=== PATIENT | female | born 1960 | race Caucasian/White ===

== ENCOUNTER 2023-12-22 00:46 | Observation (INO) ==
[2023-12-22 01:07] VITALS: RESP 16; TEMP 99
[2023-12-22 02:30] LABS: Basophils # (auto) 0.04 K/uL (0.00-0.20); Basophils % (auto) 0.5 %; Eosinophils # (auto) 0.23 K/uL (0.00-0.50); Eosinophils % (auto) 2.8 %; Hematocrit (blood only) 37.5 % (37.0-47.0); Immature Granulocytes # (auto) 0.03 K/uL (0.01-0.20); Immature Granulocytes % (auto) 0.4 %; Lymphocytes # (auto) 1.85 K/uL (1.20-3.40); Lymphocytes % (auto) 22.2 %; Mean Corpuscular Hemoglobin 32.4 pg (25.0-34.0); Mean Corpuscular Hgb Conc 34.7 g/dL (32.0-36.0); Mean Corpuscular Volume 93.5 fL (80.0-100.0); Mean Platelet Volume 10.3 fL (9.4-12.4); Monocytes # (auto) 0.92 K/uL (0.11-0.59); Neutrophils # (auto) 5.26 K/uL (1.40-6.50); Neutrophils % (auto) 63.1 %; Platelet Count 239 K/uL (130-400); RDW Coefficient of Variation 18.5 % (11.5-14.5); RDW Standard Deviation 61.4 fL (36.4-46.3); Red Blood Count 4.01 M/uL (4.20-5.40); White Blood Count 8.33 K/ul (4.8-10.8)
[2023-12-22 02:38] LABS: Alanine Aminotransferase 18 U/L (7-52); Albumin Globulin Ratio 1.3 (0.9-2); Albumin Level 3.8 gm/dl (3.4-5.0); Alkaline Phosphatase 71 U/L (34-104); Anion Gap 8 (3-11); BUN Creatinine Ratio 20.5 (10-20); Bilirubin,Total 0.5 mg/dl (0.2-1.0); Blood Urea Nitrogen 18 mg/dl (6-23); Calcium 8.6 mg/dl (8.6-10.3); Carbon Dioxide 25 mmol/L (21-32); Chloride 104 mmol/L (98-107); Creatinine Clr Calc Pharmacy 87.4 ml/min; Est GFR (African American) 81.6 ml/min; Est GFR (Non-African American) 70.4 ml/min; Glucose 120 mg/dl (70-99(Fasting)); Sodium 137 mmol/L (136-145); Thyroid Stimulating Hormone 5.892 uIu/ml (0.300-4.500); Total Protein 6.8 gm/dl (6.0-8.3)
--- NOTE | 2023-12-22 02:39 | Emergency Department Note ---
Impression & Plan TIA (transient ischemic attack) admit to the [facility] ED Provider Note NAME: TYRONE VANEGAS AGE: 63 SEX: Female INFORMANT: Patient ED PROVIDER(S): Aurora Barraza DO CHIEF COMPLAINT: weakness PLAN: Disposition: admit to the [facility] MEDICAL DECISION MAKING: this is a 63-year-old female patient with a history of metastatic breast cancer presents to the emergency department after having an episode of lower extremity weakness and slurred speech. the patient had waxing and waning symptoms during transport by EMS. Patient has a history of metastatic brain cancer with possible mets to the brain. CT scan of the brain here tonight was negative. I did review a previous MRI of the brain from September 2023 in the [facility] system. Laboratory studies revealed no leukocytosis or anemia. Glucose was 120. Analysis was unremarkable. TSH was elevated but free T4 was normal. Neuro exam here in the emergency department was unremarkable. Patient's symptoms Seem consistent with a TIA. I discussed case with the [facility] Hospitalist and they will evaluate for further inpatient care. Care/management discussed with: The patient and her Triage Nursing notes: reviewed and agree with them. Vital Signs: reviewed and remarkable for hypertension Additional History obtained from: patient's is at the bedside Chronic Medical/Social Conditions affecting care: Metastatic breast cancer Prior/ Outside/ External records reviewed: multiple records from [facility] including MRI of the brain and PET scan from September 2023 Differential Diagnosis: intracranial hemorrhage, CVA, metastatic disease to the brain, seizure Diagnostics, independently interpreted by me: ECG: normal sinus rhythm at a rate of 92 with a poor baseline. There is no ST segment elevation or signs of ischemia. Cardiac Monitoring: Normal sinus rhythm at a rate of 87 Imaging studies: CT scan of the brain: As per stat rad chest x-ray: No acute pulmonary pathology as per my independent interpretation. The patient has significant hardware through the cervical spine. HPI: 63 year old Female arrives for evaluation of lower extremity weakness. Patient got up to go to the bathroom overnight and had extreme weakness in her legs. She came back to the bed as her tried to help her sit on the edge of the bed, she slid to the floor. He called for EMS. Patient was noted to have slurred speech and was leaning off to 1 side. It seems that her right lower extremity was numb and tingling and she felt as if her tongue was thick. PAST MEDICAL HISTORY: See Below, PAST SURGICAL HISTORY: See Below, SOCIAL HISTORY: See Below, HOME MEDICATIONS: See list ALLERGIES: sulfa VITALS: See Below PHYSICAL EXAMINATION: HEENT: Head - normocephalic and atraumatic. Pupils are equal, round, and reactive to light. Extraocular eye muscles are intact and sclera are anicteric. Nose - moist nasal mucosa without discharge. Mouth - moist buccal mucosa. Oropharynx is nonerythematous and there is no tonsillar exudate or edema noted. Neck: Supple; no JVD, nuchal rigidity, cervical lymphadenopathy, or auscultated bruits. Heart: Regular rate and rhythm. There is a normal S1 and S2 with no murmurs, clicks, or gallops appreciated. Lungs: Clear to auscultation bilaterally with no wheezes, rales, or rhonchi. Abdomen: Soft, completely nontender, nondistended, with good bowel sounds. There are no palpable pulsatile masses or hepatosplenomegaly. There is no guarding, rigidity, or rebound noted. Extremities: No evidence of cyanosis, clubbing, or edema. There are easily palpable peripheral pulses. Neuro:The patient is awake and alert, oriented to day, time, and place. Muscle strength is 5/5 in all 4 extremities. 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 There are no cerebellar signs. Emergency department course: The patient was evaluated in room B-6. A complete history and physical was performed. A twelve-lead EKG was obtained as described above. Normal was placed for continuous cardiac monitoring. The patient was in a normal sinus rhythm at a rate of 87. Laboratory studies were drawn as above. The patient went for CT scan of the brain. Urine specimen was obtained. I reviewed the results of the laboratory studies and CT scan with the patient and her . I discussed the case with the [facility] Hospitalist and they will evaluate for further inpatient care. Past Med/Surg History Problem List (Updated 12/22/23 @ 06:41 by Aurora Barraza DO) TIA (transient ischemic attack) (Acute) Brain metastasis (Chronic) Breast cancer metastasized to multiple sites (Chronic 08/16/21) Environmental and seasonal allergies GERD (gastroesophageal reflux disease) Raynauds syndrome (Chronic) Asthma (Chronic) 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 breast in female, estrogen receptor positive (Chronic) Medical History (Updated 12/22/23 @ 06:41 by Aurora Barraza DO) Port-A-Cath in place (09/03/21) Breast cancer Diagnosed 02/26/18, Invasive Carcinoma lumpectomy, radiations, Anastrozole therapy Benign neoplasm of colon 2011 Surgical History (Updated 09/10/21 @ 08:21 by Leonor Akhtar RN) History of back surgery (08/20/21) Endoscopic Transforaminal, Transpedicular Partial Posterior Corpectomy of T3 + Open T2-T4 Laminectomies + Partial Resection of Metastatic Tumor +Transection of T3 Nerve Root + Percutaneous Pedicular Screw Instrumentation of T1, T2, T4, T5 Right and T2, T4, T5 Left + Bilateral Posterior Juan Placement Dr. Lorenzo Gallardo at [facility] History of ethmoidectomy 07/31/08 - Partial with repair of nasal septum History of sinus surgery 07/31/08, 12/15/11 - Maxillary Sinus Endoscopy with Tissue Removal History of lumpectomy of right breast 04/11/18 - and sentinal lymph node biopsy History of dental surgery 1991, 1992 - Jaw/Palate for bite History of pelvic surgery 1987 - Cryocautery of Cervix History of colonoscopy 2011, 2016 Family History (Updated 05/30/18 @ 09:22 by Mónica Melendez RN) Mother , Passed age 83 of parkinson's disease complications No problems noted. Father , Passed age 40 of [place] No problems noted. Unknown Breast cancer, Onset Age: 65 Alive and well - mastectomy Unknown , Passed age 62 of Pancreatic [place] Pancreatic cancer, Onset Age: 63 Brother No problems noted. Brother No problems noted. Sister No problems noted. Sister No problems noted. Social History Smoking Status: Never smoker Hx Alcohol Use: No Hx Substance Use: No Preferred Language: Argentine Communication Ability: Effective Visual Impairment: Limited Hearing Ability: Normal Pump Room Operator Required: No Beliefs That Will Affect Care: None marital status: Current Living Situation: Spouse current occupational status: employed current occupation: [employer] Other Information That Helps Us Care for You: No Feels Safe at Home: Yes Safety Concerns: Feels Safe At This Time caffeine: Yes (Occasionally ) during the past year weight has: increased > 10 lbs Assistive Devices: Glasses Allergies Allergies Allergy/AdvReac Type Severity Reaction Status Date / Time Sulfa (Sulfonamide Allergy Mild Rash Verified 12/22/23 04:27 Antibiotics) Home Meds Home Medications Medication Instructions Recorded Confirmed albuterol sulfate 90 mcg/actuation 2 puffs inhalation Q6H PRN 05/30/18 12/22/23 aerosol inhaler (Proventil HFA) Shortness Of Breath Or Wheezing azelastine 137 mcg (0.1 %) nasal 2 sprays intranasal BID 05/30/18 12/22/23 spray meclizine 12.5 mg tablet 12.5 mg PO TID PRN car sickness 05/30/18 12/22/23 montelukast 10 mg tablet 10 mg PO DAILY 05/30/18 12/22/23 (Singulair) multivitamin 1 tab PO DAILY 05/30/18 12/22/23 vitamin B complex (B Complex 1 1 tab PO DAILY 05/30/18 12/22/23 tablet) famotidine 20 mg tablet 20 mg PO BID 02/12/19 12/22/23 levocetirizine 5 mg tablet (Xyzal) 5 mg PO DAILY 02/18/20 12/22/23 aspirin 81 mg tablet,delayed 81 mg PO DAILY 02/22/22 12/22/23 release Calcium + D 3 cap PO DAILY 04/27/22 12/22/23 acetaminophen 500 mg tablet 500 mg PO Q6H PRN Pain, Mild 04/27/22 12/22/23 (Tylenol Extra Strength) esomeprazole magnesium 20 mg 20 mg PO DAILY 04/27/22 12/22/23 capsule,delayed release fluticasone propionate 50 2 spray intranasal DAILY 04/27/22 12/22/23 mcg/actuation nasal spray,suspension ondansetron HCl 8 mg tablet 8 mg PO Q8H PRN Nausea 04/27/22 12/22/23 prochlorperazine maleate 10 mg 10 mg PO Q6H PRN Nausea 04/27/22 12/22/23 tablet (Compazine) sodium chloride 0.65 % nasal spray 1 spray intranasal .Q2-4H PRN dry 04/27/22 12/22/23 aerosol (Saline Mist) nasal passages/congestion vitamin E 200 unit capsule 100 unit PO DAILY 04/27/22 12/22/23 denosumab 120 mg/1.7 mL (70 mg/mL) 120 mg subcut .q 6 weeks 09/06/22 12/22/23 subcutaneous solution (Xgeva) capecitabine 500 mg tablet (Xeloda) 1,300 mg PO .As directed 03/15/23 12/22/23 potassium chloride 20 mEq 20 meq PO DAILY 03/15/23 12/22/23 tablet,extended release diphenoxylate-atropine 2.5 1 tab PO Q6H PRN Diarrhea 09/13/23 12/22/23 mg-0.025 mg tablet (Lomotil) loperamide 2 mg capsule (Imodium 2 mg PO Q6H PRN Diarrhea 09/13/23 12/22/23 A-D) tucatinib 150 mg tablet 250 mg PO Q12H 09/13/23 12/22/23 clobetasol 0.05 % topical cream 0.05 g topical BID 12/22/23 12/22/23 fluticasone furoate 200 200 mcg inhalation DAILY 12/22/23 12/22/23 mcg/actuation blister powder for inhalation (Arnuity Ellipta) Results & Data (ED) Vital Signs Vital Signs - 24 hr 12/22/23 00:33 12/22/23 00:33 12/22/23 00:54 Temperature 37.2 C Temperature Source Oral Pulse Rate 90 92 H Pulse Rate [Apical] Pulse Rhythm [Apical] Pulse Strength [Apical] Respiratory Rate 16 Respiratory Effort / Characteristics Non-Labored Non-Labored Respiratory Depth Normal Normal Blood Pressure 137/87 Blood Pressure [Right Arm] Blood Pressure Mean 103 Blood Pressure Mean [Right Arm] Pulse Oximetry 95 Oxygen Delivery Method Room Air Sepsis Recent Fever Within 48 Hours No Sepsis New/Unexplained Change in Mental Status No Sepsis Action Taken by Nursing No Action Required 12/22/23 01:46 12/22/23 02:33 12/22/23 05:23 Temperature Temperature Source Pulse Rate 88 Pulse Rate [Apical] 85 Pulse Rhythm [Apical] Regular Pulse Strength [Apical] Normal Respiratory Rate 16 Respiratory Effort / Characteristics Non-Labored Spontaneous Respiratory Depth Normal Blood Pressure Blood Pressure [Right Arm] 160/88 H Blood Pressure Mean Blood Pressure Mean [Right Arm] 112 Pulse Oximetry 98 Oxygen Delivery Method Room Air Room Air Sepsis Recent Fever Within 48 Hours Sepsis New/Unexplained Change in Mental Status Sepsis Action Taken by Nursing 12/22/23 06:47 Temperature Temperature Source Pulse Rate Pulse Rate [Apical] 87 Pulse Rhythm [Apical] Regular Pulse Strength [Apical] Respiratory Rate 16 Respiratory Effort / Characteristics Non-Labored Respiratory Depth Normal Blood Pressure Blood Pressure [Right Arm] 119/82 Blood Pressure Mean Blood Pressure Mean [Right Arm] 94 Pulse Oximetry 99 Oxygen Delivery Method Room Air Sepsis Recent Fever Within 48 Hours Sepsis New/Unexplained Change in Mental Status Sepsis Action Taken by Nursing Laboratory Data 12/22/23 00:59 12/22/23 02:46 Lab Results 12/22/23 12/22/23 12/22/23 Range/Units 00:59 02:46 03:02 WBC 8.33 (4.8-10.8) K/ul RBC 4.01 L (4.20-5.40) M/uL Hgb 13.0 (12.0-16.0) g/dl Hct 37.5 (37.0-47.0) % MCV 93.5 (80.0-100.0) fL MCH 32.4 (25.0-34.0) pg MCHC 34.7 (32.0-36.0) g/dL RDW Std Deviation 61.4 H (36.4-46.3) fL RDW Coeff of Bruce 18.5 H (11.5-14.5) % Plt Count 239 (130-400) K/uL MPV 10.3 (9.4-12.4) fL Immature Gran % (Auto) 0.4 % Neut % (Auto) 63.1 % Lymph % (Auto) 22.2 % [place] % (Auto) 11.0 % Eos % (Auto) 2.8 % Baso % (Auto) 0.5 % Neut # (Auto) 5.26 (1.40-6.50) K/uL Lymph # (Auto) 1.85 (1.20-3.40) K/uL [place] # (Auto) 0.92 H (0.11-0.59) K/uL Eos # (Auto) 0.23 (0.00-0.50) K/uL Baso # (Auto) 0.04 (0.00-0.20) K/uL Immature Gran # (Auto) 0.03 (0.01-0.20) K/uL Sodium 137 (136-145) mmol/L Potassium TNP 3.8 Chloride 104 (98-107) mmol/L Carbon Dioxide 25 (21-32) mmol/L Anion Gap 8 (3-11) BUN 18 (6-23) mg/dl Creatinine 0.88 (0.6-1.2) mg/dl Est Cr Clr Drug Dosing 87.4 ml/min Est GFR ( Amer) 81.6 ml/min Est GFR (Non-Af Amer) 70.4 ml/min BUN/Creatinine Ratio 20.5 H (10-20) Glucose 120 H (70-99(Fasting)) mg/dl Calcium 8.6 (8.6-10.3) mg/dl Magnesium 1.9 (1.7-2.4) mg/dl Total Bilirubin 0.5 (0.2-1.0) mg/dl AST TNP 18 ALT 18 (7-52) U/L Alkaline Phosphatase 71 (34-104) U/L Total Protein 6.8 (6.0-8.3) gm/dl Albumin 3.8 (3.4-5.0) gm/dl Globulin 3.0 (2.5-4.0) gm/dl Albumin/Globulin Ratio 1.3 (0.9-2) TSH 5.892 H (0.300-4.500) uIu/ml Free T4 1.03 (0.61-1.60) ng/dl Urine Color Yellow Urine Appearance Clear (Clear) Urine pH 6.0 (4.5-7.5) Ur Specific [place] 1.008 (1.000-1.030) Urine Protein Negative (Negative) Urine Glucose (UA) Negative (Negative) Urine Ketones Negative (Negative) Urine Blood Negative (Negative) Urine Nitrite Negative (Negative) Urine Bilirubin Negative (Negative) Urine Urobilinogen Negative (Negative) Ur Leukocyte Esterase 1+ H (Negative) Urine WBC (Auto) 0-5 (0-5) /hpf Urine RBC (Auto) 0-2 (0-2) /hpf U Hyaline Cast (Auto) 0-2 (0-2) /lpf U Epithel Cells (Auto) 0-2 (0-2) /hpf Urine Bacteria (Auto) None Seen (None Seen) Administered Medications Potassium Chloride/Sodium Chloride (Normal Saline W/20 Meq Kcl) 20 meq in 1,000 mls @ 50 mls/hr IV .Q20H STA; Protocol Stop: 12/23/23 00:26 Last Admin: 12/22/23 05:43 Dose: 50 mls/hr Documented By: [facility] Discontinued Medications Gadobutrol (Gadobutrol 65ml Vial) 10.5 ml IV ONCE ONE Stop: 12/22/23 07:36 Last Admin: 12/22/23 07:35 Dose: 10.5 ml Documented By: [facility] Imaging Data Radiologist's Impression: Head CT 12/22/23 01:46 Exam(s): CT HEAD Without Contrast EXAM: CT Head Without Intravenous Contrast CLINICAL HISTORY: Reason for exam: altered ms; h/o breast ca. TECHNIQUE: Axial computed tomography images of the head/brain without intravenous contrast. CTDI is 36.55 mGy and DLP is 547.75 mGy-cm. Automated exposure control was utilized for the study. A dose lowering technique was utilized adhering to the principles of ALARA. COMPARISON: No relevant prior studies available. FINDINGS: Brain: Age-related cerebral volume loss. Periventricular and subcortical white matter hypoattenuation, consistent with chronic microangiopathy. Encephalomalacia in the RIGHT frontal lobe, consistent with old infarct. No acute intracranial hemorrhage. No midline shift or mass effect. Ventricles: Unremarkable. No ventriculomegaly. Bones/joints: Unremarkable. No acute fracture. Soft tissues: Unremarkable. Sinuses: Unremarkable as visualized. No acute sinusitis. Mastoid air cells: Unremarkable as visualized. No mastoid effusion. IMPRESSION: No acute intracranial hemorrhage. No midline shift or mass effect. Encephalomalacia in the RIGHT frontal lobe, consistent with old infarct. Electronically signed by: Alexandru Samayoa MD 12/22/23 03:20 AM Discharge Plan Visit Data Chief Complaint: Fall Stated Complaint: Weakness, Fall ED Provider: Aurora Barraza Discharge Problem: TIA (transient ischemic attack) Forms Stand Alone Forms: [facility] [place] Prescriptions Prescriptions: No Action levocetirizine [Xyzal] 5 mg tablet 5 mg PO DAILY fluticasone propionate 50 mcg/actuation spray,suspension 2 spray intranasal DAILY Rx Instructions: administer into each nostril esomeprazole magnesium 20 mg capsule,delayed release(DR/EC) 20 mg PO DAILY Rx Instructions: 30 minutes before supper ondansetron HCl 8 mg tablet 8 mg PO Q8H PRN (Reason: Nausea) prochlorperazine maleate [Compazine] 10 mg tablet 10 mg PO Q6H PRN (Reason: Nausea) azelastine 137 mcg (0.1 %) aerosol,spray 2 sprays INTNAS BID albuterol sulfate [Proventil HFA] 90 mcg/actuation HFA aerosol inhaler 2 puffs INH Q6H PRN (Reason: Shortness Of Breath Or Wheezing) meclizine 12.5 mg tablet 12.5 mg PO TID PRN (Reason: car sickness) montelukast [Singulair] 10 mg tablet 10 mg PO DAILY vitamin B complex [B Complex 1] tablet 1 tab PO DAILY multivitamin tablet 1 tab PO DAILY famotidine 20 mg tablet 20 mg PO BID Saline Mist 0.65 % aerosol,spray 1 spray INTNAS .Q2-4H PRN (Reason: dry nasal passages/congestion) vitamin E 200 unit capsule 100 unit PO DAILY Calcium + D 3 cap PO DAILY acetaminophen [Tylenol Extra Strength] 500 mg tablet 500 mg PO Q6H PRN (Reason: Pain, Mild) aspirin 81 mg tablet,delayed release (DR/EC) 81 mg PO DAILY Xgeva 120 mg/1.7 mL (70 mg/mL) solution 120 mg subcut .q 6 weeks capecitabine [Xeloda] 500 mg tablet 1,300 mg PO .As directed Rx Instructions: Take 4 tablets by mouth in the morning and 4 tablets before bedtime. FOr 7 days followed by a 7 day rest period. Take within 30 minutes of a meal. DO not crush or cut tucatinib 150 mg tablet 250 mg PO Q12H potassium chloride 20 mEq tablet extended release 20 meq PO DAILY loperamide [Imodium A-D] 2 mg capsule 2 mg PO Q6H PRN (Reason: Diarrhea) diphenoxylate-atropine [Lomotil] 2.5-0.025 mg tablet 1 tab PO Q6H PRN (Reason: Diarrhea) clobetasol 0.05 % cream 0.05 g TOPICAL BID Arnuity Ellipta 200 mcg/actuation blister with device 200 mcg INHALATION DAILY Referrals Referrals: Aleksandr Parker MD [Primary Care Provider] -
--- NOTE | 2023-12-22 03:21 | CT Scan Report ---
Exam(s): CT HEAD Without Contrast EXAM: CT Head Without Intravenous Contrast CLINICAL HISTORY: Reason for exam: altered ms; h/o breast ca. TECHNIQUE: Axial computed tomography images of the head/brain without intravenous contrast. CTDI is 36.55 mGy and DLP is 547.75 mGy-cm. Automated exposure control was utilized for the study. A dose lowering technique was utilized adhering to the principles of ALARA. COMPARISON: No relevant prior studies available. FINDINGS: Brain: Age-related cerebral volume loss. Periventricular and subcortical white matter hypoattenuation, consistent with chronic microangiopathy. Encephalomalacia in the RIGHT frontal lobe, consistent with old infarct. No acute intracranial hemorrhage. No midline shift or mass effect. Ventricles: Unremarkable. No ventriculomegaly. Bones/joints: Unremarkable. No acute fracture. Soft tissues: Unremarkable. Sinuses: Unremarkable as visualized. No acute sinusitis. Mastoid air cells: Unremarkable as visualized. No mastoid effusion. IMPRESSION: No acute intracranial hemorrhage. No midline shift or mass effect. Encephalomalacia in the RIGHT frontal lobe, consistent with old infarct. Electronically signed by: Alexandru Samayoa MD 12/22/23 03:20 AM
[2023-12-22 03:49] LABS: Appearance Urine Clear (Clear); Bacteria Urine Automated None Seen (None Seen); Bilirubin Urine Negative (Negative); Blood Urine Negative (Negative); Cast Urine Automated 0-2 /lpf (0-2); Color Urine Yellow; Epithelial Cell Urine Auto 0-2 /hpf (0-2); Glucose Urine UA Negative (Negative); Ketones Urine Negative (Negative); Leukocyte Esterase Urine 1+ (Negative); Nitrite Urine Negative (Negative); Protein Urine Negative (Negative); RBC Urine Automated 0-2 /hpf (0-2); Specific Gravity Urine 1.008 (1.000-1.030); Urobilinogen Urine Negative (Negative); WBC Urine Automated 0-5 /hpf (0-5)
[2023-12-22 04:09] LABS: T4 Free Thyroxine 1.03 ng/dl (0.61-1.60)
[2023-12-22 04:12] LABS: Potassium 3.8 mmol/L (3.5-5.1)
--- NOTE | 2023-12-22 04:31 | History & Physical Report ---
Date of Service December 22, 2023 Assessment & Plan (1) TIA (transient ischemic attack): Plan: Old CVA on last brain imaging as per patient account on aspirin prophylaxis ? Possible aspirin failure Rule out progression of brain mets, hx breast cancer status post surgery/radiation ongoing chemotherapy, Situational hypertension bronchial asthma, patient without pulmonary complaints. Hyperglycemia rule out DM OBS Medical telemetry Neurochecks Permissive hypertension for now until new stroke ruled out MRI/MRA brain Further management pending MRI results Check hemoglobin A1c DVT prophylaxis. SCDs Re: History of brain mets Full code Patient requesting updates providers. Mr. Juan R Walters, contact #[phone]. Text document was generated using [employer] voice recognition software. It may contain grammatical or spelling errors. Kindly contact undersigned for clarification of any documentation item in question. History of Present Illness Chief Complaint: Transient right-sided weakness Primary Care Provider: Aleksandr Parker MD History obtained from patient, family, and records. Medical history significant for old stroke on past brain imaging as per patient, right breast cancer status post surgery/radiation with known brain/liver/bone mets ongoing chemotherapy, bronchial asthma, GERD. Earlier this morning, patient had difficulty getting out of bed that she had to be helped by her . Bilateral leg weakness more on the right. Possible RUE weakness. Usual neuropathy symptoms from chemotherapy medications. Speech somewhat slurred, tongue felt thick as per patient. Denies headache, chest pain, SOB, back pain. Compliant with home aspirin for old stroke on past brain imaging as per patient. Symptoms lasted about 15 minutes. Patient brought to ER by EMS. Patient currently comfortable and back to baseline. Highest SBP of 160s noted at the ER. 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 Allergies Allergy/AdvReac Type Severity Reaction Status Date / Time Sulfa (Sulfonamide Allergy Mild Rash Verified 12/22/23 04:27 Antibiotics) Home Medications Medication Instructions Recorded Confirmed Type albuterol sulfate 90 mcg/actuation 2 puffs inhalation Q6H PRN 05/30/18 12/22/23 History aerosol inhaler (Proventil HFA) Shortness Of Breath Or Wheezing azelastine 137 mcg (0.1 %) nasal 2 sprays intranasal BID 05/30/18 12/22/23 History spray meclizine 12.5 mg tablet 12.5 mg PO TID PRN car sickness 05/30/18 12/22/23 History montelukast 10 mg tablet 10 mg PO DAILY 05/30/18 12/22/23 History (Singulair) multivitamin 1 tab PO DAILY 05/30/18 12/22/23 History vitamin B complex (B Complex 1 1 tab PO DAILY 05/30/18 12/22/23 History tablet) famotidine 20 mg tablet 20 mg PO BID 02/12/19 12/22/23 History levocetirizine 5 mg tablet (Xyzal) 5 mg PO DAILY 02/18/20 12/22/23 History aspirin 81 mg tablet,delayed 81 mg PO DAILY 02/22/22 12/22/23 History release Calcium + D 3 cap PO DAILY 04/27/22 12/22/23 History acetaminophen 500 mg tablet 500 mg PO Q6H PRN Pain, Mild 04/27/22 12/22/23 History (Tylenol Extra Strength) esomeprazole magnesium 20 mg 20 mg PO DAILY 04/27/22 12/22/23 History capsule,delayed release fluticasone propionate 50 2 spray intranasal DAILY 04/27/22 12/22/23 History mcg/actuation nasal spray,suspension ondansetron HCl 8 mg tablet 8 mg PO Q8H PRN Nausea 04/27/22 12/22/23 History prochlorperazine maleate 10 mg 10 mg PO Q6H PRN Nausea 04/27/22 12/22/23 History tablet (Compazine) sodium chloride 0.65 % nasal spray 1 spray intranasal .Q2-4H PRN dry 04/27/22 12/22/23 History aerosol (Saline Mist) nasal passages/congestion vitamin E 200 unit capsule 100 unit PO DAILY 04/27/22 12/22/23 History denosumab 120 mg/1.7 mL (70 mg/mL) 120 mg subcut .q 6 weeks 09/06/22 12/22/23 History subcutaneous solution (Xgeva) capecitabine 500 mg tablet (Xeloda) 1,300 mg PO .As directed 03/15/23 12/22/23 History potassium chloride 20 mEq 20 meq PO DAILY 03/15/23 12/22/23 History tablet,extended release diphenoxylate-atropine 2.5 1 tab PO Q6H PRN Diarrhea 09/13/23 12/22/23 History mg-0.025 mg tablet (Lomotil) loperamide 2 mg capsule (Imodium 2 mg PO Q6H PRN Diarrhea 09/13/23 12/22/23 History A-D) tucatinib 150 mg tablet 250 mg PO Q12H 09/13/23 12/22/23 History clobetasol 0.05 % topical cream 0.05 g topical BID 12/22/23 12/22/23 History fluticasone furoate 200 200 mcg inhalation DAILY 12/22/23 12/22/23 History mcg/actuation blister powder for inhalation (Arnuity Ellipta) Past Med/Surg History Problem List (Updated 12/22/23 @ 06:41 by Aurora Barraza DO) TIA (transient ischemic attack) (Acute) Brain metastasis (Chronic) Breast cancer metastasized to multiple sites (Chronic 08/16/21) Environmental and seasonal allergies GERD (gastroesophageal reflux disease) Raynauds syndrome (Chronic) Asthma (Chronic) 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 breast in female, estrogen receptor positive (Chronic) Medical History (Updated 12/22/23 @ 06:41 by Aurora Barraza DO) Port-A-Cath in place (09/03/21) Breast cancer Diagnosed 02/26/18, Invasive Carcinoma lumpectomy, radiations, Anastrozole therapy Benign neoplasm of colon 2011 Surgical History (Updated 09/10/21 @ 08:21 by Leonor Akhtar RN) History of back surgery (08/20/21) Endoscopic Transforaminal, Transpedicular Partial Posterior Corpectomy of T3 + Open T2-T4 Laminectomies + Partial Resection of Metastatic Tumor +Transection of T3 Nerve Root + Percutaneous Pedicular Screw Instrumentation of T1, T2, T4, T5 Right and T2, T4, T5 Left + Bilateral Posterior Juan Placement Dr. Lorenzo Gallardo at [facility] History of ethmoidectomy 07/31/08 - Partial with repair of nasal septum History of sinus surgery 07/31/08, 12/15/11 - Maxillary Sinus Endoscopy with Tissue Removal History of lumpectomy of right breast 04/11/18 - and sentinal lymph node biopsy History of dental surgery 1991, 1992 - Jaw/Palate for bite History of pelvic surgery 1987 - Cryocautery of Cervix History of colonoscopy 2016 Family History (Updated 05/30/18 @ 09:22 by Mónica Melendez RN) Mother , Passed age 83 of parkinson's disease complications No problems noted. Father , Passed age 40 of [place] No problems noted. Unknown Breast cancer, Onset Age: 65 Alive and well - mastectomy Unknown , Passed age 62 of Pancreatic [place] Pancreatic cancer, Onset Age: 62 Brother No problems noted. Brother No problems noted. Sister No problems noted. Sister No problems noted. 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 Other Information That Helps Us Care for You: No Feels Safe at Home: Yes Safety Concerns: Feels Safe At This Time caffeine: Yes (Occasionally ) during the past year weight has: increased > 10 lbs Assistive Devices: Glasses Review of Systems Review of Systems: As per HPI, all other systems reviewed and negative Physical Exam Physical Exam: GENERAL: Comfortable, pleasant, obese, no respiratory distress SKIN: Normal color, warm HEENT: Alopecia, bespectacled, Mallard palpebral conjunctivae, no ptosis, dry buccal mucosa NECK : Supple, no tenderness CHEST : CTA, no tenderness HEART : RRR, no obvious murmurs ABDOMEN: Some distention, nontender EXTREMITIES : Bilateral hand erythema (from chemotherapy as per patient), minimal LE swelling, no LE tenderness, no other conspicuous deformities noted NEUROLOGIC : Coherent, no facial asymmetry, no other gross focality Results & Data Results & Data Vital Signs (Past 12 Hours) Vital Signs Temp Pulse Pulse Resp BP BP Pulse Ox 12/22/23 02:33 85 16 160/88 H 98 12/22/23 01:46 12/22/23 00:54 92 H 12/22/23 00:33 37.2 C 90 16 137/87 95 O2 Del Method 12/22/23 02:33 Room Air 12/22/23 01:46 Room Air 12/22/23 00:54 12/22/23 00:33 Room Air Laboratory Results Laboratory Results WBC 8.33 K/ul (4.8-10.8) 12/22/23 00:59 RBC 4.01 M/uL (4.20-5.40) L 12/22/23 00:59 Hgb 13.0 g/dl (12.0-16.0) 12/22/23 00:59 Hct 37.5 % (37.0-47.0) 12/22/23 00:59 MCV 93.5 fL (80.0-100.0) 12/22/23 00:59 MCH 32.4 pg (25.0-34.0) 12/22/23 00:59 MCHC 34.7 g/dL (32.0-36.0) 12/22/23 00:59 RDW Std Deviation 61.4 fL (36.4-46.3) H 12/22/23 00:59 RDW Coeff of Bruce 18.5 % (11.5-14.5) H 12/22/23 00:59 Plt Count 239 K/uL (130-400) 12/22/23 00:59 MPV 10.3 fL (9.4-12.4) 12/22/23 00:59 Immature Gran % (Auto) 0.4 % 12/22/23 00:59 Neut % (Auto) 63.1 % 12/22/23 00:59 Lymph % (Auto) 22.2 % 12/22/23 00:59 [place] % (Auto) 11.0 % 12/22/23 00:59 Eos % (Auto) 2.8 % 12/22/23 00:59 Baso % (Auto) 0.5 % 12/22/23 00:59 Neut # (Auto) 5.26 K/uL (1.40-6.50) 12/22/23 00:59 Lymph # (Auto) 1.85 K/uL (1.20-3.40) 12/22/23 00:59 [place] # (Auto) 0.92 K/uL (0.11-0.59) H 12/22/23 00:59 Eos # (Auto) 0.23 K/uL (0.00-0.50) 12/22/23 00:59 Baso # (Auto) 0.04 K/uL (0.00-0.20) 12/22/23 00:59 Immature Gran # (Auto) 0.03 K/uL (0.01-0.20) 12/22/23 00:59 Sodium 137 mmol/L (136-145) 12/22/23 00:59 Potassium 3.8 mmol/L (3.5-5.1) 12/22/23 02:46 Chloride 104 mmol/L (98-107) 12/22/23 00:59 Carbon Dioxide 25 mmol/L (21-32) 12/22/23 00:59 Anion Gap 8 (3-11) 12/22/23 00:59 BUN 18 mg/dl (6-23) 12/22/23 00:59 Creatinine 0.88 mg/dl (0.6-1.2) 12/22/23 00:59 Est Cr Clr Drug Dosing 87.4 ml/min 12/22/23 00:59 Est GFR ( Amer) 81.6 ml/min 12/22/23 00:59 Est GFR (Non-Af Amer) 70.4 ml/min 12/22/23 00:59 BUN/Creatinine Ratio 20.5 (10-20) H 12/22/23 00:59 Glucose 120 mg/dl (70-99(Fasting)) H 12/22/23 00:59 Calcium 8.6 mg/dl (8.6-10.3) 12/22/23 00:59 Total Bilirubin 0.5 mg/dl (0.2-1.0) 12/22/23 00:59 AST 18 U/L (13-39) 12/22/23 02:46 ALT 18 U/L (7-52) 12/22/23 00:59 Alkaline Phosphatase 71 U/L (34-104) 12/22/23 00:59 Total Protein 6.8 gm/dl (6.0-8.3) 12/22/23 00:59 Albumin 3.8 gm/dl (3.4-5.0) 12/22/23 00:59 Globulin 3.0 gm/dl (2.5-4.0) 12/22/23 00:59 Albumin/Globulin Ratio 1.3 (0.9-2) 12/22/23 00:59 TSH 5.892 uIu/ml (0.300-4.500) H 12/22/23 00:59 Free T4 1.03 ng/dl (0.61-1.60) 12/22/23 00:59 Urine Color Yellow 12/22/23 03:02 Urine Appearance Clear (Clear) 12/22/23 03:02 Urine pH 6.0 (4.5-7.5) 12/22/23 03:02 Ur Specific [place] 1.008 (1.000-1.030) 12/22/23 03:02 Urine Protein Negative (Negative) 12/22/23 03:02 Urine Glucose (UA) Negative (Negative) 12/22/23 03:02 Urine Ketones Negative (Negative) 12/22/23 03:02 Urine Blood Negative (Negative) 12/22/23 03:02 Urine Nitrite Negative (Negative) 12/22/23 03:02 Urine Bilirubin Negative (Negative) 12/22/23 03:02 Urine Urobilinogen Negative (Negative) 12/22/23 03:02 Ur Leukocyte Esterase 1+ (Negative) H 12/22/23 03:02 Urine WBC (Auto) 0-5 /hpf (0-5) 12/22/23 03:02 Urine RBC (Auto) 0-2 /hpf (0-2) 12/22/23 03:02 U Hyaline Cast (Auto) 0-2 /lpf (0-2) 12/22/23 03:02 U Epithel Cells (Auto) 0-2 /hpf (0-2) 12/22/23 03:02 Urine Bacteria (Auto) None Seen (None Seen) 12/22/23 03:[address] 12/22/23 01:46 Exam(s): CT HEAD Without Contrast EXAM: CT Head Without Intravenous Contrast CLINICAL HISTORY: Reason for exam: altered ms; h/o breast ca. TECHNIQUE: Axial computed tomography images of the head/brain without intravenous contrast. CTDI is 36.55 mGy and DLP is 547.75 mGy-cm. Automated exposure control was utilized for the study. A dose lowering technique was utilized adhering to the principles of ALARA. COMPARISON: No relevant prior studies available. FINDINGS: Brain: Age-related cerebral volume loss. Periventricular and subcortical white matter hypoattenuation, consistent with chronic microangiopathy. Encephalomalacia in the RIGHT frontal lobe, consistent with old infarct. No acute intracranial hemorrhage. No midline shift or mass effect. Ventricles: Unremarkable. No ventriculomegaly. Bones/joints: Unremarkable. No acute fracture. Soft tissues: Unremarkable. Sinuses: Unremarkable as visualized. No acute sinusitis. Mastoid air cells: Unremarkable as visualized. No mastoid effusion. IMPRESSION: No acute intracranial hemorrhage. No midline shift or mass effect. Encephalomalacia in the RIGHT frontal lobe, consistent with old infarct. Electronically signed by: Alexandru Samayoa MD 12/22/23 03:20 AM Diagnostic Findings EKG as per my interpretation : Rate 90, NSR, normal axis, no ischemia, multiple artifacts
[2023-12-22 05:01] LABS: Magnesium 1.9 mg/dl (1.7-2.4)
--- OUTSIDE RECORDS SUMMARY | 2023-12-22 05:16 | External Medical Summary | Summary of Care ---
Author Name Unknown Organization [facility] Address [address] [place] [address] Phone [phone] Care Team Providers Care Diesel Roller Operator Name Role Phone Aleksandr Parker MD Primary Care Provider [phone] Reason for Visit * Reason Comments Outpatient Testing Encounter Details Date Type Department Care Team (Late st Contact Info) Description 12/12/2023 1:10 PM EDT Laboratory Laboratory Scenery [facility] [address] [place] [phone] [place], Lab Scenery [address] [place] [address] 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 breast in female, estrogen receptor positive (HCC); Cancer, metastatic to bone (HCC) Allergies Active Allergy Reactions Criticality Noted Date Comments Sulfa Antibiotics 05/14/1999 rash documented as of this encounter (statuses as of 12/12/2023) Medications Medication Sig Dispensed Refills Start Date End Date Status MULTIVITAMIN TABS OR one daily 0 0 09/11/2003 Active NASAL SALINE 0.65 % NA SOLNIndications:Aller gic rhinitis,Postnasal drip,Chronic sinusitis FLUSH each nostril morning and night and every 2-4 hrs as needed for nasal dryness or congestion 1 0 04/15/2009 Active Multiple Vitamins-Minerals (OCUVITE) Tablet Take 1 Tablet by mouth in the morning. 11/06/2014 Active B Complex Vitamins (VITAMIN B COMPLEX) Tablet Take 1 Tablet by mouth in the morning. 11/06/2014 Active vitamin e 100 UNIT Capsule Take 1 Capsule by mouth in the morning. 11/06/2014 Active albuterol (PROVENTIL HFA) 108 (90 BASE) MCG/ACT inhaler Inhale 2 Puffs by mouth every 6 hours as needed for Cough, Shortness of Breath or Wheezing. 3 Inhaler 5 04/13/2017 Active famotidine (PEPCID) 20 MG Tablet Take 1 Tablet by mouth in the morning and 1 Tablet before bedtime. Active Calcium Carbonate-Vitamin D 500-5 MG-MCG Oral Tablet Take 3 Tablets by mouth in the morning. Active Levocetirizine Dihydrochloride 5 MG Oral Tablet Take 1 Tablet by mouth every evening. 06/07/2019 Active Flonase Sensimist 27.5 MCG/SPRAY Nasal Suspension (Fluticasone Furoate) Administer 2 Sprays into nostril daily. 10 g 12 06/05/2020 Active Esomeprazole Magnesium 20 MG Oral Capsule Delayed Release (NexIUM) Take by mouth 1 Capsule in the morning. 08/04/2021 Active Acetaminophen 500 MG Oral Tablet Take 1 Tablet by mouth every 6 hours as needed. Active Aspirin 81 MG Oral Tablet Delayed Release Take 1 Tablet by mouth in the morning. Active Ferrous Sulfate 325 (65 Fe) MG Oral Tablet Take 1 Tablet by mouth daily with breakfast. Active Xgeva 120 MG/1.7ML Subcutaneous Solution (Denosumab) Inject 120 mg under the skin every 6 weeks. Unsure of dosage Active Prochlorperazine Maleate 10 MG Oral Tablet (Compazine)Indication s: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 breast in female, estrogen receptor positive (HCC),Cancer, metastatic to bone (HCC) Take 1 Tablet by mouth every 6 hours as needed for Nausea. 30 Tablet 3 12/21/2022 Active Montelukast Sodium 10 MG Oral Tablet (Singulair)Indication s:Allergic rhinitis Take 1 Tablet by mouth daily. 90 Tablet 3 03/14/2023 Active Asmanex (60 Metered Doses) 220 MCG/ACT Inhalation Aerosol Powder Breath Activated (Mometasone Furoate) Inhale 1 Puff by mouth in the morning and 1 Puff before bedtime. 3 Each 3 05/03/2023 Active Ondansetron HCl 8 MG Oral TabletIndications:Can cer, metastatic to bone (HCC) Take 1 Tablet by mouth every 8 hours as needed for Nausea. 30 Tablet 5 06/12/2023 Active Capecitabine 500 MG Oral Tablet (Xeloda)Indications:M alignant neoplasm of breast metastatic to brain, right (HCC),Primary malignant neoplasm of breast with metastasis (HCC) Take 4 Tablets by mouth in the morning and 4 Tablets before bedtime. For 7 days followed by 7-day rest period. Take within 30 minutes of meal. Do not crush or cut.. 112 Tablet 5 08/29/2023 Active Additional Information Patient not taking.Reported on 10/06/2023 Ipratropium [place] 0.03 % Nasal Solution (Atrovent) Administer 2 Sprays into each nostril 2 times a day as needed for Rhinitis. 90 mL 3 09/05/2023 Active Tukysa 150 MG Oral Tablet (Tucatinib)Indication s:Primary malignant neoplasm of breast with metastasis (HCC) Take 150 mg by mouth in the morning and 150 mg before bedtime. Along with two 50mg tabs (total dose 250mg). 60 Tablet 09/11/2023 Active Tukysa 50 MG Oral Tablet (Tucatinib)Indication s:Primary malignant neoplasm of breast with metastasis (HCC) Take 100 mg by mouth in the morning and 100 mg before bedtime. Along with 150mg tab (total dose 250mg). 120 Tablet 09/11/2023 Active Clobetasol Propionate 0.05 % External Cream (Temovate) Apply topically to affected area 2 times a day. Apply to feet 30 g 2 09/19/2023 Active Diphenoxylate-Atropin e 2.5-0.025 MG Oral Tablet (Lomotil)Indications: 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 breast in female, estrogen receptor positive (HCC) Take 1 Tablet by mouth 4 times a day as needed for Diarrhea. 30 Tablet 09/29/2023 Active Udderly Smooth Extra Care 20 External CreamIndications:Erendira gnant neoplasm of upper-outer quadrant of right breast in female, estrogen receptor positive (HCC),Cancer, metastatic to bone (HCC) Apply topically to affected area 2 times a day. Apply topically to hands and feet twice daily. 228 g 2 10/23/2023 Active Potassium Chloride ER 10 MEQ Oral Tablet Extended ReleaseIndications:Ma lignant neoplasm of upper-outer quadrant of right breast in female, estrogen receptor positive (HCC),Hypokalemia TAKE 2 TABLETS IN THE MORNING 180 Tablet 3 10/24/2023 Active Fluticasone Furoate 200 MCG/ACT Inhalation Aerosol Powder Breath Activated (ARNUITY ellipta) Inhale 1 Puff by mouth in the morning. 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 2 Encounter for antineoplastic chemotherapy 2021 Nonallergic rhinitis 01/18/2021 Iron deficiency anemia 05/25/2018 Malignant neoplasm of upper- outer quadrant of right breast in female, estrogen receptor positive 05/25/2018 Cancer Staging:Clinical: Unsigned Pathologic stage from 05/25/2018:Stage IA(pT1a, pN0, cM0, G2, ER: Positive, IL: Negative, HER2: Positive) - Signed by Ruddy Robbins MD on 05/25/2018 LPRD (laryngopharyngeal reflux disease) 11/28/19 18 Positional sleep apnea 06/30/2016 Chronic sinusitis 04/29/2015 Vasovagal syncope 02/09/2015 Asthma, mild persistent 04/15/2009 Raynaud's syndrome 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 Pathologic fracture of thoracic vertebrae documented as of this encounter (statuses as of 12/12/2023) Resolved Problems Problem Noted Date Diagnosed Date Resolved Date Primary snoring 06/30/2016 07/15/2018 Mixed rhinitis 04/29/2015 01/18/2021 Subconjunctival hematoma 04/29/2015 Other allergic rhinitis 03/02/201510/31 OVERWEIGHT, BMI= 29.99 03/23/11 03/23/2011 07/15/2018 CHRONIC SINUSITIS NOS 03/23/20112014 Chronic otitis externa 06/13/200804/29 Dyspnea and respiratory abnormality 06/04/2008 04/29/2015 Overview: ICD-10 update of inactive term CHR MAXILLARY SINUSITIS,LEFT 06/04/2008 04/29/2015 ACUTE SINUSITIS NOS 04/12/2005 06/19/19 09 Overview: Resolved per Benign Acute Dxs Protocol #3 ACUTE URI NOS 04/12/2005 06/19/2008 Overview: Resolved per Benign Acute Dxs Protocol #3 DYSFUNCT EUSTACHIAN TUBE 04/12/2005 Family history of other card iovascular diseases 06/14/2002 04/29/2015 Overview: ICD-10 update of inactive term Dyspnea and respiratory abnormality 02/13/2002 04/15/2009 Overview: ICD-10 update of inactive term ACUTE SINUSITIS NOS 04/04/2000 09/11/19 04 Unspecified viral infection, in conditions classified elsewhere and of unspecified site 04/04/2000 09/11/2003 ALLERGIC RHINITIS NOS 04/04/20002014 Dyspnea and respiratory abnormality 04/04/2000 09/11/2003 Overview: ICD-10 update of inactive term documented as of this encounter (statuses as of 12/12/2023) Immunizations Name Administration Dates Next Due COVID-19 mRNA, LNP-s, No Pre serve, 2-Dose Series (A Fourth Act) 02/03/2021,07/08/2020,06/10/2020 COVID-19, MRNA-LNP, 23-24, P F, 30 MCG/0.3 mL, 12 YRS AND ABOVE, IM (PFIZER-Comirnaty) 02/07/2023 Pneumococcal Polysaccharide PPV23 (Pneumovax) 07/13/2018 Seasonal Influenza, PF, 6 M & above, IM , (FluLaval or Fluzone) 02/20/2023,02/23/2022,01/18/2021,02/19,02/14/2017 Seasonal Influenza, Split, I IV3, With Preserve, Inj 02/14/2019,02/02/2018,02/16/2016,03/04,02/13/2014,01/30/2013,02/16/2012 ,02/11/2010,03/20/2009,03/02/2008 TDAP, Age 7 and older, IM (Adacel) 04/07/2009 Zoster Vaccine Recombinant (Shingrix) 08/04/2020 ,02/03/2020 documented as of this encounter Social History Tobacco Use Types Packs/Day Years Used Date Smoking Tobacco: Never Smokeless Tobacco: Never Comments:no passive smoke ex posures Alcohol Use Standard Drinks/Week Comments Yes 0 (1 standard drink = 0.6 oz pur e alcohol) occasion glass wine PHQ-2 Answer Date Recorded PHQ-2 Score -1 01/19/2020 Utilities Answer Date Recorded Do you have trouble paying y our heating, water, or electric bill? (Adult - for ages 18 years and over) Not on file 10/17/2023 Is your family able to pay t he heat, water, or electric bill? (Household - for ages 0-17 years) Not on file 10/17/2023 Does your family have access to good internet? (Household - for ages 0-17 years) Not on file 10/17/2023 Social Connections Answer Date Recorded How often do you feel lonely or isolated from those around you? (Adult - for ages 18 years and over) Not on file 10/17/2023 Sex and Gender Information Value Date Recorded Sex Assigned at Female 10/13/2022 1:36 PM EDT Gender Identity Female 10/13/2022 1:35 PM EDT Sexual Orientation Straight 10/13/2022 1: 35 PM EDT Job Start Date Occupation Industry Not on file Not on file Not on file documented as of this encounter Functional Status Functional Status Response Date of Assess ment Are you deaf or do you have serious difficulty h earing? No 08/20/2021 Are you blind or do you have serious difficulty seeing, even when wearing glasses? No 08/20/2021 Do you have serious difficul ty walking or climbing stairs? (5 years old or older) No 03/27/2022 Do you have difficulty dress ing or bathing? (5 years old or older) No 08/20/2021 Cognitive Status Response Date of Assessm ent Because of a physical, menta l, or emotional condition, do you have serious difficulty concentrating, remembering, or making decisions? (5 years old or older) No 08/20/2021 documented as of this encounter Plan of Treatment Upcoming Encounters Date Type Department Care Team (Late st Contact Info) Description 12/12/2023 1:45 PM EDT Office Visit Hematology/Oncology [facility] [address] [facility] [place] [phone] Ruddy Robbins MD [address] [facility] [place] [address] 12/12/2023 2:15 PM EDT Hem/Onc Treatment Hematology[facility], [place] [facility] [phone] Arianna, Chair 8 Hem On[address] [place] [address] Arrived 01/02/2024 9:30 AM EDT Pharmacy Pharmacy Hematology Oncology [facility] [address] [place] [address] [facility] Hem/Onc [address] [place] [address] 01/25/2024 9:00 AM EDT Imaging Radiology [address] [facility] [place] [address] 03/20/2024 1:45 PM EST Office Visit Neurosurgery, [place] [address] [place] [facility] [place] [address] Lorenzo Gallardo MD [address] [place] [facility] [place] [address] 03/21/2024 1:40 PM EST Office Visit Otolaryngology [facility] [address] [facility] [place] [address] Amisha Joseph PA-C [address] [facility] [place] [address] 10/07/2024 1:30 PM EDT Office Visit Allergy/Immunology [facility] [address] [facility] [place] [address] Alexandru Mcelroy MD [address] [facility] [place] [address] Pending Results Name Type Priority Associated Diagnoses Date /Time COMPREHENSIVE METABOLIC PANEL Lab STAT 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 breast in female, estrogen receptor positive (HCC) 12/12/2023 12:57 PM EDT PHOSPHORUS Lab STAT Cancer, metastatic to bone (HCC) 12/12/2023 12:57 PM EDT Scheduled Procedures Name Priority Associated Diagnoses Date/Ti me COLONOSCOPY FLEXIBLE PROXIMAL DIAGNOSTIC Recall History of colon polyps Health Maintenance Due Date Last Done Comments HIV Screening 1976 Hepatitis C Screening 1979 HPV/Co-Test 1991 Cologuard 2006 Fecal Occult Blood Test 2006 06/22/2000 Sigmoidoscopy 2006 DTaP,Tdap,and Td Vaccines (2 - Td or Tdap) 04/07/2019 04/07/2009, 11/30/2001, 03/01/1992 Pneumococcal Vaccine: Pediatrics (0 to 5 Years) and At-Risk Patients (6 to 64 Years) (2 of 2 - PCV) 07/14/2019 07/13/2018 Depression Screening 07/09/2020 07/10/2019 Cervical Cancer Screening 07/13/2021 Pap Smear 07/13/2021 07/13/2018, 06/29, 11/06/2014, Additional history exists Colonoscopy 04/03/2022 04/03/2017, 07/2016, 03/09/2012, Additional history exists Colorectal Cancer Screening 04/03/2022 Influenza Vaccine (FLU shot) (#1) 2023 02/20/2023, 02/23/2022, 01/18/2021, Additional history exists Mammogram 03/06/2024 03/06/2023, 07/2021, 03/04/2021, Additional history exists Lipid Panel 12/04/2025 12/04/2020, 06/2018, 11/20/2014, Additional history exists Diabetes Screening 11/20/2026 11/21/2023, 0 10/31/2023, 10/10/2023, Additional history exists Hepatitis B Vaccine Completed 04/22/2002, 11/16/2001, 10/13/2001 RETIRED - COLONOSCOPY-EVERY 5 YRS AGES 18-100 Discontinued 04/03/2017, 04/03/2017, 03/09/2012, Additional history exists Zoster Vaccines Completed 08/04/2020, 02/03/2020 COVID-19 Vaccine Completed 11/30/2023, 01/2023, 02/03/2021, Additional history exists HPV (Gardasil) Vaccine Aged Out No lo nger eligible based on patient's age to complete this topic MENINGOCOCCAL (MENACTRA/MENVEO) Aged Out No longer eligible based on patient's age to complete this topic documented as of this encounter Medical Devices Implanted Type Area Strain Technician Device Identifier Shelf Expiration Date Model / Serial / Lot Cement Hv-R C01a - [id number] Implanted:Qty: 1 on 08/20/2021 by Lorenzo Gallardo MD at OR [facility] N/A: Spine Thoracic [employer] : NEURO CARE 04/30/2024 C01A / / [id number] Port Implant W/8f Poly Cath - [id number] Implanted:Qty: 1 on 09/03/2021 by Blayne Villegas MD at OR [facility] Left: Chest CR BARD : PERIPHERAL VASCULAR [id number] 07/29/2022 [id number] / / [id number] 5.0x40 Trammell Screw Implanted:Qty: 3 on 03/25/2022 by Lorenzo Gallardo MD at OR [facility] DELMAR : SPINE [id number] / / 5.0x45 Trammell Screw Implanted:Qty: 4 on 03/25/2022 by Lorenzo Gallardo MD at OR [facility] DELMAR : SPINE [id number] / / Spineology E Mesh Implanted:Qty: 1 on 03/25/2022 by Lorenzo Gallardo MD at OR [facility] [employer] 06/29/2024 [id number] / / [id number] Vitoss Bimodal Foam Pack 10cc - [id number] Implanted:Qty: 1 on 03/25/2022 by Lorenzo Gallardo MD at OR [facility] [place]MAR : SPINE [id number] 08/27/20231909 / / [id number] Vitoss Bimodal Foam Pack 10cc - [id number] Implanted:Qty: 1 on 03/25/2022 by Lorenzo Gallardo MD at OR [facility] [place] : SPINE [id number] 08/27/20231909 / / [id number] Vitoss Bimodal Foam Pack 10cc - [id number] Implanted:Qty: 1 on 03/25/2022 by Lorenzo Gallardo MD at OR [facility] [place] : SPINE [id number] 08/27/20231909 / / [id number] Vitoss Bimodal Foam Pack 10cc - [id number] Implanted:Qty: 1 on 03/25/2022 by Lorenzo Gallardo MD at OR [facility] [place] : SPINE [id number] 08/27/20231909 / / [id number] Connector Crosslink 43 To 54 - [id number] Implanted:Qty: 1 on 03/25/2022 by Lorenzo Gallardo MD at OR [facility] [place] : SPINE [id number] / / Tube Preflld Allogrft Diverted - [id number] Implanted:Qty: 1 on 03/25/2022 by Lorenzo Gallardo MD at OR [facility] [employer] 11/19/2023 [id number] / / Tube Preflld Allogrft Diverted - [id number] Implanted:Qty: 1 on 03/25/2022 by Lorenzo Gallardo MD at OR [facility] [employer] 11/18/2024 [id number] / / Tube Preflld Allogrft Diverted - [id number] Implanted:Qty: 1 on 03/25/2022 by Lorenzo Gallardo MD at OR [facility] [employer] 11/18/2024 [id number] / / Vitoss Bimodal Foam Pack 10cc - [id number] Implanted:Qty: 1 on 03/25/2022 by Lorenzo Gallardo MD at OR [facility] [place]MAR : SPINE [id number] 08/27/2023 210- 0 / / [id number] Tube Preflld Allogrft Diverted - [id number] Implanted:Qty: 4 on 03/25/2022 by Lorenzo Gallardo MD at OR [facility] [employer] 11/19/2023 [id number] / / Screw Set [id number] - [id number] Implanted:Qty: 6 on 03/25/2022 by Lorenzo Gallardo MD at OR [facility] DELMAR : SPINE [id number] / / 3.5x14 Screw Implanted:Qty: 6 on 03/25/2022 by Lorenzo Gallardo MD at OR [facility] [place] : SPINE [id number] / / [id number] Transition Juan Implanted:Qty: 2 on 03/25/2022 by Lorenzo Gallardo MD at OR [facility] [place]MAR : SPINE [id number] / / Screw Ludmila Stella 3 Ti Set - [id number] Implanted:Qty: 11 on 03/25/2022 by Lorenzo Gallardo MD at OR [facility] [place] : SPINE [id number] / / 5.0x30 Trammlel Screw Implanted:Qty: 2 on 03/25/2022 by Lorenzo Gallardo MD at OR [facility] [place] : SPINE [id number] / / 5.0x35 Trammell Screw Implanted:Qty: 2 on 03/25/2022 by Lorenzo Gallardo MD at OR [facility] [place] : SPINE [id number] / / Tube Ventilation Briggs [id number] - [id number] - [id number] Implanted:Qty: 1 on 03/02/2023 by Cem Ly DO at OR [facility] Right: Ear [employer] 12/21/2031 [id number] / [id number] / [id number] documented as of this encounter Procedures Procedure Name Priority Date/Time Associated Diagnosis Comments DIFFERENTIAL, AUTOMATED STAT 12/12/2023 12:57 PM EDT 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 breast in female, estrogen receptor positive (HCC) CBC STAT 12/12/2023 12:57 PM EDT 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 breast in female, estrogen receptor positive (HCC) CBC STAT 12/12/2023 12:57 PM EDT 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 breast in female, estrogen receptor positive (HCC) documented in this encounter Results * (ABNORMAL) DIFFERENTIAL, AUTOMATED (12/12/2023 12:57 PM EDT) WBC 9.40 4.00 - 10.80 K/uL 12/12/2023 1:01 PM EDT [facility] [place] [facility] Neutrophils % 72.1 40.0 - 75.0 % 12/12/2023 1:01 PM EDT [facility] [place] [facility]02 Lymphocytes % 12.7(L) 18.0 - 42.0 % 12/12/2023 1:01 PM EDT [facility] [place] 56[facility]02 Monocytes % 12.2(H) 1.0 - 11.0 % 12/12/2023 1:01 PM EDT [facility] [place] 56[facility]02 Eosinophils % 2.8 0.0 - 6.0 % 12/12/2023 1:01 PM EDT [facility] [place] 56[facility]02 Basophils % 0.2 0.0 - 2.0 % 12/12/2023 1:01 PM EDT [facility] [place] [facility]02 Absolute Neutrophils 6.78 1.80 - 7.70 K/uL 12/12/2023 1:01 PM EDT [facility] [place] [facility]02 Absolute Lymphocytes 1.19 1.00 - 4.80 K/ul 12/12/2023 1:01 PM EDT [facility] [place] [facility]02 Absolute Monocytes 1.15(H) 0.00 - 1.10 K/uL 12/12/2023 1:01 PM EDT [facility] [place] [facility]02 Absolute Eosinophils 0.26 0.00 - 0.70 K/uL 12/12/2023 1:01 PM EDT [facility] [place] [facility] Absolute Basophils 0.02 0.00 - 0.20 K/uL 12/12/2023 1:01 PM EDT [facility] [address] Blood Venous blood specimen / Unknown Venipuncture / Unknown 12/12/2023 12:57 PM EDT 12/12/2023 12:57 PM EDT Ruddy Robbins MD LAB BLOOD ORDERABLES [place] [address] [place] [address] * CBC (12/12/2023 12:57 PM EDT) WBC 9.40 4.00 - 10.80 K/uL 12/12/2023 1:01 PM EDT [address] RBC 4.24 3.85 - 5.15 M/uL 12/12/2023 1:01 PM EDT [place] [address] HGB 13.9 12.0 - 15.3 g/dL 12/12/2023 1:01 PM EDT [address] HCT 41.7 36.0 - 45.2 % 12/12/2023 1:01 PM EDT [address] MCV 98.3 81.5 - 97.5 fL 12/12/2023 1:01 PM EDT [address] MCH 32.8 27.0 - 34.0 pg 12/12/2023 1:01 PM EDT [address] MCHC 33.3 32.0 - 36.0 g/dL 12/12/2023 1:01 PM EDT [address] RDW 19.5 11.5 - 15.5 % 12/12/2023 1:01 PM EDT [facility] 5602 PLT 260 140 - 400 K/uL 12/12/2023 1:01 PM EDT [facility] 56 MPV 9.2 6.6 - 11.1 fL 12/12/2023 1:01 PM EDT [facility] 5602 Blood Venous blood specimen / Unknown Venipuncture / Unknown 12/12/2023 12:57 PM EDT 12/12/2023 12:57 PM EDT Ruddy Robbins MD LAB BLOOD ORDERABLES [facility] [place] [address] [place], [place] [phone] documented in this encounter Visit Diagnoses Diagnosis 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 breast in female, estrogen receptor positive (HCC) Cancer, metastatic to bone (HCC) Secondary malignant neoplasm of bone and bone marrow documented in this encounter Advance Directives * Full Code (Latest Code Status on File) Date Activated Date Inactivated Comments 03/25/2022 8:24 PM 03/31/2022 10:01 PM This order reflects the patients wishes and were consensually agreed upon. Question Answer Comments Discussion of Advance Directives occurred with: Patient Does the patient have a Living Will? No Does the patient have Health Care Power of Attor lakisha? No * Full Code Date Activated Date Inactivated Comments 03/25/2022 7:40 PM 03/25/2022 8:24 PM This order reflects the patients wishes and were consensually agreed upon. Question Answer Comments Discussion of Advance Direct lindsay occurred with: Not Discussed due to patient's condition * Full Code Date Activated Date Inactivated Comments 03/25/2022 6:45 AM 03/25/2022 7:40 PM This order reflects the patients wishes and were consensually agreed upon. Question Answer Comments Discussion of Advance Direct lindsay occurred with: Not Discussed due to patient's condition * Full Code Date Activated Date Inactivated Comments 08/20/2021 9:05 PM 08/23/2021 7:38 PM This order r eflects the patients wishes and were consensually agreed upon. Question Answer Comments Discussion of Advance Directives occurred with: Not Discussed * Full Code Date Activated Date Inactivated Comments 08/20/2021 9:01 PM 08/20/2021 9:05 PM This order r eflects the patients wishes and were consensually agreed upon. Question Answer Comments Discussion of Advance Directives occurred with: Not Discussed Care Teams Diesel Roller Operator Relationship Specialty Start Date End Date Aleksandr Parker MD [address] [place] [address] PCP - General 06/27/02 documented as of this encounter
--- OUTSIDE RECORDS SUMMARY | 2023-12-22 05:16 | External Medical Summary | Summary of Care ---
Author Name Unknown Organization [facility] Address [address] [place] [address] Phone [phone] Care Team Providers Care Manager Data Warehousing Name Role Phone Aleksandr Parker MD Primary Care Provider [phone] Reason for Visit * Reason Onset Date Comments Medication Refill 12/21/2023 Encounter Details Date Type Department Care Team (Late st Contact Info) Description 12/21/2023 Refill Hematology/Oncology [facility] [address] [place] [phone] Ruddy Robbins MD [address] [place] [address] 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 breast in female, estrogen receptor positive (HCC)*; Cancer, metastatic to bone (HCC) Allergies Active Allergy Reactions Criticality Noted Date Comments Sulfa Antibiotics 05/14/1999 rash documented as of this encounter (statuses as of 12/21/2023) Medications Medication Sig Dispensed Refills Start Date End Date Status MULTIVITAMIN TABS OR one daily 0 0 09/11/2003 Active NASAL SALINE 0.65 % NA SOLNIndications:Enrike rgic rhinitis,Postnasal drip,Chronic sinusitis FLUSH each nostril morning [...] Active Prochlorperazine Maleate 10 MG Oral Tablet (Compazine)Indicatio ns: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 breast in female, estrogen receptor positive (HCC),Cancer, metastatic to bone (HCC) Take 1 Tablet by mouth every 6 hours as needed for Nausea. 30 Tablet 3 12/21/2022 Active Montelukast Sodium 10 MG Oral Tablet (Singulair)Indicatio ns:Allergic rhinitis Take 1 Tablet by mouth daily. 90 Tablet 3 03/14/2023 Active Asmanex (60 Metered Doses) 220 MCG/ACT Inhalation Aerosol Powder Breath Activated (Mometasone Furoate) Inhale 1 Puff by mouth in the morning and 1 Puff before bedtime. 3 Each 3 05/03/2023 Active Ondansetron HCl 8 MG Oral TabletIndications:Ca ncer, metastatic to bone (HCC) Take 1 Tablet by mouth every 8 hours as needed for Nausea. 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 For 7 days followed by 7-day rest period. Take within 30 minutes of meal. Do not crush or cut.. 112 Tablet 5 08/29/2023 Active Additional Information Patient not taking.Reported on 10/06/2023 Ipratropium [place] 0.03 % Nasal Solution (Atrovent) Administer 2 Sprays into each nostril 2 times a day as needed for Rhinitis. 90 mL 3 09/05/2023 Active Tukysa 150 MG Oral Tablet (Tucatinib)Indicatio ns:Primary malignant neoplasm of breast with metastasis (HCC) Take 150 mg by mouth in the morning and 150 mg before bedtime. Along with two 50mg tabs (total dose 250mg). 60 Tablet 5 09/11/2023 Active Tukysa 50 MG Oral Tablet (Tucatinib)Indicatio ns:Primary malignant neoplasm of breast with metastasis (HCC) Take 100 mg by mouth in the morning and 100 mg before bedtime. Along with 150mg tab (total dose 250mg). 120 Tablet 09/11/2023 Active Diphenoxylate-Atropi ne 2.5-0.025 MG Oral Tablet (Lomotil)Indications :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 breast in female, estrogen receptor positive (HCC) Take 1 Tablet by mouth 4 times a day as needed for Diarrhea. 30 Tablet 09/29/2023 Active Udderly Smooth Extra Care 20 External CreamIndications:Mal ignant neoplasm of upper-outer quadrant of right breast in female, estrogen receptor positive (HCC),Cancer, metastatic to bone (HCC) Apply topically to affected area 2 times a day. Apply topically to hands and feet twice daily. 228 g 2 10/23/2023 Active Potassium Chloride ER 10 MEQ Oral Tablet Extended ReleaseIndications:M alignant neoplasm of upper-outer quadrant of right breast in female, estrogen receptor positive (HCC),Hypokalemia TAKE 2 TABLETS IN THE MORNING 180 Tablet 3 10/24/2023 Active Fluticasone Furoate 200 MCG/ACT Inhalation Aerosol Powder Breath Activated (ARNUITY ellipta) Inhale 1 Puff by mouth in the morning. 90 Each 3 11/21/2023 Active Clobetasol Propionate 0.05 % External Cream (Temovate)Indication s: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 breast in female, estrogen receptor positive (HCC),Cancer, metastatic to bone (HCC) Apply topically to affected area 2 times a day. Apply to feet 30 g 2 12/21/2023 Active Clobetasol Propionate 0.05 % External Cream (Temovate) Apply topically to affected area 2 times a day. 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 , right 09/02/2022 Dehydration 07/14/2022 Hypokalemia 07/14/2022 Acute postoperative respiratory insufficiency Acute blood loss anemia 03/25/2022 Cancer, metastatic to bone 09/02/2021 Malignant neoplasm metastatic to liver Encounter for antineoplastic chemotherapy 2021 Nonallergic rhinitis 01/18/2021 Iron deficiency anemia 05/25/2018 Malignant neoplasm of upper- outer quadrant of right breast in female, estrogen receptor positive 05/25/2018 Cancer Staging:Clinical: Unsigned Pathologic stage from 05/25/2018:Stage IA(pT1a, pN0, cM0, G2, ER: Positive, AZ: Negative, HER2: Positive) - Signed by Ruddy Robbins MD on 05/25/2018 LPRD (laryngopharyngeal reflux disease) 11/28/19 18 Positional sleep apnea 06/30/2016 Chronic sinusitis 04/29/2015 Vasovagal syncope 02/09/2015 Asthma, mild persistent 04/15/2009 Raynaud's syndrome 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 Pathologic fracture of thoracic vertebrae documented as of this encounter (statuses as of 12/21/2023) Resolved Problems Problem Noted Date Diagnosed Date [...] as of this encounter (statuses as of 12/21/2023) Immunizations Name Administration Dates Next Due COVID-19 mRNA, LNP-s, No Pre serve, 2-Dose Series ([employer]) 02/03/2021,07/08/2020,06/10/2020 COVID-19, MRNA-LNP, 23-24, P F, 30 MCG/0.3 mL, 12 YRS AND ABOVE, IM ([employer]-Comirnat) 02/07/2023 Pneumococcal Polysaccharide PPV23 (Pneumovax) 07/13/2018 Seasonal [...] No 08/20/2021 documented as of this encounter Miscellaneous Notes * Telephone Encounter - Ruddy Robbins MD - 12/21/2023 12:09 PM EDT E-prescribed * Telephone Encounter - Nereida Tabor LPN - 12/21/2023 10:27 AM EDTPending Prescriptions: Disp Refills Clobetasol Propionate 0.05 % External Crea*30 g 2 Sig: Apply topically to affected area 2 times a day. Apply to feet * Telephone Encounter - Nereida Tabor LPN - 12/21/2023 10:22 AM EDT Refill request for Temovate 0.05% cream pended below: Last Refill: 09/19/2023 Last seen: 12/12/2023 Next Appt.: 03/05/2024 documented in this encounter Plan of Treatment Upcoming Encounters Date Type Department Care Team (Late st Contact Info) Description 01/02/2024 9:20 AM EDT Laboratory Laboratory [facility] [place] [address] [place] [phone] [facility] [address] [facility] [place] [address] 01/02/2024 9:30 AM EDT Pharmacy Pharmacy Hematology Oncology [address] [address] [facility] [place] Hem/Onc [facility] [address] 01/02/2024 10:30 AM EDT Hem[facility] [address] [place], [place] [phone] Arianna, Chair 8 Hem Onc [facility] [address] [place] [address] 01/25/2024 9:00 AM EDT Imaging [facility]iology [address] [facility] [place] [address] 01/29/2024 9:45 AM EDT Imaging Radiology [address] [facility] [place] [address] 01/29/2024 11:00 AM EDT Imaging Radiology [address] [facility] [address] 02/20/2024 3:30 PM EDT Cardiac Studies Cardiac Studies, [facility] [address] [facility] [place] [address] 03/05/2024 8:45 AM EST Office Visit Hematology/Oncology [facility] [place] [address] [place] [phone] Ruddy Robbins MD [address] [place] [address] 03/20/2024 1:45 PM EST Office Visit [address]surgery, [address] [place] [address] Lorenzo Gallardo MD [address] [facility] [place] [address] 03/21/2024 1:40 PM EST Office Visit Otolaryngology [facility] [address] [place] [address] Amisha Joseph PA-C [address] [place] [address] 10/07/2024 1:30 PM EDT Office Visit Allergy/Immunology [facility] [address] [facility] [place] [address] Alexandru Mcelroy MD [address] [place] [address] Scheduled Procedures Name Priority Associated Diagnoses Date/Ti [...] 06/2018, 11/20/2014, Additional history exists Diabetes Screening 12/11/2026 12/12/2023, 0 11/21/2023, 10/31/2023, Additional history exists Hepatitis B Vaccine Completed [...] this encounter Medical Devices Implanted Type Area Manager Event Device Identifier Shelf Expiration Date Model / Serial / Lot Cement Hv-R C01a - [id number] Implanted:Qty: 1 on 08/20/2021 by Lorenzo Gallardo MD [place] [facility] [place]/A: Spine Thoracic [employer] : NEURO CARE 04/30/2024 C01A / / [id number] Port Implant W/8f Poly Cath - [id number] Implanted:Qty: 1 on 09/03/2021 by Blayne Villegas MD at OR [facility] Left: Chest CR BARD : PERIPHERAL VASCULAR [id number] 07/29/2022 [id number] / / [id number] 5.0x40 Trammell Screw Implanted:Qty: 3 on 03/25/2022 by Lorenzo Gallardo MD [place] [facility] [place]MAR : SPINE [id number] / / 5.0x45 Trammell Screw Implanted:Qty: 4 on 03/25/2022 by Lorenzo Gallardo MD [place] [facility] [place] : SPINE [id number] / / Spineology E Mesh Implanted:Qty: 1 on 03/25/2022 by Lorenzo Gallardo MD [place] [facility] [place] [employer] 06/29/2024 [id number] / / [id number] Vitoss Bimodal Foam Pack 10cc - [id number] Implanted:Qty: 1 on 03/25/2022 by Lorenzo Gallardo MD [place] [facility] [place] : SPINE [id number] 08/27/20232101- 0 / / [id number] Vitoss Bimodal Foam Pack 10cc - [id number] Implanted:Qty: 1 on 03/25/2022 by Lorenzo Gallardo MD at [place] [facility] [place] : SPINE [id number] 08/27/20231909 / / [id number] Vitoss Bimodal Foam Pack 10cc - [id number] Implanted:Qty: 1 on 03/25/2022 by Lorenzo Gallardo MD [place] [facility] [place] : SPINE [id number] 08/27/20231909 / / [id number] Vitoss Bimodal Foam Pack 10cc - [id number] Implanted:Qty: 1 on 03/25/2022 by Lorenzo Gallardo MD [place] [facility] [place] : SPINE [id number] 08/27/20231909 / / [id number] Connector Crosslink 43 To 54 - [id number] Implanted:Qty: 1 on 03/25/2022 by Lorenzo Gallardo MD at [place] [facility] [place] : SPINE [id number] / / Tube Preflld Allogrft Diverted - [id number] Implanted:Qty: 1 on 03/25/2022 by Lorenzo Gallardo MD at [place] [facility] [place] [employer] 11/19/2023 [id number] / / Tube Preflld Allogrft Diverted - [id number] Implanted:Qty: 1 on 03/25/2022 by Lorenzo Gallardo MD at [place] [facility] [employer] 11/18/2024 [id number] / / Tube Preflld Allogrft Diverted - [id number] Implanted:Qty: 1 on 03/25/2022 by Lorenzo Gallardo MD at [place] [facility] [place] [employer] 11/18/2024 [id number] / / Vitoss Bimodal Foam Pack 10cc - [id number] Implanted:Qty: 1 on 03/25/2022 by Lorenzo Gallardo MD at [place] [facility] [place] [place] : SPINE [id number] 08/27/20232101- 0 / / [id number] Tube Preflld Allogrft Diverted - [id number] Implanted:Qty: 4 on 03/25/2022 by Lorenzo Gallardo MD at [place] [facility] [place] [employer] 11/19/2023 [id number] / / Screw Set [id number] - [id number] Implanted:Qty: 6 on 03/25/2022 by Lorenzo Gallardo MD at [place] [facility] : SPINE [id number] / / 3.5x14 Screw Implanted:Qty: 6 on 03/25/2022 by Lorenzo Gallardo MD at [place] [facility] [place] : SPINE [id number] / / [id number] Transition Juan Implanted:Qty: 2 on 03/25/2022 by Lorenzo Gallardo MD at [place] [facility] [place] : SPINE [id number] / / Screw Ludmila Stella 3 Ti Set - [id number] Implanted:Qty: 11 on 03/25/2022 by Lorenzo Gallardo MD at [place] [facility] : SPINE [id number] / / 5.0x30 Trammell Screw Implanted:Qty: 2 on 03/25/2022 by Lorenzo Gallardo MD at [place] [facility] [place] : SPINE [id number] / / 5.0x35 Trammell Screw Implanted:Qty: 2 on 03/25/2022 by Lorenzo Gallardo MD at [place] [facility] [place] : SPINE [id number] / / Tube Ventilation Briggs [id number] - [id number] - [id number] Implanted:Qty: 1 on 03/02/2023 by Cem Ly DO at OR [facility] Right: Ear [employer] 12/21/2031 [id number] / [id number] / [id number] documented as of this encounter Visit Diagnoses Diagnosis 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 breast in female, estrogen receptor positive (HCC)- Primary Cancer, metastatic to bone (HCC) Secondary malignant [...] Directives occurred with: Not Discussed Care Teams Manager Data Warehousing Relationship Specialty Start Date End Date Aleksandr Parker MD [address] [place] [address] PCP - General 06/27/02 documented as of this encounter
--- OUTSIDE RECORDS SUMMARY | 2023-12-22 05:16 | External Medical Summary | Summary of Care ---
Author Name Unknown Organization [facility] Address [address] [place] [address] Phone [phone] Care Team Providers Care Cloth Finishing Range Operator Chief Name Role Phone Aleksandr Parker MD Primary Care Provider [phone]- [phone] Reason for Visit * Reason Comments Chemotherapy Kanjinti. 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) Encounter for antineoplastic chemotherapy Procedures [place] INJ., KANJINTI, 10 MG Ruddy Robbins MD [address] [place], [place] [address] Anc Hem/Onc Scenekadeem Keller DEPT CLOSED - 03/14/23 [address] [facility] [place] [address] Referral ID Status Reason Start Date Expiration Date V isits Requested Visits Authorized [id number] Authorized 10/30/2023 04/26/2024 999 99 Encounter Details Date Type Department Care Team (Latest Contact Info) Description 12/12/2023 2:15 PM EDT Hem/Onc Treatment Hematology/Oncolog y Treatment, [place] [address] [place] [address] Arianna, Chair [address] Hem Onc Scenery [address] [facility] [place] [address] 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 breast in female, estrogen receptor positive (HCC)*; Cancer, metastatic to bone (HCC); 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); Encounter for antineoplastic chemotherapy Allergies Active Allergy Reactions Criticality Noted Date [...] Information Patient not taking.Reported on 10/06/2023 Ipratropium [place] 0.03 % Nasal Solution (Atrovent) Administer 2 [...] 150mg tab (total dose 250mg). 120 Tablet 5 09/11/2023 Active Clobetasol Propionate 0.05 % External [...] 05/25/2018:Stage IA(pT1a, pN0, cM0, G2, ER: Positive, W[place]: Negative, HER2: Positive) - Signed by Ruddy [...] mRNA, LNP-s, No Pre serve, 2-Dose Series (Pfizer) 02/03/2021,07/08/2020,06/10/2020 COVID-19, MRNA-LNP, 23-24, P F, 30 [...] No 08/20/2021 documented as of this encounter Nursing Notes * Ashley Kaminski RN - 12/12/2023 3:51 PM EDT Goals: Patient will remain free from injury. Possible barriers to meeting goals: Fall risk d/t ambulation with IV pole. Stability of the patient: Moderately stable - low risk of patient condition declining or worsening Summary regarding today's goals: Met: Patient remained free of injury. Patient tolerated infusion well. Discharged in stable condition. * Ashley Kaminski RN - 12/12/2023 2:44 PM EDT Chair 8. Patient arrived for [facility]. Patient was seen by Dr. Robbins today (see office notes). Per Dr. Rosenthal for treatment today. VAD accessed. Chemotherapy/Immunotherapy agents: [facility] Consent for chemotherapy drug treatment complete, dated, and signed? yes, date - 09/02/21 Treatment lab parameters met? Yes Has treatment weight changed > than 10%? No Treatment preauthorized? Yes VITALS Filed Vitals: Urine protein: N/A Patient education completed for treatment? Yes Blood transfusion consent signed and complete? NA Return appointment scheduled? Yes Patient had provider visit today? Yes - Ok to release order and treat per provider Functional Status: Functional status at today's visit: Ambulatory and capable of all selfcare but unable to carry out any work activities. Up and about more than 50% of waking hours The drug name, dose, infusion volume, rate and route of administration, expiration date and time, appearance and physical integrity of the drug and rate set on the pump and sequencing of drug administration (as applicable) were verified by me and second sign-in RN. Patient was assessed for symptoms or adverse side effects during treatment. Patient Education: Patient instructed on use of heat and massage functions where applicable. Patient shown how to operate the heat function of the chair and to alert nursing staff if the chair feels too warm. Patient instructed on the risk of potential phan while using the heat function. Safety and Risk for Injury Patient will remain free from injury. Ensure appropriate safety devices are available. Provide and maintain safe environment. documented in this encounter Plan of Treatment Upcoming Encounters Date Type Department Care Team (Late st Contact Info) Description 01/02/2024 9:20 AM EDT Laboratory Laboratory [facility] [place] [facility] [place] [phone] Arianna, Lab [facility] [address] [facility] [place] [address] 01/02/2024 9:30 AM EDT Pharmacy Pharmacy Hematology Oncology [place] [address] [place] [address] [facility], [facility] Hem/Onc [address] [place] [address] 01/02/2024 10:30 AM EDT Hem/Onc Treatment Hematology/Oncology Treatment, [place] [facility] [place] [phone] Arianna, Chair 8 Hem Onc Scenery [address] [facility] [place] [address] 01/23/2024 9:45 AM EDT Imaging Radiology [address], [place] [facility] [place] [address] 01/23/2024 11:00 AM EDT Imaging Radiology [address], [place] [facility] [place] [address] 01/25/2024 9:00 AM EDT Imaging Radiology [address] [facility] [address] 02/20/2024 3:30 PM EDT Cardiac Studies Cardiac Studies, [facility] [address] 03/05/2024 8:45 AM EST Office Visit Hematology/Oncology [facility] [address] [place] [phone] Ruddy Robbins MD [address] [place] [address] 03/20/2024 1:45 PM EST Office Visit Neurosurgery, [place] [address] [place] [address] Lorenzo Gallardo MD [address] [place] [address] 03/21/2024 1:40 PM EST Office Visit Otolaryngology [facility] [place] [address] Amisha Joseph [facility]-C [facility] [address] 10/07/2024 1:30 PM EDT Office Visit Allergy/Immunology [facility] [address] [place] [address] Alexandru Mcelroy MD [address] [place] [address] Scheduled Procedures Name Priority Associated Diagnoses Date/Ti [...] Additional history exists Lipid Panel 12/04/2025 12/04/2020, 0706/2018, 11/20/2014, Additional history exists Diabetes Screening 12/11/2026 [...] this encounter Medical Devices Implanted Type Area Incident Commander Device Identifier Shelf Expiration Date Model / Serial / Lot Cement Hv-R C01a - [id number] Implanted:Qty: 1 on 08/20/2021 by Lorenzo Gallardo MD at OR [facility] N/A: Spine Thoracic [employer] : NEURO CARE 04/30/2024 C01A / / [id number] Port Implant W/8f Poly Cath - [id number] Implanted:Qty: 1 on 09/03/2021 by Blayne Villegas MD at OR [facility] Left: Chest CR BARD : PERIPHERAL VASCULAR [id number] 07/29/2022 [id number] / / [id number] 5.0x40 Trammell Screw Implanted:Qty: 3 on 03/25/2022 by Lorenzo Gallardo MD at OR [facility] DELMAR : SPINE [id number] / / 5.0x45 Trammell Screw Implanted:Qty: 4 on 03/25/2022 by Lorenzo Gallardo MD at OR [facility] DELMAR : SPINE [id number] / / Spineology E Mesh Implanted:Qty: 1 on 03/25/2022 by Lorenzo Gallardo MD at OR [facility] [employer] 06/29/2024 [id number] / / [id number] Vitoss Bimodal Foam Pack 10cc - [id number] Implanted:Qty: 1 on 03/25/2022 by Lorenzo Gallardo MD at OR [facility] DELMAR : SPINE [id number] 08/27/20231909 / / [id number] Vitoss Bimodal Foam Pack 10cc - [id number] Implanted:Qty: 1 on 03/25/2022 by Lorenzo Gallardo MD at OR [facility] DELMAR : SPINE [id number] 08/27/20231909 / / [id number] Vitoss Bimodal Foam Pack 10cc - [id number] Implanted:Qty: 1 on 03/25/2022 by Lorenzo Gallardo MD at OR [facility] DELMAR : SPINE [id number] 08/27/20231909 / / [id number] Vitoss Bimodal Foam Pack 10cc - [id number] Implanted:Qty: 1 on 03/25/2022 by Lorenzo Gallardo MD at OR [facility] DELMAR : SPINE [id number] 08/27/20231909 / / [id number] Connector Crosslink 43 To 54 - [id number] Implanted:Qty: 1 on 03/25/2022 by Lorenzo Gallardo MD at OR [facility] DELMAR : SPINE [id number] / / Tube Preflld Allogrft Diverted - [id number] Implanted:Qty: 1 on 03/25/2022 by Lorenzo Gallardo MD at OR [facility] [employer] 11/19/2023 [id number] / / Tube Preflld Allogrft Diverted - [id number] Implanted:Qty: 1 on 03/25/2022 by Lorenzo Gallardo MD at OR [facility] [employer] 11/18/2024 [id number] / / Tube Preflld Allogrft Diverted - [id number] Implanted:Qty: 1 on 03/25/2022 by Lorenzo Gallardo MD at OR [facility] [employer] 11/18/2024 [id number] / / Vitoss Bimodal Foam Pack 10cc - [id number] Implanted:Qty: 1 on 03/25/2022 by Lorenzo Gallardo MD at OR [facility] DELMAR : SPINE [id number] 08/27/20231909 / / [id number] Tube Preflld Allogrft Diverted - [id number] Implanted:Qty: 4 on 03/25/2022 by Lorenzo Gallardo MD at OR [facility] [employer] 11/19/2023 [id number] / / Screw Set [id number] - [id number] Implanted:Qty: 6 on 03/25/2022 by Lorenzo Gallardo MD at OR [facility] DELMAR : SPINE [id number] / / 3.5x14 Screw Implanted:Qty: 6 on 03/25/2022 by Lorenzo Gallardo MD at OR [facility] DELMAR : SPINE [id number] / / [id number] Transition Juan Implanted:Qty: 2 on 03/25/2022 by Lorenzo Gallardo MD at OR [facility] DELMAR : SPINE [id number] / / Screw Ludmila Stella 3 Ti Set - [id number] Implanted:Qty: 11 on 03/25/2022 by Lorenzo Gallardo MD at OR [facility] DELMAR : SPINE [id number] / / 5.0x30 Trammell Screw Implanted:Qty: 2 on 03/25/2022 by Lorenzo Gallardo MD at OR [facility] DELMAR : SPINE [id number] / / 5.0x35 Trammell Screw Implanted:Qty: 2 on 03/25/2022 by Lorenzo Gallardo MD at OR [facility] DELMAR : SPINE [id number] / / Tube Ventilation Briggs [id number] - [id number] - [id number] Implanted:Qty: 1 on 03/02/2023 by Cem Ly DO at OR [facility] Right: Ear [employer] 12/21/2031 [id number] / [id number] / [id number] documented as of this encounter Visit Diagnoses Diagnosis 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 breast in female, estrogen receptor positive (HCC)- Primary Cancer, metastatic to bone (HCC) Secondary malignant neoplasm of bone and bone marrow 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) Secondary malignant neoplasm of liver Encounter for antineoplastic chemotherapy documented in this encounter Administered Medications Active Administered Medications - up to 3 most recent administrations Medication Order MAR Action Action Date Dose Rate Site diphenhydrAMINE (Benadryl) inj 50 mg 50 mg, IV Push, ONCE PRN Other, Hypersensitivity Reaction, Starting on Mon12/12/23 at 1422, Until Mon12/13/23 at 1421, For 24 hours EPINEPHrine 1 MG/ML inj 0.3 mg 0.3 mg, Intramuscular, ONCE PRN Other, Hypersensitivity Reaction or Anaphylaxis, Starting on Mon12/12/23 at 1422, Until Mon12/13/23 at 1421, For 24 hours hEParin 100 UNIT/ML Lock Flush inj 500 Units 500 Units (5 mL), IV Lock, PRN Other, IV Flush, Starting on Mon12/12/23 at 1422, Until Mon12/13/23 at 1421, For 24 hours, Do not flush if lock, PICC, or central line not in place; IV infusing or unable to flush. Given 12/12/2023 3:47 PM EDT 500 Units Hydrocortisone Sod Suc (PF) (Solu-Cortef) inj 100 mg 100 mg, IV Push, ONCE PRN Other, Hypersensitivity Reaction, Starting on Mon12/12/23 at 1422, Until Mon12/13/23 at 1421, For 24 hours NSS infusion 500 mL, Intravenous, at 50 mL/hr, CONTINUOUS, Starting on Mon12/12/23 at 1530, Until Mon12/13/23 at 0129 Start Infusion 12/12/2023 2:37 PM EDT 500 mL 50 mL/hr sodium chloride 0.9 % flush central line 10 mL 10 mL, IV Push, PRN Other, IV Flush, Starting on Mon12/12/23 at 1422, Until Mon12/13/23 at 1421, For 24 hours, Do not flush if lock, PICC, or central line not in place; IV infusing or unable to flush. Given 12/12/2023 3:47 PM EDT 10 mL Inactive Administered Medications - up to 3 most recent administrations Medication Order MAR Action Action Date Dose Rate Site Acetaminophen (Tylenol) tab 650 mg 650 mg, Oral, ONCE, On Mon12/12/23 at 1530, For 1 dose, Maximum of 4 grams (4000 mg) per day. Given 12/12/2023 2:36 PM EDT 650 mg diphenhydrAMINE (Benadryl) cap 25 mg 25 mg, Oral, ONCE, On Mon12/12/23 at 1530, For 1 dose Given 12/12/2023 2:36 PM EDT 25 mg Trastuzumab-anns (Kanjinti) 587 mg in NSS 250 mL infusion 587 mg (rounded from 587.4 mg = 6 mg/kg 97.9 kg Treatment plan Recorded weight), IV Piggyback, ONCE, 1 dose, On Mon12/12/23 at 1600, Administer over 30 Minutes Start Infusion 12/12/2023 3:08 PM EDT 587 mg 510 mL/hr documented in this encounter Advance Directives * [...] Directives occurred with: Not Discussed Care Teams Cloth Finishing Range Operator Chief Relationship Specialty Start Date End Date Aleksandr Parker MD [address] [facility] [place] [address] PCP - General 06/27/02 documented as of this encounter
--- OUTSIDE RECORDS SUMMARY | 2023-12-22 05:16 | External Medical Summary | Summary of Care ---
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 murmurs Extremities: +mild nonpitting RLE edema Neurologic: Normal - Grossly intact LABS: Blood workup done on 12/12/2023: -WBC 9400, Hemoglobin and hematocrit -13.9/41.7, Platelet count of 198496 -BUN/Creat: 17/1.0, Calcium 9.1, normal LFT -phosphorus level --> 3.2 MRI of the thoracic and cervical spine on 08/31/2023: -Chronic postsurgical changes of C4 through T7 posterior spinal fusion, as above. Fusion hardware appears intact without finding to suggest hardware loosening. Diffuse sclerotic metastatic disease involving the visualized cervicothoracic spine Brain MRI ( 12/01/2022): 1. No significant interval changes compared to the most recent MRI from 08/25/2022. No evidence of residual or recurrent cerebral metastases. Brain MRI done on 03/06/2023 ) --> no evidence of recurrent disease noted in the brain. Brain MRI on 07/12/2023: 1. New focus of enhancement along the right caudate head measuring 7 x 3 x 5 mm with associated hyperintense T2 FLAIR signal. Additional small patchy areas of enhancement along the right lentiform nuclei and right posterior thalamus. Findings raise the possibility of disease progression. Short-terminterval follow-up is recommended. 2. No acute infarction, midline shift, or significant mass effect. Brain MRI on 10/18/2023: 1. Resolution of areas of enhancement in the caudate nucleus and lentiform nucleus on the right when compared to prior study with development of encephalomalacia in these regions. This suggests that prior enhancement may have been secondary to subacute areas of infarct. 2. Mild increase in a focus of enhancement in the posterior thalamus on the right measuring up to 6mm with relatively subtle associated T2 signal abnormality. This is indeterminate, with differential considerations including an additional area of evolving infarct, although given persistence since prior study metastatic disease is also a possibility. Continued follow-up is suggested. 3. Stable foci of right frontal and right cerebellar encephalomalacia. PET CT ( 01/10/2023) 1. Similar sclerotic metastases in the visualized skeleton with low level metabolic activity, consistent with treated disease. 2. No new FDG avid metastatic disease is identified. PET-CT scan done on 04/04/2023: - No metabolically active disease noted anywhere else. PET-CT scan on 07/11/2023: -no metabolic active disease noted anywhere else. PET-CT scan done on 10/23/2023: - No FDG avid disease noted anywhere else. 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 She has remained asymptomatic. Will check with neuro-oncologist Dr. Green. Reviewed with regarding the PET-CT scan done in 09/2023, no evidence of metabolic active disease noted anywhere else Will continue current treatment plan - Xgeva injections So far she received Xgeva for 2 years, would like to change It to every 3 monthly. -Tucatinib 250 mg twice a day -Capecitabine 2000 mg twice a day for 7 days on and 7 days off -Trastuzumab 6 mg/kg every 3 weeks - will receive today She is scheduled for follow-up PET-CT scan as well as echocardiogram in late 12/2023. (Ordered) She is also having follow-up brain MRI in 12/2023 She will continue vitamin-D and Calcium supplementation I am planning to see her back in the clinic in about [address] Ruddy Robbins Hem/Onc (This note was completed using the dictation program Fluency Direct. As such, there may be misspellings, word substitutions, or other variations that should not change the essence of the clinical content of this encounter note. If there is need for further clarification, please direct questions to the provider listed above.) documented in this encounter Nursing Notes * Kinga Bella, MED ASSIST - 12/12/2023 1:56 PM EDT Patient identifed by name and birthdate Do you have any concerns about pain management for today's visit? No Living Will or Advance Directive for Health Care as noted on the problem list. [employer] [facility] is a way you can talk to your provider on line through e-mail. Would you like to sign up? I can activate it for you? ALREADY ACTIVE Filed Vitals: 12/12/23 1355 BP: 119/81 Pulse: 96 Temp: 36.4 C (97.6 F) TempSrc: Tympanic SpO2: 90% Weight: 102.5 kg (225 lb 14.4 oz) Patient was instructed to not get up on the exam table/exam chair until directed and assisted by their provider; patient is to remain seated in the chair/ wheelchair/ exam table/ exam chair for fall prevention and safety reasons. Patient is aware to have assistance to step down off exam table/exam chair with personnel. Patient voiced full comprehension of instructions. documented in this encounter Plan of Treatment Upcoming Encounters Date Type Department Care Team (Late st Contact Info) Description 01/02/2024 9:20 AM EDT Laboratory Laboratory [facility] Arianna [place] [address] [place] [phone] Arianna Lab [facility] [address] [place] [address] 01/02/2024 9:30 AM EDT Pharmacy Pharmacy Hematology Oncology [address] [address] [facility], [facility] Hem/Onc [address] [place] [address] 01/02/2024 10:30 AM EDT Hem/Onc Treatment Hematology/Oncology Treatment, [place] [address] [place] [phone] Arianna Chair 8 Hem Onc Scene [address] [place] [address] 01/23/2024 9:45 AM EDT Imaging Radiology [facility], [address] [place] [address] 01/23/2024 11:00 AM EDT Imaging Radiology [address] [facility] [place] [address] 01/25/2024 9:00 AM EDT Imaging Radiology [address] [place] [address] 02/20/2024 3:30 PM EDT Cardiac Studies Cardiac Studies, [facility] [address] [facility] [place] [address] 03/05/2024 8:45 AM EST Office Visit Hematology/Oncology [facility] [address] [place] [phone] Ruddy Robbins MD [address] [place] [address] 03/20/2024 1:45 PM EST Office Visit Neurosurgery, [place] [address] [place] [address] Lorenzo Gallardo MD [address] [place] [address] 03/21/2024 1:40 PM EST Office Visit Otolaryngology [facility] [address] [facility] [place] [address] Amisha Joseph PA-C [address] [place] [address] 10/07/2024 1:30 PM EDT Office Visit Allergy/Immunology [facility] [address] [place] [address] Alexandru Mcelroy MD [address] [place] [address] Scheduled Orders Name Type Priority Associated Diagnoses Orde r Schedule PET CT SKULL BASE TO MID-THIGH FDG Medical Imaging Routine 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 breast in female, estrogen receptor positive (HCC) 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) 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) Ordered: 12/12/2023 ECHO, COMPLETE (2D), TRANS-THORACIC Echocardiology Routine 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 breast in female, estrogen receptor positive (HCC) 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) 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) Encounter for antineoplastic chemotherapy Encounter for long-term (current) drug use Expected: 12/12/2023 (Approximate), Expires: 01/11/2026 Scheduled Procedures Name Priority Associated Diagnoses Date/Ti [...] this encounter Medical Devices Implanted Type Area Appeals Court Associate Justice Device Identifier Shelf Expiration Date Model / Serial / Lot Cement Hv-R C01a - [id number] Implanted:Qty: 1 on 08/20/2021 by Lorenzo Gallardo MD at [place] [facility] N/A: Spine Thoracic [employer] : NEURO CARE 04/30/2024 C01A / / [id number] Port Implant W/8f Poly Cath - [id number] Implanted:Qty: 1 on 09/03/2021 by Blayne Villegas MD at OR [facility] Left: Chest CR BARD : PERIPHERAL VASCULAR [id number] 07/29/2022 [id number] / / [id number] 5.0x40 Trammell Screw Implanted:Qty: 3 on 03/25/2022 by Lorenzo Gallardo MD at [place] [facility] DELMAR : SPINE [id number] / / 5.0x45 Trammell Screw Implanted:Qty: 4 on 03/25/2022 by Lorenzo Gallardo MD at [place] [facility] DELMAR : SPINE [id number] / / Spineology E Mesh Implanted:Qty: 1 on 03/25/2022 by Lorenzo Gallardo MD at [place] [facility] [employer] 06/29/2024 [id number] / / [id number] Vitoss Bimodal Foam Pack 10cc - [id number] Implanted:Qty: 1 on 03/25/2022 by Lorenzo Gallardo MD at [place] [facility] DELMAR : SPINE [id number] 08/27/20231909 / / [id number] Vitoss Bimodal Foam Pack 10cc - [id number] Implanted:Qty: 1 on 03/25/2022 by Lorenzo Gallardo MD at [place] [facility] DELMAR : SPINE [id number] 08/27/20231909 / / [id number] Vitoss Bimodal Foam Pack 10cc - [id number] Implanted:Qty: 1 on 03/25/2022 by Lorenzo Gallardo MD at [place] [facility] DELMAR : SPINE [id number] 08/27/20231909 / / [id number] Vitoss Bimodal Foam Pack 10cc - [id number] Implanted:Qty: 1 on 03/25/2022 by Lorenzo Gallardo MD at [place] [facility] DELMAR : SPINE [id number] 08/27/20231909 / / [id number] Connector Crosslink 43 To 54 - [id number] Implanted:Qty: 1 on 03/25/2022 by Lorenzo Gallardo MD at [place] [facility] DELMAR : SPINE [id number] / / Tube Preflld Allogrft Diverted - [id number] Implanted:Qty: 1 on 03/25/2022 by Lorenzo Gallardo MD at [place] [facility] [employer] 11/19/2023 [id number] / / Tube Preflld Allogrft Diverted - [id number] Implanted:Qty: 1 on 03/25/2022 by Lorenzo Gallardo MD at [place] [facility] [employer] 11/18/2024 [id number] / / Tube Preflld Allogrft Diverted - [id number] Implanted:Qty: 1 on 03/25/2022 by Lorenzo Gallardo MD at [place] [facility] [employer] 11/18/2024 [id number] / / Vitoss Bimodal Foam Pack 10cc - [id number] Implanted:Qty: 1 on 03/25/2022 by Lorenzo Gallardo MD at [place] [facility] DELMAR : SPINE [id number] 08/27/20231909 / / [id number] Tube Preflld Allogrft Diverted - [id number] Implanted:Qty: 4 on 03/25/2022 by Lorenzo Gallardo MD at [place] [facility] [employer] 11/19/2023 [id number] / / Screw Set [id number] - [id number] Implanted:Qty: 6 on 03/25/2022 by Lorenzo Gallardo MD at [place] [facility] DELMAR : SPINE [id number] / / 3.5x14 Screw Implanted:Qty: 6 on 03/25/2022 by Lorenzo Gallardo MD at [place] [facility] DELMAR : SPINE [id number] / / [id number] Transition Juan Implanted:Qty: 2 on 03/25/2022 by Lorenzo Gallardo MD at [place] [facility] DELMAR : SPINE [id number] / / Screw Ludmila Stella 3 Ti Set - [id number] Implanted:Qty: 11 on 03/25/2022 by Lorenzo Gallardo MD at [place] [facility] DELMAR : SPINE [id number] / / 5.0x30 Trammell Screw Implanted:Qty: 2 on 03/25/2022 by Lorenzo Gallardo MD at [place] [facility] DELMAR : SPINE [id number] / / 5.0x35 Trammell Screw Implanted:Qty: 2 on 03/25/2022 by Lorenzo Gallardo MD at [place] [facility] DEL[employer] : SPINE [id number] / / Tube Ventilation Briggs [id number] - [id number] - [id number] Implanted:Qty: 1 on 03/02/2023 by Cem Ly DO at OR [facility] Right: Ear [employer] 12/21/2031 [id number] / [id number] / [id number] documented as of this encounter Visit Diagnoses Diagnosis 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 breast in female, estrogen receptor positive (HCC)- Primary 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) Secondary malignant neoplasm of bone and bone marrow 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) Secondary malignant neoplasm of liver 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
--- OUTSIDE RECORDS SUMMARY | 2023-12-22 05:17 | External Medical Summary ---
Author Name Unknown Address Unknown Organization K09:[facility] [place] [address] Laboratory Report Ordering Provider Test Date Status SYLVIA FROST 12/12/2023 12:57:37 Final Observation Date Value Abnormality Reference (Units ) Status SYNC LEUKOCYTES IN BLOOD BY AUTOMATED COUNT 12/12/2023 12:57:37 9.40 4.00-10.80 (K/uL) Final Segs 12/12/2023 12:57:37 72.1 40.0-75.0 (%) Final Lymphs % 12/12/2023 12:57:37 12.7 Below low normal 18.0-42.0 (%) Final Monos 12/12/2023 12:57:37 12.2 Above high normal 1.0-11.0 (%) Final Eosinophils 12/12/2023 12:57:37 2.8 0.0-6.0 (%) Final Basos 12/12/2023 12:57:37 0.2 0.0-2.0 (%) Final Absolute Segs 12/12/2023 12:57:37 6.78 1.80-7.70 (K/uL) Final Lymphs, absolute 12/12/2023 12:57:37 1.19 1.00-4.80 (K/ul) Final Monos, Abs 12/12/2023 12:57:37 1.15 Above high normal 0.00-1.10 (K/uL) Final Eos, Abs 12/12/2023 12:57:37 0.26 0.00-0.70 (K/uL) Final Basos, Abs 12/12/2023 12:57:37 0.02 0.00-0.20 (K/uL) Final Performing Location [facility] [place] [address]
--- OUTSIDE RECORDS SUMMARY | 2023-12-22 05:17 | External Medical Summary | Summary of Care ---
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) Encounter for antineoplastic chemotherapy Procedures [place] INJ., KANJINTI, 10 MG Ruddy Robbins MD [address] [place] [address] Anc Hem/Onc Norma Keller DEPT CLOSED - 03/14/23 200 [facility] [place] [address] Referral ID Status Reason Start Date Expiration Date V isits Requested Visits Authorized [id number] Authorized 10/30/2023 04/26/2024 999 99 Encounter Details Date Type Department Care Team (Latest Contact Info) Description 11/21/2023 9:00 AM EDT Hem/Onc Treatment Hematology/Oncolog y Treatment, [place] [address] [place] [phone] Arianna, Chair 5 Hem Onc [address] [place] [address] 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 breast in female, estrogen receptor positive (HCC)*; Cancer, metastatic to bone (HCC); 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); Encounter for antineoplastic chemotherapy Allergies Active Allergy Reactions Criticality Noted Date Comments Sulfa Antibiotics 05/14/1999 rash documented as of this encounter (statuses as of 12/07/2023) Medications Medication Sig Dispensed Refills Start Date [...] Information Patient not taking.Reported on 10/06/2023 Ipratropium [place] 0.03 % Nasal Solution (Atrovent) Administer 2 [...] to feet 30 g 2 09/19/2023 Active Diphenoxylate-Atropi ne 2.5-0.025 MG Oral Tablet [...] THE MORNING 180 Tablet 3 10/24/2023 Active Capecitabine 150 MG Oral Tablet (Xeloda)Indications: Primary malignant neoplasm of breast with metastasis (HCC),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 TAKE WITHIN 30 MINUTES OF A MEAL. DO NOT CRUSH OR CUT. 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 For 7 days followed by 7-day rest period. Take within 30 minutes of meal. Do not crush or cut.. 112 Tablet 5 04/03/2023 11/21/19 24 Discontinu ed(Medicat ion/Dose Changed) documented as of this encounter (statuses as of 12/07/2023) Active Problems Problem Noted Date Diagnosed Date [...] as of this encounter (statuses as of 12/07/2023) Resolved Problems Problem Noted Date Diagnosed Date [...] as of this encounter (statuses as of 12/07/2023) Immunizations Name Administration Dates Next Due COVID-19 mRNA, LNP-s, No Pre serve, 2-Dose Series (DVDPlay) 02/03/2021,07/08/2020,06/10/2020 COVID-19, MRNA-LNP, 23-24, P F, 30 [...] Sign Reading Time Taken Comments Blood Pressure 127/76 11/21/2023 9:05 AM EDT Pulse 88 11/21/2023 9:05 AM EDT Temperature 36.3 C (97.4 F) 11/21/2023 9:05 AM ED T Respiratory Rate 16 11/21/2023 9:05 AM EDT Oxygen Saturation 94% 11/21/2023 9:05 AM EDT Inhaled Oxygen Concentration - - Weight 102.6 kg (226 lb 3.2 oz) 11/21/2023 9:05 AM EDT Height - - Body Mass Index 34.48 11/14/2023 2:10 PM EDT documented in this [...] as of this encounter Nursing Notes * Rubi Mcfadden RN - 11/21/2023 11:13 AM EDT Pt completed treatment without issues. VAD flushed with 10 ml NSS and Heparin 5 ml (100 units/ml). Constantino needle removed intact. Goals: Pt will remain free from injury. Possible barriers to meeting goals: pt is a high fall risk Stability of the patient: Moderately stable - low risk of patient condition declining or worsening Summary regarding today's goals: Met: Pt Pt remained free from injury during treatment today. Discharged in stable condition. * Rubi Mcfadden RN - 11/21/2023 10:34 AM EDT Chair 6 Chemotherapy/Immunotherapy agents: LORENA Consent for chemotherapy drug treatment complete, dated, and signed? yes, date - 04/27/22 Treatment lab parameters met? Yes Has treatment weight changed > than 10%? No Treatment preauthorized? Yes VITALS Filed Vitals: 11/21/23 0905 BP: 127/76 Pulse: 88 Resp: 16 Temp: 36.3 C (97.4 F) TempSrc: Tympanic SpO2: 94% Weight: 102.6 kg (226 lb 3.2 oz) Urine protein: N/A Patient education completed for treatment? Yes Blood transfusion consent signed and complete? NA Return appointment scheduled? Yes Patient had provider visit today? No - If no provider visit must complete Pretreatment Assessment PRE-TREATMENT ASSESSMENT: NEURO: numbness or tingling: pt reports tingling in fingers and toes is stable, not affecting function andfatigue:stable CV/RESP: denies symptoms GI/: diarrhea: pt reports diarrhea during week of capecitabine, manages with lomotil and constipation: Pt sometimes experiences constipation once diarrhea resolves OTHER: skin changes:pt reports skin changes on feet have worsened slightly. Pt has more skin peeling on heels- no open areas noted. Pt is using steroid cream, udderly smooth with urea, and ruvalcaba butter several times/day. Pt stated feet are sensitive, but not painful and not affecting ambulation PAIN: 0 VAD accessed; NSS infusing . Safety and Risk for Injury Patient will remain free from injury. Ensure appropriate safety devices are available. Provide and maintain safe environment. Functional Status: Functional status at today's visit: Restricted in physically strenuous activity but ambulatory and able to carry out work on a light orsedentary nature, e.g. light house work, office work The drug name, dose, infusion volume, rate and route of administration, expiration date and time, appearance and physical integrity of the drug and rate set on the pump and sequencing of drug administration (as applicable) were verified by me and second sign-in RN. Patient was assessed for symptoms or adverse side effects during treatment. documented in this encounter Plan of Treatment Upcoming Encounters Date Type Department Care Team (Late st Contact Info) Description 12/12/2023 1:10 PM EDT Laboratory Laboratory [facility] [place] [address] [facility] [place] [phone] Arianna, Lab [address] [place] [address] 12/12/2023 1:45 PM EDT Office Visit Hematology/Oncology [facility] [place] [address] [facility] [place] [phone] Ruddy Robbins MD 200 [facility] [place] [address] 12/12/2023 2:15 PM EDT Hem/Onc Treatment Hematology/Oncology Treatment, [place] [address] [place] [phone] Arianna, Chair 8 Hem Onc [place] [address] [place] [address] 01/02/2024 9:30 AM EDT Pharmacy Pharmacy Hematology [facility] [place] [address] [place] [address] [facility] Hem/Onc [address] [place] [address] 01/25/2024 9:00 AM EDT Imaging Radiology [facility] [address] [facility] [address] [place] [address] 03/20/2024 1:45 PM EST Office Visit Neurosurgery, [place] [address] [place] [address] Lorenzo Gallardo MD [address] [place] [address] 03/21/2024 1:40 PM EST Office Visit Otolaryngology [facility] [address] [facility] [place] [address] Amisha Joseph PA-C [address] [place] [address] 10/07/2024 1:30 PM EDT Office Visit Allergy/Immunology [facility] [address] [facility] [place] [address] Alexandru Mcelroy MD 200 [facility] [place] [address] Scheduled Procedures Name Priority Associated Diagnoses Date/Ti [...] this encounter Medical Devices Implanted Type Area Reservoir Caretaker Device Identifier Shelf Expiration Date Model / Serial / Lot Cement Hv-R C01a - [id number] Implanted:Qty: 1 on 08/20/2021 by Lorenzo Gallardo MD [place] [facility] [place]A: Spine Thoracic [employer] : NEURO CARE 04/30/2024 C01A / / [id number] Port Implant W/8f Poly Cath - [id number] Implanted:Qty: 1 on 09/03/2021 by Blayne Villegas MD at OR [facility] Left: Chest CR BARD : PERIPHERAL VASCULAR [id number] 07/29/2022 [id number] / / [id number] 5.0x40 Trammell Screw Implanted:Qty: 3 on 03/25/2022 by Lorenzo Gallardo MD [place] [facility] [place] : SPINE [id number] / / 5.0x45 Trammell Screw Implanted:Qty: 4 on 03/25/2022 by Lorenzo Gallardo MD at [place] [facility] DELMAR : SPINE [id number] / / Spineology E Mesh Implanted:Qty: 1 on 03/25/2022 by Lorenzo Gallardo MD at [place] [facility] [employer] 06/29/2024 330-2004 / / [id number] Vitoss Bimodal Foam Pack 10cc - [id number] Implanted:Qty: 1 on 03/25/2022 by Lorenzo Galladro MD at [place] [facility] DELMAR : SPINE [id number] 08/27/20231909 / / [id number] Vitoss Bimodal Foam Pack 10cc - [id number] Implanted:Qty: 1 on 03/25/2022 by Lorenzo Gallardo MD at [place] [facility] DELMAR : SPINE [id number] 08/27/20231909 / / [id number] Vitoss Bimodal Foam Pack 10cc - [id number] Implanted:Qty: 1 on 03/25/2022 by Lorenzo Gallardo MD at [place] [facility] DELMAR : SPINE [id number] 08/27/20232101- 1909 / / [id number] Vitoss Bimodal Foam Pack 10cc - [id number] Implanted:Qty: 1 on 03/25/2022 by Lorenzo Gallardo MD at [place] [facility] DELMAR : SPINE [id number] 08/27/2023 210- 0 / / [id number] Connector Crosslink 43 To 54 - [id number] Implanted:Qty: 1 on 03/25/2022 by Lorenzo Gallardo MD at [place] [facility] DELMAR : SPINE [id number] / / Tube Preflld Allogrft Diverted - [id number] Implanted:Qty: 1 on 03/25/2022 by Lorenzo Gallardo MD at [place] [facility] [employer] 11/19/2023 [id number] / / Tube Preflld Allogrft Diverted - [id number] Implanted:Qty: 1 on 03/25/2022 by Lorezno Gallardo MD at [place] [facility] [employer] 11/18/2024 [id number] / / Tube Preflld Allogrft Diverted - [id number] Implanted:Qty: 1 on 03/25/2022 by Lorenzo Gallardo MD at [place] [facility] SPINE[facility]Y [facility] 11/18/2024 [id number] / / Vitoss Bimodal Foam Pack 10cc - [id number] Implanted:Qty: 1 on 03/25/2022 by Lorenzo Gallardo MD at [place] [facility] [place]MAR : SPINE [id number] 08/27/2023 2102- 1910 / / [id number] Tube Preflld Allogrft Diverted - [id number] Implanted:Qty: 4 on 03/25/2022 by Lorenzo Gallardo MD at [place] [facility] SPINEOLOGY [facility] 11/19/2023 [id number] / / Screw Set [id number] - [id number] Implanted:Qty: 6 on 03/25/2022 by Lorenzo Gallardo MD at [place] [facility] [place] : SPINE [id number] 1 / / 3.5x14 Screw Implanted:Qty: 6 on 03/25/2022 by Lorenzo Gallardo MD at [place] [facility] DELMAR : SPINE [id number] 4 / / [id number] Transition Juan Implanted:Qty: 2 on 03/25/2022 by Lorenzo Gallardo MD at [place] [facility] DELMAR : SPINE [id number] 00 / / Screw Ludmila Stella 3 Ti Set - [id number] Implanted:Qty: 11 on 03/25/2022 by Lorenzo Gallardo MD at [place] [facility] [place]MAR : SPINE [id number] / / 5.0x30 Trammell Screw Implanted:Qty: 2 on 03/25/2022 by Lorenzo Gallardo MD at [place] [facility] [place]MAR : SPINE [id number] / / 5.0x35 Trammell Screw Implanted:Qty: 2 on 03/25/2022 by Lorenzo Gallardo MD at [place] [facility] [place] : SPINE [id number] / / Tube Ventilation Briggs [id number] - [id number] - [id number] Implanted:Qty: 1 on 03/02/2023 by Cem Ly DO at OR [facility] Right: Ear [employer] 12/21/2031 [id number] / [id number] / [id number] documented as of this encounter Visit Diagnoses Diagnosis 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 breast in female, estrogen receptor positive (HCC)- Primary Cancer, metastatic to bone (HCC) Secondary malignant neoplasm of bone and bone marrow 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) Secondary malignant neoplasm of liver Encounter for antineoplastic chemotherapy documented in this encounter Administered Medications Inactive Administered Medications - up to 3 most recent administrations Medication Order MAR Action Action Date Dose Rate Site Acetaminophen (Tylenol) tab 650 mg 650 mg, Oral, ONCE, On Mon11/21/23 at 1030, For 1 dose, Maximum of 4 grams (4000 mg) per day. Given 11/21/2023 9:49 AM EDT 650 mg diphenhydrAMINE (Benadryl) cap 25 mg 25 mg, Oral, ONCE, On Mon11/21/23 at 1030, For 1 dose Given 11/21/2023 9:49 AM EDT 25 mg hEParin 100 UNIT/ML Lock Flush inj 500 Units 500 Units (5 mL), IV Lock, PRN Other, IV Flush, Starting on Mon11/21/23 at 0923, Until Mon11/21/23 at 1418, For 24 hours, Do not flush if lock, PICC, or central line not in place; IV infusing or unable to flush. Given 11/21/2023 10:47 AM EDT 500 Units NSS infusion 500 mL, Intravenous, at 50 mL/hr, CONTINUOUS, Starting on Mon11/21/23 at 1030, Until Mon11/21/23 at 1418 Start Infusion 11/21/2023 9:41 AM EDT 500 mL 50 mL/hr sodium chloride 0.9 % flush central line 10 mL 10 mL, IV Push, PRN Other, IV Flush, Starting on Mon11/21/23 at 0923, Until Mon11/21/23 at 1418, For 24 hours, Do not flush if lock, PICC, or central line not in place; IV infusing or unable to flush. Given 11/21/2023 10:47 AM EDT 10 mL Trastuzumab-anns (Kanjinti) 587 mg in NSS 250 mL infusion 587 mg (rounded from 587.4 mg = 6 mg/kg 97.9 kg Treatment plan Recorded weight), IV Piggyback, ONCE, 1 dose, On Mon11/21/23 at 1100, Administer over 30 Minutes Start Infusion 11/21/2023 10:12 AM EDT 587 mg 510 mL/hr documented in [...] Directives occurred with: Not Discussed Care Teams Lumber Handler Relationship Specialty Start Date End Date Aleksandr Parker MD [address] [facility] [place] [address] PCP - General 06/27/02 documented as of this encounter
--- OUTSIDE RECORDS SUMMARY | 2023-12-22 05:17 | External Medical Summary | Summary of Care ---
Author Name Unknown Organization [facility] Address [address] [place] [address] Phone [phone] Care Team Providers Care Theatrical Rigger Name Role Phone Aleksandr Parker MD Primary Care Provider +1- [phone] Reason for Visit * Reason Comments Chemotherapy Kanjinti 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) Encounter for antineoplastic chemotherapy Procedures [place] INJ., KANJINTI, 10 MG Ruddy Robbins MD [address] [place] [address] Anc Hem/Onc Norma Keller DEPT CLOSED - 03/14/23 200 [facility] [place] [phone] Referral ID Status Reason Start Date Expiration Date V isits Requested Visits Authorized [id number] Authorized 10/30/2023 04/26/2024 999 99 Encounter Details Date Type Department Care Team (Latest Contact Info) Description 11/21/2023 9:00 AM EDT Hem/Onc Treatment Hematology/Oncolog y Treatment, [place] [address] [place] [phone] Arianna, Chair 5 Hem Onc [address] [place] [address] 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 [...] Information Patient not taking.Reported on 10/06/2023 Ipratropium [place] 0.03 % Nasal Solution (Atrovent) Administer 2 [...] 05/25/2018:Stage IA(pT1a, pN0, cM0, G2, ER: Positive, NV: Negative, HER2: Positive) - Signed by Ruddy [...] mRNA, LNP-s, No Pre serve, 2-Dose Series ([employer]) 02/03/2021,07/08/2020,06/10/2020 COVID-19, MRNA-LNP, 23-24, P F, 30 [...] Description 12/12/2023 1:10 PM EDT Laboratory Laboratory [facility] [place] [address] [facility] [place] [phone] Arianna, Lab [address] [place] [address] 12/12/2023 1:45 PM EDT Office Visit Hematology/Oncology [facility] [place] [address] [facility] [place] [phone] Ruddy Robbins MD [address] [facility] [place] [address] 12/12/2023 2:15 PM EDT Hem/Onc Treatment Hematology/Oncology Treatment, [place] [address] [place] [phone] Arianna, Chair 8 Hem Onc [place] [address] [place] [address] 01/02/2024 9:30 AM EDT Pharmacy Pharmacy [facility]ology [facility] [place] [address] [place] [address] [facility] Hem/Onc [address] [place] [address] 01/25/2024 9:00 AM EDT Imaging Radiology [facility] [address]st [facility] [address] [place] [address] 03/20/2024 1:45 PM EST Office Visit Neurosurgery, [place] [address] [place] [address] Lorenzo Gallardo MD [address] [place] [address] 03/21/2024 1:40 PM EST Office Visit Otolaryngology [facility] [address] [place] [address] Amisha Joseph PA-C [address] [place] [address] 10/07/2024 1:30 PM EDT Office Visit Allergy/Immunology [facility] [address] [facility] [place] [address] Alexandru Mcelroy MD [address] [facility] [place] [address] Scheduled Procedures Name Priority Associated Diagnoses Date/Ti [...] this encounter Medical Devices Implanted Type Area Power Station Operator Device Identifier Shelf Expiration Date Model / Serial / Lot Cement Hv-R C01a - [id number] Implanted:Qty: 1 on 08/20/2021 by Lorenzo Gallardo MD [place] [facility] [place]/A: Spine Thoracic [employer] : NEURO CARE 04/30/2024 C01A / / [id number] Port Implant W/8f Poly Cath - [id number] Implanted:Qty: 1 on 09/03/2021 by Blayne Villegas MD at OR [facility] Left: Chest CR BARD : PERIPHERAL VASCULAR [id number] 07/29/2022 [id number] / / [id number] 5.0x40 Trammell Screw Implanted:Qty: 3 on 03/25/2022 by Lorenzo Gallardo MD [place] [facility] [place]MAR : SPINE [id number] / / 5.0x45 Trammell Screw Implanted:Qty: 4 on 03/25/2022 by Lorenzo Gallardo MD at [place] [facility] DELMAR : SPINE [id number] / / Spineology E Mesh Implanted:Qty: 1 on 03/25/2022 by Lorenzo Gallardo MD at [place] [facility] [employer] 06/29/2024 330-2004 / / [id number] Vitoss Bimodal Foam Pack 10cc - [id number] Implanted:Qty: 1 on 03/25/2022 by Lorenzo Gallardo MD at [place] [facility] DELMAR : SPINE [id number] 08/27/20231909 / / [id number] Vitoss Bimodal Foam Pack 10cc - [id number] Implanted:Qty: 1 on 03/25/2022 by Lorenzo Gallardo MD at [place] [facility] DELMAR : SPINE [id number] 08/27/20231909 / / [id number] Vitoss Bimodal Foam Pack 10cc - [id number] Implanted:Qty: 1 on 03/25/2022 by Lorenzo Gallardo MD at [place] [facility] DELMAR : SPINE [id number] 08/27/20232101- 1909 / / [id number] Vitoss Bimodal Foam Pack 10cc - [id number] Implanted:Qty: 1 on 03/25/2022 by Lorenzo Gallardo MD at [place] [facility]MAR : SPINE [id number] 08/27/2023 210- 0 / / [id number] Connector Crosslink 43 To 54 - [id number] Implanted:Qty: 1 on 03/25/2022 by Lorenzo Gallardo MD at [place] [facility] [place]MAR : SPINE [id number] / / Tube Preflld Allogrft Diverted - [id number] Implanted:Qty: 1 on 03/25/2022 by Lorenzo Gallardo MD at [place] [facility] [employer] 11/19/2023 [id number] / / Tube Preflld Allogrft Diverted - [id number] Implanted:Qty: 1 on 03/25/2022 by Lorenzo Gallardo MD at [place] [facility] [employer] 11/18/2024 [id number] / / Tube Preflld Allogrft Diverted - [id number] Implanted:Qty: 1 on 03/25/2022 by Lorenzo Gallardo MD at [place] [facility] SPINE[facility]Y [facility] 11/18/2024 [id number] / / Vitoss Bimodal Foam Pack 10cc - [id number] Implanted:Qty: 1 on 03/25/2022 by Lorenzo Gallardo MD at [place] [facility] DELMAR : SPINE [id number] 08/27/2023 2102- 1910 / / [id number] Tube Preflld Allogrft Diverted - [id number] Implanted:Qty: 4 on 03/25/2022 by Lorenzo Gallardo MD at [place] [facility] SPINE[employer]Y [facility] 11/19/2023 [id number] / / Screw Set 7601-13804 - [id number] Implanted:Qty: 6 on 03/25/2022 by Lorenzo Gallardo MD at [place] [facility] DELMAR : SPINE [id number] 1 / / 3.5x14 Screw Implanted:Qty: 6 on 03/25/2022 by Lorenzo Gallardo MD at [place] [facility] DELMAR : SPINE 1099-3880 4 / / 4.0/[id number] Transition Juan Implanted:Qty: 2 on 03/25/2022 by Lorenzo Gallardo MD at [place] [facility] DELMAR : SPINE 2912-2313 00 / / Screw Ludmila Stella 3 Ti Set - [id number] Implanted:Qty: 11 on 03/25/2022 by Lorenzo Gallardo MD at [place] [facility] DELMAR : SPINE [id number] / / 5.0x30 Trammell Screw Implanted:Qty: 2 on 03/25/2022 by Lorenzo Gallardo MD at [place] [facility] DELMAR : SPINE [id number] / / 5.0x35 Trammell Screw Implanted:Qty: 2 on 03/25/2022 by Lorenzo Gallardo MD at [place] [facility] [place] : SPINE [id number] / / Tube Ventilation Briggs [id number] - [id number] - [id number] Implanted:Qty: 1 on 03/02/2023 by Cem Ly DO at [facility] Right: Ear [employer] 12/21/2031 [id number] / [id number] / [id number] documented as of this encounter Visit Diagnoses [...] Directives occurred with: Not Discussed Care Teams Theatrical Rigger Relationship Specialty Start Date End Date Aleksandr Parker MD [address] [facility] [place] [address] PCP - General 06/27/02 documented as of this encounter
--- OUTSIDE RECORDS SUMMARY | 2023-12-22 05:17 | External Medical Summary | Summary of Care ---
Author Name Unknown Organization [facility] Address [address] [place] [address] Phone [phone] Care Team Providers Care Supervisor [employer]ting [employer] Name Role Phone Aleksandr Parker MD Primary Care Provider [phone]- [phone] Reason for Visit * Reason Comments Chemotherapy Kanjinti 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) Encounter for antineoplastic chemotherapy Procedures VT INJ., KANJINTI, 10 MG Ruddy Robbins MD [address] [place] [address] Anc Hem/Onc Norma [facility] DEPT CLOSED - 03/14/23 200 [facility] [place] [address] Referral ID Status Reason Start Date Expiration Date V isits Requested Visits Authorized [id number] Authorized 10/30/2023 04/26/2024 999 99 Encounter Details Date Type Department Care Team (Latest Contact Info) Description 11/21/2023 9:00 AM EDT Hem/Onc Treatment Hematology/Oncolog y Treatment, [place] [address] [place] [address] Arianna, Chair 5 Hem Onc [address] [place] [address] 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 [...] 09/11/2003 Active NASAL SALINE 0.65 % NA SOLNIndications:Enriek rgic rhinitis,Postnasal drip,Chronic sinusitis FLUSH each nostril [...] Information Patient not taking.Reported on 10/06/2023 Ipratropium [place] 0.03 % Nasal Solution (Atrovent) Administer 2 [...] 05/25/2018:Stage IA(pT1a, pN0, cM0, G2, ER: Positive, VT: Negative, HER2: Positive) - Signed by Ruddy [...] mRNA, LNP-s, No Pre serve, 2-Dose Series (Zervant) 02/03/2021,07/08/2020,06/10/2020 COVID-19, MRNA-LNP, 23-24, P F, 30 [...] Description 12/12/2023 1:10 PM EDT Laboratory Laboratory [facility] [place] 200 [facility] [place] [phone] Arianna, Lab [address] [place] [address] 12/12/2023 1:45 PM EDT Office Visit Hematology/Oncology [facility] [place] 200 [facility] [place] [phone] Ruddy Robbins MD 200 [facility] [place] [address] 12/12/2023 2:15 PM EDT Hem/Onc Treatment Hematology/Oncology Treatment, [place] [address] [place] [phone] Arianna, Chair 8 Hem Onc [place] [address] [place] [address] 01/02/2024 9:30 AM EDT Pharmacy Pharmacy [facility]ology [facility] [place] [address] [place] [address] [facility], [facility] Hem/Onc [address] [place] [address] 01/25/2024 9:00 AM EDT Imaging Radiology [facility] [address] [place] [address] 03/20/2024 1:45 PM EST Office Visit Neurosurgery, [place] [address] [place] [address] Lorenzo Gallardo MD [address] [place] [address] 03/21/2024 1:40 PM EST Office Visit Otol[facility]ology [facility] 132 [place] [address] Amisha Joseph PA-C [address] [place] [address] 10/07/2024 1:30 PM EDT Office Visit Allergy/Immunology [facility] 200 [facility] [place] [address] Alexandru Mcelroy MD 200 [facility] [place] [address] Scheduled Procedures Name Priority Associated Diagnoses Date/Ti [...] this encounter Medical Devices Implanted Type Area Tap Builder Device Identifier Shelf Expiration Date Model / Serial / Lot Cement Hv-R C01a - [id number] Implanted:Qty: 1 on 08/20/2021 by Lorenzo Gallardo MD at [facility] N/A: Spine Thoracic [employer] : NEURO CARE 04/30/2024 C01A / / [id number] Port Implant W/8f Poly Cath - [id number] Implanted:Qty: 1 on 09/03/2021 by Blayne Villegas MD at OR [facility] Left: Chest CR BARD : PERIPHERAL VASCULAR [id number] 07/29/2022 [id number] / / [id number] 5.0x40 Trammell Screw Implanted:Qty: 3 on 03/25/2022 by Lorenzo Gallardo MD at OR [facility] DELMAR : SPINE [id number] / / 5.0x45 Trammell Screw Implanted:Qty: 4 on 03/25/2022 by Lorenzo Gallardo MD at OR [facility] DELMAR : SPINE [id number] / / Spineology E Mesh Implanted:Qty: 1 on 03/25/2022 by Lorenzo Gallardo MD at OR [facility] [employer] 06/29/2024 330-2004 / / [id number] Vitoss Bimodal Foam Pack 10cc - [id number] Implanted:Qty: 1 on 03/25/2022 by Lorenzo Gallardo MD at OR [facility] DELMAR : SPINE [id number] 08/27/20231909 / / [id number] Vitoss Bimodal Foam Pack 10cc - [id number] Implanted:Qty: 1 on 03/25/2022 by Lorenzo Gallardo MD at OR [facility] DELMAR : SPINE [id number] 08/27/20231909 / / [id number] Vitoss Bimodal Foam Pack 10cc - [id number] Implanted:Qty: 1 on 03/25/2022 by Lorenzo Gallardo MD at OR [facility] DELMAR : SPINE [id number] 08/27/20232101- 1909 / / [id number] Vitoss Bimodal Foam Pack 10cc - [id number] Implanted:Qty: 1 on 03/25/2022 by Lorenzo Gallardo MD at OR [facility] DELMAR : SPINE [id number] 08/27/2023 210- 0 / / [id number] Connector Crosslink 43 To 54 - [id number] Implanted:Qty: 1 on 03/25/2022 by Lorenzo Gallardo MD at OR [facility] DELMAR : SPINE [id number] / / Tube Preflld Allogrft Diverted - [id number] Implanted:Qty: 1 on 03/25/2022 by Lorenzo Gallardo MD at OR [facility] [employer] 11/19/2023 [id number] / / Tube Preflld Allogrft Diverted - [id number] Implanted:Qty: 1 on 03/25/2022 by Lorenzo Gallardo MD at OR [facility] [employer] 11/18/2024 [id number] / / Tube Preflld Allogrft Diverted - [id number] Implanted:Qty: 1 on 03/25/2022 by oLrenzo Gallardo MD at OR [facility] [employer] [facility] 11/18/2024 [id number] / / Vitoss Bimodal Foam Pack 10cc - [id number] Implanted:Qty: 1 on 03/25/2022 by Lorenzo Gallardo MD at OR [facility] DELMAR : SPINE [id number] 08/27/2023 2102- 1910 / / [id number] Tube Preflld Allogrft Diverted - [id number] Implanted:Qty: 4 on 03/25/2022 by Lorenzo Gallardo MD at OR [facility] [employer] [facility] 11/19/2023 [id number] / / Screw Set [id number] - [id number] Implanted:Qty: 6 on 03/25/2022 by Lorenzo Gallardo MD at OR [facility] DELMAR : SPINE [id number] / / 3.5x14 Screw Implanted:Qty: 6 on 03/25/2022 by Lorenzo Gallardo MD at OR [facility] DELMAR : SPINE [id number] 4 / / 4.0/[id number] Transition Juan Implanted:Qty: 2 on 03/25/2022 by Lorenzo Gallardo MD at OR [facility] DELMAR : SPINE [id number] 00 / / Screw Ludmila Stella 3 Ti Set - [id number] Implanted:Qty: 11 on 03/25/2022 by Lorenzo Gallardo MD at OR [facility] DELMAR : SPINE [id number] / / 5.0x30 Trammell Screw Implanted:Qty: 2 on 03/25/2022 by Lorenzo Gallardo MD at OR [facility] DELMAR : SPINE [id number] / / 5.0x35 Trammell Screw Implanted:Qty: 2 on 03/25/2022 by Lorenzo Gallardo MD at OR [facility] DELMAR : SPINE [id number] / / Tube Ventilation Briggs [id number] - [id number] - [id number] Implanted:Qty: 1 on 03/02/2023 by Cem Ly DO at OR [facility] Right: Ear [employer] 12/21/2031 [id number] / [id number] / [id number] documented as of this encounter Visit Diagnoses [...] Question Answer Comments Discussion of Advance Direct lnidsay occurred with: Not Discussed due to patient's [...] Directives occurred with: Not Discussed Care Teams Supervisor Painting Ship[employer] Relationship Specialty Start Date End Date Aleksandr Parker MD [address] [facility] [place] [address] PCP - General 06/27/02 documented as of this encounter
--- OUTSIDE RECORDS SUMMARY | 2023-12-22 05:17 | External Medical Summary ---
Author Name Unknown Address Unknown Organization K09[facility] [place] [address] Laboratory Report Ordering Provider Test Date Status SYLVIA FROST 12/12/2023 12:57:37 Final Observation Date Value Abnormality Reference (Units ) Status WBC, Total 12/12/2023 12:57:37 9.40 4.00-10.8 0 (K/uL) Final RBC 12/12/2023 12:57:37 4.24 3.85-5.15 (M/uL) Final Hemoglobin 12/12/2023 12:57:37 13.9 12.0-15.3 (g/dL) Final HCT 12/12/2023 12:57:37 41.7 36.0-45.2 (%) Final MCV 12/12/2023 12:57:37 98.3 81.5-97.5 (fL) Final MCH 12/12/2023 12:57:37 32.8 27.0-34.0 (pg) Final MCHC 12/12/2023 12:57:37 33.3 32.0-36.0 (g/dL) Final RDW 12/12/2023 12:57:37 19.5 11.5-15.5 (%) Final Platelets 12/12/2023 12:57:37 260 140-400 (K /uL) Final MPV 12/12/2023 12:57:37 9.2 6.6-11.1 ( fL) Final Performing Location [facility] [place] [address]
--- OUTSIDE RECORDS SUMMARY | 2023-12-22 05:17 | External Medical Summary ---
Author Name Unknown Address Unknown Organization K09[facility] [place] [address] Laboratory Report Ordering Provider Test Date Status SYLVIA FROST 12/12/2023 12:57:37 Final Observation Date Value Abnormality Reference (Units ) Status Phosphate 12/12/2023 12:57:37 3.2 2.5-4.8 (m g/dL) Final Performing Location [facility] [place] [address]
--- OUTSIDE RECORDS SUMMARY | 2023-12-22 05:17 | External Medical Summary | Summary of Care ---
Author Name Unknown Organization [facility] Address [address] [place] [address] Phone [phone] Care Team Providers Care Tester Food Products Name Role Phone Aleksandr Parker MD Primary Care Provider [phone]- [phone] Reason for Visit * Reason Comments Chemotherapy C25/D1 -Kanjinti * Episode Based Medications (Routine) - Authorized Specialty Diagnoses / Procedures Referred By Contac t Referred To Contact Diagnoses 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 breast in female, estrogen receptor positive (HCC) Cancer, metastatic to bone (HCC) 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) Encounter for antineoplastic chemotherapy Procedures LA INJ., KANJINTI, 10 MG Ruddy Robbins MD [address] [place] [address] Anc Hem/Onc Norma [facility] DEPT CLOSED - 03/14/23 [address] [place] [address] Referral ID Status Reason Start Date Expiration Date V isits Requested Visits Authorized [id number] Authorized 10/30/2023 04/26/2024 999 99 Encounter Details Date Type Department Care Team (Latest Contact Info) Description 10/31/2023 9:00 AM EDT Hem/Onc Treatment Hematology/Oncolog y Treatment, [place] [address] [place] [address] Arianna, Chair 1 Hem Onc [address]en[address] [facility] [place] [address] 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 [...] Information Patient not taking.Reported on 10/06/2023 Ipratropium [place] 0.03 % Nasal Solution (Atrovent) Administer 2 [...] 05/25/2018:Stage IA(pT1a, pN0, cM0, G2, ER: Positive, LA: Negative, HER2: Positive) - Signed by Ruddy [...] Reading Time Taken Comments Blood Pressure 119/81 10/31/2023 8:51 AM EDT Pulse 91 10/31/2023 8:51 AM EDT Temperature 36.1 C (96.9 F) 10/31/2023 8:51 AM ED T Respiratory Rate 16 10/31/2023 8:51 AM EDT Oxygen Saturation 97% 10/31/2023 8:51 AM EDT Inhaled Oxygen Concentration - - Weight 101.7 kg (224 lb 3.2 oz) 10/31/2023 8:51 AM EDT Height - - Body Mass Index 34.18 10/06/2023 12:08 PM EDT documented in this encounter Functional [...] as of this encounter Nursing Notes * Marni Arnold RN - 10/31/2023 11:29 AM EDT Goals: Patient will remain free from injury. Possible barriers to meeting goals: ambulating with IV pole Stability of the patient: Moderately stable - low risk of patient condition declining or worsening Summary regarding today's goals: Met: patient remained free of harm today Patient tolerated treatment well without any acute issues or problems. Patient left facility in stable condition and denied any further needs. * Marni Arnold RN - 10/31/2023 8:51 AM EDT Chair 6. Port accessed, no issues. Patient here for Kanjinti infusion, tolerating well. Chemotherapy/Immunotherapy agents: HERCEPTIN Consent for chemotherapy drug treatment complete, dated, and signed? yes, date - 04/27/2022 Treatment lab parameters met? Yes Has treatment weight changed > than 10%? No Treatment preauthorized? Yes VITALS Filed Vitals: 10/31/23 0851 BP: 119/81 Pulse: 91 Resp: 16 Temp: 36.1 C (96.9 F) TempSrc: Tympanic SpO2: 97% Weight: 101.7 kg (224 lb 3.2 oz) Urine protein: N/A Patient education completed for treatment? Yes Blood transfusion consent signed and complete? NA Return appointment scheduled? Yes Patient had provider visit today? No - If no provider visit must complete Pretreatment Assessment Functional Status: Functional status at today's visit: [...] symptoms or adverse side effects during treatment. PRE-TREATMENT ASSESSMENT: NEURO: headaches: occasional migraines which later resolve and fatigue:energy levels are better than about1 year ago but still working her way up to doing more, feels she has been doing a lot more cooking and cleaning than she used to but still not able to go for long walks CV/RESP: denies symptoms GI/: nausea: occasion nausea that resolves with PRN meds at home and diarrhea: still gets occasional diarrhea when restarting her Xeloda but much improved compared to how she used to be OTHER: Hands and bottoms of feet are much better compared to how they used to look/feel, still moisturizing 2x per day on hands and feet with Udderly Smooth and steroid cream , then applied Vaseline and socks before bed, no more peeling, just some mild tenderness on heels PAIN: 0 Safety and Risk for Injury Patient will remain free from injury. Ensure appropriate safety devices are available. Provide and maintain safe environment. documented in this encounter Plan of Treatment Upcoming Encounters Date Type Department Care Team (Late st Contact Info) Description 12/12/2023 1:10 PM EDT Laboratory Laboratory [facility] [address] [facility] [place] [phone] [place], Lab [address] [place] [address] 12/12/2023 1:45 PM EDT Office Visit Hematology/Oncology [facility] [place] [address] [facility] [place] [phone] Ruddy Robbins MD [address] [facility] [place] [address] 12/12/2023 2:15 PM EDT Hem/Onc Treatment Hematology/Oncology Treatment, [place] [address] [place] [phone] Arianna, Chair 8 Hem Onc [address] [place] [address] 01/02/2024 9:30 AM EDT Pharmacy Pharmacy Hematology Oncology [facility] [place] [address] [place] [address] [facility] Hem/Onc [address] [place] [address] 01/25/2024 9:00 AM EDT Imaging Radiology [facility] 1st [facility] [address] [place] [address] 03/20/2024 1:45 PM EST Office Visit Neurosurgery, [place] [address] [place] [address] Lorenzo Gallardo MD [address] [place] [address] 03/21/2024 1:40 PM EST Office Visit Otolaryngology [facility] [address] [place] [address] Amisha Joseph PA-C [address] [place] [address] 10/07/2024 1:30 PM EDT Office Visit Allergy/Immunology [facility] [address] [facility] [place] [address] Alexandru Mcelroy MD [address] [facility] [place] [address] Scheduled Procedures Name Priority Associated Diagnoses Date/Ti [...] this encounter Medical Devices Implanted Type Area Loft Rigger Device Identifier Shelf Expiration Date Model / Serial / Lot Cement Hv-R C01a - [id number] Implanted:Qty: 1 on 08/20/2021 by Lorenzo Gallardo MD at OR [facility] N/A: Spine Thoracic [employer] : NEURO CARE 04/30/2024 C01A / / [id number] Port Implant W/8f Poly Cath - [id number] Implanted:Qty: 1 on 09/03/2021 by Blayne Villegas MD at OR [facility] Left: Chest CR BARD : PERIPHERAL VASCULAR [id number] 07/29/2022 [id number] / / [id number] 5.0x40 Trammell Screw Implanted:Qty: 3 on 03/25/2022 by Lorenzo Gallardo MD at OR [facility] DELMAR : SPINE [id number] / / 5.0x45 Trammell Screw Implanted:Qty: 4 on 03/25/2022 by Lorenzo Gallardo MD at OR [facility] DELMAR : SPINE [id number] / / Spineology E Mesh Implanted:Qty: 1 on 03/25/2022 by Lorenzo Gallardo MD at OR [facility] [employer] 06/29/2024 330-2004 / / [id number] Vitoss Bimodal Foam Pack 10cc - [id number] Implanted:Qty: 1 on 03/25/2022 by Lorenzo Gallardo MD at OR [facility] DELMAR : SPINE [id number] 08/27/20231909 / / [id number] Vitoss Bimodal Foam Pack 10cc - [id number] Implanted:Qty: 1 on 03/25/2022 by Lorenzo Gallardo MD at OR [facility] DELMAR : SPINE [id number] 08/27/20231909 / / [id number] Vitoss Bimodal Foam Pack 10cc - [id number] Implanted:Qty: 1 on 03/25/2022 by Lorenzo Gallardo MD at OR [facility] DELMAR : SPINE [id number] 08/27/20231909 / / [id number] Vitoss Bimodal Foam Pack 10cc - [id number] Implanted:Qty: 1 on 03/25/2022 by Lorenzo Gallardo MD at OR [facility] DELMAR : SPINE [id number] 08/27/20231909 / / [id number] Connector Crosslink 43 To 54 - [id number] Implanted:Qty: 1 on 03/25/2022 by Lorenzo Gallardo MD at OR [facility] DELMAR : SPINE [id number] / / Tube Preflld Allogrft Diverted - [id number] Implanted:Qty: 1 on 03/25/2022 by Lorenzo Gallardo MD at OR [facility] [employer] 11/19/2023 [id number] / / Tube Preflld Allogrft Diverted - [id number] Implanted:Qty: 1 on 03/25/2022 by Lorenzo Gallardo MD at OR [facility] [employer] 11/18/2024 [id number] / / Tube Preflld Allogrft Diverted - [id number] Implanted:Qty: 1 on 03/25/2022 by Lorenzo Gallardo MD at OR [facility] [employer] 11/18/2024 [id number] / / Vitoss Bimodal Foam Pack 10cc - [id number] Implanted:Qty: 1 on 03/25/2022 by Lorenzo Gallardo MD at OR [facility] DELMAR : SPINE [id number] 08/27/2023 2102- 1910 / / [id number] Tube Preflld Allogrft Diverted - [id number] Implanted:Qty: 4 on 03/25/2022 by Lorenzo Gallardo MD at OR [facility] [employer] 11/19/2023 [id number] / / Screw Set [id number] - [id number] Implanted:Qty: 6 on 03/25/2022 by Lorenzo Gallardo MD at OR [facility] DELMAR : SPINE [id number] 1 / / 3.5x14 Screw Implanted:Qty: 6 on 03/25/2022 by Lorenzo Gallardo MD at OR [facility] DELMAR : SPINE [id number] 4 / / 4.0/[id number] Transition Juan Implanted:Qty: 2 on 03/25/2022 by Lorenzo Gallardo MD at OR [facility] DELMAR : SPINE [id number] 00 / / Screw Ludmila Stella 3 Ti Set - [id number] Implanted:Qty: 11 on 03/25/2022 by oLrenzo Gallardo MD at OR [facility] DELMAR : SPINE [id number] / / 5.0x30 Trammell Screw Implanted:Qty: 2 on 03/25/2022 by Lorenzo Gallardo MD at OR [facility] DELMAR : SPINE [id number] / / 5.0x35 Trammell Screw Implanted:Qty: 2 on 03/25/2022 by Lorenzo Gallardo MD at OR [facility] DELMAR : SPINE [id number] / / Tube Ventilation Briggs [id number] - [id number] - [id number] Implanted:Qty: 1 on 03/02/2023 by Cem Ly DO at OR [facility] Right: Ear [employer] 12/21/2031 [id number] / [id number] / [id number] documented as of this encounter Visit Diagnoses [...] 650 mg 650 mg, Oral, ONCE, On Mon10/31/23 at 1015, For 1 dose, Maximum of 4 grams (4000 mg) per day. Given 10/31/2023 9:18 AM EDT 650 mg diphenhydrAMINE (Benadryl) cap 25 mg 25 mg, Oral, ONCE, On Mon10/31/23 at 1015, For 1 dose Given 10/31/2023 9:18 AM EDT 25 mg hEParin 100 UNIT/ML Lock Flush inj 500 Units 500 Units (5 mL), IV Lock, PRN Other, IV Flush, Starting on Mon10/31/23 at 0912, Until Mon10/31/23 at 1532, For 24 hours, Do not flush if lock, PICC, or central line not in place; IV infusing or unable to flush. Given 10/31/2023 10:46 AM EDT 500 Units NSS infusion 500 mL, Intravenous, at 50 mL/hr, CONTINUOUS, Starting on Mon10/31/23 at 1015, Until Mon10/31/23 at 1532 Start Infusion 10/31/2023 9:19 AM EDT 500 mL 50 mL/hr sodium chloride 0.9 % flush central line 10 mL 10 mL, IV Push, PRN Other, IV Flush, Starting on Mon10/31/23 at 0912, Until Mon10/31/23 at 1532, For 24 hours, Do not flush if lock, PICC, or central line not in place; IV infusing or unable to flush. Given 10/31/2023 10:46 AM EDT 10 mL Trastuzumab-anns (Kanjinti) 587 mg in NSS 250 mL infusion 587 mg (rounded from 587.4 mg = 6 mg/kg 97.9 kg Treatment plan Recorded weight), IV Piggyback, ONCE, 1 dose, On Mon10/31/23 at 1045, Administer over 30 Minutes Start Infusion 10/31/2023 10:10 AM EDT 587 mg 510 mL/hr documented [...] Directives occurred with: Not Discussed Care Teams Tester Food Products Relationship Specialty Start Date End Date Aleksandr Parker MD [address] [place] [address] PCP - General 06/27/02 documented as of this encounter
--- OUTSIDE RECORDS SUMMARY | 2023-12-22 05:17 | External Medical Summary | Summary of Care ---
Author Name Unknown Organization [facility] Address [address] [place] [address] Phone [phone] Care Team Providers Care Counselor Supervisor Name Role Phone Aleksandr Parker MD Primary Care Provider [phone]- [phone] Reason for Visit * Reason Comments Medication Management Encounter Details Date Type Department Care Team (Late st Contact Info) Description 11/21/2023 9:30 AM EDT Pharmacy Pharmacy Hematology Oncology [facility] [address] [place] [address] [facility] [place] Hem/Onc [address] [place], [place] [id number] 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 breast in female, estrogen receptor positive (HCC)* Allergies Active Allergy Reactions Criticality Noted Date Comments Sulfa Antibiotics 05/14/1999 rash documented as of this encounter (statuses as of 11/21/2023) Medications Medication Sig Dispensed Refills Start Date [...] Information Patient not taking.Reported on 10/06/2023 Ipratropium [place] 0.03 % Nasal Solution (Atrovent) Administer 2 [...] the morning. 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 Pathologic fracture of thoracic vertebrae documented as of this encounter (statuses as of 11/21/2023) Resolved Problems Problem Noted Date Diagnosed Date [...] as of this encounter (statuses as of 11/21/2023) Immunizations Name Administration Dates Next Due COVID-19 [...] as of this encounter Progress Notes * Nohelia Cleveland, [facility] - 11/21/2023 10:59 AM EDT MEDICATION THERAPY MANAGEMENT TUCATINIB (TUKYSA) AND CAPECITABINE (XELODA) TREATMENT PROGRESS NOTE Lola Walters [phone] Patient Phone Numbers Preferred Lab: [facility]: Tucatinib - GSP: Capecitabine - [facility] Communication: Spoke to: Patient Treatment: Medication: tucatinib (Tukysa) Indication/Staging/Diagnosis Code: metastatic HER2+ breast cancer / C50.411, Z17.0 Dose: 250 mg (2-50mg + 1-150mg tab) BID ( 10/05/22) Administration: +/- food Start Date: 05/30/22 Primary Ekg Monitor/Oncologist: Dr. Paco Robbins Medication: capecitabine (Xeloda) Indication/Staging/Diagnosis Code: metastatic HER2+ breast cancer / C50.411, Z17.0 Dose: 2000 mg BID 7 days on, 7 days off ( 08/25/23) Administration: within 30 minutes of food Start Date: 05/30/22 Primary Ekg Monitor/Oncologist: Dr. Paco Robbins Additional Therapy: Trastuzumab Supportive Care Meds: Xgeva Ondansetron Prochlorperazine Lomotil Prophylactic Meds: Urea cream Capecitabine Cycles Cycle Dates C1 05/30 - 06/12 C2 06/20 - 07/03 C3 07/26 - 08/08 C4 08/15 - 08/28 C5 09/12 - 09/21 C6 (delayed due to N/V/D) 10/19-10/25; 11/02-11/08 C17 07/27-08/02, 08/10-08/[address] 2000mg 08/24-08/28 (stopped early due to ongoing HFS) C19 09/19-09/25; 10/03-10/09 C20 10/17-10/23; 10/31-11/06 C21 11/14-11/20; 11/28-12/04 C22 12/12-12/18; 12/26-01/01 (anticipated) Treatment History: Anastrozole Trastuzumab/pertuzumab/docetaxel Dose Adjustment / Medication Hold: 06/17/22-06/21/22: tucatinib held for N/V/D 07/12/22-07/25/22: HOLD tucatinib and capecitabine for diarrhea, HFS, mucositis 09/05/22-10/04/22: Tucatinib on HOLD due to ongoing diarrhea 09/13/22: Plan to decrease tucatinib dose reduced to 250mg BID for diarrhea once received 09/21/22-10/19/22: capecitabine held due to diarrhea 10/05/22: restarting tucatinib 250 mg BID 10/19/22: change capecitabine frequency to one week on, one week off 08/25/23: capecitabine dose reduced to 2000mg due to HFS and diarrhea 08/29/23-09/19/23: capecitabine held due to ongoing HFS Interval History: Confirms capecitabine cycle date as above Reports ongoing diarrhea during capecitabine "on weeks" States symptoms start 2 days after capecitabine start and improve after week of treatment Reports symptoms resolved with Lomotil and loperamide if needed Reports intermittent nausea resolved with ondansetron. States some foods cause GI distress and willalter diet as needed States HFS healing has slightly regressed States hands are good Reports increased peeling but denies pain with ambulation Continues to apply clobetasol cream to feet BID, urea cream to hands and feet, and Vaseline to feetat bedtime for symptom relief No other concerns, tolerating therapies well Changes to medication list since last visit? No Assessment and Plan: Follow up labs stable Continue Lomotil and loperamide (MDD 16mg) as needed for diarrhea management during capecitabine "on weeks" Continue ondansetron and diet modifications as needed for nausea management Continue clobetasol, urea cream, and Vaseline for HFS management Pt understands to contact office if no BM in 3 days Continue current therapies Repeat labs with OV in 3 weeks Assessment of compliance: compliant Assessment of adverse effects attributed to drug therapy: TUKYSA Diarrhea - present Nausea/Vomiting - present Peripheral neuropathy - absent Skin rash - absent Hand-foot syndrome - present Decreased appetite - absent Stomatitis - absent XELODA Hand Foot Syndrome - present Diarrhea - present Nausea/vomiting- present Fever - absent Stomatitis - absent Dose adjustment needed based on lab or adverse drug reaction? No Follow up: 3 weeks OV/labs; 6 weeks MTM with labs Nohelia Cleveland, PharmD, BCOP Clinical Pharmacist, [facility] Oral Chemotherapy [facility] 11/21/2023, 2:17 PM Monitoring Parameters: Estimated CrCl Serum creatinine: 0.9 mg/dL 11/21/23 0808 Estimated creatinine clearance: 81.1 mL/min Hepatitis panel Latest Reference Range & Units 09/02/21 09:11 Hepatitis B Surface Antigen Negative Negative Hepatitis B Surface Antibody, Quantitative mIU/mL >1,000.0 HEPATITIS B SURFACE ANTIBODY Rpt Hepatitis B Surface Antibody, Interpretation Immune to Hepatitis B Virus Hepatitis B Surface Antibody, Qualitative Positive Hepatitis B Core Antibodies IgG and IgM Negative Negative test N/A Suggested lab monitoring Suggested lab monitoring: CBC with differential (baseline, monthly); liverfunction (baseline, monthly); serum creatinine (baseline, monthly), INR (if receiving warfarin); test (in females of reproductive potential prior to initiating therapy). Is patient on warfarin? No Treatment Parameters N/A Pertinent Labs: Latest Reference Range & Units 10/10/23 07:44 10/31/23 08:03 11/21/23 08:08 WBC 4.00 - 10.80 K/uL 6.12 7.21 5.67 RBC 3.85 - 5.15 M/uL 3.92 3.95 4.00 HGB 12.0 - 15.3 g/dL 13.4 13.1 13.5 HCT 36.0 - 45.2 % 38.9 39.8 39.1 MCV 81.5 - 97.5 fL 99.2 100.8 97.8 MCH 27.0 - 34.0 pg 34.2 33.2 33.8 MCHC 32.0 - 36.0 g/dL 34.4 32.9 34.5 RDW 11.5 - 15.5 % 15.8 16.9 17.0 PLT 140 - 400 K/uL 240 239 209 MPV 6.6 - 11.1 fL 9.6 9.0 9.7 CBC WITH WBC DIFFERENTIAL Rpt Rpt ! Rpt Absolute Neutrophils 1.80 - 7.70 K/uL 3.97 4.58 3.80 [facility] Reference Range & Units 10/10/23 07:44 10/31/23 08:03 11/21/23 08:08 Albumin 3.8 - 5.0 g/dL 3.8 3.7 (L) 3.7 (L) AST 10 - 35 U/L 18 15 16 ALT 10 - 35 U/L 22 8 (L) 14 Alkaline Phosphatase 35 - 130 U/L 90 91 91 Bilirubin, Total <=1.2 mg/dL 0.6 0.6 0.7 Time Spent on Encounter: 16 - 20 minutes Encounter Group: Oncology Encounter Interventions Item Category: Oral Chemotherapy Capecitabine Problem/Rationale: Safety: Needs additional monitoring - Medication Requires monitoring Pharmacist Intervention(s): Lab monitoring and Toxicity monitoring Magnitude of Intervention: Monitoring with direction (Level 1) Second Item Second Item Category: Oral Chemotherapy Tucatinib Problem/Rationale: Safety: Needs additional monitoring - Medication Requires monitoring Pharmacist Intervention(s): Lab monitoring and Toxicity monitoring Magnitude of Intervention: Monitoring with direction (Level 1) Third Item Third Item Category: Topicals Clobetasol Problem/Rationale: Effectiveness: Needs additional monitoring - Medication Requires monitoring Pharmacist Intervention(s): Non-pharmacological intervention provided and Toxicity monitoring Magnitude of Intervention: Monitoring with direction (Level 1) Fourth Item Fourth Item Category: Anti-Diarrheal Diphenoxylate-atropine Problem/Rationale: Effectiveness: Needs additional monitoring - Medication Requires monitoring Pharmacist Intervention(s): Toxicity monitoring Magnitude of Intervention: Monitoring with direction (Level 1) documented in this encounter Plan of Treatment Upcoming Encounters Date Type Department Care Team (Late st Contact Info) Description 12/12/2023 1:10 PM EDT Laboratory Laboratory [facility] [place] [address] [place] [phone] Arianna, Lab [address] [place] [address] 12/12/2023 1:45 PM EDT Office Visit Hematology/Oncology [facility] [place] [address] [place] [phone] Ruddy Robbins MD [address] [place] [address] 12/12/2023 2:15 PM EDT Hem/Onc Treatment Hematology/Oncology Treatment, [place] [address] [place] [phone] Arianna, Chair [address] [facility] [address] [facility] [place] [address] 01/02/2024 9:30 AM EDT Pharmacy Pharmacy Hematology Oncology [facility] [place] [address] [place] [address] [facility] [place] Hem/Onc [address] [place] [address] 01/25/2024 9:00 AM EDT Imaging Radiology [facility] 1st [facility] [address] [facility] [place] [address] 03/20/2024 1:45 PM EST Office Visit Neurosurgery, [place] [address] [place] [address] Lorenzo Gallardo MD [address] [place] [address] 03/21/2024 1:40 PM EST Office Visit Otolaryngology [facility] [address] [place] [address] Amisha Joseph PA-C [address] [place] [address] 10/07/2024 1:30 PM EDT Office Visit Allergy/Immunology [facility] [address] [facility] [place] [address] Alexandru Mcelroy MD [address] [facility] [place] [address] Scheduled Procedures Name Priority Associated Diagnoses Date/Ti [...] Vaccines Completed 08/04/2020, 02/03/2020 COVID-19 Vaccine Completed 02/07/2023, 09/2020, 07/08/2020, Additional history exists HPV (Gardasil) Vaccine Aged Out No lo nger eligible based on patient's age to complete this topic MENINGOCOCCAL (MENACTRA/MENVEO) Aged Out No longer eligible based on patient's age to complete this topic documented as of this encounter Medical Devices Implanted Type Area Veneer Measurer Device Identifier Shelf Expiration Date Model / Serial / Lot Cement Hv-R C01a - [id number] Implanted:Qty: 1 on 08/20/2021 by Lorenzo Gallardo MD at [place] [facility] N/A: Spine Thoracic [employer] : NEURO CARE 04/30/2024 C01A / / [id number] Port Implant W/8f Poly Cath - [id number] Implanted:Qty: 1 on 09/03/2021 by Blayne Villegas MD at OR [facility] Left: Chest CR BARD : PERIPHERAL VASCULAR [id number] 07/29/2022 [id number] / / [id number] 5.0x40 Trammell Screw Implanted:Qty: 3 on 03/25/2022 by Lorenzo Gallardo MD at OR [facility] DELMAR : SPINE [id number] / / 5.0x45 Trammell Screw Implanted:Qty: 4 on 03/25/2022 by Lorenzo Gallardo MD at OR [facility] DELMAR : SPINE [id number] / / Spineology E Mesh Implanted:Qty: 1 on 03/25/2022 by Lorenzo Gallardo MD at OR [facility] [employer] 06/29/2024 330-2005 / / [id number] Vitoss Bimodal Foam Pack 10cc - [id number] Implanted:Qty: 1 on 03/25/2022 by Lorenzo Gallardo MD at OR [facility] DELMAR : SPINE [id number] 08/27/20231909 / / [id number] Vitoss Bimodal Foam Pack 10cc - [id number] Implanted:Qty: 1 on 03/25/2022 by Lorenzo Gallardo MD at OR [facility] DELMAR : SPINE [id number] 08/27/20231909 / / [id number] Vitoss Bimodal Foam Pack 10cc - [id number] Implanted:Qty: 1 on 03/25/2022 by Lorenzo Gallardo MD at OR [facility] DELMAR : SPINE [id number] 08/27/20231909 / / [id number] Vitoss Bimodal Foam Pack 10cc - [id number] Implanted:Qty: 1 on 03/25/2022 by Lorenzo Gallardo MD at OR [facility] DELMAR : SPINE [id number] 08/27/20231909 / / [id number] Connector Crosslink 43 To 54 - [id number] Implanted:Qty: 1 on 03/25/2022 by Lorenzo Gallardo MD at OR [facility] DELMAR : SPINE [id number] / / Tube Preflld Allogrft Diverted - [id number] Implanted:Qty: 1 on 03/25/2022 by Lorenzo Gallardo MD at OR [facility] [employer] 11/19/2023 [id number] / / Tube Preflld Allogrft Diverted - [id number] Implanted:Qty: 1 on 03/25/2022 by Lorenzo Gallardo MD at OR [facility] [employer] 11/18/2024 [id number] / / Tube Preflld Allogrft Diverted - [id number] Implanted:Qty: 1 on 03/25/2022 by Lorenzo Gallardo MD at OR [facility] [employer] 11/18/2024 [id number] / / Vitoss Bimodal Foam Pack 10cc - [id number] Implanted:Qty: 1 on 03/25/2022 by Lorenzo Gallardo MD at OR [facility] DELMAR : SPINE [id number] 08/27/2023 2102- 0 / / [id number] Tube Preflld Allogrft Diverted - [id number] Implanted:Qty: 4 on 03/25/2022 by Lorenzo Gallardo MD at OR [facility] [employer] 11/19/2023 [id number] / / Screw Set [id number] - [id number] Implanted:Qty: 6 on 03/25/2022 by Lorenzo Gallardo MD at OR [facility] DELMAR : SPINE [id number] 1 / / 3.5x14 Screw Implanted:Qty: 6 on 03/25/2022 by Lorenzo Gallardo MD at OR [facility] DELMAR : SPINE [id number] 4 / / 4.0/[id number] Transition Juan Implanted:Qty: 2 on 03/25/2022 by Lorenzo Gallardo MD at OR [facility] DELMAR : SPINE 4330-4033 00 / / Screw Ludmila Stella 3 Ti Set - [id number] Implanted:Qty: 11 on 03/25/2022 by Lorenzo Gallardo MD at OR [facility] DELMAR : SPINE [id number] / / 5.0x30 Trammell Screw Implanted:Qty: 2 on 03/25/2022 by Lorenzo Gallardo MD at OR [facility] DELMAR : SPINE [id number] / / 5.0x35 Trammell Screw Implanted:Qty: 2 on 03/25/2022 by Lorenzo Gallardo MD at OR [facility] DELMAR : SPINE [id number] / / Tube Ventilation Briggs [id number] - [id number] - [id number] Implanted:Qty: 1 on 03/02/2023 by Cem Ly DO at OR [facility] Right: Ear [employer] 12/21/2031 [id number] / [id number] / [id number] documented as of this encounter Visit Diagnoses Diagnosis 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 breast in female, estrogen receptor positive (HCC)- Primary documented in this encounter Advance Directives * [...] Directives occurred with: Not Discussed Care Teams Counselor Supervisor Relationship Specialty Start Date End Date Aleksandr Parker MD [address] [facility] [place] [address] PCP - General 06/27/02 documented as of this encounter
--- OUTSIDE RECORDS SUMMARY | 2023-12-22 05:17 | External Medical Summary | Summary of Care ---
Author Name Unknown Organization [facility] Address [address] [place] [address] Phone [phone] Care Team Providers Care Waterfront Director Name Role Phone Aleksandr Parker MD Primary Care Provider +1- [phone] Reason for Visit * Reason Comments Chemotherapy C25/D1 -Kanjinti * Episode Based Medications (Routine) - Authorized Specialty Diagnoses / Procedures Referred By Contac t Referred To Contact Diagnoses 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 breast in female, estrogen receptor positive (HCC) Cancer, metastatic to bone (HCC) 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) Encounter for antineoplastic chemotherapy Procedures PA INJ., KANJINTI, 10 MG Ruddy Robbins MD [address] [place] [address] Anc Hem/Onc Norma [facility] DEPT CLOSED - 03/14/23 [address] [place] [phone] Referral ID Status Reason Start Date Expiration Date V isits Requested Visits Authorized [id number] Authorized 10/30/2023 04/26/2024 999 99 Encounter Details Date Type Department Care Team (Latest Contact Info) Description 10/31/2023 9:00 AM EDT Hem/Onc Treatment Hematology/Oncolog y Treatment, [place] [address] [place] [phone] Arianna, Chair 1 Hem Onc [address] [facility] [place] [address] Malignant neoplasm of upper-outer quadrant of [...] Information Patient not taking.Reported on 10/06/2023 Ipratropium [place] 0.03 % Nasal Solution (Atrovent) Administer 2 [...] 05/25/2018:Stage IA(pT1a, pN0, cM0, G2, ER: Positive, [place]: Negative, HER2: Positive) - Signed by Ruddy [...] Description 12/12/2023 1:10 PM EDT Laboratory Laboratory [facility] [address] [facility] [place] [phone] [place], Lab [address] [place] [address] 12/12/2023 1:45 PM EDT Office Visit Hematology/Oncology [facility] [place] [address] [facility] [place] [phone] Ruddy Robbins MD [address] [facility] [place] [address] 12/12/2023 2:15 PM EDT Hem/Onc Treatment Hematology/Oncology Treatment, [place] [address] [place] [phone] Arianna, Chair 8 Hem Onc [address] [place] [address] 01/02/2024 9:30 AM EDT Pharmacy [facility] [place] [address] [place] [address] [facility] [place] Hem/Onc [address] [place] [address] 01/25/2024 9:00 AM EDT Imaging Radiology [facility] 1st [facility] [address] [place] [address] 03/20/2024 1:45 PM EST Office Visit Neurosurgery, [place] [address] [place] [address] Lorenzo Gallardo MD [address] [place] [address] 03/21/2024 1:40 PM EST Office Visit Otolaryngology [facility] [address] [place] [address] Amisha Joseph PA-C [address] [place] [address] 10/07/2024 1:30 PM EDT Office Visit Allergy/Immunology [facility] [address] [facility] [place] [address] Alexandru Mcelroy MD [address] [facility] [place] [address] Scheduled Procedures Name Priority Associated Diagnoses Date/Ti [...] this encounter Medical Devices Implanted Type [employer] Physical Education Teacher Device Identifier Shelf Expiration Date Model / Serial / Lot Cement Hv-R C01a - [id number] Implanted:Qty: 1 on 08/20/2021 by Lorenzo Gallardo MD at OR [facility] N/A: Spine Thoracic [employer] : NEURO CARE 04/30/2024 C01A / / [id number] Port Implant W/8f Poly Cath - [id number] Implanted:Qty: 1 on 09/03/2021 by Blayne Villegas MD at OR [facility] Left: Chest CR BARD : PERIPHERAL VASCULAR [id number] 07/29/2022 [id number] / / [id number] 5.0x40 Trammell Screw Implanted:Qty: 3 on 03/25/2022 by Lorenzo Gallardo MD at OR [facility] DELMAR : SPINE [id number] / / 5.0x45 Trammell Screw Implanted:Qty: 4 on 03/25/2022 by Lorenzo Gallardo MD at OR [facility] DELMAR : SPINE [id number] / / Spineology E Mesh Implanted:Qty: 1 on 03/25/2022 by Lorenzo Gallardo MD at OR [facility] [employer] 06/29/2024 330-2004 / / [id number] Vitoss Bimodal Foam Pack 10cc - [id number] Implanted:Qty: 1 on 03/25/2022 by Lorenzo Gallardo MD at OR [facility] DELMAR : SPINE [id number] 08/27/20231909 / / [id number] Vitoss Bimodal Foam Pack 10cc - [id number] Implanted:Qty: 1 on 03/25/2022 by Lorenzo Gallardo MD at OR [facility] DELMAR : SPINE [id number] 08/27/20231909 / / [id number] Vitoss Bimodal Foam Pack 10cc - [id number] Implanted:Qty: 1 on 03/25/2022 by Lorenzo Gallardo MD at OR [facility] DELMAR : SPINE [id number] 08/27/20231909 / / [id number] Vitoss Bimodal Foam Pack 10cc - [id number] Implanted:Qty: 1 on 03/25/2022 by Lorenzo Gallardo MD at OR [facility] DELMAR : SPINE [id number] 08/27/20231909 / / [id number] Connector Crosslink 43 To 54 - [id number] Implanted:Qty: 1 on 03/25/2022 by Lorenzo Gallardo MD at OR [facility] DELMAR : SPINE [id number] / / Tube Preflld Allogrft Diverted - [id number] Implanted:Qty: 1 on 03/25/2022 by Lorenzo Gallardo MD at OR [facility] [employer] 11/19/2023 [id number] / / Tube Preflld Allogrft Diverted - [id number] Implanted:Qty: 1 on 03/25/2022 by Lorenzo Gallardo MD at OR [facility] [employer] 11/18/2024 [id number] / / Tube Preflld Allogrft Diverted - [id number] Implanted:Qty: 1 on 03/25/2022 by Lorenzo Gallardo MD at OR [facility] [employer] 11/18/2024 [id number] / / Vitoss Bimodal Foam Pack 10cc - [id number] Implanted:Qty: 1 on 03/25/2022 by Lorenzo Gallardo MD at OR [facility] DELMAR : SPINE [id number] 08/27/2023 2102- 1910 / / [id number] Tube Preflld Allogrft Diverted - [id number] Implanted:Qty: 4 on 03/25/2022 by Lorenzo Gallardo MD at OR [facility] [employer] 11/19/2023 [id number] / / Screw Set [id number] - [id number] Implanted:Qty: 6 on 03/25/2022 by Lorenzo Gallardo MD at OR [facility] DELMAR : SPINE [id number] 1 / / 3.5x14 Screw Implanted:Qty: 6 on 03/25/2022 by Lorenzo Gallardo MD at OR [facility] DELMAR : SPINE [id number] 4 / / 4.0/[id number] Transition Juan Implanted:Qty: 2 on 03/25/2022 by Lorenzo Gallardo MD at OR [facility] DELMAR : SPINE 7102-4315 00 / / Screw Ludmila Stella 3 Ti Set - [id number] Implanted:Qty: 11 on 03/25/2022 by Lorenzo Gallardo MD at OR [facility] DELMAR : SPINE [id number] / / 5.0x30 Trammell Screw Implanted:Qty: 2 on 03/25/2022 by Lorenzo Gallardo MD at OR [facility] DELMAR : SPINE [id number] / / 5.0x35 Trammell Screw Implanted:Qty: 2 on 03/25/2022 by Lorenzo Gallardo MD at OR [facility] DELMAR : SPINE [id number] / / Tube Ventilation Briggs [id number] - [id number] - [id number] Implanted:Qty: 1 on 03/02/2023 by Cem Ly DO at OR [facility] Right: Ear [email or web address] 12/21/2031 [id number] / [id number] / [id number] documented as of this encounter Visit Diagnoses [...] Directives occurred with: Not Discussed Care Teams Waterfront Director Relationship Specialty Start Date End Date Aleksandr Parker MD [address] [place] [address] PCP - General 06/27/02 documented as of this encounter
--- OUTSIDE RECORDS SUMMARY | 2023-12-22 05:17 | External Medical Summary ---
Author Name Unknown Address Unknown Organization K09:[facility] [address] [place] [address] Laboratory Report Ordering Provider Test Date Status SYLVIA FROST 12/12/2023 12:57:37 Final Observation Date Value Abnormality Reference (Units ) Status BUN 12/12/2023 12:57:37 17 6-20 (mg/dL) Final Creatinine 12/12/2023 12:57:37 1.0 0.5-1.0 (mg/dL) Final Glomerular filtration rate/1.73 sq M.predicted [Volume Rate/Area] in Serum, Plasma or Blood by Creatinine-based formula (CKD-EPI) 12/12/2023 12:57:37 67 >=60 (mL/min) Final eGFR is calculated based on the CKD-EPI 2020 equation. Sodium 12/12/2023 12:57:37 141 135-146 (m mol/L) Final Potassium 12/12/2023 12:57:37 3.8 3.5-5.1 (m mol/L) Final Cl 12/12/2023 12:57:37 104 98-107 (mm ol/L) Final CO2 12/12/2023 12:57:37 27 22-32 (mmo l/L) Final Anion gap 12/12/2023 12:57:37 10 7-15 (mmol /L) Final Glucose 12/12/2023 12:57:37 115 70-120 (mg /dL) Final Albumin 12/12/2023 12:57:37 3.9 3.8-5.0 (g /dL) Final AST (Aspartate aminotransferase) 12/12/2023 12:57:37 16 10-35 (U/L) Final Alk Phos 12/12/2023 12:57:37 110 35-130 (U/ L) Final Bilirubin, Total 12/12/2023 12:57:37 0.5 <=1 .2 (mg/dL) Final Calcium 12/12/2023 12:57:37 9.1 8.4-10.2 ( mg/dL) Final Protein 12/12/2023 12:57:37 7.1 6.0-8.3 (g /dL) Final ALT (Alanine aminotransferase) 12/12/2023 12:57:37 10 10-35 (U/L) Final Performing Location [facility] [address] [place] [address]
--- OUTSIDE RECORDS SUMMARY | 2023-12-22 05:17 | External Medical Summary | Summary of Care ---
Author Name Unknown Organization [facility] Address [address] [place] [address] Phone [phone] Care Team Providers Care Diesel Truck Crane Operator Name Role Phone Aleksandr Parker MD Primary Care Provider [phone]- [phone] Reason for Visit * Reason Onset Date Comments Medication Problem 11/21/2023 Asmanex Encounter Details Date Type Department Care Team (Late st Contact Info) Description 11/21/2023 Telephone Allergy/Immunology [facility] [address] [place] [address] Alexandru Mcelroy MD [address] [place] [address] Medication Problem (Asmanex) Allergies Active Allergy Reactions Criticality Noted Date [...] Information Patient not taking.Reported on 10/06/2023 Ipratropium Nebo 0.03 % Nasal Solution (Atrovent) Administer 2 [...] 05/25/2018:Stage IA(pT1a, pN0, cM0, G2, ER: Positive, SC: Negative, HER2: Positive) - Signed by Ruddy Robbins MD on 05/25/2018 LPRD (laryngopharyngeal reflux disease) 07/30/20 18 Positional sleep apnea 06/30/2016 Chronic sinusitis [...] encounter Miscellaneous Notes * Telephone Encounter - Ambar Castellanos LPN - 11/21/2023 3:05 PM EDT My chart message sent advising of such. * Telephone Encounter - Alexandru Mcelroy MD - 11/21/2023 1:57 PM EDT Thank you for the update. It appears from a message back in May that Arnuity is also covered from an insurance standpoint. Rx for Arnuity sent in to [facility]. Please be aware that this medication is 1 puff once daily and continue to rinse out your mouth afterwards. Alexandru Mcelroy MD * Telephone Encounter - Tanvi Cruz OSA - 11/21/2023 1:38 PM EDT Pt calling in to let us know that the asmanex is out of stock through [facility] and at there local pharmacy. She is asking for an alternative to be [facility] documented in this encounter Plan of Treatment Upcoming Encounters Date Type Department Care Team (Late st Contact Info) Description 12/12/2023 1:10 PM EDT Laboratory Laboratory [facility] [address] [place] [phone] Arianna Lab [facility] [address] [facility] [place] [address] 12/12/2023 1:45 PM EDT Office Visit Hematology/Oncology [facility] [place] [address] [place] [phone] Ruddy Robbins MD [address] [place] [address] 12/12/2023 2:15 PM EDT Hem/Onc Treatment Hematology/Oncology Treatment, [place] [address] [place] [phone] Arianna, Chair 6 Hem Onc [facility] [address] [facility] [place] [address] 01/02/2024 9:30 AM EDT Pharmacy Pharmacy Hematology Oncology [facility], [place] [address] [place] [address] [facility] Hem/Onc [address] [place] [address] 01/25/2024 9:00 AM EDT Imaging Radiology [facility] [address] [facility], [place] [address] [facility] [place] [address] 03/20/2024 1:45 PM EST Office Visit Neurosurgery, [place] [address] [place] [address] Lorenzo Gallardo MD [address] [place] [address] 03/21/2024 1:40 PM EST Office Visit Otolaryngology [facility] [address] [place] [address] Amisha Joseph PA-C [address] [place] [address] 10/07/2024 1:30 PM EDT Office Visit Allergy/Immunology [facility] [place] [address] [facility] [place] [address] Alexandru Mcelroy MD [address] [facility] [place] [address] Scheduled Procedures Name Priority Associated Diagnoses Date/Ti [...] this encounter Medical Devices Implanted Type Area Work And Family Life Consultant Device Identifier Shelf Expiration Date Model / Serial / Lot Cement Hv-R C01a - [id number] Implanted:Qty: 1 on 08/20/2021 by Lorenzo Gallardo MD at [place] [facility] N/A: Spine Thoracic [employer] : NEURO CARE 04/30/2024 C01A / / [id number] Port Implant W/8f Poly Cath - [id number] Implanted:Qty: 1 on 09/03/2021 by Blayne Villegas MD at [place] [facility] Left: Chest CR BARD : PERIPHERAL VASCULAR [id number] 07/29/2022 [id number] / / [id number] 5.0x40 Trammell Screw Implanted:Qty: 3 on 03/25/2022 by Lorenzo Gallardo MD at OR [facility] DELMAR : SPINE [id number] / / 5.0x45 Trammell Screw Implanted:Qty: 4 on 03/25/2022 by Lorenzo Gallardo MD at OR [facility] DELMAR : SPINE [id number] / / Spineology E Mesh Implanted:Qty: 1 on 03/25/2022 by Lorenzo Gallardo MD at OR [facility] [employer] 06/29/2024 [id number] / / [id number] Vitoss Bimodal Foam Pack 10cc - [id number] Implanted:Qty: 1 on 03/25/2022 by Lorenzo Gallardo MD at OR [facility] DELMAR : SPINE [id number] 08/27/20231909 / / [id number] Vitoss Bimodal Foam Pack 10cc - [id number] Implanted:Qty: 1 on 03/25/2022 by Lorenzo Gallardo MD at OR [facility] DELMAR : SPINE [id number] 08/27/20231909 / / [id number] Vitoss Bimodal Foam Pack 10cc - [id number] Implanted:Qty: 1 on 03/25/2022 by Lorenzo Gallardo MD at OR [facility] DELMRA : SPINE [id number] 08/27/20231909 / / [id number] Vitoss Bimodal Foam Pack 10cc - [id number] Implanted:Qty: 1 on 03/25/2022 by Lorenzo Gallardo MD at OR [facility] DELMAR : SPINE [id number] 08/27/20231909 / / [id number] Connector Crosslink 43 To 54 - [id number] Implanted:Qty: 1 on 03/25/2022 by Lorenzo Gallardo MD at OR [facility] DELMAR : SPINE [id number] / / Tube Preflld Allogrft Diverted - [id number] Implanted:Qty: 1 on 03/25/2022 by Lorenzo Gallardo MD at [place] [facility] [employer] 11/19/2023 [id number] / / Tube Preflld Allogrft Diverted - [id number] Implanted:Qty: 1 on 03/25/2022 by Lorenzo Gallardo MD at [place] [facility] [employer] 11/18/2024 [id number] / / Tube Preflld Allogrft Diverted - [id number] Implanted:Qty: 1 on 03/25/2022 by Lorenzo Gallardo MD at [place] [facility] [employer] 11/18/2024 [id number] / / Vitoss Bimodal Foam Pack 10cc - [id number] Implanted:Qty: 1 on 03/25/2022 by Lorenzo Gallardo MD at OR [facility] DELMAR : SPINE [id number] 08/27/20231909 / / [id number] Tube Preflld Allogrft Diverted - [id number] Implanted:Qty: 4 on 03/25/2022 by Lorenzo Gallardo MD at OR [facility] [employer] 11/19/2023 [id number] / / Screw Set [id number] - [id number] Implanted:Qty: 6 on 03/25/2022 by Lorenzo Gallardo MD at OR [facility] DELMAR : SPINE [id number] / / 3.5x14 Screw Implanted:Qty: 6 on 03/25/2022 by Lorenzo Gallardo MD at OR [facility] DELMAR : SPINE [id number] / / 4.0/[id number] Transition Juan Implanted:Qty: 2 on 03/25/2022 by Lorenzo Gallardo MD at OR [facility] DELMAR : SPINE [id number] / / Screw Ludmila Stella 3 Ti Set - [id number] Implanted:Qty: 11 on 03/25/2022 by Lorenzo Gallardo MD at OR [facility] DELMAR : SPINE [id number] / / 5.0x30 Trammell Screw Implanted:Qty: 2 on 03/25/2022 by Lorenzo Gallardo MD at OR [facility] DELMAR : SPINE [id number] / / 5.0x35 Trammell Screw Implanted:Qty: 2 on 03/25/2022 by Lorenzo Gallardo MD at OR [facility] DELMAR : SPINE [id number] / / Tube Ventilation Briggs [id number] - [id number] - [id number] Implanted:Qty: 1 on 03/02/2023 by Cem Ly DO at OR [facility] Right: Ear [employer] 12/21/2031 [id number] / [id number] / [id number] documented as of this encounter Advance Directives * Full Code [...] occurred with: Not Discussed Care Teams Diesel Truck Crane Operator Relationship Specialty Start Date End Date Aleksandr Parker MD [address] [place] [address] PCP - General 06/27/02 documented as of this encounter
--- OUTSIDE RECORDS SUMMARY | 2023-12-22 05:18 | External Medical Summary ---
Author Name Unknown Address Unknown Organization [facility] [address] [place] [address] Laboratory Report Ordering Provider Test Date Status SYLVIA FROST 11/21/2023 08:08:30 Final Observation Date Value Abnormality Reference (Units ) Status BUN 11/21/2023 08:08:30 20 6-20 (mg/dL) Final Creatinine 11/21/2023 08:08:30 0.9 0.5-1.0 (mg/dL) Final Glomerular filtration rate/1.73 sq M.predicted [Volume Rate/Area] in Serum, Plasma or Blood by Creatinine-based formula (CKD-EPI) 11/21/2023 08:08:30 71 >=60 (mL/min) Final eGFR is calculated based on the CKD-EPI 2020 equation. Sodium 11/21/2023 08:08:30 139 135-146 (m mol/L) Final Potassium 11/21/2023 08:08:30 4.0 3.5-5.1 (m mol/L) Final Cl 11/21/2023 08:08:30 103 98-107 (mm ol/L) Final CO2 11/21/2023 08:08:30 26 22-32 (mmo l/L) Final Anion gap 11/21/2023 08:08:30 10 7-15 (mmol /L) Final Glucose 11/21/2023 08:08:30 143 Above high normal 70 -120 (mg/dL) Final Albumin 11/21/2023 08:08:30 3.7 Below low normal 3.8 -5.0 (g/dL) Final AST (Aspartate aminotransferase) 11/21/2023 08:08:30 16 10-35 (U/L) Fin al Alk Phos 11/21/2023 08:08:30 91 35-130 (U/ L) Final Bilirubin, Total 11/21/2023 08:08:30 0.7 <=1 .2 (mg/dL) Final Calcium 11/21/2023 08:08:30 9.2 8.4-10.2 ( mg/dL) Final Protein 11/21/2023 08:08:30 6.7 6.0-8.3 (g /dL) Final ALT (Alanine aminotransferase) 11/21/2023 08:08:30 14 10-35 (U/L) Rocael wang Performing Location [facility] [address] [place] [address]
--- OUTSIDE RECORDS SUMMARY | 2023-12-22 05:18 | External Medical Summary | Summary of Care ---
Author Name Unknown Organization [facility] Address [address] [place] [facility] [place] [address] Phone [phone] Care Team Providers Care Asphalt Heater Operator Name Role Phone Aleksandr Parker MD Primary Care Provider [phone]- [phone] Reason for Visit * Reason Comments Follow Up Encounter Details Date Type Department Care Team (Late st Contact Info) Description 11/14/2023 2:00 PM EDT Office Visit Otolaryngology [facility] [address] [place] [address] Amisha Joseph PA-C [address] [place] [address] Chronic sinusitis, unspecified location*; S/P myringotomy with insertion of tube Allergies Active Allergy Reactions Criticality Noted Date Comments Sulfa Antibiotics 05/14/1999 rash documented as of this encounter (statuses as of 11/14/2023) Medications Medication Sig Dispensed Refills Start Date [...] mouth daily. 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 TAKE WITHIN 30 MINUTES OF A MEAL. DO NOT CRUSH OR CUT. 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 For 7 days followed by 7-day rest period. Take within 30 minutes of meal. Do not crush or cut.. 112 Tablet 5 04/03/2023 Active Asmanex (60 Metered Doses) 220 MCG/ACT [...] Information Patient not taking.Reported on 10/06/2023 Ipratropium [place] 0.03 % Nasal Solution (Atrovent) Administer 2 [...] THE MORNING 180 Tablet 3 10/24/2023 Active documented as of this encounter (statuses as of 11/14/2023) Active Problems Problem Noted Date Diagnosed Date [...] as of this encounter (statuses as of 11/14/2023) Resolved Problems Problem Noted Date Diagnosed Date [...] as of this encounter (statuses as of 11/14/2023) Immunizations Name Administration Dates Next Due COVID-19 mRNA, LNP-s, No Pre serve, 2-Dose Series ([employer]) 02/03/2021,07/08/2020,06/10/2020 COVID-19, MRNA-LNP, 23-24, P F, 30 [...] Sign Reading Time Taken Comments Blood Pressure - - Pulse - - Temperature 36.1 C (97 F) 11/14/2023 2:10 PM EDT Respiratory Rate - - Oxygen Saturation - - Inhaled Oxygen Concentration - - Weight - - Height 172.5 cm (5' 7.91") 11/14/2023 2:10 PM ED T Body Mass Index - - documented in this encounter Functional Status Functional [...] as of this encounter Progress Notes * Amisha Joseph PA-C - 11/14/2023 2:42 PM EDT SUBJECTIVE: Lola Walters is a 63 year old female. Chief Complaint Patient presents with Follow Up HPI: Patient presents for return appointment. She had right tube placed in the OR by Dr. Ly in March. She presents with her . No recent otorrhea, purulent rhinorrhea or facial pain. Patient Active Problem List Diagnosis Raynaud's syndrome Asthma, mild persistent Vasovagal syncope Chronic sinusitis Positional sleep apnea LPRD (laryngopharyngeal reflux disease) Iron deficiency anemia 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 breast in female, estrogen receptor positive (HCC) Nonallergic rhinitis Cancer, metastatic to bone (HCC) 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) Encounter for antineoplastic chemotherapy Primary malignant neoplasm of breast with metastasis (HCC) Spine metastasis Acute postoperative respiratory insufficiency Acute blood loss anemia Pathologic fracture of thoracic vertebrae Dehydration Hypokalemia 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 90 Tablet 3 Capecitabine 150 MG Oral Tablet (Xeloda) TAKE 2 TABLETS TWICE DAILY FOR 7 DAYS FOLLOWED BY A 7 DAY REST PERIOD. TAKE WITHIN 30 MINUTES OF A MEAL. DO NOT CRUSH OR CUT. (FREQUENCY CHANGE) (Patient not taking: Reported on 10/06/2023) 56 Tablet 5 Capecitabine 500 MG Oral Tablet (Xeloda) Take 4 Tablets by mouth in the morning and 4 Tablets before bedtime. For 7 days followed by 7-day rest period. Take within 30 minutes of meal. Do not crush orcut.. 112 Tablet 5 Asmanex (60 Metered Doses) 220 MCG/ACT Inhalation [...] Reported on 10/06/2023) 112 Tablet 5 Ipratropium [place] 0.03 % Nasal Solution (Atrovent) Administer 2 [...] TABLETS IN THE MORNING 180 Tablet 3 No current facility-administered medications for this visit. Review of patient's allergies indicates: Allergen Reactions Sulfa Antibiotics rash REVIEW OF SYSTEMS Negative for constitutional, heart, lung, liver, kidney, digestive, hematologic, neurologic, rheumatologic, or endocrine complaints except as per history of present illness and past medical history. OBJECTIVE: Temp 36.1 C (97 F) (Tympanic) | Ht 1.725 m (5' 7.91") | LMP 12/28/2014 | BMI 34.18 kg/m | BSA2.21 m PHYSICAL EXAM: General: alert, healthy, and no distress Ears: External ears normal, Canals clear, are tube healthy and functional, left TM intact and healthy with no effusion, retraction or perforation. Nose: no mucosal erythema, no mucosal edema, no purulent discharge Oropharynx: no exudate, no erythema, lips, buccal mucosa, and tongue normal, and mucous membranes are moist Neck: supple, no adenopathy, no bruits, thyroid normal size, non-tender, without nodularity Lymph: no palpable lymphadenopathy ASSESSMENT/PLAN: Encounter Diagnoses Name Primary? Chronic sinusitis, unspecified location Yes S/P myringotomy with insertion of tube Plan:Findings and problems reviewed with patient. Symptoms stable, right tube healthy. Will continue with Atrovent tid prn. She will return in 4 months. Amisha Joseph PA-C 11/14/2023 2:44 PM documented in this encounter Nursing Notes * Mónica Bailey LPN - 11/14/2023 2:09 PM EDT Chief Complaint Patient presents with Follow Up Patient presents today for follow up. Pt states her ears are better but joy once in awhile she will get ear pain. Nasal drainage improved but still getting a lot of PND. Plan:Findings and problems reviewed with patient. She will be started on Ciprodex drops to the right ear twice daily for 10 days. Sterile specimen cup was provided to obtain specimen collection of anterior rhinorrhea to test for beta 2. They will be contacted with results. Amisha Joseph PA-C 07/31/2023 12:33 PM documented in this encounter Plan of Treatment Upcoming Encounters Date Type Department Care Team (Late st Contact Info) Description 11/21/2023 8:00 AM EDT Laboratory Laboratory [facility] Rae [address], [place] [phone] Arianna, Lab Scenery [address] [facility] [place] [address] 11/21/2023 9:00 AM EDT Hem/Onc Treatment Hematology/Oncology Treatment, [place] [address] [place], [place] [phone] Arianna, Chair 5 Hem Onc Scenery [address] [place] [address] 11/21/2023 9:30 AM EDT Pharmacy Pharmacy Hematology Oncology [facility] [address] [place] [address] [facility] Hem/Onc [address] [place] [address] 12/12/2023 1:10 PM EDT Laboratory Laboratory [address] [place] [address] [place] [phone] Arianna, Lab Scenery [address] [facility] [place] [address] 12/12/2023 1:45 PM EDT Office Visit Hematology/Oncology [facility] [address] [place] [address] [place] [phone] Ruddy Robbins MD [address] [place] [address] 12/12/2023 2:15 PM EDT Hem/Onc Treatment Hematology/Oncology Treatment, [place] [address] [facility], [place] [phone] Arianna, Chair 7 Hem Onc Scenery [address] [place] [address] [address] 01/25/2024 9:00 AM EDT Imaging Radiology [address], [place] [address] [facility] [place] [address] 03/20/2024 1:45 PM EST Office Visit Neurosurgery, [place] [address] [place] [address] Lorenzo Gallardo MD [address] [place] [facility] [place] [address] 03/21/2024 1:40 PM EST Office Visit Otolaryngology [facility] [address] [place] [address] Amisha Joseph PA-C [address] [facility] [place] [address] 10/07/2024 1:30 PM EDT Office Visit Allergy/Immunology [facility] [address] [facility] [place] [address] Alexandru Mcelroy MD [address] [place] [address] Scheduled Procedures Name Priority Associated Diagnoses Date/Ti [...] 11/06/2014, Additional history exists Colonoscopy 04/03/2022 04/03/2017, 1207/2016, 03/09/2012, Additional history exists Colorectal Cancer Screening 04/03/2022 Influenza Vaccine (FLU shot) (#1) 2023 02/20/2023, 02/23/2022, 01/18/2021, Additional history exists Mammogram 03/06/2024 03/06/2023, 07/2021, 03/04/2021, Additional history exists Lipid Panel 12/04/2025 12/04/2020, 06/2018, 11/20/2014, Additional history exists Diabetes Screening 10/30/2026 10/31/2023, 0 10/10/2023, 09/19/2023, Additional history exists Hepatitis B Vaccine Completed [...] this encounter Medical Devices Implanted Type Area Appraiser Personal Property Device Identifier Shelf Expiration Date Model / Serial / Lot Cement Hv-R C01a - [id number] Implanted:Qty: 1 on 08/20/2021 by Lorenzo Gallardo MD at OR [facility] N/A: Spine Thoracic [employer] : NEURO CARE 04/30/2024 C01A / / [id number] Port Implant W/8f Poly Cath - [id number] Implanted:Qty: 1 on 09/03/2021 by Blayne Villegas MD at OR [facility] Left: Chest CR BARD : PERIPHERAL VASCULAR [id number] 07/29/2022 [id number] / / [id number] 5.0x40 Trammell Screw Implanted:Qty: 3 on 03/25/2022 by Lorenzo Gallardo MD at OR [facility] DELMAR : SPINE [id number] / / 5.0x45 Trammell Screw Implanted:Qty: 4 on 03/25/2022 by Lorenzo Gallardo MD at OR [facility] DELMAR : SPINE [id number] / / Spineology E Mesh Implanted:Qty: 1 on 03/25/2022 by Lorenzo Gallardo MD at OR [facility] [employer] 06/29/2024 [id number] / / [id number] Vitoss Bimodal Foam Pack 10cc - [id number] Implanted:Qty: 1 on 03/25/2022 by Lorenzo Gallardo MD at OR [facility] DELMAR : SPINE [id number] 08/27/20232101- 0 / / [id number] Vitoss Bimodal Foam Pack 10cc - [id number] Implanted:Qty: 1 on 03/25/2022 by Lorenzo Gallardo MD at OR [facility] DELMAR : SPINE [id number] 08/27/20230 / / [id number] Vitoss Bimodal Foam Pack 10cc - [id number] Implanted:Qty: 1 on 03/25/2022 by Lorenzo Gallardo MD at OR [facility] DELMAR : SPINE [id number] 08/27/20231909 / / [id number] Vitoss Bimodal Foam Pack 10cc - [id number] Implanted:Qty: 1 on 03/25/2022 by Lorenzo Gallardo MD at OR [facility] DELMAR : SPINE [id number] 08/27/20231909 / / [id number] Connector Crosslink 43 To 54 - [id number] Implanted:Qty: 1 on 03/25/2022 by Lorenzo Gallardo MD at OR [facility] DELMAR : SPINE [id number] / / Tube Preflld Allogrft Diverted - [id number] Implanted:Qty: 1 on 03/25/2022 by Lorenzo Gallardo MD at OR [facility] [employer] 11/19/2023 [id number] / / Tube Preflld Allogrft Diverted - [id number] Implanted:Qty: 1 on 03/25/2022 by Lorenzo Gallardo MD at OR [facility] [employer] 11/18/2024 [id number] / / Tube Preflld Allogrft Diverted - [id number] Implanted:Qty: 1 on 03/25/2022 by Lorenzo Gallardo MD at OR [facility] [employer] 11/18/2024 [id number] / / Vitoss Bimodal Foam Pack 10cc - [id number] Implanted:Qty: 1 on 03/25/2022 by Lorenzo Gallardo MD at OR [facility] DELMAR : SPINE [id number] 08/27/20232101- 1909 / / [id number] Tube Preflld Allogrft Diverted - [id number] Implanted:Qty: 4 on 03/25/2022 by Lorenzo Gallardo MD at OR [facility] [employer] 11/19/2023 [id number] / / Screw Set [id number] - [id number] Implanted:Qty: 6 on 03/25/2022 by Lorenzo Gallardo MD at OR [facility] DELMAR : SPINE [id number] / / 3.5x14 Screw Implanted:Qty: 6 on 03/25/2022 by Lorenzo Gallardo MD at OR [facility] DELMAR : SPINE [id number] / / [id number] Transition Juan Implanted:Qty: 2 on 03/25/2022 by Lorenzo Gallardo MD at OR [facility] DELMAR : SPINE [id number] / / Screw Ludmila Stella 3 Ti Set - [id number] Implanted:Qty: 11 on 03/25/2022 by Lorenzo Gallardo MD at OR [facility] DELMAR : SPINE [id number] / / 5.0x30 Trammell Screw Implanted:Qty: 2 on 03/25/2022 by Lorenzo Gallardo MD at OR [facility] DELMAR : SPINE [id number] / / 5.0x35 Trammell Screw Implanted:Qty: 2 on 03/25/2022 by Lorenzo Gallardo MD at OR [facility] DELMAR : SPINE [id number] / / Tube Ventilation Briggs [id number] - [id number] - [id number] Implanted:Qty: 1 on 03/02/2023 by Cem Ly, at OR [facility] Right: Ear [employer] 12/21/2031 [id number] / [id number] / [id number] documented as of this encounter Visit Diagnoses Diagnosis Chronic sinusitis, unspecified location- Primary S/P myringotomy with insertion of tube Other postprocedural status documented in this encounter Advance Directives * [...] Directives occurred with: Not Discussed Care Teams Asphalt Heater Operator Relationship Specialty Start Date End Date Aleksandr Parker MD [address] [place] [address] PCP - General 06/27/02 documented as of this encounter
--- OUTSIDE RECORDS SUMMARY | 2023-12-22 05:18 | External Medical Summary ---
Author Name Unknown Address Unknown Organization [id number][facility] [place] [address] Laboratory Report Ordering Provider Test Date Status SYLVIA FROST 11/21/2023 08:08:30 Final Observation Date Value Abnormality Reference (Units ) Status SYNC LEUKOCYTES IN BLOOD BY AUTOMATED COUNT 11/21/2023 08:08:30 5.67 4.00-10.80 (K/uL) Final Segs 11/21/2023 08:08:30 67.0 40.0-75.0 (%) Final Lymphs % 11/21/2023 08:08:30 21.3 18.0-42.0 (%) Final Monos 11/21/2023 08:08:30 7.8 1.0-11.0 (%) Final Eosinophils 11/21/2023 08:08:30 3.4 0.0-6.0 (%) Final Basos 11/21/2023 08:08:30 0.5 0.0-2.0 (%) Final Absolute Segs 11/21/2023 08:08:30 3.80 1.80-7.70 (K/uL) Final Lymphs, absolute 11/21/2023 08:08:30 1.21 1.00-4.80 (K/ul) Final Monos, Abs 11/21/2023 08:08:30 0.44 0.00-1.10 (K/uL) Final Eos, Abs 11/21/2023 08:08:30 0.19 0.00-0.70 (K/uL) Final Basos, Abs 11/21/2023 08:08:30 0.03 0.00-0.20 (K/uL) Final Performing Location [facility] [place] [place] [address]
--- OUTSIDE RECORDS SUMMARY | 2023-12-22 05:18 | External Medical Summary ---
Author Name Unknown Address Unknown Organization K09[facility] [place] [address] Laboratory Report Ordering Provider Test Date Status SYLVIA FROST 11/21/2023 08:08:30 Final Observation Date Value Abnormality Reference (Units ) Status WBC, Total 11/21/2023 08:08:30 5.67 4.00-10.8 0 (K/uL) Final RBC 11/21/2023 08:08:30 4.00 3.85-5.15 (M/uL) Final Hemoglobin 11/21/2023 08:08:30 13.5 12.0-15.3 (g/dL) Final HCT 11/21/2023 08:08:30 39.1 36.0-45.2 (%) Final MCV 11/21/2023 08:08:30 97.8 81.5-97.5 (fL) Final MCH 11/21/2023 08:08:30 33.8 27.0-34.0 (pg) Final MCHC 11/21/2023 08:08:30 34.5 32.0-36.0 (g/dL) Final RDW 11/21/2023 08:08:30 17.0 11.5-15.5 (%) Final Platelets 11/21/2023 08:08:30 209 140-400 (K /uL) Final MPV 11/21/2023 08:08:30 9.7 6.6-11.1 ( fL) Final Performing Location [facility] [place] [address]
--- OUTSIDE RECORDS SUMMARY | 2023-12-22 05:18 | External Medical Summary | Summary of Care ---
Author Name Unknown Organization [facility] Address [address] [place] [address] Phone [phone] Care Team Providers Care Order Runner Name Role Phone Aleksandr Parker MD Primary Care Provider [phone]- [phone] Reason for Visit * Reason Comments Outpatient Testing Encounter Details Date Type Department Care Team (Late st Contact Info) Description 11/21/2023 8:00 AM EDT Laboratory Laboratory Scenery [facility] [address] [place] [id number] [place], Lab Scenery [address] [place] [address] 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 breast in female, estrogen receptor positive (HCC) Allergies Active Allergy Reactions Criticality Noted [...] Information Patient not taking.Reported on 10/06/2023 Ipratropium [place] 0.03 % Nasal Solution (Atrovent) Administer 2 [...] 05/25/2018:Stage IA(pT1a, pN0, cM0, G2, ER: Positive, ID: Negative, HER2: Positive) - Signed by Ruddy [...] mRNA, LNP-s, No Pre serve, 2-Dose Series ([employer]) 02/03/2021,07/08/2020,06/10/2020 COVID-19, MRNA-LNP, 23-24, P F, 30 [...] Team (Late st Contact Info) Description 11/21/2023 9:00 AM EDT Hem/Onc Treatment Hematology/Oncology Treatment, [place] [address] [facility] [place] [phone] Arianna, Chair 5 Hem Onc [place] [address] [place] [address] Arrived 11/21/2023 9:30 AM EDT Pharmacy Pharmacy Hematology Oncology [address] [address] [facility] Hem/[place] [address] 12/12/2023 1:10 PM EDT Laboratory Laboratory Norma Keller [place] [address] [place] [phone] Arianna, Lab [facility] [address] [facility] [place] [address] 12/12/2023 1:45 PM EDT Office Visit Hematology/Oncology Ronan Arianna [place] [address] [place] [address] [place] [phone] Ruddy Robbins MD [address] [place] [address] [address] 12/12/2023 2:15 PM EDT Hem/Onc Treatment Hematology/Oncology [facility], [place] [address] [place] [phone] Arianna, Chair 6 Hem Onc [facility] [address] [facility] [place] [address] 01/25/2024 9:00 AM EDT Imaging Radiology [facility]st [facility] [address] [facility] [place] [address] 03/20/2024 1:45 PM EST Office Visit Neurosurgery, [place] [address] [place] [address] Lorenzo Gallardo MD [address] [place] [address] 03/21/2024 1:40 PM EST Office Visit [facility] [place] [address] Amisha Joseph PA-C [address] [facility] [place] [address] 10/07/2024 1:30 PM EDT Office Visit Allergy/Immunology [facility] [address] [place] [address] Alexandru Mcelroy MD [address] [facility] [place] [address] Pending Results Name Type Priority Associated Diagnoses Date /Time CBC WITH WBC DIFFERENTIAL Lab STAT 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 breast in female, estrogen receptor positive (HCC) 11/21/2023 8:08 AM EDT COMPREHENSIVE METABOLIC PANEL Lab STAT 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 breast in female, estrogen receptor positive (HCC) 11/21/2023 8:08 AM EDT CBC Lab STAT 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 breast in female, estrogen receptor positive (HCC) 11/21/2023 8:08 AM EDT DIFFERENTIAL, AUTOMATED Lab STAT 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 breast in female, estrogen receptor positive (HCC) 11/21/2023 8:08 AM EDT Scheduled Procedures Name Priority Associated Diagnoses [...] Additional history exists Lipid Panel 12/04/2025 12/04/2020, 070 06/2018, 11/20/2014, Additional history exists Diabetes Screening [...] this encounter Medical Devices Implanted Type Area Numerologist Device Identifier Shelf Expiration Date Model / Serial / Lot Cement Hv-R C01a - [id number] Implanted:Qty: 1 on 08/20/2021 by Lorenzo Gallardo MD at OR [facility] N/A: Spine Thoracic [employer] : NEURO CARE 04/30/2024 C01A / / [id number] Port Implant W/8f Poly Cath - [id number] Implanted:Qty: 1 on 09/03/2021 by Blayne Villegas MD at OR [facility] Left: Chest CR BARD : PERIPHERAL VASCULAR [id number] 07/29/2022 [id number] / / [id number] 5.0x40 Trammell Screw Implanted:Qty: 3 on 03/25/2022 by Lorenzo Gallardo MD at OR [facility] DELMAR : SPINE [id number] / / 5.0x45 Trammell Screw Implanted:Qty: 4 on 03/25/2022 by Lorenzo Gallardo MD at OR [facility] DELMAR : SPINE [id number] / / Spineology E Mesh Implanted:Qty: 1 on 03/25/2022 by Lorenzo Gallardo MD at OR [facility] [employer] 06/29/2024 [id number] / / [id number] Vitoss Bimodal Foam Pack 10cc - [id number] Implanted:Qty: 1 on 03/25/2022 by Lorenzo Gallardo MD at OR [facility] DELMAR : SPINE [id number] 08/27/20231909 / / [id number] Vitoss Bimodal Foam Pack 10cc - [id number] Implanted:Qty: 1 on 03/25/2022 by Lorenzo Gallardo MD at OR [facility] DELMAR : SPINE [id number] 08/27/20231909 / / [id number] Vitoss Bimodal Foam Pack 10cc - [id number] Implanted:Qty: 1 on 03/25/2022 by Lorenzo Gallardo MD at OR [facility] DELMAR : SPINE [id number] 08/27/20231909 / / [id number] Vitoss Bimodal Foam Pack 10cc - [id number] Implanted:Qty: 1 on 03/25/2022 by Lorenzo Gallardo MD at OR [facility] DELMAR : SPINE [id number] 08/27/20231909 / [id number] Connector Crosslink 43 To 54 - [id number] Implanted:Qty: 1 on 03/25/2022 by Lorenzo Gallardo MD at OR [facility] DELMAR : SPINE [id number] / / Tube Preflld Allogrft Diverted - [id number] Implanted:Qty: 1 on 03/25/2022 by Lorenzo Gallardo MD at OR [facility] [employer] 11/19/2023 [id number] / / Tube Preflld Allogrft Diverted - [id number] Implanted:Qty: 1 on 03/25/2022 by Lorenzo Gallardo MD at OR [facility] [employer] 11/18/2024 [id number] / / Tube Preflld Allogrft Diverted - [id number] Implanted:Qty: 1 on 03/25/2022 by Lorenzo Gallardo MD at OR [facility] [employer] 11/18/2024 [id number] / / Vitoss Bimodal Foam Pack 10cc - [id number] Implanted:Qty: 1 on 03/25/2022 by Lorenzo Gallardo MD at OR [facility] DELMAR : SPINE [id number] 08/27/20231909 / / [id number] Tube Preflld Allogrft Diverted - [id number] Implanted:Qty: 4 on 03/25/2022 by Lorenzo Gallardo MD at OR [facility] [employer] 11/19/2023 [id number] / / Screw Set [id number] - [id number] Implanted:Qty: 6 on 03/25/2022 by Lorenzo Gallardo MD at OR [facility] DELMAR : SPINE [id number] 1 / / 3.5x14 Screw Implanted:Qty: 6 on 03/25/2022 by Lorenzo Gallardo MD at OR [facility] DELMAR : SPINE [id number] 4 / / [id number] Transition Juan Implanted:Qty: 2 on 03/25/2022 by Lorenzo Gallardo MD at OR [facility] DELMAR : SPINE [id number] / / Screw Ludmila Stella 3 Ti Set - [id number] Implanted:Qty: 11 on 03/25/2022 by Lorenzo Gallardo MD at OR [facility] DELMAR : SPINE [id number] / / 5.0x30 Trammell Screw Implanted:Qty: 2 on 03/25/2022 by Lorenzo Gallardo MD at OR [facility] DELMAR : SPINE [id number] / / 5.0x35 Trammell Screw Implanted:Qty: 2 on 03/25/2022 by Lorenzo Gallardo MD at OR [facility] DELMAR : SPINE [id number] / / Tube Ventilation Briggs [id number] - [id number] - [id number] Implanted:Qty: 1 on 03/02/2023 by Cem Ly DO at OR [facility] Right: Ear [employer] 12/21/2031 [id number] / [id number] / [id number] documented as of this encounter Visit Diagnoses Diagnosis 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 breast in female, estrogen receptor positive (HCC) documented in this encounter Advance Directives * [...] Directives occurred with: Not Discussed Care Teams Order Runner Relationship Specialty Start Date End Date Aleksandr Parker MD [address] [place] [address] PCP - General 06/27/02 documented as of this encounter
--- OUTSIDE RECORDS SUMMARY | 2023-12-22 05:18 | External Medical Summary | Summary of Care ---
Author Name Unknown Organization [facility] Address [address] [place] [address] Phone [phone] Care Team Providers Care Seismographer Name Role Phone Aleksandr Parker MD Primary Care Provider [phone] Reason for Visit * Reason Comments Chemotherapy Kanjinti. 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) Encounter for antineoplastic chemotherapy Procedures SC INJ., KANJINTI, 10 MG Ruddy Robbins MD [address] [place], [place] [address] Anc Hem/Onc Scenekadeem [facility] DEPT CLOSED - 03/14/23 [address] [facility] [place] [address] Referral ID Status Reason Start Date Expiration Date V isits Requested Visits Authorized [id number] Authorized 10/30/2023 04/26/2024 999 [id number] Encounter Details Date Type Department Care Team (Latest Contact Info) Description 10/10/2023 8:45 AM EDT Hem/Onc Treatment Hematology/Oncolog y Treatment, [place] [address] [place] [address] Arianna, Chair 2 Hem Onc Scenery [address] [facility] [place] [address] 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 breast in female, estrogen receptor positive (HCC)*; Cancer, metastatic to bone (HCC); 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); Encounter for antineoplastic chemotherapy Allergies Active Allergy Reactions Criticality Noted Date Comments Sulfa Antibiotics 05/14/1999 rash documented as of this encounter (statuses as of 11/08/2023) Medications Medication Sig Dispensed Refills Start Date End Date Status MULTIVITAMIN TABS OR one daily 0 0 09/11/19 04 Active NASAL SALINE 0.65 % NA SOLNIndications:All ergic rhinitis,Postnasal drip,Chronic sinusitis FLUSH each nostril morning and night and every 2-4 hrs as needed for nasal dryness or congestion 1 0 04/15/20 09 Active Multiple Vitamins-Minerals (OCUVITE) Tablet Take 1 Tablet by mouth in the morning. 11/07/19 15 Active B Complex Vitamins (VITAMIN B COMPLEX) Tablet Take 1 Tablet by mouth in the morning. 11/07/19 15 Active vitamin e 100 UNIT Capsule Take 1 Capsule by mouth in the morning. 11/07/19 15 Active albuterol (PROVENTIL HFA) 108 (90 BASE) MCG/ACT inhaler Inhale 2 Puffs by mouth every 6 hours as needed for Cough, Shortness of Breath or Wheezing. 3 Inhaler 5 04/13/20 17 Active famotidine (PEPCID) 20 MG Tablet Take 1 Tablet by mouth in the morning and 1 Tablet before bedtime. Active Calcium Carbonate-Vitamin D 500-5 MG-MCG Oral Tablet Take 3 Tablets by mouth in the morning. Active Levocetirizine Dihydrochloride 5 MG Oral Tablet Take 1 Tablet by mouth every evening. 06/07/19 20 Active Flonase Sensimist 27.5 MCG/SPRAY Nasal Suspension (Fluticasone Furoate) Administer 2 Sprays into nostril daily. 10 g 12 06/05/19 21 Active Esomeprazole Magnesium 20 MG Oral Capsule Delayed Release (NexIUM) Take by mouth 1 Capsule in the morning. 08/05/19 22 Active Acetaminophen 500 MG Oral Tablet Take [...] Active Prochlorperazine Maleate 10 MG Oral Tablet (Compazine)Indicati ons: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 breast in female, estrogen receptor positive (HCC),Cancer, metastatic to bone (HCC) Take 1 Tablet by mouth every 6 hours as needed for Nausea. 30 Tablet 3 12/22/19 23 Active Montelukast Sodium 10 MG Oral Tablet (Singulair)Indicati ons:Allergic rhinitis Take 1 Tablet by mouth daily. 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 TAKE WITHIN 30 MINUTES OF A MEAL. DO NOT CRUSH OR CUT. 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 For 7 days followed by 7-day rest period. Take within 30 minutes of meal. Do not crush or cut.. 112 Tablet 5 04/03/20 23 Active Asmanex (60 Metered Doses) 220 MCG/ACT Inhalation Aerosol Powder Breath Activated (Mometasone Furoate) Inhale 1 Puff by mouth in the morning and 1 Puff before bedtime. 3 Each 3 05/03/19 24 Active Ondansetron HCl 8 MG Oral TabletIndications:C ancer, metastatic to bone (HCC) Take 1 Tablet by mouth every 8 hours as needed for Nausea. 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 For 7 days followed by 7-day rest period. Take within 30 minutes of meal. Do not crush or cut.. 112 Tablet 5 08/29/19 24 Active Additional Information Patient not taking.Reported on 10/06/2023 Ipratropium Rupert 0.03 % Nasal Solution (Atrovent) Administer 2 Sprays into each nostril 2 times a day as needed for Rhinitis. 90 mL 3 09/05/19 24 Active Tukysa 150 MG Oral Tablet (Tucatinib)Indicati ons:Primary malignant neoplasm of breast with metastasis (HCC) Take 150 mg by mouth in the morning and 150 mg before bedtime. Along with two 50mg tabs (total dose 250mg). 60 Tablet 5 09/11/19 24 Active Tukysa 50 MG Oral Tablet (Tucatinib)Indicati ons:Primary malignant neoplasm of breast with metastasis (HCC) Take 100 mg by mouth in the morning and 100 mg before bedtime. Along with 150mg tab (total dose 250mg). 120 Tablet 5 09/11/19 24 Active Clobetasol Propionate 0.05 % External Cream (Temovate) Apply topically to affected area 2 times a day. Apply to feet 30 g 2 09/19/19 24 Active Diphenoxylate-Atrop ine 2.5-0.025 MG Oral Tablet (Lomotil)Indication s: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 breast in female, estrogen receptor positive (HCC) Take 1 Tablet by mouth 4 times a day as needed for Diarrhea. 30 Tablet 09/29/19 24 Active Potassium Chloride ER 10 MEQ Oral Tablet Extended ReleaseIndications: 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 breast in female, estrogen receptor positive (HCC),Hypokalemia Take 2 Tablets by mouth in the morning. 180 Tablet 1 05/03/19 24 024 Discontinued Udderly Smooth Extra Care 20 External CreamIndications:Ma lignant neoplasm of upper-outer quadrant of right breast in female, estrogen receptor positive (HCC),Cancer, metastatic to bone (HCC) Apply topically to affected area 2 times a day. Apply topically to hands and feet twice daily. 228 g 2 07/07/19 24 024 Discontinued(Re fill) documented as of this encounter (statuses as of 11/08/2023) Active Problems Problem Noted Date Diagnosed Date [...] as of this encounter (statuses as of 11/08/2023) Resolved Problems Problem Noted Date Diagnosed Date [...] as of this encounter (statuses as of 11/08/2023) Immunizations Name Administration Dates Next Due COVID-19 mRNA, LNP-s, No Pre serve, 2-Dose Series (Ubooly) 02/03/2021,07/08/2020,06/10/2020 COVID-19, MRNA-LNP, 23-24, P F, 30 [...] Answer Date Recorded PHQ-2 Score -1 01/19/2020 Sex and Gender Information Value Date Recorded [...] Nursing Notes * Ashley Kaminski RN - 10/10/2023 9:54 AM EDT Goals: Patient will remain free from injury. Possible barriers to meeting goals: Fall risk d/t ambulation with IV pole. Stability of the patient: Moderately stable - low risk of patient condition declining or worsening Summary regarding today's goals: Met: Patient remained free of injury. Patient tolerated infusion well. Discharged in stable condition. * Ashley Kaminski RN - 10/10/2023 8:44 AM EDT Chair 6. Patient arrived for [facility]. Patient was seen by Dr. Robbins today (see office notes). Per Dr. Rosenthal for treatment today. VAD accessed. Chemotherapy/Immunotherapy agents: [facility] Consent for chemotherapy drug treatment complete, dated, [...] symptoms or adverse side effects during treatment. Safety and Risk for Injury Patient will remain free from injury. Ensure appropriate safety devices are available. Provide and maintain safe environment. documented in this encounter Plan of Treatment Upcoming Encounters Date Type Department Care Team (Late st Contact Info) Description 11/14/2023 2:00 PM EDT Office Visit Otolaryngology [facility] [address] [facility] [place] [address] Amisha Joseph PA-C [address] [facility] [place] [address] 11/21/2023 8:00 AM EDT Laboratory Laboratory [facility] [place] [address] [place] [phone] Arianna, Lab [address]en[address] [facility] [place] [address] 11/21/2023 9:00 AM EDT Hem/Onc Treatment Hematology/Oncology Treatment, [place] [address] [place] [phone] Arianna, Chair 5 Hem Onc [address]en[address] [place] [address] 11/21/2023 9:30 AM EDT Pharmacy Pharmacy Hematology Oncology [facility], [place] [address] [place] [address] [facility] [place] [facility] Hem/Onc [address] [place] [address] 12/12/2023 1:10 PM EDT Laboratory Laboratory [facility] [place] [address] [place] [phone] Arianna, Lab [facility] [address] [place] [address] 12/12/2023 1:45 PM EDT Office Visit Hematology/Oncology [facility] [place] [address] [place] [phone] Ruddy Robbins MD [address] [place] [address] 12/12/2023 2:15 PM EDT [facility] [address] [place], [place] [phone] Arianna, Chair 7 Hem Onc [facility] [address] [facility] [place] [address] 01/25/2024 9:00 AM EDT Imaging Radiology [facility] [address] [address] 03/20/2024 1:45 PM EST Office Visit Neurosurgery, [place] [address] [place] [address] Lorenzo Gallardo MD [address] [place] [address] 10/07/2024 1:30 PM EDT Office Visit Allergy/Immunology [facility] [place] [address] [place] [address] Alexandru Mcelroy MD [address] [place] [address] Scheduled Procedures Name Priority Associated Diagnoses Date/Ti [...] 01/18/2021, Additional history exists Mammogram 03/06/2024 03/06/2023, 1107/2021, 03/04/2021, Additional history exists Lipid Panel 12/04/2025 [...] this encounter Medical Devices Implanted Type Area Shingle Grader Device Identifier Shelf Expiration Date Model / Serial / Lot Cement Hv-R C01a - [id number] Implanted:Qty: 1 on 08/20/2021 by Lorenzo Gallardo [place] [facility] [place]: Spine Thoracic [employer] : NEURO CARE 04/30/2024 C01A / / [id number] Port Implant W/8f Poly Cath - [id number] Implanted:Qty: 1 on 09/03/2021 by Blayne Villegas MD at OR [facility] Left: Chest CR BARD : PERIPHERAL VASCULAR [id number] 07/29/2022 [id number] / / [id number] 5.0x40 Trammell Screw Implanted:Qty: 3 on 03/25/2022 by Lorenzo Gallardo MD [place] [facility] DELMAR : SPINE [id number] / / 5.0x45 Trammell Screw Implanted:Qty: 4 on 03/25/2022 by Lorenzo Gallardo MD [place] [facility] DELMAR : SPINE [id number] / / Spineology E Mesh Implanted:Qty: 1 on 03/25/2022 by Lorenzo Gallardo MD at [place] [facility] [employer] 06/29/2024 [id number] / / [id number] Vitoss Bimodal Foam Pack 10cc - [id number] Implanted:Qty: 1 on 03/25/2022 by Lorenzo Gallardo MD [place] [facility] DELMAR : SPINE [id number] 08/27/20231909 / / [id number] Vitoss Bimodal Foam Pack 10cc - [id number] Implanted:Qty: 1 on 03/25/2022 by Lorenzo Gallardo MD [place] [facility] DELMAR : SPINE [id number] 08/27/20231909 / / [id number] Vitoss Bimodal Foam Pack 10cc - [id number] Implanted:Qty: 1 on 03/25/2022 by Lorenzo Gallardo MD [place] [facility] DELMAR : SPINE [id number] 08/27/20231909 / / [id number] Vitoss Bimodal Foam Pack 10cc - [id number] Implanted:Qty: 1 on 03/25/2022 by Lorenzo Gallardo MD [place] [facility] DELMAR : SPINE [id number] 08/27/20231909 / / [id number] Connector Crosslink 43 To 54 - [id number] Implanted:Qty: 1 on 03/25/2022 by Lorenzo Gallardo MD [place] [facility] DELMAR : SPINE [id number] / / Tube Preflld Allogrft Diverted - [id number] Implanted:Qty: 1 on 03/25/2022 by Lorenzo Gallardo MD at [place] [facility] [employer] 11/19/2023 [id number] / / Tube Preflld Allogrft Diverted - [id number] Implanted:Qty: 1 on 03/25/2022 by Lorenzo Gallardo MD at [place] [facility] [employer] 11/18/2024 [id number] / / Tube Preflld Allogrft Diverted - [id number] Implanted:Qty: 1 on 03/25/2022 by Lorenzo Gallardo MD at [place] [facility] [employer] 11/18/2024 [id number] / / Vitoss Bimodal Foam Pack 10cc - [id number] Implanted:Qty: 1 on 03/25/2022 by Lorenzo Gallardo MD [place] [facility] DELMAR : SPINE [id number] 08/27/20231909 / / [id number] Tube Preflld Allogrft Diverted - [id number] Implanted:Qty: 4 on 03/25/2022 by Lorenzo Gallardo MD at [place] [facility] [employer] 11/19/2023 [id number] / / Screw Set [id number] - [id number] Implanted:Qty: 6 on 03/25/2022 by Lorenzo Gallardo MD [place] [facility] DELMAR : SPINE [id number] / / 3.5x14 Screw Implanted:Qty: 6 on 03/25/2022 by Lorenzo Gallardo MD [place] [facility] DELMAR : SPINE [id number] / / [id number] Transition Juan Implanted:Qty: 2 on 03/25/2022 by Lorenzo Gallardo MD [place] [facility] DELMAR : SPINE [id number] / / Screw Ludmila Stella 3 Ti Set - [id number] Implanted:Qty: 11 on 03/25/2022 by Lorenzo Gallardo MD [place] [facility] DELMAR : SPINE [id number] / / 5.0x30 Trammell Screw Implanted:Qty: 2 on 03/25/2022 by Lorenzo Gallardo MD [place] [facility] DELMAR : SPINE [id number] / / 5.0x35 Trammell Screw Implanted:Qty: 2 on 03/25/2022 by Lorenzo Gallardo MD [place] [facility] DELMAR : SPINE [id number] / / Tube Ventilation Briggs [id number] - [id number] - [id number] Implanted:Qty: 1 on 03/02/2023 by Cem Ly DO at OR [facility] Right: Ear [employer] 12/21/2031 [id number] / [id number] / [id number] documented as of this encounter Visit Diagnoses [...] 650 mg 650 mg, Oral, ONCE, On Mon10/10/23 at 0930, For 1 dose, Maximum of 4 grams (4000 mg) per day. Given 10/10/2023 8:41 AM EDT 650 mg Denosumab (Xgeva) subcut inj 120 mg 120 mg, Subcutaneous, ONCE, On Mon10/10/23 at 0930, For 1 dose Given 10/10/2023 9:48 AM EDT 120 mg Arm Left Upper diphenhydrAMINE (Benadryl) cap 25 mg 25 mg, Oral, ONCE, On Mon10/10/23 at 0930, For 1 dose Given 10/10/2023 8:41 AM EDT 25 mg NSS infusion 500 mL, Intravenous, at 50 mL/hr Administer over 10 Hours, CONTINUOUS, Starting on Mon10/10/23 at 0930, Until Mon10/10/23 at 1355 Start Infusion 10/10/2023 8:38 AM EDT 500 mL 50 mL/hr Trastuzumab-anns (Kanjinti) 587 mg in NSS 250 mL infusion 587 mg (rounded from 587.4 mg = 6 mg/kg 97.9 kg Treatment plan Recorded weight), IV Piggyback, ONCE, 1 dose, On Mon10/10/23 at 1000, Administer over 30 Minutes Start Infusion 10/10/2023 9:17 AM EDT 587 mg 510 mL/hr documented [...] Question Answer Comments Discussion of Advance Direct lindasy occurred with: Not Discussed due to patient's [...] Directives occurred with: Not Discussed Care Teams Seismographer Relationship Specialty Start Date End Date Aleksandr Parker MD [address] [place] [address] PCP - General 06/27/02 documented as of this encounter
--- OUTSIDE RECORDS SUMMARY | 2023-12-22 05:18 | External Medical Summary | Summary of Care ---
Author Name Unknown Organization [facility] Address [address] [place] [address] Phone [phone] Care Team Providers Care Builder Beam Name Role Phone Aleksandr Parker MD Primary Care Provider +1- [phone] Reason for Visit * Reason Comments Chemotherapy Kanjinti 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) Encounter for antineoplastic chemotherapy Procedures RI INJ., KANJINTI, 10 MG Ruddy Robbins MD [address] [place] [address] Anc Hem/Onc Norma Keller DEPT CLOSED - 03/14/23 200 [facility] [place] [address] Referral ID Status Reason Start Date Expiration Date V isits Requested Visits Authorized [id number] Authorized 10/30/2023 04/26/2024 999 99 Encounter Details Date Type Department Care Team (Latest Contact Info) Description 11/21/2023 9:00 AM EDT Hem/Onc Treatment Hematology/Oncolog y Treatment, [place] [address] [place] [address] Arianna, Chair 5 Hem Onc [address] [place] [address] 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 [...] Information Patient not taking.Reported on 10/06/2023 Ipratropium Pickett 0.03 % Nasal Solution (Atrovent) Administer 2 [...] 05/25/2018:Stage IA(pT1a, pN0, cM0, G2, ER: Positive, RI: Negative, HER2: Positive) - Signed by Ruddy Robbins MD on 05/25/2018 LPRD (laryngopharyngeal reflux disease) 11/28/19 Positional sleep apnea 06/30/2016 Chronic sinusitis 04/29/2015 [...] Description 12/12/2023 1:10 PM EDT Laboratory Laboratory [facility] 200 [facility] [place] [address] Arianna, Lab [address] [facility] [place] [address] 12/12/2023 1:45 PM EDT Office Visit Hematology/Oncology [facility] [place] 200 [facility] [place] [address] Ruddy Robbins MD 200 [facility] [place] [address] 12/12/2023 2:15 PM EDT Hem/Onc Treatment Hematology/Oncology Treatment, [place] [address] [place] [phone] Arianna, Chair 6 Hem Onc [address] [place] [address] 01/25/2024 9:00 AM EDT Imaging Radiology [facility], [place] [address] [place] [address] 03/20/2024 1:45 PM EST Office Visit [facility] [place] [address] [place] [address] Lorenzo Gallardo MD [address] [place] [address] 03/21/2024 1:40 PM EST Office Visit [facility] [place] [address] Amisha Joseph [facility]-C [facility] [place] [address] 10/07/2024 1:30 PM EDT Office Visit Allergy/Immunology [facility] 200 [facility] [place] [address] Alexandru Mcelroy MD [address] [place] [address] Scheduled Procedures Name Priority Associated Diagnoses Date/Ti [...] this encounter Medical Devices Implanted Type Area Towboat Operator Device Identifier Shelf Expiration Date Model / Serial / Lot Cement Hv-R C01a - [id number] Implanted:Qty: 1 on 08/20/2021 by Lorenzo Gallardo MD at OR [facility] N/A: Spine Thoracic [employer] : NEURO CARE 04/30/2024 C01A / / [id number] Port Implant W/8f Poly Cath - [id number] Implanted:Qty: 1 on 09/03/2021 by Blayne Villegas MD at OR [facility] Left: Chest CR BARD : PERIPHERAL VASCULAR [id number] 07/29/2022 [id number] / / [id number] 5.0x40 Trammell Screw Implanted:Qty: 3 on 03/25/2022 by Lorenzo Gallardo MD at OR [facility] DELMAR : SPINE [id number] / / 5.0x45 Trammell Screw Implanted:Qty: 4 on 03/25/2022 by Lorenzo Gallardo MD at OR [facility] DELMAR : SPINE [id number] / / Spineology E Mesh Implanted:Qty: 1 on 03/25/2022 by Lorenzo Gallardo MD at OR [facility] [employer] 06/29/2024 330-2005 / / [id number] Vitoss Bimodal Foam Pack 10cc - [id number] Implanted:Qty: 1 on 03/25/2022 by Lorenzo Gallardo MD at OR [facility] DELMAR : SPINE [id number] 08/27/20231909 / / [id number] Vitoss Bimodal Foam Pack 10cc - [id number] Implanted:Qty: 1 on 03/25/2022 by Lorenzo Gallardo MD at OR [facility] DELMAR : SPINE [id number] 08/27/20231909 / / [id number] Vitoss Bimodal Foam Pack 10cc - [id number] Implanted:Qty: 1 on 03/25/2022 by Lorenzo Gallardo MD at OR [facility] DELMAR : SPINE [id number] 08/27/20231909 / / [id number] Vitoss Bimodal Foam Pack 10cc - [id number] Implanted:Qty: 1 on 03/25/2022 by Lorenzo Gallardo MD at OR [facility] DELMAR : SPINE [id number] 08/27/20231909 / / [id number] Connector Crosslink 43 To 54 - [id number] Implanted:Qty: 1 on 03/25/2022 by Lorenzo Gallardo MD at OR [facility] DELMAR : SPINE [id number] / / Tube Preflld Allogrft Diverted - [id number] Implanted:Qty: 1 on 03/25/2022 by Lorenzo Gallardo MD at OR [facility] [employer] 11/19/2023 [id number] / / Tube Preflld Allogrft Diverted - [id number] Implanted:Qty: 1 on 03/25/2022 by Lorenzo Gallardo MD at OR [facility] [employer] 11/18/2024 [id number] / / Tube Preflld Allogrft Diverted - [id number] Implanted:Qty: 1 on 03/25/2022 by Lorenzo Gallardo MD at OR [facility] [employer] 11/18/2024 [id number] / / Vitoss Bimodal Foam Pack 10cc - [id number] Implanted:Qty: 1 on 03/25/2022 by Lorenzo Gallardo MD at OR [facility] DELMAR : SPINE [id number] 08/27/2023 2102- 1910 / / [id number] Tube Preflld Allogrft Diverted - [id number] Implanted:Qty: 4 on 03/25/2022 by Lorenzo Gallardo MD at OR [facility] [employer] 11/19/2023 [id number] / / Screw Set [id number] - [id number] Implanted:Qty: 6 on 03/25/2022 by Lorenzo Gallardo MD at OR [facility] DELMAR : SPINE [id number] 1 / / 3.5x14 Screw Implanted:Qty: 6 on 03/25/2022 by Lorenzo Gallardo MD at OR [facility] DELMAR : SPINE [id number] 4 / / 4.0/5.9n006ib Transition Juan Implanted:Qty: 2 on 03/25/2022 by Lorenzo Gallardo MD at OR [facility] DELMAR : SPINE [id number] 00 / / Screw Ludmila Stella 3 Ti Set - [id number] Implanted:Qty: 11 on 03/25/2022 by Lorenzo Gallardo MD at OR [facility] DELMAR : SPINE [id number] / / 5.0x30 Trammell Screw Implanted:Qty: 2 on 03/25/2022 by Lorenzo Gallardo MD at OR [facility] DELMAR : SPINE [id number] / / 5.0x35 Trammell Screw Implanted:Qty: 2 on 03/25/2022 by Lorenzo Gallardo MD at OR [facility] DELMAR : SPINE [id number] / / Tube Ventilation Briggs [id number] - [id number] - [id number] Implanted:Qty: 1 on 03/02/2023 by Cem Ly DO at OR [facility] Right: Ear [employer] 12/21/2031 [id number] / [id number] / [id number] documented as of this encounter Visit Diagnoses [...] ONCE PRN Other, Hypersensitivity Reaction, Starting on Mon11/21/23 at 0923, Until Mon11/22/23 at 0922, For 24 hours EPINEPHrine 1 MG/ML inj 0.3 mg 0.3 mg, Intramuscular, ONCE PRN Other, Hypersensitivity Reaction or Anaphylaxis, Starting on Mon11/21/23 at 0923, Until Mon11/22/23 at 0922, For 24 hours hEParin 100 UNIT/ML Lock Flush inj 500 Units 500 Units (5 mL), IV Lock, PRN Other, IV Flush, Starting on Mon11/21/23 at 0923, Until Mon11/22/23 at 0922, For 24 hours, Do not flush if lock, PICC, or central line not in place; IV infusing or unable to flush. Given 11/21/2023 10:47 AM EDT 500 Units Hydrocortisone Sod Suc (PF) (Solu-Cortef) inj 100 mg 100 mg, IV Push, ONCE PRN Other, Hypersensitivity Reaction, Starting on Mon11/21/23 at 0923, Until Mon11/22/23 at 0922, For 24 hours NSS infusion 500 mL, Intravenous, at 50 mL/hr, CONTINUOUS, Starting on Mon11/21/23 at 1030, Until Mon11/21/23 at 2028 Start Infusion 11/21/2023 9:41 AM EDT 500 mL 50 mL/hr sodium chloride 0.9 % flush central line 10 mL 10 mL, IV Push, PRN Other, IV Flush, Starting on Mon11/21/23 at 0923, Until Mon11/22/23 at 0922, For 24 hours, Do not flush if lock, PICC, or central line not in place; IV infusing or unable to flush. Given 11/21/2023 10:47 AM EDT 10 mL Inactive Administered Medications - [...] Given 11/21/2023 9:49 AM EDT 25 mg Trastuzumab-anns (Kanjinti) 587 mg [...] Directives occurred with: Not Discussed Care Teams Builder Beam Relationship Specialty Start Date End Date Aleksandr Parker MD [address] [facility] [place] [address] PCP - General 06/27/02 documented as of this encounter
--- OUTSIDE RECORDS SUMMARY | 2023-12-22 05:19 | External Medical Summary | Summary of Care ---
Author Name Unknown Organization [facility] Address [address] [place] [address] Phone [phone] Care Team Providers Care Brickmason Name Role Phone Aleksandr Parker MD Primary Care Provider +1- [phone] Reason for Visit * Reason Comments Medication Management Encounter Details Date Type Department Care Team (Late st Contact Info) Description 11/03/2023 9:45 AM EDT Pharmacy Pharmacy Hematology Oncology [facility] [address] [place] [address] [facility] Hem/Onc [address] [place], [place] [id number] 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 breast in female, estrogen receptor positive (HCC)* Allergies Active Allergy Reactions Criticality Noted Date Comments Sulfa Antibiotics 05/14/1999 rash documented as of this encounter (statuses as of 11/03/2023) Medications Medication Sig Dispensed Refills Start Date [...] Information Patient not taking.Reported on 10/06/2023 Ipratropium Hazen 0.03 % Nasal Solution (Atrovent) Administer 2 [...] as of this encounter (statuses as of 11/03/2023) Active Problems Problem Noted Date Diagnosed Date [...] 05/25/2018:Stage IA(pT1a, pN0, cM0, G2, ER: Positive, SD: Negative, HER2: Positive) - Signed by Ruddy Robbins MD on 05/25/2018 LPRD (laryngopharyngeal reflux disease) 11/28/19 18 Positional sleep apnea 06/30/2016 Chronic sinusitis 04/29/2015 Vasovagal syncope 02/09/2015 Asthma, mild persistent 04/15/2009 Raynaud's syndrome 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 Pathologic fracture of thoracic vertebrae documented as of this encounter (statuses as of 11/03/2023) Resolved Problems Problem Noted Date Diagnosed Date Resolved Date Primary snoring 06/30/2016 07/15/2018 Mixed rhinitis 04/29/2015 01/18/2021 Subconjunctival hematoma 04/29/2015 Other allergic rhinitis 03/02/2015 07 OVERWEIGHT, BMI= 29.99 03/23/11 03/23/2011 07/15/2018 CHRONIC [...] as of this encounter (statuses as of 11/03/2023) Immunizations Name Administration Dates Next Due COVID-19 mRNA, LNP-s, No Pre serve, 2-Dose Series ([email or web address]) 02/03/2021,07/08/2020,06/10/2020 COVID-19, MRNA-LNP, 23-24, P F, 30 [...] this encounter Progress Notes * Nohelia Cleveland, [facility] - 11/03/2023 1:25 PM EDT MEDICATION THERAPY MANAGEMENT TUCATINIB (TUKYSA) AND CAPECITABINE (XELODA) TREATMENT PROGRESS NOTE Lola Diaz Selena [phone] Patient Phone Numbers Preferred Lab: [facility] Specialty Pharmacy: Tucatinib - G[facility]: Capecitabine - [facility] Communication: Spoke to: Patient Treatment: Medication: tucatinib (Tukysa) Indication/Staging/Diagnosis Code: metastatic HER2+ breast cancer / C50.411, Z17.0 Dose: 250 mg (2-50mg + 1-150mg tab) BID ( 10/05/22) Administration: +/- food Start Date: 05/30/22 Primary Configuration Management Consultant/Oncologist: Dr. Paco Robbins Medication: capecitabine (Xeloda) Indication/Staging/Diagnosis Code: metastatic HER2+ breast cancer / C50.411, Z17.0 Dose: 2000 mg BID 7 days on, 7 days off ( 08/25/23) Administration: within 30 minutes of food Start Date: 05/30/22 Primary Configuration Management Consultant/Oncologist: Dr. Paco Robbins Additional Therapy: Trastuzumab Supportive [...] 10/03-10/09 C20 10/17-10/23; 10/31-11/06 C21 11/14-11/20; 11/28-12/04 (anticipated) Treatment History: Anastrozole Trastuzumab/pertuzumab/docetaxel Dose Adjustment [...] History: Confirms capecitabine cycle date as above States HFS on feet 95% healed States hands are good Continues to apply clobetasol cream to feet BID, urea cream to hands and feet, and Vaseline to feetat bedtime for symptom relief Reports mild constipation but denies exceeding 3 days without BM or laxative use No other concerns, tolerating therapies well Changes to medication list since last visit? No Assessment and Plan: Follow up labs stable Continue clobetasol, urea cream, and Vaseline for HFS management Pt understands to contact office if no BM in 3 days Continue current therapies Repeat labs scheduled 11/20 Assessment of compliance: compliant Assessment of adverse effects attributed to drug therapy: TUKYSA Diarrhea - absent Nausea/Vomiting - absent Peripheral neuropathy - absent Skin rash - absent Hand-foot syndrome - present, improving Decreased appetite - absent Stomatitis - absent XELODA Hand Foot Syndrome - present, improving Diarrhea - absent Nausea/vomiting- absent Fever - absent Stomatitis - absent Dose adjustment needed based on lab or adverse drug reaction? No Follow up: 11/20 Nohelia Cleveland, PharmD, BCOP Clinical Pharmacist, [facility] Oral Chemotherapy [facility] 11/03/2023, 1:34 PM Monitoring Parameters: Estimated CrCl Serum creatinine: 0.9 mg/dL 10/31/23 0803 Estimated creatinine clearance: 80.7 mL/min Hepatitis panel Latest Reference Range & [...] Pertinent Labs: Latest Reference Range & Units 09/19/23 07:47 10/10/23 07:44 10/31/23 08:03 WBC 4.00 - 10.80 K/uL 7.58 6.12 7.21 RBC 3.85 - 5.15 M/uL 4.00 3.92 3.95 HGB 12.0 - 15.3 g/dL 13.5 13.4 13.1 HCT 36.0 - 45.2 % 41.2 38.9 39.8 MCV 81.5 - 97.5 fL 103.0 99.2 100.8 MCH 27.0 - 34.0 pg 33.8 34.2 33.2 MCHC 32.0 - 36.0 g/dL 32.8 34.4 32.9 RDW 11.5 - 15.5 % 16.8 15.8 16.9 PLT 140 - 400 K/uL 207 240 239 MPV 6.6 - 11.1 fL 9.6 9.6 9.0 CBC WITH WBC DIFFERENTIAL Rpt Rpt Rpt ! Absolute Neutrophils 1.80 - 7.70 K/uL 5.11 3.97 4.58 Latest Reference Range & Units 09/19/23 07:47 10/10/23 07:44 10/31/23 08:03 Albumin 3.8 - 5.0 g/dL 3.7 (L) 3.8 3.7 (L) AST 10 - 35 U/L 16 18 15 ALT 10 - 35 U/L 19 22 8 (L) Alkaline Phosphatase 35 - 130 U/L 100 90 91 Bilirubin, Total <=1.2 mg/dL 0.6 0.6 0.6 Time Spent on Encounter: 6 - 10 minutes Encounter Group: Oncology Encounter Interventions Item [...] (Level 1) Fourth Item Fourth Item Category: Topicals Urea Problem/Rationale: Effectiveness: Needs additional monitoring - Medication Requires monitoring Pharmacist Intervention(s): Toxicity monitoring Magnitude of Intervention: Monitoring with direction (Level 1) documented in this encounter Plan of Treatment Upcoming Encounters Date Type Department Care Team (Late st Contact Info) Description 11/14/2023 2:00 PM EDT Office Visit Otolaryngology [facility] [address] [place] [address] Amisha Joseph PA-C [address] [place] [address] 11/21/2023 8:00 AM EDT Laboratory Laboratory [place] [address] [place] [address] Yefri Keller [facility] [address] [place] [address] 11/21/2023 9:00 AM EDT Hem/Onc Treatment Hematology/[facility] Treatment, [place] [address] [facility] [phone] Arianna, Chair 5 Hem Onc [address] [place] [address] 11/21/2023 9:30 AM EDT Pharmacy Pharmacy Hematology Oncology [facility], [address] [address] [facility] Hem/Onc [facility] [place] [address] 12/12/2023 1:10 PM EDT Laboratory Laboratory [place] [address] [place] [phone] Arianna, Lab [address] [place] [address] 12/12/2023 1:45 PM EDT Office Visit Hematology/Oncology [facility] [place] [address] [place] [phone] Ruddy Robbins MD [address] [place] [address] 12/12/2023 2:15 PM EDT Hem/Onc Treatment Hematology/Oncology Treatment, [place] [address] [facility] [phone] Arianna, Chair 7 Hem Onc [address] [place] [address] 01/25/2024 9:00 AM EDT Imaging Radiology [address], [place] 132 [facility] [place] [address] 03/20/2024 1:45 PM EST Office Visit Neurosurgery, [address] [address] Loernzo Gallardo MD [address] [place] [address] 10/07/2024 1:30 PM EDT Office Visit Allergy/Immunology [place] [address] [place] [address] Alexandru Mcelroy MD [address] [place] [address] Scheduled Procedures Name Priority Associated Diagnoses Date/Ti [...] 0706/2018, 11/20/2014, Additional history exists Diabetes Screening 10/30/2026 [...] this encounter Medical Devices Implanted Type Area Machine Sand Mixer Device Identifier Shelf Expiration Date Model / Serial / Lot Cement Hv-R C01a - [id number] Implanted:Qty: 1 on 08/20/2021 by Lorenzo Gallardo MD at [place] [facility] N/A: Spine Thoracic [employer] : NEURO CARE 04/30/2024 C01A / / [id number] Port Implant W/8f Poly Cath - [id number] Implanted:Qty: 1 on 09/03/2021 by Blayne Villegas MD at OR [facility] Left: Chest CR BARD : PERIPHERAL VASCULAR [id number] 07/29/2022 [id number] / / [id number] 5.0x40 Trammell Screw Implanted:Qty: 3 on 03/25/2022 by Lorenzo Gallardo MD at [place] [facility] DELMAR : SPINE [id number] / / 5.0x45 Trammell Screw Implanted:Qty: 4 on 03/25/2022 by Lorenzo Gallardo MD at OR [facility] DELMAR : SPINE [id number] / / Spineology E Mesh Implanted:Qty: 1 on 03/25/2022 by Lorenzo Gallardo MD at [place] [facility] [employer] 06/29/2024 330-2005 / / [id number] Vitoss Bimodal Foam Pack 10cc - [id number] Implanted:Qty: 1 on 03/25/2022 by Lorenzo Gallardo MD at [place] [facility] DELMAR : SPINE [id number] 08/27/20231909 / / [id number] Vitoss Bimodal Foam Pack 10cc - [id number] Implanted:Qty: 1 on 03/25/2022 by Lorenzo Gallardo MD at OR [facility] DELMAR : SPINE [id number] 08/27/20231909 / / [id number] Vitoss Bimodal Foam Pack 10cc - [id number] Implanted:Qty: 1 on 03/25/2022 by Lorenzo Gallardo MD at [place] [facility] DELMAR : SPINE [id number] 08/27/20231909 / / [id number] Vitoss Bimodal Foam Pack 10cc - [id number] Implanted:Qty: 1 on 03/25/2022 by Lorenzo Gallardo MD at [place] [facility] DELMAR : SPINE [id number] 08/27/20231909 / / [id number] Connector Crosslink 43 To 54 - [id number] Implanted:Qty: 1 on 03/25/2022 by Lorenzo Gallardo MD at OR [facility] DELMAR : SPINE [id number] / / Tube Preflld Allogrft Diverted - [id number] Implanted:Qty: 1 on 03/25/2022 by Lorenzo Gallardo MD at OR [facility] [employer] 11/19/2023 [id number] / / Tube Preflld Allogrft Diverted - [id number] Implanted:Qty: 1 on 03/25/2022 by Lorenzo Gallardo MD at [place] [facility] [employer] 11/18/2024 [id number] / / Tube Preflld Allogrft Diverted - [id number] Implanted:Qty: 1 on 03/25/2022 by Lorenzo Gallardo MD at OR [facility] [employer] 11/18/2024 [id number] / / Vitoss Bimodal Foam Pack 10cc - [id number] Implanted:Qty: 1 on 03/25/2022 by Lorenzo Gallardo MD at OR [facility] DELMAR : SPINE [id number] 08/27/20231909 / / [id number] Tube Preflld Allogrft Diverted - [id number] Implanted:Qty: 4 on 03/25/2022 by Lorenzo Gallardo MD at [place] [facility] [employer] 11/19/2023 [id number] / / Screw Set 7601-51064 - [id number] Implanted:Qty: 6 on 03/25/2022 by Lorenzo Gallardo MD at OR [facility] DELMAR : SPINE 6423-3780 1 / / 3.5x14 Screw Implanted:Qty: 6 on 03/25/2022 by Lorenzo Gallardo MD at OR [facility] DELMAR : SPINE [id number] 4 / / [id number] Transition Juan Implanted:Qty: 2 on 03/25/2022 by Lorenzo Gallardo MD at OR [facility] DELMAR : SPINE [id number] 00 / / Screw Ludmila Stella 3 Ti Set - [id number] Implanted:Qty: 11 on 03/25/2022 by Lorenzo Gallardo MD at [place] [facility] DELMAR : SPINE [id number] / / 5.0x30 Trammell Screw Implanted:Qty: 2 on 03/25/2022 by Lorenzo Gallardo MD at OR [facility] DELMAR : SPINE [id number] / / 5.0x35 Trammell Screw Implanted:Qty: 2 on 03/25/2022 by Lorenzo Gallardo MD at [place] [facility] DELMAR : SPINE [id number] / / Tube Ventilation Briggs [id number] - [id number] - [id number] Implanted:Qty: 1 on 03/02/2023 by Cem Ly DO at OR [facility] Right: Ear [employer] 12/21/2031 [id number] / [id number] / [id number] documented as of this encounter Visit Diagnoses [...] Directives occurred with: Not Discussed Care Teams Brickmason Relationship Specialty Start Date End Date Aleksandr Parker MD [address] [place] [address] PCP - General 06/27/02 documented as of this encounter
--- OUTSIDE RECORDS SUMMARY | 2023-12-22 05:19 | External Medical Summary | Summary of Care ---
Author Name Unknown Organization [facility] Address [address] [place] [address] Phone [phone] Care Team Providers Care Trailer Driver Name Role Phone Aleksandr Parker MD Primary Care Provider [phone]- [phone] Reason for Visit * Reason Onset Date Comments Test Results Imaging Study 10/25/2023 PET-C T Encounter Details Date Type Department Care Team (Late st Contact Info) Description 10/25/2023 Telephone Hematology/Oncology [facility] [address] [facility] [place] [phone] Ruddy Robbins MD [address] [place] [address] Test Results Imaging Study (PET-CT) Allergies Active Allergy Reactions Criticality Noted Date Comments Sulfa Antibiotics 05/14/1999 rash documented as of this encounter (statuses as of 10/25/2023) Medications Medication Sig Dispensed Refills Start Date [...] Information Patient not taking.Reported on 10/06/2023 Ipratropium [place] 0.03 % Nasal Solution (Atrovent) Administer 2 [...] as of this encounter (statuses as of 10/25/2023) Active Problems Problem Noted Date Diagnosed Date [...] 05/25/2018:Stage IA(pT1a, pN0, cM0, G2, ER: Positive, IN: Negative, HER2: Positive) - Signed by Ruddy Robbins MD on 05/25/2018 LPRD (laryngopharyngeal reflux disease) 11/28/19 18 Positional sleep apnea 06/30/2016 Chronic sinusitis 04/29/2015 Vasovagal syncope 02/09/2015 Asthma, mild persistent 04/15/2009 Raynaud's syndrome 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 Pathologic fracture of thoracic vertebrae documented as of this encounter (statuses as of 10/25/2023) Resolved Problems Problem Noted Date Diagnosed Date Resolved Date Primary snoring 06/30/2016 07/15/2018 Mixed rhinitis 04/29/2015 01/18/2021 Subconjunctival hematoma 04/29/2015 Other allergic rhinitis 03/02/2015 07/ OVERWEIGHT, BMI= 29.99 03/23/11 03/23/2011 07/15/2018 CHRONIC [...] as of this encounter (statuses as of 10/25/2023) Immunizations Name Administration Dates Next Due COVID-19 mRNA, LNP-s, No Pre serve, 2-Dose Series (x.ai) 02/03/2021,07/08/2020,06/10/2020 COVID-19, MRNA-LNP, 23-24, P F, 30 [...] encounter Miscellaneous Notes * Telephone Encounter - Nereida Tabor LPN - 10/25/2023 10:14 AM EDT My G sent. * Telephone Encounter - Nereida Tabor LPN - 10/25/2023 10:11 AM EDT ----- Message from Ruddy Robbins MD sent at 10/24/2023 1:28 PM EDT ----- PET-CT scan on 10/23/2023: -no FDG avid disease noted anywhere else. documented in this encounter Plan of Treatment Upcoming Encounters Date Type Department Care Team (Late st Contact Info) Description 10/31/2023 8:10 AM EDT Laboratory Laboratory [facility] [place] [address] [phone] [place] [address] 10/31/2023 9:00 AM EDT Hem/Onc Treatment Hematology/Oncology Treatment, [place] [address] [place] [phone] Arianna, Chair 1 Hem Onc Scenery [address] [place], [place] [address] 11/03/2023 9:45 AM EDT Pharmacy Pharmacy Hematology Oncology [facility] [address] [place] [address] [facility] Hem/Onc [address] [place] [address] 11/14/2023 2:00 PM EDT Office Visit Otolaryngology [facility] [address] [address] Amisha Joseph PA-C [address] [place] [address] 11/21/2023 8:00 AM EDT Laboratory Laboratory [facility] [place] [address] [place] [phone] Arianna Lab Scenery [address] [place] [address] 11/21/2023 9:00 AM EDT Hem/Onc Treatment [facility]On[facility] Treatment [place] [address] [place], [place] [phone] Arianna, Chair 5 Hem Onc [address] [place] [address] 12/12/2023 1:10 PM EDT Laboratory Laboratory [facility] [place] [address] [place] [phone] Arianna Lab Scenery [address] [facility] [place] [address] 12/12/2023 1:45 PM EDT Office Visit Hematology/Oncology [facility] [place] [address] [place] [phone] Ruddy Robbins MD [address] [place] [address] 12/12/2023 2:15 PM EDT Hem/Onc Treatment Hematology/Oncology Treatment, [place] [address] [place] [phone] Arianna, Chair 7 Hem Onc [facility] [address] [facility] [place] [address] 01/25/2024 9:00 AM EDT Imaging Radiology [facility] 1st Floor, [place] [address] [place] [address] 03/20/2024 1:45 PM EST Office Visit Neurosurgery, [place] [address] [place] [address] Lorenzo Gallardo MD [address] [place] [address] 10/07/2024 1:30 PM EDT Office Visit Allergy/Immunology [facility] [address] [place] [address] Alexandru Mcelroy MD [address] [place] [address] Scheduled Procedures Name Priority Associated Diagnoses Date/Ti [...] Additional history exists Colorectal Cancer Screening 04/03/2022 Mammogram 03/06/2024 03/06/2023, 07/2021, 03/04/2021, Additional history exists Lipid Panel 12/04/2025 12/04/2020, 06/2018, 11/20/2014, Additional history exists Diabetes Screening 10/09/2026 10/10/2023, 0 09/19/2023, 08/29/2023, Additional history exists Hepatitis B Completed 04/22/2002, 10/29, 10/13/2001 RETIRED - COLONOSCOPY-EVERY 5 YRS AGES 18-100 Discontinued 04/03/2017, 04/03/2017, 03/09/2012, Additional history exists Zoster Vaccines Completed 08/04/2020, 02/03/2020 COVID-19 Vaccine Completed 02/07/2023, 09/2020, 07/08/2020, Additional history exists Influenza Vaccine (FLU shot) Completed 02/20/2023, 02/23/2022, 01/18/2021, Additional history exists GARDASIL-HPV IMMUNIZATION SERIES Aged Out No longer eligible based on patient's age to complete this topic MENINGOCOCCAL (MENACTRA/MENVEO) Aged Out No longer eligible based on patient's age to complete this topic documented as of this encounter Medical Devices Implanted Type Area Almond Blancher Device Identifier Shelf Expiration Date Model / Serial / Lot Cement Hv-R C01a - [id number] Implanted:Qty: 1 on 08/20/2021 by Lorenzo Gallardo MD [place] [facility] [place]A: Spine Thoracic [employer] : NEURO CARE 04/30/2024 C01A / / [id number] Port Implant W/8f Poly Cath - [id number] Implanted:Qty: 1 on 09/03/2021 by Blayne Villegas MD at OR [facility] Left: Chest CR BARD : PERIPHERAL VASCULAR [id number] 07/29/2022 [id number] / / [id number] 5.0x40 Trammell Screw Implanted:Qty: 3 on 03/25/2022 by Lorenzo Gallardo MD at [place] [facility] DELMAR : SPINE [id number] / / 5.0x45 Trammell Screw Implanted:Qty: 4 on 03/25/2022 by Lorenzo Gallardo MD at OR [facility] DELMAR : SPINE [id number] / / Spineology E Mesh Implanted:Qty: 1 on 03/25/2022 by Lorenzo Gallardo MD at OR [facility] [employer] 06/29/2024 330-2005 / / [id number] Vitoss Bimodal Foam Pack 10cc - [id number] Implanted:Qty: 1 on 03/25/2022 by Lorenzo Gallardo MD at OR [facility] DELMAR : SPINE [id number] 08/27/20231909 / / [id number] Vitoss Bimodal Foam Pack 10cc - [id number] Implanted:Qty: 1 on 03/25/2022 by Lorenzo Gallardo MD at OR [facility] DELMAR : SPINE [id number] 08/27/20231909 / / [id number] Vitoss Bimodal Foam Pack 10cc - [id number] Implanted:Qty: 1 on 03/25/2022 by Lorenzo Gallardo MD at OR [facility] DELMAR : SPINE [id number] 08/27/20231909 / / [id number] Vitoss Bimodal Foam Pack 10cc - [id number] Implanted:Qty: 1 on 03/25/2022 by Lorenzo Gallardo MD at OR [facility] DELMAR : SPINE [id number] 08/27/20231909 / / [id number] Connector Crosslink 43 To 54 - [id number] Implanted:Qty: 1 on 03/25/2022 by Lorenzo Gallardo MD at OR [facility] DELMAR : SPINE [id number] / / Tube Preflld Allogrft Diverted - [id number] Implanted:Qty: 1 on 03/25/2022 by Lorenzo Gallardo MD at OR [facility] [employer] 11/19/2023 [id number] / / Tube Preflld Allogrft Diverted - [id number] Implanted:Qty: 1 on 03/25/2022 by Lorenzo Gallardo MD at OR [facility] [employer] 11/18/2024 [id number] / / Tube Preflld Allogrft Diverted - [id number] Implanted:Qty: 1 on 03/25/2022 by Lorenzo Gallardo MD at OR [facility] [employer] 11/18/2024 [id number] / / Vitoss Bimodal Foam Pack 10cc - [id number] Implanted:Qty: 1 on 03/25/2022 by Lorenzo Gallardo MD at OR [facility] DELMAR : SPINE [id number] 08/27/20231909 / / [id number] Tube Preflld Allogrft Diverted - [id number] Implanted:Qty: 4 on 03/25/2022 by Lorenzo Gallardo MD at OR [facility] [employer] 11/19/2023 [id number] / / Screw Set [id number] - [id number] Implanted:Qty: 6 on 03/25/2022 by Lorenzo Gallardo MD at OR [facility] DELMAR : SPINE [id number] 1 / / 3.5x14 Screw Implanted:Qty: 6 on 03/25/2022 by Lorenzo Gallardo MD at OR [facility] DELMAR : SPINE [id number] 4 / / 4.0/[id number] Transition Juan Implanted:Qty: 2 on 03/25/2022 by Lorenzo Gallardo MD at OR [facility] DELMAR : SPINE [id number] 00 / / Screw Ludmila Stella 3 Ti Set - [id number] Implanted:Qty: 11 on 03/25/2022 by Lorenzo Gallardo MD at OR [facility] DELMAR : SPINE [id number] / / 5.0x30 Trammell Screw Implanted:Qty: 2 on 03/25/2022 by Lorenzo Gallardo MD at OR [facility] DELMAR : SPINE [id number] / / 5.0x35 Trammell Screw Implanted:Qty: 2 on 03/25/2022 by Lorenzo Gallardo MD at OR [facility] DELMAR : SPINE [id number] / / Tube Ventilation [place] [id number] - [id number] - [id number] Implanted:Qty: 1 on 03/02/2023 by Cem Ly DO at OR [facility] Right: Ear [employer] 12/21/2031 [id number] / [id number] / [id number] documented as of this encounter Advance Directives [...] Directives occurred with: Not Discussed Care Teams Trailer Driver Relationship Specialty Start Date End Date Aleksandr Parker MD [address] [place] [address] PCP - General 06/27/02 documented as of this encounter
--- OUTSIDE RECORDS SUMMARY | 2023-12-22 05:19 | External Medical Summary ---
Author Name Unknown Address Unknown Organization K09:[facility] [place] [address] Laboratory Report Ordering Provider Test Date Status SYLVIA FROST 10/31/2023 08:03:15 Final Observation Date Value Abnormality Reference (Units ) Status WBC, Total 10/31/2023 08:03:15 7.21 4.00-10.8 0 (K/uL) Final RBC 10/31/2023 08:03:15 3.95 3.85-5.15 (M/uL) Final Hemoglobin 10/31/2023 08:03:15 13.1 12.0-15.3 (g/dL) Final HCT 10/31/2023 08:03:15 39.8 36.0-45.2 (%) Final MCV 10/31/2023 08:03:15 100.8 81.5-97.5 (fL) Final MCH 10/31/2023 08:03:15 33.2 27.0-34.0 (pg) Final MCHC 10/31/2023 08:03:15 32.9 32.0-36.0 (g/dL) Final RDW 10/31/2023 08:03:15 16.9 11.5-15.5 (%) Final Platelets 10/31/2023 08:03:15 239 140-400 (K /uL) Final MPV 10/31/2023 08:03:15 9.0 6.6-11.1 ( fL) Final Performing Location [facility] [place] [address]
--- OUTSIDE RECORDS SUMMARY | 2023-12-22 05:19 | External Medical Summary | Summary of Care ---
Author Name Unknown Organization [facility] Address [address] [place] [address] Phone [phone] Care Team Providers Care Channel Sales Manager Name Role Phone Aleksandr Parker MD Primary Care Provider +1- [phone] Reason for Visit * Reason Comments Outpatient Testing Encounter Details Date Type Department Care Team (Late st Contact Info) Description 10/31/2023 8:10 AM EDT Laboratory Laboratory Scenery [facility] [address] [place] [phone] Lucile, Lab Scenery [address] [place] [address] 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 breast in female, estrogen receptor positive (HCC) Allergies Active Allergy Reactions Criticality Noted Date Comments Sulfa Antibiotics 05/14/1999 rash documented as of this encounter (statuses as of 10/31/2023) Medications Medication Sig Dispensed Refills Start Date [...] Information Patient not taking.Reported on 10/06/2023 Ipratropium [place] 0.03 % Nasal Solution (Atrovent) Administer 2 [...] as of this encounter (statuses as of 10/31/2023) Active Problems Problem Noted Date Diagnosed Date [...] 05/25/2018:Stage IA(pT1a, pN0, cM0, G2, ER: Positive, UT: Negative, HER2: Positive) - Signed by Ruddy Robbins MD on 05/25/2018 LPRD (laryngopharyngeal reflux disease) 11/28/19 18 Positional sleep apnea 06/30/2016 Chronic sinusitis 04/29/2015 Vasovagal syncope 02/09/2015 Asthma, mild persistent 04/15/2009 Raynaud's syndrome 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 Pathologic fracture of thoracic vertebrae documented as of this encounter (statuses as of 10/31/2023) Resolved Problems Problem Noted Date Diagnosed Date [...] as of this encounter (statuses as of 10/31/2023) Immunizations Name Administration Dates Next Due COVID-19 mRNA, LNP-s, No Pre serve, 2-Dose Series (sciencebite) 02/03/2021,07/08/2020,06/10/2020 COVID-19, MRNA-LNP, 23-24, P F, 30 [...] Team (Late st Contact Info) Description 10/31/2023 9:00 AM EDT Hem/Onc Treatment Hematology/Oncology Treatment, [place] [address] [facility] [phone] Arianna, Chair 1 Hem Onc [address] [place] [address] Arrived 11/03/2023 9:45 AM EDT Pharmacy Pharmacy Hematology Oncology [facility] [address] [place] [address] [facility] Hem/Onc [address] [place] [address] 11/14/2023 2:00 PM EDT Office Visit Otolaryngology [facility] [address] [place] [address] [address] Amisha Joseph PA-C [address] [place] [address] 11/21/2023 8:00 AM EDT Laboratory Laboratory [facility] Arianna [place] [address] [place] [address] Yefri Keller [facility] [address] [facility] [place] [address] 11/21/2023 9:00 AM EDT [facility] [address] [place], [place] [phone] Arianna, Chair 5 Hem Onc Sc[address] [place] [address] 12/12/2023 1:10 PM EDT Laboratory Laboratory [facility] [place] [address] [place] [phone] Arianna, Lab [facility] [address] [facility] [place], [place] [address] 12/12/2023 1:45 PM EDT Office Visit Hematology/Oncology [facility] [address] [place] [phone] Ruddy Robbins MD [address] [place] [address] 12/12/2023 2:15 PM EDT Hem/Onc Treatment Hematology/Oncology [facility] [address] [facility], [place] [phone] Arianna, Chair 7 Hem Onc [facility] 200 [facility] [place], [place] [address] 01/25/2024 9:00 AM EDT Imaging Radiology [facility], [place] [address] [facility] [address] 03/20/2024 1:45 PM EST Office Visit Neurosurgery, [place] [address] [place] [address] Lorenzo Gallardo MD [address] [place], [place] [address] 10/07/2024 1:30 PM EDT Office Visit Allergy/Immunology [facility] [address] [place] [address] Alexandru Mcelroy MD [address] [place] [address] Pending Results Name Type Priority Associated Diagnoses Date /Time COMPREHENSIVE METABOLIC PANEL Lab STAT 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 breast in female, estrogen receptor positive (HCC) 10/31/2023 8:03 AM EDT Scheduled Procedures Name Priority Associated [...] Completed 02/07/2023, 09/2020, 07/08/2020, Additional history exists GARDASIL-HPV IMMUNIZATION SERIES Aged Out No longer eligible based on patient's age to complete this topic MENINGOCOCCAL (MENACTRA/MENVEO) Aged Out No longer eligible based on patient's age to complete this topic documented as of this encounter Medical Devices Implanted Type Area Creeler Device Identifier Shelf Expiration Date Model / Serial / Lot Cement Hv-R C01a - [id number] Implanted:Qty: 1 on 08/20/2021 [place] [facility] [place] Spine Thoracic [employer] : NEURO CARE 04/30/2024 C01A / / [id number] Port Implant W/8f Poly Cath - [id number] Implanted:Qty: 1 on 09/03/2021 by Blayne Villegas MD at OR [facility] Left: Chest CR BARD : PERIPHERAL VASCULAR [id number] 07/29/2022 [id number] / / [id number] 5.0x40 Trammell Screw Implanted:Qty: 3 on 03/25/2022 by Lorenzo Gall[place] [facility] [place] : SPINE [id number] / / 5.0x45 Trammell Screw Implanted:Qty: 4 on 03/25/2022 by Lorenzo Gallardo MD [place] [facility] [place] : SPINE [id number] / / Spineology E Mesh Implanted:Qty: 1 on 03/25/2022 by Lorenzo Gallardo MD [place] [facility] [place] [employer] 06/29/2024 330-2005 / / [id number] Vitoss Bimodal Foam Pack 10cc - [id number] Implanted:Qty: 1 on 03/25/2022 by Lorenzo Gallardo [place] [facility] [place] : SPINE [id number] 08/27/2023 2102- 1910 / / [id number] Vitoss Bimodal Foam Pack 10cc - [id number] Implanted:Qty: 1 on 03/25/2022 by Lorenzo Gallardo MD [place] [facility] [place]MAR : SPINE [id number] 08/27/20231909 / / [id number] Vitoss Bimodal Foam Pack 10cc - [id number] Implanted:Qty: 1 on 03/25/2022 by Lorenzo Gallardo MD [place] [facility] [place]MAR : SPINE [id number] 08/27/20231909 / / [id number] Vitoss Bimodal Foam Pack 10cc - [id number] Implanted:Qty: 1 on 03/25/2022 by Lorenzo Gallardo MD [place] [facility] [place] DELMAR : SPINE [id number] 08/27/20231909 / / [id number] Connector Crosslink 43 To 54 - [id number] Implanted:Qty: 1 on 03/25/2022 by Lorenzo Gallardo MD [place] [facility] [place] DELMAR : SPINE [id number] / / Tube Preflld Allogrft Diverted - [id number] Implanted:Qty: 1 on 03/25/2022 by Lorenzo Gallardo MD [place] [facility] [place] [employer] 11/19/2023 [id number] / / Tube Preflld Allogrft Diverted - [id number] Implanted:Qty: 1 on 03/25/2022 by Lorenzo Gallardo MD [place] [facility] [place] [employer] 11/18/2024 [id number] / / Tube Preflld Allogrft Diverted - [id number] Implanted:Qty: 1 on 03/25/2022 by Lorenzo Gallardo MD [place] [facility] [place] [employer] 11/18/2024 [id number] / / Vitoss Bimodal Foam Pack 10cc - [id number] Implanted:Qty: 1 on 03/25/2022 by Lorenzo Gallardo MD [place] [facility] [place] DELMAR : SPINE [id number] 08/27/20231909 / / [id number] Tube Preflld Allogrft Diverted - [id number] Implanted:Qty: 4 on 03/25/2022 by Lorenzo Gallardo MD [place] [facility] [place] [employer] 11/19/2023 [id number] / / Screw Set [id number] - [id number] Implanted:Qty: 6 on 03/25/2022 by Lorenzo Gallardo MD [place] [facility] [place] DELMAR : SPINE [id number] 1 / / 3.5x14 Screw Implanted:Qty: 6 on 03/25/2022 by Lorenzo Gallardo MD [place] [facility] [place] DELMAR : SPINE 3087-7717 4 / / 4.0/5.3p450bh Transition Juan Implanted:Qty: 2 on 03/25/2022 by Lorenzo Gallardo MD [place] [facility] [place] DELMAR : SPINE 0031-3013 00 / / Screw Ludmila Stella 3 Ti Set - [id number] Implanted:Qty: 11 on 03/25/2022 by Lorenzo Gallardo MD [place] [facility] [place] DELMAR : SPINE [id number] / / 5.0x30 Trammell Screw Implanted:Qty: 2 on 03/25/2022 by Lorenzo Gallardo MD [place] [facility] [place] DELMAR : SPINE [id number] / / 5.0x35 Trammell Screw Implanted:Qty: 2 on 03/25/2022 by Lorenzo Gallardo MD [place] [facility] [place] DELMAR : SPINE [id number] / / Tube Ventilation Briggs [id number] - [id number] - [id number] Implanted:Qty: 1 on 03/02/2023 by Cem Ly DO at OR [facility] Right: Ear [employer] 12/21/2031 [id number] / [id number] / [id number] documented as of this encounter Procedures Procedure Name Priority Date/Time Associated Diagnosis Comments DIFFERENTIAL, AUTOMATED STAT 10/31/2023 8:03 AM EDT 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 breast in female, estrogen receptor positive (HCC) CBC STAT 10/31/2023 8:03 AM EDT 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 breast in female, estrogen receptor positive (HCC) CBC STAT 10/31/2023 8:03 AM EDT 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 breast in female, estrogen receptor positive (HCC) documented in this encounter Results * (ABNORMAL) DIFFERENTIAL, AUTOMATED (10/31/2023 8:03 AM EDT) WBC 7.21 4.00 - 10.80 K/uL 10/31/2023 8:11 AM EDT LABORATORY [facility] 56-02 Neutrophils % 63.6 40.0 - 75.0 % 10/31/2023 8:11 AM EDT LAB[facility]ATORY [facility] [place] 56-02 Lymphocytes % 19.1 18.0 - 42.0 % 10/31/2023 8:11 AM EDT LAB[facility]ATORY [place] 56-02 Monocytes % 13.7(H) 1.0 - 11.0 % 10/31/2023 8:11 AM EDT LAB[facility]ATORY [place] 56-02 Eosinophils % 3.3 0.0 - 6.0 % 10/31/2023 8:11 AM EDT LAB[facility]ATORY [place] 56-02 Basophils % 0.3 0.0 - 2.0 % 10/31/2023 8:11 AM EDT LAB[facility]ATORY [place] 56-02 Absolute Neutrophils 4.58 1.80 - 7.70 K/uL 10/31/2023 8:11 AM EDT LABORATORY [facility] [place] 56-02 Absolute Lymphocytes 1.38 1.00 - 4.80 K/ul 10/31/2023 8:11 AM EDT LABORATORY [place] 56-02 Absolute Monocytes 0.99 0.00 - 1.10 K/uL 10/31/2023 8:11 AM EDT LAB[facility]ATORY [place] 56-02 Absolute Eosinophils 0.24 0.00 - 0.70 K/uL 10/31/2023 8:11 AM EDT LABORATORY [place] 56-02 Absolute Basophils 0.02 0.00 - 0.20 K/uL 10/31/2023 8:11 AM EDT LAB[facility]ATORY [place] 56-02 Blood Venous blood specimen / Unknown Venipuncture / Unknown 10/31/2023 8:03 AM EDT 10/31/2023 8:03 AM EDT Ruddy Robbins MD LAB BLOOD ORDERABLES [facility] [address] [place] [address] * CBC (10/31/2023 8:03 AM EDT) WBC 7.21 4.00 - 10.80 K/uL 10/31/2023 8:11 AM EDT [facility] 56- RBC 3.95 3.85 - 5.15 M/uL 10/31/2023 8:11 AM EDT [facility] 56 HGB 13.1 12.0 - 15.3 g/dL 10/31/2023 8:11 AM EDT [facility] 56 HCT 39.8 36.0 - 45.2 % 10/31/2023 8:11 AM EDT [facility] 56 MCV 100.8 81.5 - 97.5 fL 10/31/2023 8:11 AM EDT [facility] 56 MCH 33.2 27.0 - 34.0 pg 10/31/2023 8:11 AM EDT [address] MCHC 32.9 32.0 - 36.0 g/dL 10/31/2023 8:11 AM EDT [facility] 56 RDW 16.9 11.5 - 15.5 % 10/31/2023 8:11 AM EDT [facility] 56 PLT 239 140 - 400 K/uL 10/31/2023 8:11 AM EDT [facility] 56 MPV 9.0 6.6 - 11.1 fL 10/31/2023 8:11 AM EDT [facility] 56 Blood Venous blood specimen / Unknown Venipuncture / Unknown 10/31/2023 8:03 AM EDT 10/31/2023 8:03 AM EDT Ruddy Robbins MD LAB BLOOD ORDERABLES [facility] [address] [place] [address] documented in this encounter Visit Diagnoses Diagnosis [...] Directives occurred with: Not Discussed Care Teams Channel Sales Manager Relationship Specialty Start Date End Date Aleksandr Parker MD [address] [facility] [address] PCP - General 06/27/02 documented as of this encounter
--- OUTSIDE RECORDS SUMMARY | 2023-12-22 05:19 | External Medical Summary | Summary of Care ---
Author Name Unknown Organization [facility] Address [address] [place] [address] Phone [phone] Care Team Providers Care Vice President Name Role Phone Aleksandr Parker MD Primary Care Provider [phone]- [phone] Reason for Visit * Reason Onset Date Comments Medication Pre-auth 10/26/2023 Encounter Details Date Type Department Care Team (Late st Contact Info) Description 10/26/2023 Telephone Hematology/Oncology Treatment, [place] [address] [place] [phone] Ruddy Robbins MD [address] [place] [address] Medication Pre-auth Allergies Active Allergy Reactions Criticality Noted Date Comments Sulfa Antibiotics 05/14/1999 rash documented as of this encounter (statuses as of 10/27/2023) Medications Medication Sig Dispensed Refills Start Date [...] Information Patient not taking.Reported on 10/06/2023 Ipratropium [place] 0.03 % Nasal Solution (Atrovent) Administer 2 [...] as of this encounter (statuses as of 10/27/2023) Active Problems Problem Noted Date Diagnosed Date [...] 05/25/2018:Stage IA(pT1a, pN0, cM0, G2, ER: Positive, CT: Negative, HER2: Positive) - Signed by Ruddy Robbins MD on 05/25/2018 LPRD (laryngopharyngeal reflux disease) 11/28/19 18 Positional sleep apnea 06/30/2016 Chronic sinusitis 04/29/2015 Vasovagal syncope 02/09/2015 Asthma, mild persistent 04/15/2009 Raynaud's syndrome 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 Pathologic fracture of thoracic vertebrae documented as of this encounter (statuses as of 10/27/2023) Resolved Problems Problem Noted Date Diagnosed Date [...] as of this encounter (statuses as of 10/27/2023) Immunizations Name Administration Dates Next Due COVID-19 mRNA, LNP-s, No Pre serve, 2-Dose Series (Softheon) 02/03/2021,07/08/2020,06/10/2020 COVID-19, MRNA-LNP, 23-24, P F, 30 MCG/0.3 mL, 12 YRS AND ABOVE, IM (PFIZER-Comirnaty) 02/07/2023 Hepatitis B Vaccine 04/22/2002 Hepatitis B, 20+ yrs 11/16/2001,10/13/2001 Influenza, Whole Virus 03/01/2002 Pneumococcal Conjugate Vacci ne, 7 Valent 09/11/2003 Pneumococcal Polysaccharide PPV23 (Pneumovax) 07/13/2018 Seasonal Influenza, PF, 6 M & above, IM , (FluLaval or Fluzone) 02/20/2023,02/23/2022,01/18/2021,02/19,02/14/2017 Seasonal Influenza, Split, I IV3, With Preserve, Inj 02/14/2019,02/02/2018,02/16/2016,03/04,02/13/2014,01/30/2013,02/16/2012 ,02/11/2010,03/20/2009,03/02/2008,03/02,02/12/2001 TD - Tetanus/Diptheria (ADULT) 11/30/2001,1991 TDAP, Age 7 and older, IM (Adacel) [...] encounter Miscellaneous Notes * Telephone Encounter - Edna Gardner OSA - 10/27/2023 2:47 PM EDT This is in our WQ and being worked * Telephone Encounter - Nereida Tabor LPN - 10/26/2023 2:53 PM EDT ICD-10: C50.411,Z17.0 (ICD-10-CM) - 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 breast in female, estrogen receptor positive (HCC) C79.51 (ICD-10-CM) - Cancer, metastatic to bone (HCC) C78.7 (ICD-10-CM) - 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) Z51.11 (ICD-10-CM) - Encounter for antineoplastic chemotherapy Start date: Patient scheduled 10/31/2023 at 9:00 am Drugs: Kanjinti, TRASTUZUMAB-ANNS Multidisciplinary Clinic note: yes Physician: Dr. Ruddy Robbins Comments: Current auth ended 10/24/2023, See office visit note 10/10/2023 Concurrent Therapy: yes documented in this encounter Plan of Treatment Upcoming Encounters Date Type Department Care Team (Late st Contact Info) Description 10/31/2023 8:10 AM EDT Laboratory Laboratory [facility] [place] [address] [place] [phone] Yefri Keller [address] [place] [address] 10/31/2023 9:00 AM EDT Hem/Onc Treatment Hematology[address] [phone] Arianna, Chair 1 Hem Onc [facility] [address] [place] [address] 11/03/2023 9:45 AM EDT Pharmacy Pharmacy Hematology Oncology [facility] [address] [place] [address] [facility], [facility] Hem/Onc [address] [place] [address] 11/14/2023 2:00 PM EDT Office Visit Otolaryngology [facility] [address] [place] [address] Amisha Joseph PA-C [address] [place] [address] 11/21/2023 8:00 AM EDT Laboratory Laboratory Norm[facility] [place] [address] [place] [phone] Yefri Keller [address] [facility] [place] [address] 11/21/2023 9:00 AM EDT Hem/Onc Treatment Hematology/Oncology Treatment, [address] [place] [phone] Arianna, Chair 5 Hem Onc [place] [address] [place], [place] [address] 12/12/2023 1:10 PM EDT Laboratory Laboratory [facility] [place] [address] [place] [address] Arianna, Lab [place] [address] [facility] [place], [place] [address] 12/12/2023 1:45 PM EDT Office Visit Hematology/Oncology [facility] [place] [address] [place] [phone] Ruddy Robbins MD [address] [place], [place] [address] 12/12/2023 2:15 PM EDT [facility] [address] [place], [place] [phone] Arianna, Chair 7 Hem Onc [facility] [address] [facility] [place], [place] [address] 01/25/2024 9:00 AM EDT Imaging Radiology [address], [place] [address] [place] [address] 03/20/2024 1:45 PM EST Office Visit Neurosurgery, [place] [address] [place] [address] Lorenzo Gallardo MD [address] [place] [address] 10/07/2024 1:30 PM EDT Office Visit Allergy/Immunology [facility] [place] [address] [place], [place] [address] Alexandru Mcelroy MD [address] [place] [address] Scheduled Procedures Name Priority Associated Diagnoses Date/Ti [...] Colorectal Cancer Screening 04/03/2022 Mammogram 03/06/2024 03/06/2023, 1107/2021, 03/04/2021, Additional history exists Lipid Panel 12/04/2025 12/04/2020, 07/0 06/2018, 11/20/2014, Additional history exists Diabetes Screening [...] this encounter Medical Devices Implanted Type Area Pilot Boat Deckhand Device Identifier Shelf Expiration Date Model / Serial / Lot Cement Hv-R C01a - [id number] Implanted:Qty: 1 on 08/20/2021 by Lorenzo Gallardo MD at OR [facility] N/A: Spine Thoracic [employer] : NEURO CARE 04/30/2024 C01A / / [id number] Port Implant W/8f Poly Cath - [id number] Implanted:Qty: 1 on 09/03/2021 by Blayne Villegas MD at OR [facility] Left: Chest CR BARD : PERIPHERAL VASCULAR [id number] 07/29/2022 [id number] / / [id number] 5.0x40 Trammell Screw Implanted:Qty: 3 on 03/25/2022 by Lorenzo Gallardo MD at OR [facility] DELMAR : SPINE [id number] / / 5.0x45 Trammell Screw Implanted:Qty: 4 on 03/25/2022 by Lorenzo Gallardo MD at OR [facility] DELMAR : SPINE [id number] / / Spineology E Mesh Implanted:Qty: 1 on 03/25/2022 by Lorenzo Gallardo MD at OR [facility] [employer] 06/29/2024 330-2004 / / [id number] Vitoss Bimodal Foam Pack 10cc - [id number] Implanted:Qty: 1 on 03/25/2022 by Lorenzo Gallardo MD at OR [facility] DELMAR : SPINE [id number] 08/27/20231909 / / [id number] Vitoss Bimodal Foam Pack 10cc - [id number] Implanted:Qty: 1 on 03/25/2022 by Lorenzo Gallardo MD at OR [facility] DELMAR : SPINE [id number] 08/27/20231909 / / [id number] Vitoss Bimodal Foam Pack 10cc - [id number] Implanted:Qty: 1 on 03/25/2022 by Lorenzo Gallardo MD at OR [facility] DELMAR : SPINE [id number] 08/27/20231909 / / [id number] Vitoss Bimodal Foam Pack 10cc - [id number] Implanted:Qty: 1 on 03/25/2022 by Lorenzo Gallardo MD at OR [facility] DELMAR : SPINE [id number] 08/27/20231909 / / [id number] Connector Crosslink 43 To 54 - [id number] Implanted:Qty: 1 on 03/25/2022 by Lorenzo Gallardo MD at OR [facility] DELMAR : SPINE [id number] / / Tube Preflld Allogrft Diverted - [id number] Implanted:Qty: 1 on 03/25/2022 by Lorenzo Gallardo MD at OR [facility] [employer] 11/19/2023 [id number] / / Tube Preflld Allogrft Diverted - [id number] Implanted:Qty: 1 on 03/25/2022 by Lorenzo Gallardo MD at OR [facility] [employer] 11/18/2024 [id number] / / Tube Preflld Allogrft Diverted - [id number] Implanted:Qty: 1 on 03/25/2022 by Lorenzo Gallardo MD at OR [facility] [employer] 11/18/2024 [id number] / / Vitoss Bimodal Foam Pack 10cc - [id number] Implanted:Qty: 1 on 03/25/2022 by Lorenzo Gallardo MD at OR [facility] DELMAR : SPINE [id number] 08/27/20231909 / / [id number] Tube Preflld Allogrft Diverted - [id number] Implanted:Qty: 4 on 03/25/2022 by Lorenzo Gallardo MD at OR [facility] [employer] 11/19/2023 [id number] / / Screw Set [id number] - [id number] Implanted:Qty: 6 on 03/25/2022 by Lorenzo Gallardo MD at OR [facility] DELMAR : SPINE [id number] 1 / / 3.5x14 Screw Implanted:Qty: 6 on 03/25/2022 by Lorenzo Gallardo MD at OR [facility] DELMAR : SPINE [id number] 4 / / [id number] Transition Juan Implanted:Qty: 2 on 03/25/2022 by Lorenzo Gallardo MD at OR [facility] DELMAR : SPINE [id number] 00 / / Screw Ludmila Stella 3 Ti Set - [id number] Implanted:Qty: 11 on 03/25/2022 by Lorenzo Gallardo MD at OR [facility] DELMAR : SPINE [id number] / / 5.0x30 Trammell Screw Implanted:Qty: 2 on 03/25/2022 by Lorenzo Gallardo MD at OR [facility] DELMAR : SPINE [id number] / / 5.0x35 Trammell Screw Implanted:Qty: 2 on 03/25/2022 by Lorenzo Gallardo MD at OR [facility] DELMAR : SPINE [id number] / / Tube Ventilation Briggs [id number] - [id number] - [id number] Implanted:Qty: 1 on 03/02/2023 by Cem Ly DO at OR [facility] Right: Ear [employer] 12/21/2031 [id number] / [id number] / [id number] documented as of this encounter Advance Directives * Full Code (Latest Code Status on File) Date Activated Date Inactivated Comments 03/25/2022 8:24 PM 03/31/2022 10:01 PM This orde r reflects the patients wishes and were consensually [...] Directives occurred with: Not Discussed Care Teams Vice President Relationship Specialty Start Date End Date Aleksandr Parker MD [address] [place] [address] PCP - General 06/27/02 documented as of this encounter
--- OUTSIDE RECORDS SUMMARY | 2023-12-22 05:19 | External Medical Summary | Summary of Care ---
Author Name Unknown Organization [facility] Address [address] [place] [address] Phone [phone] Care Team Providers Care Process Analyst Name Role Phone Aleksandr Parker MD Primary Care Provider [phone]- [phone] Reason for Visit * Reason Comments Chemotherapy C25/D1 -Kanjinti * Episode Based Medications (Routine) - Authorized Specialty Diagnoses / Procedures Referred By Contac t Referred To Contact Diagnoses 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 breast in female, estrogen receptor positive (HCC) Cancer, metastatic to bone (HCC) 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) Encounter for antineoplastic chemotherapy Procedures [place] INJ., KANJINTI, 10 MG Ruddy Robbins MD [address] [place] [address] Anc Hem/Onc [facility] DEPT CLOSED - 03/14/23 [address] [place] [address] Referral ID Status Reason Start Date Expiration Date V isits Requested Visits Authorized [id number] Authorized 10/30/2023 04/26/2024 999 99 Encounter Details Date Type Department Care Team (Latest Contact Info) Description 10/31/2023 9:00 AM EDT Hem/Onc Treatment Hematology/Oncolog y Treatment, [place] [address] [place] [phone] Arianna, Chair 1 Hem Onc [place] [address] [facility] [place] [address] Malignant neoplasm of upper-outer quadrant of [...] Information Patient not taking.Reported on 10/06/2023 Ipratropium [place] 0.03 % Nasal Solution (Atrovent) Administer 2 [...] 05/25/2018:Stage IA(pT1a, pN0, cM0, G2, ER: Positive, [place]: Negative, HER2: Positive) - Signed by Ruddy [...] mRNA, LNP-s, No Pre serve, 2-Dose Series (Hyperfair) 02/03/2021,07/08/2020,06/10/2020 COVID-19, MRNA-LNP, 23-24, P F, 30 [...] 9:45 AM EDT Pharmacy Pharmacy Hematology Oncology [facility] [address] [place] [address] [facility], [facility] Hem/Onc [address] [place] [address] 11/14/2023 2:00 PM EDT Office Visit Otolaryngology [facility] [address] [place] [address] Amisha Joseph PA-C [address] [place] [address] 11/21/2023 8:00 AM EDT Laboratory Laboratory [facility] [address] [place] [phone] [place], [facility] [address] [place] [address] 11/21/2023 9:00 AM EDT Hem/Onc Treatment Hematology/Oncology Treatment, [place] [address] [place], [place] [phone] Arianna, Chair 5 Hem Onc [place] [address] [facility] [place] [address] 12/12/2023 1:10 PM EDT Laboratory Laboratory [facility] [place] [address] [place] [phone] Arianna, Lab [facility] [address] [facility] [place] [address] 12/12/2023 1:45 PM EDT Office Visit Hematology/Oncology [facility] [place] [address] [place] [phone] Ruddy Robbins MD [address] [facility] [place] [address] 12/12/2023 2:15 PM EDT [facility] [address] [facility], [place] [phone] Arianna, Chair [address] [facility] [address] [place] [address] 01/25/2024 9:00 AM EDT Imaging Radiology [facility], [place] [address] [facility] [place] [address] 03/20/2024 1:45 PM EST Office Visit Neurosurgery, [place] [address] [place] [address] Lorenzo Gallardo MD [address] [place] [address] 10/07/2024 1:30 PM EDT Office Visit Allergy/Immunology [facility] [place] [address] [place] [address] Alexandru Mcelroy MD [address] [place] [address] Scheduled Procedures Name Priority Associated Diagnoses Date/Ti [...] 10/10/2023, 09/19/2023, Additional history exists Hepatitis B Completed 04/22/2002, [...] this encounter Medical Devices Implanted Type Area Doctor Of Dental Medicine Device Identifier Shelf Expiration Date Model / Serial / Lot Cement Hv-R C01a - [id number] Implanted:Qty: 1 on 08/20/2021 by [place] Gallardo MD [place] [facility] [place]: Spine Thoracic [employer] : NEURO CARE 04/30/2024 C01A / / [id number] Port Implant W/8f Poly Cath - [id number] Implanted:Qty: 1 on 09/03/2021 by Blayne Villegas MD at OR [facility] Left: Chest CR BARD : PERIPHERAL VASCULAR [id number] 07/29/2022 [id number] / / [id number] 5.0x40 Trammell Screw Implanted:Qty: 3 on 03/25/2022 by Lorenzo Gallardo MD [place] [facility] DELMAR : SPINE [id number] / / 5.0x45 Trammell Screw Implanted:Qty: 4 on 03/25/2022 by Lorenzo Gallardo MD [place] [facility] DELMAR : SPINE [id number] / / Spineology E Mesh Implanted:Qty: 1 on 03/25/2022 by Lorenzo Gallardo MD [place] [facility] [employer] 06/29/2024 330-2004 / / [id number] Vitoss Bimodal Foam Pack 10cc - [id number] Implanted:Qty: 1 on 03/25/2022 by Lorenzo Gallardo MD at [place] [facility] DELMAR : SPINE [id number] 08/27/20231909 / / [id number] Vitoss Bimodal Foam Pack 10cc - [id number] Implanted:Qty: 1 on 03/25/2022 by Lorenzo Gallardo MD at [place] [facility] DELMAR : SPINE [id number] 08/27/20231909 / / [id number] Vitoss Bimodal Foam Pack 10cc - [id number] Implanted:Qty: 1 on 03/25/2022 by Lorenzo Gallardo MD at [place] [facility] DELMAR : SPINE [id number] 08/27/20231909 / / [id number] Vitoss Bimodal Foam Pack 10cc - [id number] Implanted:Qty: 1 on 03/25/2022 by Lorenzo Gallardo MD at [place] [facility] DELMAR : SPINE [id number] 08/27/20231909 / / [id number] Connector Crosslink 43 To 54 - [id number] Implanted:Qty: 1 on 03/25/2022 by Lorenzo Gallardo MD at [place] [facility] DELMAR : SPINE [id number] / / Tube Preflld Allogrft Diverted - [id number] Implanted:Qty: 1 on 03/25/2022 by Lorenzo Gallardo MD at [place] [facility] [employer] 11/19/2023 796915 / / Tube Preflld Allogrft Diverted - [id number] Implanted:Qty: 1 on 03/25/2022 by Lorenzo Gallardo MD at [place] [facility] [employer] 11/18/2024 115916 / / Tube Preflld Allogrft Diverted - [id number] Implanted:Qty: 1 on 03/25/2022 by Lorenzo Gallardo MD at [place] [facility] [employer] 11/18/2024 [id number] / / Vitoss Bimodal Foam Pack 10cc - [id number] Implanted:Qty: 1 on 03/25/2022 by Lorenzo Gallardo MD at [place] [facility] DELMAR : SPINE [id number] 08/27/20231909 / / [id number] Tube Preflld Allogrft Diverted - [id number] Implanted:Qty: 4 on 03/25/2022 by Lorenzo Gallardo MD at [place] [facility] [employer] 11/19/2023 [id number] / / Screw Set [id number] - [id number] Implanted:Qty: 6 on 03/25/2022 by Lorenzo Gallardo MD at [place] [facility] DELMAR : SPINE [id number] 1 / / 3.5x14 Screw Implanted:Qty: 6 on 03/25/2022 by Lorenzo Gallardo MD at [place] [facility] DELMAR : SPINE [id number] 4 / / 4.0/[id number] Transition Juan Implanted:Qty: 2 on 03/25/2022 by Lorenzo Gallardo MD at [place] [facility] DELMAR : SPINE [id number] 00 / / Screw Ludmila Stella 3 Ti Set - [id number] Implanted:Qty: 11 on 03/25/2022 by Lorenzo Gallardo MD at [place] [facility] DELMAR : SPINE [id number] / / 5.0x30 Trammell Screw Implanted:Qty: 2 on 03/25/2022 by Lorenzo Gallardo MD at [place] [facility] DELMAR : SPINE [id number] / / 5.0x35 Trammell Screw Implanted:Qty: 2 on 03/25/2022 by Lorenzo Gallardo MD at [place] [facility] DELMAR : SPINE [id number] / / Tube Ventilation Briggs [id number] - [id number] - [id number] Implanted:Qty: 1 on 03/02/2023 by Cem Ly DO at OR [facility] Right: Ear [employer] 12/21/2031 [id number] / [id number] / [id number] documented as of this encounter Visit Diagnoses [...] ONCE PRN Other, Hypersensitivity Reaction, Starting on Mon10/31/23 at 0912, Until Mon11/01/23 at 0911, For 24 hours EPINEPHrine 1 MG/ML inj 0.3 mg 0.3 mg, Intramuscular, ONCE PRN Other, Hypersensitivity Reaction or Anaphylaxis, Starting on Mon10/31/23 at 0912, Until Mon11/01/23 at 0911, For 24 hours hEParin 100 UNIT/ML Lock Flush inj 500 Units 500 Units (5 mL), IV Lock, PRN Other, IV Flush, Starting on Mon10/31/23 at 0912, Until Mon11/01/23 at 0911, For 24 hours, Do not flush if lock, PICC, or central line not in place; IV infusing or unable to flush. Given 10/31/2023 10:46 AM EDT 500 Units Hydrocortisone Sod Suc (PF) (Solu-Cortef) inj 100 mg 100 mg, IV Push, ONCE PRN Other, Hypersensitivity Reaction, Starting on Mon10/31/23 at 0912, Until Mon11/01/23 at 0911, For 24 hours NSS infusion 500 mL, Intravenous, at 50 mL/hr, CONTINUOUS, Starting on Mon10/31/23 at 1015, Until Mon10/31/23 at 2013 Start Infusion 10/31/2023 9:19 AM EDT 500 mL 50 mL/hr sodium chloride 0.9 % flush central line 10 mL 10 mL, IV Push, PRN Other, IV Flush, Starting on Mon10/31/23 at 0912, Until Mon11/01/23 at 0911, For 24 hours, Do not flush if lock, PICC, or central line not in place; IV infusing or unable to flush. Given 10/31/2023 10:46 AM EDT 10 mL Inactive Administered Medications [...] Given 10/31/2023 9:18 AM EDT 25 mg Trastuzumab-anns (Kanjinti) 587 [...] Directives occurred with: Not Discussed Care Teams Process Analyst Relationship Specialty Start Date End Date Aleksandr Parker MD [address] [place] [address] PCP - General 06/27/02 documented as of this encounter
--- OUTSIDE RECORDS SUMMARY | 2023-12-22 05:19 | External Medical Summary | Summary of Care ---
Author Name Unknown Organization [facility] Address [address] [place] [address] Phone [phone] Care Team Providers Care Rebar Fabricator Name Role Phone Aleksandr Parker MD Primary Care Provider [phone]- [phone] Reason for Visit * Reason Onset Date Comments Medication Pre-auth 10/26/2023 Encounter Details Date Type Department Care Team (Late st Contact Info) Description 10/26/2023 Telephone Hematology/Oncology Treatment, [place] [address] [place] [phone] Ruddy Robbins MD [address] [place] [address] Medication Pre-auth Allergies Active Allergy Reactions Criticality [...] Information Patient not taking.Reported on 10/06/2023 Ipratropium [place] 0.03 % Nasal Solution (Atrovent) Administer 2 [...] 05/25/2018:Stage IA(pT1a, pN0, cM0, G2, ER: Positive, WV: Negative, HER2: Positive) - Signed by Ruddy [...] mRNA, LNP-s, No Pre serve, 2-Dose Series ([employer]) 02/03/2021,07/08/2020,06/10/2020 COVID-19, MRNA-LNP, 23-24, P F, 30 [...] Description 10/31/2023 8:10 AM EDT Laboratory Laboratory [facility] Adriano Rae [address] [place] [phone] Yefri Keller [address] [place] [address] 10/31/2023 9:00 AM EDT Hem/Onc Treatment Hematology/Oncology Treatment, [place] 200 [facility], [place] [phone] Arianna, Chair 1 Hem Onc Scen[address] [place] [address] 11/03/2023 9:45 AM EDT Pharmacy Pharmacy Hematology Oncology [facility] [address] [place] [address] [facility], [facility] Hem/Onc [address] [place] [address] 11/14/2023 2:00 PM EDT Office Visit Otolaryngology [facility] [address] [place] [address] Amisha Joseph PA-C [address] [place] [address] 11/21/2023 8:00 AM EDT Laboratory Laboratory Norma Keller [place] [address] [place] [phone] Arianna Lab Norm[place] [address] [place] [address] 11/21/2023 9:00 AM EDT [facility] [address] [facility], [place] [phone] Arianna, Chair 5 Hem Onc Scenery [address] [place] [address] 12/12/2023 1:10 PM EDT Laboratory Laboratory Norma Keller [place] [address] [place] [phone] Arianna, Lab [place] [address] [place], [place] [address] 12/12/2023 1:45 PM EDT Office Visit Hematology/Oncology Norma Keller [place] [address] [place] [phone] Ruddy Robbins MD [address] [place] [address] 12/12/2023 2:15 PM EDT Hem/Onc Treatment Hematology/Oncology Treatment, [place] [address] [place] [phone] Park, Chair 7 Hem Onc [facility] [address] [place] [address] 01/25/2024 9:00 AM EDT Imaging Radiology [facility] 1st Floor, [place] [address] [place] [address] 03/20/2024 1:45 PM EST Office Visit [facility] [place] [address] [place] [address] Lorenzo Gallardo MD [address] [place] [address] 10/07/2024 1:30 PM EDT Office Visit Allergy/Immunology [facility] [address] [place] [address] Alexandru Mcelroy MD [address] [place] [address] Scheduled Procedures Name Priority Associated Diagnoses Date/Ti [...] this encounter Medical Devices Implanted Type Area Management Accounts Manager Device Identifier Shelf Expiration Date Model / Serial / Lot Cement Hv-R C01a - [id number] Implanted:Qty: 1 on 08/20/2021 by Lorenzo Gallardo MD at OR [facility] N/A: Spine Thoracic [employer] : NEURO CARE 04/30/2024 C01A / / [id number] Port Implant W/8f Poly Cath - [id number] Implanted:Qty: 1 on 09/03/2021 by Blayne Villegas MD at OR [facility] Left: Chest CR BARD : PERIPHERAL VASCULAR [id number] 07/29/2022 [id number] / / [id number] 5.0x40 Trammell Screw Implanted:Qty: 3 on 03/25/2022 by Lorenzo Gallardo MD at OR [facility] DELMAR : SPINE [id number] / / 5.0x45 Trammell Screw Implanted:Qty: 4 on 03/25/2022 by Lroenzo Gallardo MD at OR [facility] DELMAR : SPINE [id number] / / Spineology E Mesh Implanted:Qty: 1 on 03/25/2022 by Lorenzo Gallardo MD at OR [facility] [employer] 06/29/2024 330-2005 / / [id number] Vitoss Bimodal Foam Pack 10cc - [id number] Implanted:Qty: 1 on 03/25/2022 by Lorenzo Gallardo MD at OR [facility] DELMAR : SPINE [id number] 08/27/20231909 / / [id number] Vitoss Bimodal Foam Pack 10cc - [id number] Implanted:Qty: 1 on 03/25/2022 by Lorenzo Gallardo MD at OR [facility] DELMAR : SPINE [id number] 08/27/20231909 / / [id number] Vitoss Bimodal Foam Pack 10cc - [id number] Implanted:Qty: 1 on 03/25/2022 by Lorenzo Gallardo MD at OR [facility] DELMAR : SPINE [id number] 08/27/20231909 / / [id number] Vitoss Bimodal Foam Pack 10cc - [id number] Implanted:Qty: 1 on 03/25/2022 by Lorenzo Gallardo MD at OR [facility] DELMAR : SPINE [id number] 08/27/2023 2100 / / [id number] Connector Crosslink 43 To 54 - [id number] Implanted:Qty: 1 on 03/25/2022 by Lorenzo Gallardo MD at OR [facility] DELMAR : SPINE [id number] / / Tube Preflld Allogrft Diverted - [id number] Implanted:Qty: 1 on 03/25/2022 by Lorenzo Gallardo MD at OR [facility] [employer] 11/19/2023 [id number] / / Tube Preflld Allogrft Diverted - [id number] Implanted:Qty: 1 on 03/25/2022 by Lorenzo Gallardo MD at OR [facility] [employer] 11/18/2024 [id number] / / Tube Preflld Allogrft Diverted - [id number] Implanted:Qty: 1 on 03/25/2022 by Lorenzo Gallardo MD at OR [facility] [employer] 11/18/2024 [id number] / / Vitoss Bimodal Foam Pack 10cc - [id number] Implanted:Qty: 1 on 03/25/2022 by Lorenzo Gallardo MD at OR [facility] DELMAR : SPINE [id number] 08/27/2023 2102- 1910 / / [id number] Tube Preflld Allogrft Diverted - [id number] Implanted:Qty: 4 on 03/25/2022 by Lorenzo Gallardo MD at OR [facility] [employer] 11/19/2023 [id number] / / Screw Set 7601-63897 - [id number] Implanted:Qty: 6 on 03/25/2022 by Lorenzo Gallardo MD at OR [facility] DELMAR : SPINE 6720-8040 1 / / 3.5x14 Screw Implanted:Qty: 6 on 03/25/2022 by Lorenzo Gallardo MD at OR [facility] DELMAR : SPINE [id number] 4 / / 4.0/[id number] Transition Juan Implanted:Qty: 2 on 03/25/2022 by Lorenzo Gallardo MD at OR [facility] DELMAR : SPINE [id number] 00 / / Screw Ludmila Stella 3 Ti Set - [id number] Implanted:Qty: 11 on 03/25/2022 by Lorenzo Gallardo MD at OR [facility] DELMAR : SPINE [id number] / / 5.0x30 Trammell Screw Implanted:Qty: 2 on 03/25/2022 by Lorenzo Gallardo MD at OR [facility] DELMAR : SPINE [id number] / / 5.0x35 Trammell Screw Implanted:Qty: 2 on 03/25/2022 by Lorenzo Gallardo MD at [facility] DELMAR : SPINE [id number] / / Tube Ventilation Briggs [id number] - [id number] - [id number] Implanted:Qty: 1 on 03/02/2023 by Cem Ly DO at OR [facility] Right: Ear [employer] 12/21/2031 [id number] / [id number] / [id number] documented as of this encounter Advance Directives [...] Directives occurred with: Not Discussed Care Teams Rebar Fabricator Relationship Specialty Start Date End Date Aleksandr Parker [facility] [address] [facility] [address] PCP - General 06/27/02 documented as of this encounter
--- OUTSIDE RECORDS SUMMARY | 2023-12-22 05:19 | External Medical Summary | Summary of Care ---
Author Name Unknown Organization [facility] Address [address] [place] [address] Phone [phone] Care Team Providers Care Resolution Manager Name Role Phone Aleksandr Parker MD Primary Care Provider [phone]- [phone] Reason for Visit * Reason Onset Date Comments Medication Pre-auth 10/26/2023 Encounter Details Date Type Department Care Team (Late st Contact Info) Description 10/26/2023 Telephone Hematology/Oncology Treatment, [place] [address] [place] [phone] Ruddy Robbins MD [address] [place] [address] Medication Pre-auth Allergies Active Allergy Reactions Criticality [...] Information Patient not taking.Reported on 10/06/2023 Ipratropium [place] 0.03 % Nasal Solution (Atrovent) Administer 2 [...] 05/25/2018:Stage IA(pT1a, pN0, cM0, G2, ER: Positive, [place]: Negative, HER2: Positive) - Signed by Ruddy [...] mRNA, LNP-s, No Pre serve, 2-Dose Series ([employer]) 02/03/2021,07/08/2020,06/10/2020 COVID-19, MRNA-LNP, 23-24, P F, 30 [...] Telephone Encounter - Nereida Tabor LPN - 10/27/2023 2:57 PM EDT Noted. * Telephone Encounter - Edna Gardner OSA [...] Patient scheduled 10/31/2023 at 9:00 am Drugs: ODILON Espinoza-ANNS Multidisciplinary Clinic note: yes Physician: Dr. Ruddy Robbins Comments: Current auth ended 10/24/2023, See office visit note 10/10/2023 Concurrent Therapy: yes documented in this encounter Plan of Treatment Upcoming Encounters Date Type Department Care Team (Late st Contact Info) Description 10/31/2023 8:10 AM EDT Laboratory Laboratory Norma Keller [place] [address] [place] [phone] Yefri [place] [place] [address] 10/31/2023 9:00 AM EDT Hem/Onc Treatment Hematology/Oncology Treatment, [place] [address] [place] [phone] Arianna, Chair 1 Hem Onc Scenery [address] [place] [address] 11/03/2023 9:45 AM EDT Pharmacy Pharmacy Hematology Oncology [place] [address] [place] [address] [facility], [facility] Hem/Onc [address] [place] [address] 11/14/2023 2:00 PM EDT Office Visit Otolaryngology [facility] [address] [place] [address] Amisha Joseph PA-C [address] [place] [address] 11/21/2023 8:00 AM EDT Laboratory Laboratory Norma Keller [place] [address] [place] [phone] Park, Lab Scenery [address] [place] [address] 11/21/2023 9:00 AM EDT Hem/Onc Treatment Hematology/Oncology Treatment, [place] [address] [place], [place] [phone] Arianna, Chair 5 Hem Onc Scenery [address] [place] [address] 12/12/2023 1:10 PM EDT Laboratory Laboratory [facility] [place] [address] [place] [address] Arianna, Lab [facility] [address] [place] [address] 12/12/2023 1:45 PM EDT Office Visit Hematology/Oncology [facility] [place] [address] [place] [phone] Ruddy Robbins MD [address] [place] [address] 12/12/2023 2:15 PM EDT Hem[facility] 200 [facility] [place] [phone] Arianna, Chair 7 Hem Onc Scenery [address] [place] [address] 01/25/2024 9:00 AM EDT Imaging Radiology [facility] [address] [facility], [place] [address] [place] [address] 03/20/2024 1:45 PM EST Office Visit Neurosurgery, [place] [address] [facility] [place] [address] Lorenzo Gallardo MD [address] [facility] [place] [address] 10/07/2024 1:30 PM EDT Office Visit Allergy/Immunology [facility] [place] [address] [place] [address] Alexandru Mcelroy MD [address] [place] [address] Scheduled Procedures Name Priority Associated Diagnoses Date/Ti [...] this encounter Medical Devices Implanted Type Area Institutional Research Director Device Identifier Shelf Expiration Date Model / Serial / Lot Cement Hv-R C01a - [id number] Implanted:Qty: 1 on 08/20/2021 by Lorenzo Gallardo MD at OR [facility] N/A: Spine Thoracic [employer] : NEURO CARE 04/30/2024 C01A / / [id number] Port Implant W/8f Poly Cath - [id number] Implanted:Qty: 1 on 09/03/2021 by Blayne Villegas MD at OR [facility] Left: Chest CR BARD : PERIPHERAL VASCULAR [id number] 07/29/2022 [id number] / / [id number] 5.0x40 Trammell Screw Implanted:Qty: 3 on 03/25/2022 by Lorenzo Gallardo MD at OR [facility] DELMAR : SPINE [id number] / / 5.0x45 Trammell Screw Implanted:Qty: 4 on 03/25/2022 by Lorenzo Gallardo MD at OR [facility] DELMAR : SPINE [id number] / / Spineology E Mesh Implanted:Qty: 1 on 03/25/2022 by Lorenzo Gallardo MD at OR [facility] [employer] 06/29/2024 330-2004 / / [id number] Vitoss Bimodal Foam Pack 10cc - [id number] Implanted:Qty: 1 on 03/25/2022 by Lorenzo Gallardo MD at OR [facility] DELMAR : SPINE [id number] 08/27/20231909 / / [id number] Vitoss Bimodal Foam Pack 10cc - [id number] Implanted:Qty: 1 on 03/25/2022 by Lorenzo Gallardo MD at OR [facility] DELMAR : SPINE [id number] 08/27/20231909 / / [id number] Vitoss Bimodal Foam Pack 10cc - [id number] Implanted:Qty: 1 on 03/25/2022 by Lorenzo Gallardo MD at OR [facility] DELMAR : SPINE [id number] 08/27/20231909 / / [id number] Vitoss Bimodal Foam Pack 10cc - [id number] Implanted:Qty: 1 on 03/25/2022 by Lorenzo Gallardo MD at OR [facility] DELMAR : SPINE [id number] 08/27/20231909 / / [id number] Connector Crosslink 43 To 54 - [id number] Implanted:Qty: 1 on 03/25/2022 by Lorenzo Gallardo MD at OR [facility] DELMAR : SPINE [id number] / / Tube Preflld Allogrft Diverted - [id number] Implanted:Qty: 1 on 03/25/2022 by Lorenzo Gallardo MD at OR [facility] [employer] 11/19/2023 [id number] / / Tube Preflld Allogrft Diverted - [id number] Implanted:Qty: 1 on 03/25/2022 by Lorenzo Gallardo MD at OR [facility] [employer] 11/18/2024 [id number] / / Tube Preflld Allogrft Diverted - [id number] Implanted:Qty: 1 on 03/25/2022 by Lorenzo Gallardo MD at OR [facility] [employer] 11/18/2024 [id number] / / Vitoss Bimodal Foam Pack 10cc - [id number] Implanted:Qty: 1 on 03/25/2022 by Lorenzo Gallardo MD at OR [facility] DELMAR : SPINE [id number] 08/27/20231909 / / [id number] Tube Preflld Allogrft Diverted - [id number] Implanted:Qty: 4 on 03/25/2022 by Lorenzo Gallardo MD at OR [facility] [employer] 11/19/2023 147388 / / Screw Set 7601-50325 - [id number] Implanted:Qty: 6 on 03/25/2022 by Lorenzo Gallardo MD at OR [facility] DELMAR : SPINE 8971-4235 1 / / 3.5x14 Screw Implanted:Qty: 6 on 03/25/2022 by Lorenzo Gallardo MD at OR [facility] DELMAR : SPINE 7920-6086 4 / / 4.0/[id number] Transition Juan Implanted:Qty: 2 on 03/25/2022 by Lorenzo Gallardo MD at OR [facility] DELMAR : SPINE 1734-5121 00 / / Screw Ludmila Stella 3 Ti Set - [id number] Implanted:Qty: 11 on 03/25/2022 by Lorenzo Gallardo MD at OR [facility] DELMAR : SPINE [id number] / / 5.0x30 Trammell Screw Implanted:Qty: 2 on 03/25/2022 by Lorenzo Gallardo MD at OR [facility] DELMAR : SPINE [id number] / / 5.0x35 Trammell Screw Implanted:Qty: 2 on 03/25/2022 by Lorenzo Gallardo MD at OR [facility] DELMAR : SPINE [id number] / / Tube Ventilation Briggs [id number] - [id number] - [id number] Implanted:Qty: 1 on 03/02/2023 by Cem Ly DO at OR [facility] Right: Ear [employer] 12/21/2031 [id number] / [id number] / [id number] documented as of this encounter Advance Directives [...] Directives occurred with: Not Discussed Care Teams Resolution Manager Relationship Specialty Start Date End Date Aleksandr Parker MD [address] [place] [facility] [place] [address] PCP - General 06/27/02 documented as of this encounter
--- OUTSIDE RECORDS SUMMARY | 2023-12-22 05:19 | External Medical Summary ---
Author Name Unknown Address Unknown Organization K09[facility] [place] [place] [address] Laboratory Report Ordering Provider Test Date Status SYLVIA FROST 10/31/2023 08:03:15 Final Observation Date Value Abnormality Reference (Units ) Status SYNC LEUKOCYTES IN BLOOD BY AUTOMATED COUNT 10/31/2023 08:03:15 7.21 4.00-10.80 (K/uL) Final Segs 10/31/2023 08:03:15 63.6 40.0-75.0 (%) Final Lymphs % 10/31/2023 08:03:15 19.1 18.0-42.0 (%) Final Monos 10/31/2023 08:03:15 13.7 Above high normal 1.0-11.0 (%) Final Eosinophils 10/31/2023 08:03:15 3.3 0.0-6.0 (%) Final Basos 10/31/2023 08:03:15 0.3 0.0-2.0 (%) Final Absolute Segs 10/31/2023 08:03:15 4.58 1.80-7.70 (K/uL) Final Lymphs, absolute 10/31/2023 08:03:15 1.38 1.00-4.80 (K/ul) Final Monos, Abs 10/31/2023 08:03:15 0.99 0.00-1.10 (K/uL) Final Eos, Abs 10/31/2023 08:03:15 0.24 0.00-0.70 (K/uL) Final Basos, Abs 10/31/2023 08:03:15 0.02 0.00-0.20 (K/uL) Final Performing Location [facility] [place] [address]
--- OUTSIDE RECORDS SUMMARY | 2023-12-22 05:19 | External Medical Summary ---
Author Name Unknown Address Unknown Organization K09:[facility] [address] [place] [address] Laboratory Report Ordering Provider Test Date Status SYLVIA FROST 10/31/2023 08:03:15 Final Observation Date Value Abnormality Reference (Units ) Status BUN 10/31/2023 08:03:15 15 6-20 (mg/dL) Final Creatinine 10/31/2023 08:03:15 0.9 0.5-1.0 (mg/dL) Final Glomerular filtration rate/1.73 sq M.predicted [Volume Rate/Area] in Serum, Plasma or Blood by Creatinine-based formula (CKD-EPI) 10/31/2023 08:03:15 69 >=60 (mL/min) Final eGFR is calculated based on the CKD-EPI 2020 equation Sodium 10/31/2023 08:03:15 138 135-146 (m mol/L) Final Potassium 10/31/2023 08:03:15 4.1 3.5-5.1 (m mol/L) Final Cl 10/31/2023 08:03:15 101 98-107 (mm ol/L) Final CO2 10/31/2023 08:03:15 28 22-32 (mmo l/L) Final Anion gap 10/31/2023 08:03:15 9 7-15 (mmol /L) Final Glucose 10/31/2023 08:03:15 105 70-120 (mg /dL) Final Albumin 10/31/2023 08:03:15 3.7 Below low normal 3.8 -5.0 (g/dL) Final AST (Aspartate aminotransferase) 10/31/2023 08:03:15 15 10-35 (U/L) Fin al Alk Phos 10/31/2023 08:03:15 91 35-130 (U/ L) Final Bilirubin, Total 10/31/2023 08:03:15 0.6 <=1 .2 (mg/dL) Final Calcium 10/31/2023 08:03:15 9.0 8.4-10.2 ( mg/dL) Final Protein 10/31/2023 08:03:15 6.3 6.0-8.3 (g /dL) Final ALT (Alanine aminotransferase) 10/31/2023 08:03:15 8 Below low normal 10-35 (U/L) Final Performing Location [facility] [address] [place] [address]
--- OUTSIDE RECORDS SUMMARY | 2023-12-22 05:19 | External Medical Summary | Summary of Care ---
Author Name Unknown Organization [facility] Address [address] [place] [address] Phone [phone] Care Team Providers Care Supervisor [employer] Name Role Phone Aleksandr Parker MD Primary Care Provider [phone] Reason for Visit * Reason Comments eRx-Medication Refill Encounter Details Date Type Department Care Team (Late st Contact Info) Description 10/24/2023 Refill Hematology/Oncology [facility] [address] [place] [phone] Marco A Tang MD [address] [place] [address] 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 breast in female, estrogen receptor positive (HCC); Hypokalemia Allergies Active Allergy Reactions Criticality Noted Date Comments Sulfa Antibiotics 05/14/1999 rash documented as of this encounter (statuses as of 10/24/2023) Medications Medication Sig Dispensed Refills Start Date End Date Status MULTIVITAMIN TABS OR one daily 0 0 4 Active NASAL SALINE 0.65 % NA SOLNIndications:All ergic rhinitis,Postnasal drip,Chronic sinusitis FLUSH each nostril morning and night and every 2-4 hrs as needed for nasal dryness or congestion 1 0 9 Active Multiple Vitamins-Minerals (OCUVITE) Tablet Take 1 Tablet by mouth in the morning. 5 Active B Complex Vitamins (VITAMIN B COMPLEX) Tablet Take 1 Tablet by mouth in the morning. 5 Active vitamin e 100 UNIT Capsule Take 1 Capsule by mouth in the morning. 5 Active albuterol (PROVENTIL HFA) 108 (90 BASE) MCG/ACT inhaler Inhale 2 Puffs by mouth every 6 hours as needed for Cough, Shortness of Breath or Wheezing. 3 Inhaler 5 7 Active famotidine (PEPCID) 20 MG Tablet Take 1 Tablet by mouth in the morning and 1 Tablet before bedtime. Active Calcium Carbonate-Vitamin D 500-5 MG-MCG Oral Tablet Take 3 Tablets by mouth in the morning. Active Levocetirizine Dihydrochloride 5 MG Oral Tablet Take 1 Tablet by mouth every evening. 0 Active Flonase Sensimist 27.5 MCG/SPRAY Nasal Suspension (Fluticasone Furoate) Administer 2 Sprays into nostril daily. 10 g 12 1 Active Esomeprazole Magnesium 20 MG Oral Capsule Delayed Release (NexIUM) Take by mouth 1 Capsule in the morning. 2 Active Acetaminophen 500 MG Oral Tablet Take [...] as needed for Nausea. 30 Tablet 3 3 Active Montelukast Sodium 10 MG Oral Tablet (Singulair)Indicati ons:Allergic rhinitis Take 1 Tablet by mouth daily. 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 TAKE WITHIN 30 MINUTES OF A MEAL. DO NOT CRUSH OR CUT. (FREQUENCY CHANGE) 56 Tablet 5 3 Active Additional Information Patient not taking.Reported on [...] not crush or cut.. 112 Tablet 5 3 Active Asmanex (60 Metered Doses) 220 MCG/ACT Inhalation Aerosol Powder Breath Activated (Mometasone Furoate) Inhale 1 Puff by mouth in the morning and 1 Puff before bedtime. 3 Each 3 4 Active Ondansetron HCl 8 MG Oral TabletIndications:C ancer, metastatic to bone (HCC) Take 1 Tablet by mouth every 8 hours as needed for Nausea. 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 For 7 days followed by 7-day rest period. Take within 30 minutes of meal. Do not crush or cut.. 112 Tablet 5 4 Active Additional Information Patient not taking.Reported on 10/06/2023 Ipratropium [place] 0.03 % Nasal Solution (Atrovent) Administer 2 Sprays into each nostril 2 times a day as needed for Rhinitis. 90 mL 3 4 Active Tukysa 150 MG Oral Tablet (Tucatinib)Indicati ons:Primary malignant neoplasm of breast with metastasis (HCC) Take 150 mg by mouth in the morning and 150 mg before bedtime. Along with two 50mg tabs (total dose 250mg). 60 Tablet 5 4 Active Tukysa 50 MG Oral Tablet (Tucatinib)Indicati ons:Primary malignant neoplasm of breast with metastasis (HCC) Take 100 mg by mouth in the morning and 100 mg before bedtime. Along with 150mg tab (total dose 250mg). 120 Tablet 5 4 Active Clobetasol Propionate 0.05 % External Cream (Temovate) Apply topically to affected area 2 times a day. Apply to feet 30 g 2 4 Active Diphenoxylate-Atrop ine 2.5-0.025 MG Oral Tablet (Lomotil)Indication s: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 breast in female, estrogen receptor positive (HCC) Take 1 Tablet by mouth 4 times a day as needed for Diarrhea. 30 Tablet 4 Active Udderly Smooth Extra Care 20 External CreamIndications:Ma lignant neoplasm of upper-outer quadrant of right breast in female, estrogen receptor positive (HCC),Cancer, metastatic to bone (HCC) Apply topically to affected area 2 times a day. Apply topically to hands and feet twice daily. 228 g 2 4 Active Potassium Chloride ER 10 MEQ Oral Tablet Extended ReleaseIndications: 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 breast in female, estrogen receptor positive (HCC),Hypokalemia TAKE 2 TABLETS IN THE MORNING 180 Tablet 3 4 Active Potassium Chloride ER 10 MEQ Oral Tablet Extended ReleaseIndications: 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 breast in female, estrogen receptor positive (HCC),Hypokalemia Take 2 Tablets by mouth in the morning. 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 Pathologic fracture of thoracic vertebrae documented as of this encounter (statuses as of 10/24/2023) Resolved Problems Problem Noted Date Diagnosed Date [...] as of this encounter (statuses as of 10/24/2023) Immunizations Name Administration Dates Next Due COVID-19 [...] Telephone Encounter - Ruddy Robbins MD - 10/24/2023 3:17 PM EDT E-prescribed Ruddy Robbins MD Hem/Onc * Telephone Encounter - Nereida Tabor LPN - 10/24/2023 2:55 PM EDTPending Prescriptions: Disp Refills Potassium Chloride ER 10 MEQ Oral Tablet E*180 Ta*3 Sig: TAKE 2 TABLETS IN THE MORNING * Telephone Encounter - Nereida Tabor LPN - 10/24/2023 2:50 PM EDT Refill request for Potassium Chloride 10 Meq tabs pended below: Last Refill:05/03/2023 Last seen:10/10/2023 Next Appt.:12/12/2023 documented in this encounter Plan of Treatment Upcoming Encounters Date Type Department Care Team (Late st Contact Info) Description 10/31/2023 8:10 AM EDT Laboratory Laboratory [facility]anna [place] [address] [place] [phone] Arianna Lab [facility] [address] [place] [address] 10/31/2023 9:00 AM EDT Hem/Onc Treatment Hematology/Oncology Treatment, [place] [address] [place] [phone] Arianna, Chair 1 Hem Onc Scenery [address] [place] [address] 11/03/2023 9:45 AM EDT Pharmacy Pharmacy Hematology Oncology [facility] [address] [place] [address] [facility] Hem/Onc [address] [place] [address] 11/14/2023 2:00 PM EDT Office Visit Otolaryngology [facility] [address] [place] [address] Amisha Joseph PA-C [address] [place] [address] 11/21/2023 8:00 AM EDT Laboratory Laboratory [facility]anna [place] [address] [place] [phone] Yefri [place] [address] [facility] [place] [address] 11/21/2023 9:00 AM EDT [facility] [address] [place], [place] [phone] Arianna, Chair 5 Hem Onc [facility] [address] [facility] [place], [place] [address] 12/12/2023 1:10 PM EDT Laboratory Laboratory [facility] [place] [address] [place] [phone] Arianna, Lab [facility] [address] [facility] [place] [address] 12/12/2023 1:45 PM EDT Office Visit Hematology/Oncology [facility] [place] [address] [place] [phone] Ruddy Robbins MD [address] [facility] [place] [address] 12/12/2023 2:15 PM EDT [facility] [address] [facility], [place] [phone] Arianna, Chair [address] Hem On[address] [place], [place] [address] 01/25/2024 9:00 AM EDT Imaging Radiology [address] [place] [address] 03/20/2024 1:45 PM EST Office Visit Neurosurgery, [place] [address] [place] [address] Lorenzo Gallardo MD [address] [place] [address] 10/07/2024 1:30 PM EDT Office Visit Allergy/Immunology [facility] [place] [address] [place] [address] Alexandru Mcelroy MD [address] [facility] [place] [address] Scheduled Procedures Name Priority Associated Diagnoses Date/Ti [...] this encounter Medical Devices Implanted Type Area Flight Mechanic Device Identifier Shelf Expiration Date Model / Serial / Lot Cement Hv-R C01a - [id number] Implanted:Qty: 1 on 08/20/2021 by Lorenzo Gallardo MD at OR [facility] [place] N/A: Spine Thoracic [employer] : NEURO CARE 04/30/2024 C01A / / [id number] Port Implant W/8f Poly Cath - [id number] Implanted:Qty: 1 on 09/03/2021 by Blayne Villegas MD at OR [facility] Left: Chest CR BARD : PERIPHERAL VASCULAR [id number] 07/29/2022 [id number] / / [id number] 5.0x40 Trammell Screw Implanted:Qty: 3 on 03/25/2022 by Lorenzo Gallardo MD at OR [facility] [place] DELMAR : SPINE [id number] / / 5.0x45 Trammell Screw Implanted:Qty: 4 on 03/25/2022 by Lorenzo Gallardo MD at OR [facility] [place] DELMAR : SPINE [id number] / / Spineology E Mesh Implanted:Qty: 1 on 03/25/2022 by Lorenzo Gallardo MD at OR [facility] [place] [employer] 06/29/2024 [id number] / / [id number] Vitoss Bimodal Foam Pack 10cc - [id number] Implanted:Qty: 1 on 03/25/2022 by Lorenzo Gallardo MD at OR [facility] [place] DELMAR : SPINE [id number] 08/27/20231909 / / [id number] Vitoss Bimodal Foam Pack 10cc - [id number] Implanted:Qty: 1 on 03/25/2022 by Lorenzo Gallardo MD at OR [facility] [place] DELMAR : SPINE [id number] 08/27/2023 210- 1909 / / [id number] Vitoss Bimodal Foam Pack 10cc - [id number] Implanted:Qty: 1 on 03/25/2022 by Lorenzo Gallardo MD at OR [facility] [place] DELMAR : SPINE [id number] 08/27/20231909 / / [id number] Vitoss Bimodal Foam Pack 10cc - [id number] Implanted:Qty: 1 on 03/25/2022 by Lorenzo Gallardo MD at OR [facility] [place] DELMAR : SPINE [id number] 08/27/20231909 / / [id number] Connector Crosslink 43 To 54 - [id number] Implanted:Qty: 1 on 03/25/2022 by Lorenzo Gallardo MD at OR [facility] [place] DELMAR : SPINE [id number] / / Tube Preflld Allogrft Diverted - [id number] Implanted:Qty: 1 on 03/25/2022 by Lorenzo Gallardo MD at OR [facility] [place] [employer] 11/19/2023 [id number] / / Tube Preflld Allogrft Diverted - [id number] Implanted:Qty: 1 on 03/25/2022 by Lorenzo Gallardo MD at OR [facility] [place] [employer] 11/18/2024 [id number] / / Tube Preflld Allogrft Diverted - [id number] Implanted:Qty: 1 on 03/25/2022 by Lorenzo Gallardo MD at OR [facility] [place] [employer] 11/18/2024 [id number] / / Vitoss Bimodal Foam Pack 10cc - [id number] Implanted:Qty: 1 on 03/25/2022 by Lorenzo Gallardo MD at OR [facility] [place] DELMAR : SPINE [id number] 08/27/20231909 / / [id number] Tube Preflld Allogrft Diverted - [id number] Implanted:Qty: 4 on 03/25/2022 by Lorenzo Gallardo MD at OR [facility] [place] [employer] 11/19/2023 [id number] / / Screw Set [id number] - [id number] Implanted:Qty: 6 on 03/25/2022 by Lorenzo Gallardo MD at OR [facility] [place] DELMAR : SPINE [id number] / / 3.5x14 Screw Implanted:Qty: 6 on 03/25/2022 by Lorenzo Gallardo MD at OR [facility] [place] DELMAR : SPINE [id number] / / [id number] Transition Juan Implanted:Qty: 2 on 03/25/2022 by Lorenzo Gallardo MD at OR [facility] [place] DELMAR : SPINE [id number] / / Screw Ludmila Stella 3 Ti Set - [id number] Implanted:Qty: 11 on 03/25/2022 by Lorenzo Gallardo MD at OR [facility] [place] [employer]MAR : SPINE [id number] / / 5.0x30 Trammell Screw Implanted:Qty: 2 on 03/25/2022 by Lorenzo Gallardo MD at OR [facility] [place] [employer] : SPINE [id number] / / 5.0x35 Trammell Screw Implanted:Qty: 2 on 03/25/2022 by Lorenzo Gallardo MD at OR [facility] [place] DELMAR : SPINE [id number] / / Tube Ventilation Briggs [id number] - [id number] - [id number] Implanted:Qty: 1 on 03/02/2023 by Cem Ly DO at OR [facility] Right: Ear [employer] 12/21/2031 [id number] / [id number] / [id number] documented as of this encounter Visit Diagnoses Diagnosis 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 breast in female, estrogen receptor positive (HCC) Hypokalemia Hypopotassemia documented in this encounter Advance Directives * [...] occurred with: Not Discussed Care Teams Supervisor [employer] Relationship Specialty Start Date End Date Aleksandr Parker MD [address] [place] [address] PCP - General 06/27/02 documented as of this encounter
--- OUTSIDE RECORDS SUMMARY | 2023-12-22 05:20 | External Medical Summary | Summary of Care ---
Author Name Unknown Organization [facility] Address [address] [place] [address] Phone [phone] Care Team Providers Care Binder Caser Name Role Phone Aleksandr Parker MD Primary Care Provider [phone]- [phone] Reason for Referral * Precert (Within 10 days (routine)) - Pending Review Specialty Diagnoses / Procedures Referred By Contjono t Referred To Contact Radiology Diagnoses 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 breast in female, estrogen receptor positive (HCC) Cancer, metastatic to bone (HCC) Metastasis to brain (HCC) Procedures MRI BRAIN W WO CONTRAST Margot Robbins MD [address] [facility] [place] [address] Referral ID Status Reason Start Date Expiration Date V isits Requested Visits Authorized [id number] Pending Review 10/20/2023 999 999 Reason for Visit * Reason Onset Date Comments Test Results 10/20/2023 PatelMRI Encounter Details Date Type Department Care Team (Late st Contact Info) Description 10/20/2023 Telephone [facility] [address] [place] [address] Aleksandr Parker MD [address] [place] [address] Test Results (Robbins/MRI) Allergies Active Allergy Reactions Criticality Noted Date Comments Sulfa Antibiotics 05/14/1999 rash documented as of this encounter (statuses as of 10/20/2023) Medications Medication Sig Dispensed Refills Start Date [...] before bedtime. 3 Each 3 05/03/2023 Active Potassium Chloride ER 10 MEQ Oral Tablet Extended ReleaseIndications:Ma lignant neoplasm of upper-outer quadrant of right breast in female, estrogen receptor positive (HCC),Hypokalemia Take 2 Tablets by mouth in the morning. 180 Tablet 1 05/03/2023 Active Ondansetron HCl 8 MG Oral TabletIndications:Can cer, metastatic to bone (HCC) Take 1 Tablet by mouth every 8 hours as needed for Nausea. 30 Tablet 5 06/12/2023 Active Udderly Smooth Extra Care 20 External CreamIndications:Erendira gnant neoplasm of upper-outer quadrant of right breast in female, estrogen receptor positive (HCC),Cancer, metastatic to bone (HCC) Apply topically to affected area 2 times a day. Apply topically to hands and feet twice daily. 228 g 2 07/07/2023 Active Capecitabine 500 MG Oral Tablet (Xeloda)Indications:M [...] Information Patient not taking.Reported on 10/06/2023 Ipratropium [place] 0.03 % Nasal Solution (Atrovent) Administer 2 [...] needed for Diarrhea. 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 * Telephone Encounter - Mima Butler RN - 10/20/2023 3:15 PM EDT Called patient, she verbalized understanding. Dr Robbins: patient is requesting that next scan be ordered so that she can get that scheduled. Thanks! * Telephone Encounter - Margot Robbins MD - 10/20/2023 3:09 PM EDT Brain MRI done on 10/18/2023: - Resolution of the previously noted enhancement in the right carotid nucleus and lentiform nucleus. Based on the the splenomegaly suggest this could be old infarction which has been improved. - Small 6 mm enhancement in the posterior thalamus on the right side, not sure about the exact nature. - Stable changes in the right frontal and right cerebellar hemisphere. Overall no clear evidence of disease progression in the brain. Regarding 6 mm enhancing focus in the thalamus, we should repeat another brain imaging study in about 3 months unless she has new symptom. * Telephone Encounter - Galileo Jacques RN - 10/20/2023 12:[address] Robbins - please see MRI results and advise. Thank you. * Telephone Encounter - Rogers-Jaun Green OSA - 10/20/2023 12:24 PM EDT Who is Requesting Test Results: Patient Primary Care Provider : Aleksandr Parker MD Tests Results Requested : MRI of Brain Date of Test : 10/18/23 Location of Test: [facility] Ordering Provider: Rosendo Patient has been made aware that the turnaround time for test results are typically as follows: Laboratory results = within 2-3 days ([facility]), 3-5 days (Non-[facility], ie. [facility]) Urine Cultures = within 2-3 days depending on growth within the culture Pathology results (biopsy results/PAP) = 1-2 weeks Radiology results = about 1 week Cologuard results = within 2 weeks from the shipment date COVID testing = about 24 hours documented in this encounter Plan of Treatment Upcoming Encounters Date Type Department Care Team (Late st Contact Info) Description 10/23/2023 8:45 AM EDT Imaging Radiology [address] [place] [address] 10/31/2023 8:10 AM EDT Laboratory Laboratory [facility] [address] [place] [phone] Arianna, Lab Scenery 200 [facility] [place] [address] 10/31/2023 9:00 AM EDT Hem/Onc Treatment Hematology/Oncology Treatment, [place] [address] [place] [phone] Arianna, Chair 1 Hem Onc Scenery [address] [place] [address] 11/03/2023 9:45 AM EDT Pharmacy Pharmacy Hematology Oncology [facility] [address] [place] [address] [facility] Hem/Onc [address] [place] [address] 11/14/2023 2:00 PM EDT Office Visit Otolaryngology [facility] [address] [place] [address] Amisha Joseph PA-C 132 [facility] [place] [address] 11/21/2023 8:00 AM EDT Laboratory Laboratory [facility] [address] [place] [phone] Arianna, Lab Scenery [address] [place], [place] [address] 11/21/2023 9:00 AM EDT [facility] 200 [facility], [place] [phone] Arianna, Chair 5 Hem Onc [facility] 200 [facility] [place] [address] 12/12/2023 1:10 PM EDT Laboratory Laboratory [facility] [address] [place] [phone] Arianna, Lab Scenery [address] [place], [place] [address] 12/12/2023 1:45 PM EDT Office Visit Hematology/Oncology [facility] [address] [place], [place] [phone] Margot Robbins MD [address] [place], [place] [address] 12/12/2023 2:15 PM EDT [facility] 200 [facility], [place] [phone] Arianna, Chair 7 Hem Onc Scenery [address] [place], [place] [address] 03/20/2024 1:45 PM EST Office Visit [facility] [place] [address] [place] [address] Lorenzo Gallardo MD [address], [place] [address] 10/07/2024 1:30 PM EDT Office Visit Allergy/Immunology [facility] [address] [place] [address] Alexandru Mcelroy MD [address] [place] [address] Scheduled Orders Name Type Priority Associated Diagnoses Orde r Schedule MRI BRAIN W WO CONTRAST Medical Imaging Routine 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 breast in female, estrogen receptor positive (HCC) Cancer, metastatic to bone (HCC) Metastasis to brain (HCC) Ordered: 10/20/2023 Scheduled Procedures Name Priority Associated Diagnoses Date/Ti [...] this encounter Medical Devices Implanted Type Area Cattle Trader Device Identifier Shelf Expiration Date Model / Serial / Lot Cement Hv-R C01a - [id number] Implanted:Qty: 1 on 08/20/2021 by Lorenzo Gallardo MD at [place] [facility] N/A: Spine Thoracic [employer] : NEURO CARE 04/30/2024 C01A / / [id number] Port Implant W/8f Poly Cath - [id number] Implanted:Qty: 1 on 09/03/2021 by Blayne Villegas MD at OR [facility] Left: Chest CR BARD : PERIPHERAL VASCULAR [id number] 07/29/2022 [id number] / / [id number] 5.0x40 Trammell Screw Implanted:Qty: 3 on 03/25/2022 by Lorenzo Gallardo MD at [place] [facility] DELMAR : SPINE [id number] / / 5.0x45 Trammell Screw Implanted:Qty: 4 on 03/25/2022 by Lorenzo Gallardo MD at OR [facility] DELMAR : SPINE [id number] / / Spineology E Mesh Implanted:Qty: 1 on 03/25/2022 by Lorenzo Gallardo MD at OR [facility] [employer] 06/29/2024 330-2005 / / [id number] Vitoss Bimodal Foam Pack 10cc - [id number] Implanted:Qty: 1 on 03/25/2022 by Lorenzo Gallardo MD at OR [facility] DELMAR : SPINE [id number] 08/27/20231909 / / [id number] Vitoss Bimodal Foam Pack 10cc - [id number] Implanted:Qty: 1 on 03/25/2022 by Lorenzo Gallardo MD at OR [facility] DELMAR : SPINE [id number] 08/27/20231909 / / [id number] Vitoss Bimodal Foam Pack 10cc - [id number] Implanted:Qty: 1 on 03/25/2022 by Lorenzo Gallardo MD at OR [facility] DELMAR : SPINE [id number] 08/27/20231909 / / [id number] Vitoss Bimodal Foam Pack 10cc - [id number] Implanted:Qty: 1 on 03/25/2022 by Lorenzo Gallardo MD at OR [facility] DELMAR : SPINE [id number] 08/27/20231909 / / [id number] Connector Crosslink 43 To 54 - [id number] Implanted:Qty: 1 on 03/25/2022 by Lorenzo Gallardo MD at OR [facility] DELMAR : SPINE [id number] / / Tube Preflld Allogrft Diverted - [id number] Implanted:Qty: 1 on 03/25/2022 by Lorenzo Gallardo MD at OR [facility] [employer] 11/19/2023 [id number] / / Tube Preflld Allogrft Diverted - [id number] Implanted:Qty: 1 on 03/25/2022 by Lorenzo Gallardo MD at OR [facility] [employer] 11/18/2024 [id number] / / Tube Preflld Allogrft Diverted - [id number] Implanted:Qty: 1 on 03/25/2022 by Lorenzo Gallardo MD at OR [facility] [employer] 11/18/2024 [id number] / / Vitoss Bimodal Foam Pack 10cc - [id number] Implanted:Qty: 1 on 03/25/2022 by Lorenzo Gallardo MD at OR [facility] DELMAR : SPINE [id number] 08/27/2023 210- 0 / / [id number] Tube Preflld Allogrft Diverted - [id number] Implanted:Qty: 4 on 03/25/2022 by Lorenzo Gallardo MD at OR [facility] [employer] 11/19/2023 [id number] / / Screw Set [id number] - [id number] Implanted:Qty: 6 on 03/25/2022 by Lorenzo Gallardo MD at OR [facility] DELMAR : SPINE [id number] 1 / / 3.5x14 Screw Implanted:Qty: 6 on 03/25/2022 by Lorenzo Gallardo MD at OR [facility] DELMAR : SPINE [id number] 4 / / 4.0/5.4a921tn Transition Juan Implanted:Qty: 2 on 03/25/2022 by Lorenzo Gallardo MD at OR [facility] DELMAR : SPINE [id number] 00 / / Screw Ludmila Stella 3 Ti Set - [id number] Implanted:Qty: 11 on 03/25/2022 by Lorenzo Gallardo MD at OR [facility] DELMAR : SPINE [id number] / / 5.0x30 Trammell Screw Implanted:Qty: 2 on 03/25/2022 by Lorenzo Gallardo MD at OR [facility] DELMAR : SPINE [id number] / / 5.0x35 Trammell Screw Implanted:Qty: 2 on 03/25/2022 by Lorenzo Gallardo MD at OR [facility] DELMAR : SPINE [id number] / / Tube Ventilation Briggs [id number] - [id number] - [id number] Implanted:Qty: 1 on 03/02/2023 by Cem Ly DO at OR [facility] Right: Ear [email or web address] 12/21/2031 [id number] / [id number] / [id number] documented as of this encounter Visit Diagnoses Diagnosis 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 breast in female, estrogen receptor positive (HCC)- Primary Cancer, metastatic to bone (HCC) 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
--- OUTSIDE RECORDS SUMMARY | 2023-12-22 05:20 | External Medical Summary | Summary of Care ---
Author Name Unknown Organization [facility] Address [address] [place] [address] Phone [phone] Care Team Providers Care Hospice Care Consultant Name Role Phone Aleksandr Parker MD Primary Care Provider +1- [phone] Reason for Referral * Precert (Within 10 days (routine)) - Pending Review Specialty Diagnoses / Procedures Referred By Contjono t Referred To Contact Radiology Diagnoses 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 breast in female, estrogen receptor positive (HCC) Cancer, metastatic to bone (HCC) Metastasis to brain (HCC) Procedures MRI BRAIN W WO CONTRAST Margot Robbins MD 200 [facility] [place] [address] Referral ID Status Reason Start Date Expiration Date V isits Requested Visits Authorized [id number] Pending Review 10/20/2023 999 999 Reason for Visit * Reason Onset Date Comments Test Results 10/20/2023 PatelMRI Encounter Details Date Type Department Care Team (Late st Contact Info) Description 10/20/2023 Telephone [facility] [address] [place] [address] Aleksandr Parker MD [address] [place] [address] Test Results (Robbins/MRI) Allergies Active Allergy Reactions Criticality Noted Date Comments Sulfa Antibiotics 05/14/1999 rash documented as of this encounter (statuses as of 10/23/2023) Medications Medication Sig Dispensed Refills Start Date [...] Information Patient not taking.Reported on 10/06/2023 Ipratropium [place] 0.03 % Nasal Solution (Atrovent) Administer 2 [...] as of this encounter (statuses as of 10/23/2023) Active Problems Problem Noted Date Diagnosed Date [...] 05/25/2018:Stage IA(pT1a, pN0, cM0, G2, ER: Positive, CO: Negative, HER2: Positive) - Signed by Margot Robbins MD on 05/25/2018 LPRD (laryngopharyngeal reflux disease) 11/28/19 18 Positional sleep apnea 06/30/2016 Chronic sinusitis 04/29/2015 Vasovagal syncope 02/09/2015 Asthma, mild persistent 04/15/2009 Raynaud's syndrome 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 Pathologic fracture of thoracic vertebrae documented as of this encounter (statuses as of 10/23/2023) Resolved Problems Problem Noted Date Diagnosed Date [...] as of this encounter (statuses as of 10/23/2023) Immunizations Name Administration Dates Next Due COVID-19 [...] encounter Miscellaneous Notes * Telephone Encounter - Kim Steel OSA - 10/23/2023 8:16 AM EDT Pt is scheduled and aware * Addendum Note - Margot Robbins MD [...] advise. Thank you. * Telephone Encounter - Jaun Dorantes OSA - 10/20/2023 12:24 PM EDT Who is Requesting Test Results: Patient Primary Care Provider : Aleksandr Parker MD Tests Results Requested : MRI of Brain Date of Test : 10/18/23 Location of Test: [facility] Ordering Provider: Rosendo Patient has been made [...] Description 10/23/2023 8:45 AM EDT Imaging Radiology [address] [facility] [address] 10/31/2023 8:10 AM EDT Laboratory Laboratory [facility] [place] [address] [place] [phone] Arianna, Lab Scenery 200 [facility] [place] [address] 10/31/2023 9:00 AM EDT Hem/Onc Treatment Hematology/Oncology Treatment, [place] [address] [place] [phone] Arianna, Chair 1 Hem Onc Scenery [address] [place] [address] 11/03/2023 9:45 AM EDT Pharmacy Pharmacy Hematology Oncology [place] [address] [place] [address] [facility] Hem/Onc [facility] [place] [address] 11/14/2023 2:00 PM EDT Office Visit Otolaryngology [facility] [address] [place] [address] Amisha Joseph PA-C [address] [place] [address] 11/21/2023 8:00 AM EDT Laboratory Laboratory [facility] [place] [address] [place], [place] [address] Arianna, Lab Scenery [address] [place], [place] [address] 11/21/2023 9:00 AM EDT Hem/Onc Treatment Hematology/Oncology [facility] 200 [facility], [place] [address] Arianna, Chair 5 Hem Onc Scenery [address] [place], [place] [address] 12/12/2023 1:10 PM EDT Laboratory Laboratory [facility] [place] [address] [place], [place] [address] Arianna, Lab Scenery [address] [place], [place] [address] 12/12/2023 1:45 PM EDT Office Visit Hematology/Oncology [facility] [place] [address] [place], [place] [address] Margot Robbins MD [address] [place] [address] 12/12/2023 2:15 PM EDT Hem/Onc Treatment Hematology/Oncology Treatment, [place] 200 [facility], [place] [address] Arianna, Chair 7 Hem Onc Scenery [address] [place], [place] [address] 01/25/2024 9:00 AM EDT Imaging Radiology [facility] [facility] [place] [address] [place] [address] 03/20/2024 1:45 PM EST Office Visit Neurosurgery, [place] [address] [place] [address] Lorenzo Gallardo MD [address] [place] [address] 10/07/2024 1:30 PM EDT Office Visit Allergy/Immunology [facility] [address] [place] [address] Alexandru Mcelroy MD [address] [place] [address] Scheduled Orders Name Type Priority Associated Diagnoses [...] this encounter Medical Devices Implanted Type Area Director Of Vendor Management Device Identifier Shelf Expiration Date Model / Serial / Lot Cement Hv-R C01a - [id number] Implanted:Qty: 1 on 08/20/2021 by Lorenzo Gallardo MD at [place] [facility] N/A: Spine Thoracic [employer] : NEURO CARE 04/30/2024 C01A / / [id number] Port Implant W/8f Poly Cath - [id number] Implanted:Qty: 1 on 09/03/2021 by Blayne Villegas MD at OR [facility] Left: Chest CR BARD : PERIPHERAL VASCULAR [id number] 07/29/2022 [id number] / / [id number] 5.0x40 Trammell Screw Implanted:Qty: 3 on 03/25/2022 by Lorenzo Gallardo MD at OR [facility] DELMAR : SPINE [id number] / / 5.0x45 Trammell Screw Implanted:Qty: 4 on 03/25/2022 by Lorenzo Gallardo MD at OR [facility] DELMAR : SPINE [id number] / / Spineology E Mesh Implanted:Qty: 1 on 03/25/2022 by Lorenzo Gallardo MD at OR [facility] [employer] 06/29/2024 330-2005 / / [id number] Vitoss Bimodal Foam Pack 10cc - [id number] Implanted:Qty: 1 on 03/25/2022 by Lorenzo Gallardo MD at OR [facility] DELMAR : SPINE [id number] 08/27/20230 / / [id number] Vitoss Bimodal Foam Pack 10cc - [id number] Implanted:Qty: 1 on 03/25/2022 by Lorenzo Gallardo MD at OR [facility] DELMAR : SPINE [id number] 08/27/20231909 / / [id number] Vitoss Bimodal Foam Pack 10cc - [id number] Implanted:Qty: 1 on 03/25/2022 by Lorenzo Gallardo MD at OR [facility] DELMAR : SPINE [id number] 08/27/20231909 / / [id number] Vitoss Bimodal Foam Pack 10cc - [id number] Implanted:Qty: 1 on 03/25/2022 by Lorenzo Gallardo MD at OR [facility] DELMAR : SPINE [id number] 08/27/20231909 / / [id number] Connector Crosslink 43 To 54 - [id number] Implanted:Qty: 1 on 03/25/2022 by Lorenzo Gallardo MD at OR [facility] DELMAR : SPINE [id number] / / Tube Preflld Allogrft Diverted - [id number] Implanted:Qty: 1 on 03/25/2022 by Lorenzo Gallardo MD at OR [facility] [employer] 11/19/2023 [id number] / / Tube Preflld Allogrft Diverted - [id number] Implanted:Qty: 1 on 03/25/2022 by Lorenzo Gallardo MD at OR [facility] [employer] 11/18/2024 [id number] / / Tube Preflld Allogrft Diverted - [id number] Implanted:Qty: 1 on 03/25/2022 by Lorenzo Gallardo MD at OR [facility] [employer] 11/18/2024 [id number] / / Vitoss Bimodal Foam Pack 10cc - [id number] Implanted:Qty: 1 on 03/25/2022 by Lorenzo Gallardo MD at OR [facility] DELMAR : SPINE [id number] 08/27/2023 210- 0 / / [id number] Tube Preflld Allogrft Diverted - [id number] Implanted:Qty: 4 on 03/25/2022 by Lorenzo Gallardo MD at OR [facility] [employer] 11/19/2023 [id number] / / Screw Set 7601-07405 - [id number] Implanted:Qty: 6 on 03/25/2022 by Lorenzo Gallardo MD at OR [facility] DELMAR : SPINE [id number] 1 / / 3.5x14 Screw Implanted:Qty: 6 on 03/25/2022 by Lorenzo Gallardo MD at OR [facility] DELMAR : SPINE [id number] 4 / / 4.0/[id number] Transition Juan Implanted:Qty: 2 on 03/25/2022 by Lorenzo Gallardo MD at OR [facility] DELMAR : SPINE 3352-3918 00 / / Screw Ludmila Stella 3 Ti Set - [id number] Implanted:Qty: 11 on 03/25/2022 by Lorenzo Gallardo MD at OR [facility] DELMAR : SPINE [id number] / / 5.0x30 Trammell Screw Implanted:Qty: 2 on 03/25/2022 by Lorenzo Gallardo MD at OR [facility] DELMAR : SPINE [id number] / / 5.0x35 Trammell Screw Implanted:Qty: 2 on 03/25/2022 by Lorenzo Gallardo MD at OR [facility] DELMAR : SPINE [id number] / / Tube Ventilation Briggs [id number] - [id number] - [id number] Implanted:Qty: 1 on 03/02/2023 by Cem Ly DO at OR [facility] Right: Ear [employer] 12/21/2031 [id number] / [id number] / [id number] documented as of this encounter Visit Diagnoses [...] 9:05 PM 08/23/2021 7:38 PM This order reflects the patients wishes and were consensually agreed upon. Question Answer Comments Discussion of Advance Directives occurred with: Not Discussed * Full Code Date Activated Date Inactivated Comments 08/20/2021 9:01 PM 08/20/2021 9:05 PM This order r eflects the patients wishes and were consensually agreed upon. Question Answer Comments Discussion of Advance Directives occurred with: Not Discussed Care Teams Hospice Care Consultant Relationship Specialty Start Date End Date Aleksandr Parker MD [address] [place] [address] PCP - General 06/27/02 documented as of this encounter
--- OUTSIDE RECORDS SUMMARY | 2023-12-22 05:20 | External Medical Summary | Summary of Care ---
Author Name Unknown Organization [facility] Address [address] [place] [address] Phone [phone] Care Team Providers Care Rural Mail Carrier Name Role Phone Aleksandr Parker MD Primary Care Provider [phone]- [phone] Reason for Visit * Reason Comments Medication Refill Encounter Details Date Type Department Care Team (Late st Contact Info) Description 10/23/2023 Refill Hematology/Oncology [facility] [place] [address] [facility] [place] [address] Margot Robbins MD 200 [place] [address] 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 [...] 03/14/2023 Active Capecitabine 150 MG Oral Tablet (Xeloda)Indications: [...] on 10/06/2023 Capecitabine 500 MG Oral Tablet (Xeloda)Indications: Primary [...] Information Patient not taking.Reported on 10/06/2023 Ipratropium Steinauer 0.03 % Nasal Solution (Atrovent) Administer 2 Sprays into each nostril 2 times a day as needed for Rhinitis. 90 mL 3 09/05/2023 Active Tukysa 150 MG Oral Tablet (Tucatinib)Soniao ns:Primary malignant neoplasm of breast with metastasis [...] twice daily. 228 g 2 10/23/2023 Active Udderly Smooth Extra Care 20 External CreamIndications:Mal ignant neoplasm of upper-outer quadrant of right breast in female, estrogen receptor positive (HCC),Cancer, metastatic to bone (HCC) Apply topically to affected area 2 times a day. Apply topically to hands and feet twice daily. 228 g 2 07/07/2023 10/23/19 24 Discontinu ed(Refill) documented as of this [...] NC: Negative, HER2: Positive) - Signed by Margot [...] encounter Miscellaneous Notes * Telephone Encounter - Yossi Cleveland RPh - 10/23/2023 12:14 PM EDT Signed Prescriptions: Disp Refills Udderly Smooth Extra Care 20 External Bagla926 g 2 Sig: Apply topically to affected area 2 times a day. Apply topically to hands and feet twice daily.Authorizing Provider: MARGOT ROBBINS User: YOSSI CLEVELAND documented in this encounter Plan of Treatment Upcoming Encounters Date Type Department Care Team (Late st Contact Info) Description 10/31/2023 8:10 AM EDT Laboratory Laboratory [facility] [address] [place] [phone] Arianna, Lab Scenery [address] [facility] [place] [address] 10/31/2023 9:00 AM EDT Hem/Onc Treatment Hematology/Oncology Treatment, [place] 200 [facility], [place] [phone] Arianna, Chair 1 Hem Onc Scenery [address] [place] [address] 11/03/2023 9:45 AM EDT Pharmacy Pharmacy Hematology Oncology [place] [address] [place] [address] [facility] [place] Hem/Onc [facility] [place] [address] 11/14/2023 2:00 PM EDT Office Visit Otolaryngology [facility] [address] [facility] [place] [address] Amisha Joseph PA-C [facility] [place] [address] 11/21/2023 8:00 AM EDT Laboratory Laboratory [facility] [place] [address] [place] [phone] Arianna Lab Scenery [address] [facility] [place] [address] 11/21/2023 9:00 AM EDT Hem/Onc Treatment Hematology/Oncology Treatment, [place] 200 [facility] [place] [phone] Arianna, Chair 5 Hem Onc Scenery [address] [place] [address] [address] 12/12/2023 1:10 PM EDT Laboratory Laboratory [facility] [place] [address] [place] [phone] Arianna Lab Scene [address] [facility] [place], [place] [address] 12/12/2023 1:45 PM EDT Office Visit Hematology/Oncology [facility] [place] [address] [place] [phone] Margot Robbins MD [address] [facility] [place] [address] 12/12/2023 2:15 PM EDT Hem/Onc Treatment Hematology/Oncology Treatment, [place] [address] [place] [phone] Arianna, Chair 7 Hem On[address] [place] [address] 01/25/2024 9:00 AM EDT Imaging Radiology [address], [address] [address] 03/20/2024 1:45 PM EST Office Visit Neurosurgery, [place] [address] [place] [address] Lorenzo Gallardo MD [address] [place], [place] [phone] 10/07/2024 1:30 PM EDT Office Visit Allergy/Immunology [facility] [address] [place] [address] Alexandru Mcelroy MD [address] [place], [place] [address] Scheduled Procedures Name Priority Associated Diagnoses Date/Ti [...] this encounter Medical Devices Implanted Type Area Java Application Developer Device Identifier Shelf Expiration Date Model / Serial / Lot Cement Hv-R C01a - [id number] Implanted:Qty: 1 on 08/20/2021 by Lorenzo Gallardo MD at OR [facility] N/A: Spine Thoracic [employer] : NEURO CARE 04/30/2024 C01A / / [id number] Port Implant W/8f Poly Cath - [id number] Implanted:Qty: 1 on 09/03/2021 by Blayne Villegas MD at OR [facility] Left: Chest CR BARD : PERIPHERAL VASCULAR [id number] 07/29/2022 [id number] / / [id number] 5.0x40 Trammell Screw Implanted:Qty: 3 on 03/25/2022 by Lorenzo Gallardo MD at OR [facility] DELMAR : SPINE [id number] / / 5.0x45 Trammell Screw Implanted:Qty: 4 on 03/25/2022 by Lorenzo Gallardo MD at OR [facility] DELMAR : SPINE [id number] / / Spineology E Mesh Implanted:Qty: 1 on 03/25/2022 by Lorenzo Gallardo MD at OR [facility] [employer] 06/29/2024 330-2004 / / [id number] Vitoss Bimodal Foam Pack 10cc - [id number] Implanted:Qty: 1 on 03/25/2022 by Lorenzo aGllardo MD at OR [facility] DELMAR : SPINE [id number] 08/27/20231909 / / [id number] Vitoss Bimodal Foam Pack 10cc - [id number] Implanted:Qty: 1 on 03/25/2022 by Lorenzo Gallardo MD at OR [facility] DELMAR : SPINE [id number] 08/27/20231909 / / [id number] Vitoss Bimodal Foam Pack 10cc - [id number] Implanted:Qty: 1 on 03/25/2022 by Lorenzo Gallardo MD at OR [facility] DELMAR : SPINE [id number] 08/27/20231909 / / [id number] Vitoss Bimodal Foam Pack 10cc - [id number] Implanted:Qty: 1 on 03/25/2022 by Lorenzo Gallardo MD at OR [facility] DELMAR : SPINE [id number] 08/27/20231909 / / [id number] Connector Crosslink 43 To 54 - [id number] Implanted:Qty: 1 on 03/25/2022 by Lorenzo Gallardo MD at OR [facility] DELMAR : SPINE [id number] / / Tube Preflld Allogrft Diverted - [id number] Implanted:Qty: 1 on 03/25/2022 by Lorenzo Gallardo MD at OR [facility] [employer] 11/19/2023 [id number] / / Tube Preflld Allogrft Diverted - [id number] Implanted:Qty: 1 on 03/25/2022 by Lorenzo Gallardo MD at OR [facility] [employer] 11/18/2024 [id number] / / Tube Preflld Allogrft Diverted - [id number] Implanted:Qty: 1 on 03/25/2022 by Lorenzo Gallardo MD at OR [facility] [employer] 11/18/2024 [id number] / / Vitoss Bimodal Foam Pack 10cc - [id number] Implanted:Qty: 1 on 03/25/2022 by Lorenzo Gallardo MD at OR [facility] DELMAR : SPINE [id number] 08/27/2023 2102- 0 / / [id number] Tube Preflld Allogrft Diverted - [id number] Implanted:Qty: 4 on 03/25/2022 by Lorenzo Gallardo MD at OR [facility] [employer] 11/19/2023 [id number] / / Screw Set 7601-30099 - [id number] Implanted:Qty: 6 on 03/25/2022 by Lorenzo Gallardo MD at OR [facility] DELMAR : SPINE [id number] 1 / / 3.5x14 Screw Implanted:Qty: 6 on 03/25/2022 by Lorenzo Gallardo MD at OR [facility] DELMAR : SPINE 8256-1564 4 / / 4.0/[id number] Transition Juan Implanted:Qty: 2 on 03/25/2022 by Lorenzo Gallardo MD at OR [facility] DELMAR : SPINE [id number] 00 / / Screw Ludmila Stella 3 Ti Set - [id number] Implanted:Qty: 11 on 03/25/2022 by Lorenzo Gallardo MD at OR [facility] DELMAR : SPINE [id number] / / 5.0x30 Trammell Screw Implanted:Qty: 2 on 03/25/2022 by Lorenzo Gallardo MD at OR [facility] DELMAR : SPINE [id number] / / 5.0x35 Trammell Screw Implanted:Qty: 2 on 03/25/2022 by Lorenzo Gallardo MD at OR [facility] DELMAR : SPINE [id number] / / Tube Ventilation Briggs [id number] - [id number] - [id number] Implanted:Qty: 1 on 03/02/2023 by Cem Ly DO at OR [facility] Right: Ear [employer] 12/21/2031 [id number] / [id number] / [id number] documented as of this encounter Visit Diagnoses [...] Directives occurred with: Not Discussed Care Teams Rural Mail Carrier Relationship Specialty Start Date End Date Aleksandr Parker MD [address] [place] [address] PCP - General 06/27/02 documented as of this encounter
--- OUTSIDE RECORDS SUMMARY | 2023-12-22 05:20 | External Medical Summary | Summary of Care ---
Author Name Unknown Organization [facility] Address [address] [place] [address] Phone [phone] Care Team Providers Care Engravings Polisher Name Role Phone Aleksandr Parker MD Primary Care Provider +1- [phone] Encounter Details Date Type Department Care Team (Late st Contact Info) Description 10/23/2023 Orders Only Outcomes Research Department [address] [place], [place] [phone] Tasha Morris CHRA MyCode Research Other*[id number] Allergies Active Allergy Reactions Criticality Noted Date [...] Information Patient not taking.Reported on 10/06/[address] 0.03 % Nasal Solution (Atrovent) Administer 2 [...] 05/25/2018:Stage IA(pT1a, pN0, cM0, G2, ER: Positive, AR: Negative, HER2: Positive) - Signed by Ruddy [...] mRNA, LNP-s, No Pre serve, 2-Dose Series (Pharnext) 02/03/2021,07/08/2020,06/10/2020 COVID-19, MRNA-LNP, 23-24, P F, 30 [...] 8:10 AM EDT Laboratory Laboratory [address] [place] [address] [place] [phone] Yefri [place] [address] [facility] [place] [address] 10/31/2023 9:00 AM EDT Hem/Onc Treatment Hematology/Oncology Treatment, [place] [address] [place] [phone] Arianna, Chair 1 Hem Onc [facility] [address] [place] [address] 11/03/2023 9:45 AM EDT Pharmacy Pharmacy Hematology Oncology [place] [address] [place] [address] [facility] Hem/Onc [facility] [place] [address] 11/14/2023 2:00 PM EDT Office Visit Otolaryngology [facility] [address] [place] [address] Amisha Joseph PA-C [address] [place] [address] 11/21/2023 8:00 AM EDT Laboratory Laboratory [address] [facility] [place] [address] [phone] [place], Lab Scenery [address] [place] [address] 11/21/2023 9:00 AM EDT Hem/Onc Treatment Hematology/Oncology Treatment, [place] [address] [facility] [place], [place] [phone] Arianna, Chair 5 Hem Onc Scen[address] [place] [address] 12/12/2023 1:10 PM EDT Laboratory Laboratory [facility] [place] [address] [place] [phone] Arianna, Lab [facility] [address] [facility] [place] [address] 12/12/2023 1:45 PM EDT Office Visit Hematology/Oncology [facility] [address] [place] [phone] Ruddy Robbins MD [address] [place] [address] 12/12/2023 2:15 PM EDT Hem[facility] 200 [facility], [place] [phone] Arianna, Chair 7 Hem Onc Scen[address] [place] [address] 01/25/2024 9:00 AM EDT Imaging Radiology [address], [place] [address] [place] [address] 03/20/2024 1:45 PM EST Office Visit Neurosurgery, [place] [address] [facility] [place] [address] Lorenzo Gallardo MD [address] [facility] [address] 10/07/2024 1:30 PM EDT Office Visit Allergy/Immunology [facility] [address] [place], [place] [address] Alexandru Mcelroy MD [address] [place], [place] [address] Scheduled Orders Name Type Priority Associated Diagnoses Orde r Schedule MYCODE SUBSEQUENT ADULT Lab Routine MyCode Research Other*[id number] Every 6 Months for 2 Occurrences starting 10/23/2023 until 11/11/2024 Scheduled Procedures Name Priority Associated Diagnoses Date/Ti [...] this encounter Medical Devices Implanted Type Area Laundry Route Driver Device Identifier Shelf Expiration Date Model / Serial / Lot Cement Hv-R C01a - [id number] Implanted:Qty: 1 on 08/20/2021 by Lorenzo Gallardo MD at OR [facility] N/A: Spine Thoracic [employer] : NEURO CARE 04/30/2024 C01A / / [id number] Port Implant W/8f Poly Cath - [id number] Implanted:Qty: 1 on 09/03/2021 by Blayne Villegas MD at OR [facility] Left: Chest CR BARD : PERIPHERAL VASCULAR [id number] 07/29/2022 [id number] / / [id number] 5.0x40 Trammell Screw Implanted:Qty: 3 on 03/25/2022 by Lorenzo Gallardo MD at OR [facility] DELMAR : SPINE [id number] / / 5.0x45 Trammell Screw Implanted:Qty: 4 on 03/25/2022 by Lorenzo Gallardo MD at OR [facility] DELMAR : SPINE [id number] / / Spineology E Mesh Implanted:Qty: 1 on 03/25/2022 by Lorenzo Gallardo MD at OR [facility] [employer] 06/29/2024 330-2005 / / [id number] Vitoss Bimodal Foam Pack 10cc - [id number] Implanted:Qty: 1 on 03/25/2022 by Lorenzo Gallardo MD at OR [facility] DELMAR : SPINE [id number] 08/27/2023 2102- 0 / / [id number] Vitoss Bimodal Foam Pack 10cc - [id number] Implanted:Qty: 1 on 03/25/2022 by Lorenzo Gallardo MD at OR [facility] DELMAR : SPINE [id number] 08/27/20231909 / / [id number] Vitoss Bimodal Foam Pack 10cc - [id number] Implanted:Qty: 1 on 03/25/2022 by Lorenzo Gallardo MD at OR [facility] DELMAR : SPINE [id number] 08/27/20231909 / / [id number] Vitoss Bimodal Foam Pack 10cc - [id number] Implanted:Qty: 1 on 03/25/2022 by Lorenzo Gallardo MD at OR [facility] DELMAR : SPINE [id number] 08/27/20231909 / / [id number] Connector Crosslink 43 To 54 - [id number] Implanted:Qty: 1 on 03/25/2022 by Lorenzo Gallardo MD at OR [facility] DELMAR : SPINE [id number] / / Tube Preflld Allogrft Diverted - [id number] Implanted:Qty: 1 on 03/25/2022 by Lorenzo Gallardo MD at OR [facility] [employer] 11/19/2023 [id number] / / Tube Preflld Allogrft Diverted - [id number] Implanted:Qty: 1 on 03/25/2022 by Lorenzo Gallardo MD at OR [facility] [employer] 11/18/2024 [id number] / / Tube Preflld Allogrft Diverted - [id number] Implanted:Qty: 1 on 03/25/2022 by Lorenzo Gallardo MD at OR [facility] [employer] 11/18/2024 [id number] / / Vitoss Bimodal Foam Pack 10cc - [id number] Implanted:Qty: 1 on 03/25/2022 by Lorenzo Gallardo MD at OR [facility] DELMAR : SPINE [id number] 08/27/20231909 / / [id number] Tube Preflld Allogrft Diverted - [id number] Implanted:Qty: 4 on 03/25/2022 by Lorenzo Gallardo MD at OR [facility] [employer] 11/19/2023 [id number] / / Screw Set 7601-88835 - [id number] Implanted:Qty: 6 on 03/25/2022 by Lorenzo Gallardo MD at OR [facility] DELMAR : SPINE 5308-1318 1 / / 3.5x14 Screw Implanted:Qty: 6 on 03/25/2022 by Lorenzo Gallardo MD at OR [facility] DELMAR : SPINE 4038-1915 4 / / 4.0/5.6x147lo Transition Juan Implanted:Qty: 2 on 03/25/2022 by Lorenzo Gallardo MD at OR [facility] DELMAR : SPINE 2789-6862 00 / / Screw Ludmila Stella 3 Ti Set - [id number] Implanted:Qty: 11 on 03/25/2022 by Lorenzo Gallardo MD at OR [facility] DELMAR : SPINE [id number] / / 5.0x30 Trammell Screw Implanted:Qty: 2 on 03/25/2022 by Lorenzo Gallardo MD at OR [facility] DELMAR : SPINE [id number] / / 5.0x35 Trammell Screw Implanted:Qty: 2 on 03/25/2022 by Lorenzo Gallardo MD at OR [facility] DELMAR : SPINE [id number] / / Tube Ventilation Briggs [id number] - [id number] - [id number] Implanted:Qty: 1 on 03/02/2023 by Cem Ly DO at OR [facility] Right: Ear [employer] 12/21/2031 [id number] / [id number] documented as of this encounter Visit Diagnoses Diagnosis MyCode Research Other*[id number] documented in this encounter Advance Directives * [...] Directives occurred with: Not Discussed Care Teams Engravings Polisher Relationship Specialty Start Date End Date Aleksandr Parker MD [address] [facility] [place] [address] PCP - General 06/27/02 documented as of this encounter
--- OUTSIDE RECORDS SUMMARY | 2023-12-22 05:20 | External Medical Summary | Summary of Care ---
Author Name Unknown Organization [facility] Address [address] [place] [address] Phone [phone] Care Team Providers Care Mental Health Program Specialist Name Role Phone Aleksandr Parker MD Primary Care Provider [phone] Reason for Visit * Reason Onset Date Comments Test Results 10/20/2023 [facility] Encounter Details Date Type Department Care Team (Late st Contact Info) Description 10/20/2023 Telephone [facility] [address] [place] [address] Aleksandr Parker MD [address] [place] [address] Test Results (Robbins/MRI) Allergies Active [...] Information Patient not taking.Reported on 10/06/2023 Ipratropium [place] 0.03 % Nasal Solution (Atrovent) Administer 2 [...] 05/25/2018:Stage IA(pT1a, pN0, cM0, G2, ER: Positive, WI: Negative, HER2: Positive) - Signed by Ruddy [...] mRNA, LNP-s, No Pre serve, 2-Dose Series (Westward Leaning) 02/03/2021,07/08/2020,06/10/2020 COVID-19, MRNA-LNP, 23-24, P F, 30 [...] encounter Miscellaneous Notes * Telephone Encounter - Mima Butler RN - 10/20/2023 3:15 PM EDT Called patient, she verbalized understanding. Dr Robbins: patient is requesting that next scan be ordered so that she can get that scheduled. Thanks! * Telephone Encounter - Ruddy Robbins MD - 10/20/2023 3:09 PM EDT [...] of Test : 10/18/23 Location of Test: [employer] Ordering Provider: Rosendo Patient has been made [...] Description 10/23/2023 8:45 AM EDT Imaging Radiology [address] [place] [address] 10/31/2023 8:10 AM EDT Laboratory Laboratory Norma [place] [address] [place] [phone] Yefri Keller [address] [facility] [place] [address] 10/31/2023 9:00 AM EDT Hem/Onc Treatment Hematology/Oncology Treatment, [place] [address] [facility] [place] [phone] Arianna, Chair 1 Hem Onc Scenery [address] [place] [address] 11/03/2023 9:45 AM EDT Pharmacy Pharmacy Hematology Oncology [facility] [address] [place] [address] [facility] Hem/Onc [address] [place] [address] 11/14/2023 2:00 PM EDT Office Visit Otolaryngology [facility] [address] [place] [address] Amisha Joseph PA-C [address] [place] [address] 11/21/2023 8:00 AM EDT Laboratory Laboratory Norma [place] [address] [place] [phone] Arianna Lab Scenery [address] [place] [address] 11/21/2023 9:00 AM EDT Hem[facility] [address] [facility] [address] [place], [place] [address] Arianna, Chair 5 Hem Onc Scenery [address] [place] [address] 12/12/2023 1:10 PM EDT Laboratory Laboratory Ronan Arianna [place] [address] [place] [address] Arianna, Lab Scen[address] [place], [place] [address] 12/12/2023 1:45 PM EDT Office Visit Hematology/Oncology Ronan Arianna [place] [address] [place] [phone] Ruddy Robbins MD [address] [place] [address] 12/12/2023 2:15 PM EDT Hem/Onc Treatment Hematology/Oncology [facility] [place] [address] [place] [address] Park, Chair 7 Hem Onc [facility] [address] [facility] [place] [address] 03/20/2024 1:45 PM EST Office Visit [facility] [address] [place], [place] [phone] Lorenzo Gallardo MD [address] [place] [place], [place] [address] 10/07/2024 1:30 PM EDT Office Visit Allergy/Immunology [facility] [address] [place] [address] Alexandru Mcelroy MD [address] [facility] [place], [place] [address] Scheduled Procedures Name Priority Associated Diagnoses Date/Ti [...] 0706/2018, 11/20/2014, Additional history exists Diabetes Screening 10/09/2026 [...] this encounter Medical Devices Implanted Type Area Hunting Sales Associate Device Identifier Shelf Expiration Date Model / Serial / Lot Cement Hv-R C01a - [id number] Implanted:Qty: 1 on 08/20/2021 by Lorenzo Gallardo MD at OR [facility] [place] N/A: Spine Thoracic [employer] : NEURO CARE 04/30/2024 C01A / / [id number] Port Implant W/8f Poly Cath - [id number] Implanted:Qty: 1 on 09/03/2021 by Blayne Villegas MD at OR [facility] Left: Chest CR BARD : PERIPHERAL VASCULAR [id number] 07/29/2022 [id number] / / [id number] 5.0x40 Trammell Screw Implanted:Qty: 3 on 03/25/2022 by Lorenzo Gallardo MD at OR [facility] DELMAR : SPINE [id number] / / 5.0x45 Trammell Screw Implanted:Qty: 4 on 03/25/2022 by Lorenzo Gallardo MD at OR [facility] [place] DELMAR : SPINE [id number] / / Spineology E Mesh Implanted:Qty: 1 on 03/25/2022 by Lorenzo Gallardo MD at OR [facility] [place] [facility] [employer] 06/29/2024 330-2005 / / [id number] Vitoss Bimodal Foam Pack 10cc - [id number] Implanted:Qty: 1 on 03/25/2022 by Lorenzo Gallardo MD at OR [facility] [place] DLEMAR : SPINE [id number] 08/27/20231909 / / [id number] Vitoss Bimodal Foam Pack 10cc - [id number] Implanted:Qty: 1 on 03/25/2022 by Lorenzo Gallardo MD at OR [facility] [place] DELMAR : SPINE [id number] 08/27/20231909 / / [id number] Vitoss Bimodal Foam Pack 10cc - [id number] Implanted:Qty: 1 on 03/25/2022 by Lorenzo Gallardo MD at OR [facility] [place] DELMAR : SPINE [id number] 08/27/20231909 / / [id number] Vitoss Bimodal Foam Pack 10cc - [id number] Implanted:Qty: 1 on 03/25/2022 by Lorenzo Gallardo MD at OR [facility] [place] DELMAR : SPINE [id number] 08/27/20231909 / / [id number] Connector Crosslink 43 To 54 - [id number] Implanted:Qty: 1 on 03/25/2022 by Lorenzo Gallardo MD at OR [facility] [place] DELMAR : SPINE [id number] / / Tube Preflld Allogrft Diverted - [id number] Implanted:Qty: 1 on 03/25/2022 by Lorenzo Gallardo MD at OR [facility] [place] [employer] 11/19/2023 [id number] / / Tube Preflld Allogrft Diverted - [id number] Implanted:Qty: 1 on 03/25/2022 by Lorenzo Gallardo MD at OR [facility] [place] [employer] 11/18/2024 [id number] / / Tube Preflld Allogrft Diverted - [id number] Implanted:Qty: 1 on 03/25/2022 by Lorenzo Gallardo MD at OR [facility] [employer] 11/18/2024 [id number] / / Vitoss Bimodal Foam Pack 10cc - [id number] Implanted:Qty: 1 on 03/25/2022 by Lorenzo Gallardo MD at OR [facility] DELMAR : SPINE [id number] 08/27/2023 2102- 1910 / / [id number] Tube Preflld Allogrft Diverted - [id number] Implanted:Qty: 4 on 03/25/2022 by Lorenzo Gallardo MD at OR [facility] [employer] 11/19/2023 [id number] / / Screw Set [id number] - [id number] Implanted:Qty: 6 on 03/25/2022 by Lorenzo Gallardo MD at OR [facility] [place] DELMAR : SPINE [id number] 1 / / 3.5x14 Screw Implanted:Qty: 6 on 03/25/2022 by Lorenzo Gallardo MD at OR [facility] [place] DELMAR : SPINE [id number] 4 / / [id number] Transition Juan Implanted:Qty: 2 on 03/25/2022 by Lorenzo Gallardo MD at OR [facility] [place] DELMAR : SPINE 2196-3225 00 / / Screw Ludmila Stella 3 Ti Set - [id number] Implanted:Qty: 11 on 03/25/2022 by Lorenzo Gallardo MD at OR [facility] [place] DELMAR : SPINE [id number] / / 5.0x30 Trammell Screw Implanted:Qty: 2 on 03/25/2022 by Lorenzo Gallardo MD at OR [facility] [place] DELMAR : SPINE [id number] / / 5.0x35 Trammell Screw Implanted:Qty: 2 on 03/25/2022 by Lorenzo Gallardo MD at OR [facility] [place] DELMAR : SPINE [id number] / / Tube Ventilation Briggs [id number] - [id number] - [id number] Implanted:Qty: 1 on 03/02/2023 by Cem Ly DO at OR [facility] Right: Ear [employer] 12/21/2031 [id number] / [id number] / [id number] documented as of this encounter Advance Directives [...] Directives occurred with: Not Discussed Care Teams Mental Health Program Specialist Relationship Specialty Start Date End Date Aleksandr Parker MD [address] [place] [facility] [place] [address] PCP - General 06/27/02 documented as of this encounter
--- OUTSIDE RECORDS SUMMARY | 2023-12-22 05:20 | External Medical Summary | Summary of Care ---
Author Name Unknown Organization [facility] Address [address] [place] [facility] [place] [place] [address] Phone [phone] Care Team Providers Care [place] Name Role Phone Aleksandr Parker MD Primary Care Provider [phone] Reason for Visit * Reason Comments Re-Check Chemotherapy Encounter Details Date Type Department Care Team (Late st Contact Info) Description 10/10/2023 8:15 AM EDT Office Visit Hematology/Oncology [facility] [address] [facility] [place] [phone] Ruddy Robbins MD [address] [facility] [place] [address] 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 breast in female, estrogen receptor positive (HCC)*; 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); 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) Allergies Active Allergy Reactions Criticality Noted Date Comments Sulfa Antibiotics 05/14/1999 rash documented as of this encounter (statuses as of 10/10/2023) Medications Medication Sig Dispensed Refills Start Date [...] Information Patient not taking.Reported on 10/06/2023 Ipratropium Osseo 0.03 % Nasal Solution (Atrovent) Administer 2 [...] as of this encounter (statuses as of 10/10/2023) Active Problems Problem Noted Date Diagnosed Date [...] 05/25/2018:Stage IA(pT1a, pN0, cM0, G2, ER: Positive, KY: Negative, HER2: Positive) - Signed by Ruddy Robbins MD on 05/25/2018 LPRD (laryngopharyngeal reflux disease) 11/28/19 18 Positional sleep apnea 06/30/2016 Chronic sinusitis 04/29/2015 Vasovagal syncope 02/09/2015 Asthma, mild persistent 04/15/2009 Raynaud's syndrome 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 Pathologic fracture of thoracic vertebrae documented as of this encounter (statuses as of 10/10/2023) Resolved Problems Problem Noted Date Diagnosed Date [...] as of this encounter (statuses as of 10/10/2023) Immunizations Name Administration Dates Next Due COVID-19 [...] Sign Reading Time Taken Comments Blood Pressure 119/80 10/10/2023 7:58 AM EDT Pulse 98 10/10/2023 7:58 AM EDT Temperature 36.1 C (97 F) 10/10/2023 7:58 AM EDT Respiratory Rate 17 10/10/2023 7:58 AM EDT Oxygen Saturation 95% 10/10/2023 7:58 AM EDT Inhaled Oxygen Concentration - - Weight 99.8 kg (220 lb) 10/10/2023 7:58 AM EDT Height - - Body Mass Index 33.54 10/06/2023 12:08 PM EDT documented in this [...] Progress Notes * Ruddy Robbins MD - 10/10/2023 8:15 AM EDT Images from the original note were not included. Hematology/Oncology Outpatient Clinic note [facility] Norma Chicora [address] [facility] [place] [address] Name: Lola Walters Date: 12/05/2022 CHIEF COMPLAINT: Lola Walters is a 63 year old female here today for f/u visit today. HEMATOLOGY/ONCOLOGY DIAGNOSIS: Right breast upper outer quadrant the invasive carcinoma 02/26/18: -no special type, grade 2, 2.5 mm invasive carcinoma, extensive DCIS (high- grade), negative margin -ER strongly positive, KY negative next on Her2/Eryn--> Positive by IHC [...] not excluded. - she was evaluated at [facility], at present decided to have observation and follow-up brain imaging study in mid-March 2022. Cancer Staging 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 breast in female, estrogen receptor positive (HCC) Staging form: Breast, AJCC 8th Edition - Clinical: No stage assigned - Unsigned - Pathologic stage from 05/25/2018: Stage IA (pT1a, pN0, cM0, G2, ER: Positive, KY: Negative, HER2: Positive) - Signed by Ruddy [...] She had bilateral breast mammogram earlier in 2016, had some additional right breast mammogram, thought [...] strongly positive in 100% of malignant cells, KY negative, Her-2/Eryn positive by IHC (3+). B. 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 CT scan of the cervical and [...] carcinoma of the breast, high-grade. -ER and KY receptor negative, her 2 Eryn positive by [...] deficiency. - last menstrual period was in 2015 -history of asthma and some sinus symptoms. [...] 3 weekly. Patient was also evaluated by [facility] Rad/Onc and was recommended for whole brain [...] weekly, capecitabine 2000 mg twice a day weekly on and1 week off, oral tucatinib. Overall tolerated well, some mild diarrhea, she takes Lomotil for the symptomatic treatment. Also has symptoms of hand-foot syndrome with more of erythematous changes involving the hands and the feetand some crackling and intermittent bleeding.. She is also on Xgeva, no new [...] supplementation. Her weight has remained stable around 220 lb. She ambulates well by herself. No infections complications. Past Medical History: Diagnosis Date Abnormal Papanicolaou smear of vagina and vaginal HPV 1986 [place] Allergic rhinitis due to other allergen Benign neoplasm of colon 03/09/2012 COLONOSCOPY FLEXIBLE PROXIMAL DIAGNOSTIC performed by Emerson Nascimento MD at ENDOSCOPY [facility], [facility] shows adenomatous polyp repeat in 5 years Breast cancer (HCC) 2018 Right breast IC Grade 2 Other acne Acne Raynaud's syndrome phenomenon Past Surgical History: Procedure Laterality Date BIOPSY/REMOVE SPINAL TUMOR, THORAX N/A 08/20/2021 LAMINECTOMY EXCISION INTRASPINAL NEOPLASM EXTRADURAL POSTERIOR THORACIC performed by Lorenzo Gallardo MD at [facility] BREAST BIOPSY Right 02/26/2018 malignant BREAST BIOPSY [...] OPEN performed by Bere Perkins MD at [facility] COLONOSCOPY, DIAGNOSTIC (RECTUM) 03/09/2012 COLONOSCOPY FLEXIBLE PROXIMAL DIAGNOSTIC performed by Emerson Nascimento MD at [facility], [facility] shows adenomatous polyp repeat in 5 years COLONOSCOPY, DIAGNOSTIC (RECTUM) 04/03/2017 hyperplastic polyp, repeat 5 yrs/COLONOSCOPY FLEXIBLE PROXIMAL DIAGNOSTIC performed by Emerson Nascimento MD at [facility] CREATE EARDRUM OPENING,GEN'L ANESTH Right 03/02/2023 TYMPANOSTOMY INSERTION TUBE GENERAL ANESTHESIA performed by Cem Ly DO at [facility] CRYOCAUTERY OF CERVIX 1987 Cauterization Cervix,Cryocautery,Initial or Repeat DENTAL SURGERY PROCEDURE NEC 1991, 1992 jaw/palate for bite ENDO DECOMPRESS SPINAL CORD W/LAMINOTOMY, CERVICAL N/A 03/25/2022 LAMINECTOMY DECOMPRESSION SPINAL CORD POSTERIOR CERVICAL performed by Lornezo Gallardo MD at [facility] ENDO DECOMPRESS SPINAL CORD W/LAMINOTOMY, THORACIC N/A 08/20/2021 LAMINECTOMY DECOMPRESSION SPINAL CORD POSTERIOR THORACIC performed by Lorenzo Gallardo MD at [facility] ENDO DECOMPRESS SPINAL CORD W/LAMINOTOMY, THORACIC N/A 08/20/2021 ENDOSCOPIC DECOMPRESSION SPINAL CORD POSTERIOR THORACIC performed by Lorenzo Gallardo MD at OR [facility] EXC BREAST LESION RADMARK Right 11/14/2018 EXCISION OF BREAST LESION RADIOLOGICAL MARKER performed by Bere Perkins MD at OR [facility] IDENTIFY SENTINEL NODE, RADIOACTIVE TRACER Right 04/11/2018 INJECTION PROCEDURE FOR IDENTIFICATION SENTINEL NODE performed by Bere Perkins MD at OR [facility] INFORMATION Right 02/26/2018 02/26/2018 right breast core bx, A. invasive carcinoma, no special type, grade 2 B. right breastcalcs 1B, core bx dx invasive carcinoma ................. INSER TUNN ACC DEV;5 YRS/OLDER Left 09/03/2021 INSERT TUNNELED CENTRAL VENOUS ACCESS WITH SUBQ PORT performed by Blayne Villegas MD at OR [facility] IR VERTEBRAL AUGMENTATION THORACIC N/A 08/20/2021 PERCUTANEOUS VERTEBRAL AUGMENTATION THORACIC KYPHOPLASTY performed by Lorenzo Gallardo MD at OR [facility] LUMBAR SPINE FUSION, POSTEROLATERAL N/A 03/25/2022 ARTHRODESIS SPINE POSTERIOR LUMBAR performed by Lorenzo Gallardo MD at OR [facility] MASTECTOMY, PARTIAL Right 04/11/2018 MASTECTOMY PARTIAL performed by Bere Perkins MD at OR [facility] MAXIL SINUS ENDOSCOPY W/TISS REMOVE 07/31/08 Dr. Hahn, [facility] MAXIL SINUS ENDOSCOPY W/TISS REMOVE 12/15/11 Dr. Gardner, [facility] NASAL ENDOSCOPY, PARTIAL ETHMOIDECTOMY 07/31/08 Dr. Hahn, [facility] RADIATION THERAPY Right 03/01/2019 RADIATION THERAPY MANAGEMENT Right 2018 REMOVAL OF TURBINATE BONES 07/31/08 Dr. Hahn, [facility] REPAIR OF NASAL SEPTUM 07/31/08 Dr. 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 Entered by: Ryan Vazquez MD 04/15/2009 Social Determinants of Health Financial Resource Strain: Not on file Food Insecurity: Not on file Transportation Needs: Not on file Physical Activity: Not on file Stress: Not on file Social Connections: Not on file Intimate Partner Violence: Not on file Housing Stability: Not on [...] 1 Puff before bedtime. 3 Each 3 Potassium Chloride ER 10 MEQ Oral Tablet Extended Release Take 2 Tablets by mouth in the morning. 180 Tablet 1 Ondansetron HCl 8 MG Oral Tablet Take 1 Tablet by mouth every 8 hours as needed for Nausea. 30 Tablet 5 Udderly Smooth Extra Care 20 External Cream Apply topically to affected area 2 times a day. Apply topically to hands and feet twice daily. 228 g 2 Capecitabine 500 MG Oral Tablet (Xeloda) Take 4 Tablets by mouth in the morning and 4 Tablets before bedtime. For 7 days followed by 7-day rest period. Take within 30 minutes of meal. Do not crush orcut.. (Patient not taking: Reported on 10/06/2023) 112 Tablet 5 Ipratropium Osseo 0.03 % Nasal Solution (Atrovent) Administer 2 [...] as needed for Diarrhea. 30 Tablet 0 No current facility-administered medications for this visit. OBJECTIVE: LMP 12/28/2014 BP 119/80 (BP Site: Left Arm, BP Position: Sitting, BP Cuff Size: Regular) | Pulse 98 | Temp 36.1 C (97 F) (Tympanic) | Resp 17 | Wt 99.8 kg (220 lb) | LMP 12/28/2014 | SpO2 95% | BMI 33.54 kg/m | BSA 2.19 m PHYSICAL EXAM: ECOG: Performance Status 1 [...] Grossly intact LABS: Blood workup done on 10/10/2023: -WBC 6100, H&H of 13.4/38.9, Platelet count of 590826. -BUN/Creat: 15/1.0, normal LFT -phosphorus level --> 3.1 MRI of the thoracic and cervical spine [...] infarction, midline shift, or significant mass effect. PET CT ( 01/10/2023) 1. Similar sclerotic metastases in the visualized skeleton with low level metabolic activity, consistent with treated disease. 2. No new FDG avid metastatic disease is identified. PET-CT scan done on 04/04/2023: - No metabolically active disease noted anywhere else. PET-CT scan on 07/11/2023: -no metabolic active disease noted anywhere else. IMPRESSION/PLAN: Metastatic breast [...] Reviewed with regarding the PET-CT scan done on 07/11/2023, no evidence of metabolic active disease noted [...] for follow-up PET-CT scan as well as echocardiogram. She is also having follow-up brain MRI soon. She will continue vitamin-D and Calcium supplementation I am planning to see her back in the clinic in about [address] Ruddy Robbins Hem/Onc (This note was completed using the dictation program Fluency Direct. As such, there may be misspellings, word substitutions, or other variations that should not change the essence of the clinical content of this encounter note. If there is need for further clarification, please direct questions to the provider listed above.) documented in this encounter Nursing Notes * Fina Jimenes, MED ASSIST - 10/10/2023 7:58 AM EDT Patient identifed by name and birthdate Do you have any concerns about pain management for today's visit? Yes. Patient instructed to discuss pain concerns with provider during the visit today Living Will or Advance Directive for Health Care as noted on the problem list. [facility] is a way you can talk to your provider on line through e-mail. Would you like to sign up? I can activate it for you? ALREADY ACTIVE Filed Vitals: 10/10/23 0758 BP: 119/80 Pulse: 98 Resp: 17 Temp: 36.1 C (97 F) TempSrc: Tympanic SpO2: 95% Weight: 99.8 kg (220 lb) Patient was instructed to not get up on the exam table/exam chair until directed and assisted by their provider; patient is to remain seated in the chair/ wheelchair/ exam table/ exam chair for fall prevention and safety reasons. Patient is aware to have assistance to step down off exam table/exam chair with personnel. Patient voiced full comprehension of instructions. Pt wants to know if she should have another covid vaccine documented in this encounter Plan of Treatment Upcoming Encounters Date Type Department Care Team (Late st Contact Info) Description 10/18/2023 8:45 AM EDT Imaging Radiology [address] [facility] [place] [address] 10/19/2023 2:00 PM EDT Cardiac Studies Cardiac Studies, [address] [place] [address] 10/23/2023 8:45 AM EDT Imaging Radiology [address] [facility] [place] [address] 10/31/2023 8:10 AM EDT Laboratory Laboratory [facility] [place] [address] [place] [phone] Arianna, Lab [facility] [address] [place] [address] 10/31/2023 9:00 AM EDT Hem/Onc Treatment Hematology/Oncology Treatment, [place] [address] [place] [phone] Arianna, Chair 1 Hem Onc [place] [address] [place] [address] 11/03/2023 9:45 AM EDT Pharmacy Pharmacy Hematology Oncology [facility] [address] [place] [address] [facility] Hem/Onc [address] [place] [address] 11/14/2023 2:00 PM EDT Office Visit Otolaryngology [facility] [address] [place] [address] Amisha Joseph PA-C [address] [place] [address] 11/21/2023 8:00 AM EDT Laboratory Laboratory [facility] [place] [address] [place] [phone] Arianna Lab Scenery [address] [place] [address] 11/21/2023 9:00 AM EDT Hem[facility] [address] [place], [place] [phone] Arianna, Chair 5 Hem Onc [place] [address] [place] [address] 12/12/2023 1:10 PM EDT Laboratory Laboratory [facility] Arianna [place] [address] [place] [phone] Arianna Lab Scenery [address] [place] [address] 12/12/2023 1:45 PM EDT Office Visit Hematology/Oncology [facility] [place] [address] [place] [phone] Ruddy Robbins MD [address] [place] [address] 12/12/2023 2:15 PM EDT Hem/Onc Treatment [facility]ology[facility] [place] [facility] [phone] Arianna, Chair 7 Hem Onc [place] [address] [facility] [place] [address] 03/20/2024 1:45 PM EST Office Visit Neurosurgery, [place] [address] [place] [address] Lorenzo Gallardo MD [address] [place] [address] 10/07/2024 1:30 PM EDT Office Visit Allergy/Immunology [facility] [place] [address] [place] [address] Alexandru Mcelroy MD [address] [facility] [place] [address] Scheduled Procedures Name Priority Associated Diagnoses Date/Ti [...] this encounter Medical Devices Implanted Type Area Supply Chain Consultant Device Identifier Shelf Expiration Date Model / Serial / Lot Cement Hv-R C01a - [id number] Implanted:Qty: 1 on 08/20/2021 by Lorenzo Gallardo MD at OR [facility] N/A: Spine Thoracic [employer] : NEURO CARE 04/30/2024 C01A / / [id number] Port Implant W/8f Poly Cath - [id number] Implanted:Qty: 1 on 09/03/2021 by Blayne Villegas MD at OR [facility] Left: Chest CR BARD : PERIPHERAL VASCULAR [id number] 07/29/2022 [id number] / / [id number] 5.0x40 Trammell Screw Implanted:Qty: 3 on 03/25/2022 by Lorenzo Gallardo MD at OR [facility] DELMAR : SPINE [id number] / / 5.0x45 Trammell Screw Implanted:Qty: 4 on 03/25/2022 by Lorenzo Gallardo MD at OR [facility] DELMAR : SPINE [id number] / / Spineology E Mesh Implanted:Qty: 1 on 03/25/2022 by Lorenzo Gallardo MD at OR [facility] [employer] 06/29/2024 [id number] / / [id number] Vitoss Bimodal Foam Pack 10cc - [id number] Implanted:Qty: 1 on 03/25/2022 by Lorenzo Gallardo MD at OR [facility] DELMAR : SPINE [id number] 08/27/20230 / / [id number] Vitoss Bimodal Foam Pack 10cc - [id number] Implanted:Qty: 1 on 03/25/2022 by Lorenzo Gallardo MD at OR [facility] DELMAR : SPINE [id number] 08/27/20231909 / / [id number] Vitoss Bimodal Foam Pack 10cc - [id number] Implanted:Qty: 1 on 03/25/2022 by Lorenzo Gallardo MD at OR [facility] DELMAR : SPINE [id number] 08/27/20231909 / / [id number] Vitoss Bimodal Foam Pack 10cc - [id number] Implanted:Qty: 1 on 03/25/2022 by Lorenzo Gallardo MD at OR [facility] DELMAR : SPINE [id number] 08/27/20231909 / / [id number] Connector Crosslink 43 To 54 - [id number] Implanted:Qty: 1 on 03/25/2022 by Lorenzo Gallardo MD at OR [facility] DELMAR : SPINE [id number] / / Tube Preflld Allogrft Diverted - [id number] Implanted:Qty: 1 on 03/25/2022 by Lorenzo Gallardo MD at OR [facility] [employer] 11/19/2023 [id number] / / Tube Preflld Allogrft Diverted - [id number] Implanted:Qty: 1 on 03/25/2022 by Lorenzo Gallardo MD at [facility] [employer] 11/18/2024 [id number] / / Tube Preflld Allogrft Diverted - [id number] Implanted:Qty: 1 on 03/25/2022 by Lorenzo Gallardo MD at OR [facility] [employer] 11/18/2024 [id number] / / Vitoss Bimodal Foam Pack 10cc - [id number] Implanted:Qty: 1 on 03/25/2022 by Lorenzo Gallardo MD at OR [facility] DELMAR : SPINE [id number] 08/27/2023 210- 0 / / [id number] Tube Preflld Allogrft Diverted - [id number] Implanted:Qty: 4 on 03/25/2022 by Lorenzo Gallardo MD at OR [facility] [employer] 11/19/2023 [id number] / / Screw Set [id number] - [id number] Implanted:Qty: 6 on 03/25/2022 by Lorenzo Gallardo MD at OR [facility] DELMAR : SPINE [id number] / / 3.5x14 Screw Implanted:Qty: 6 on 03/25/2022 by Lorenzo Gallardo MD at OR [facility] DELMAR : SPINE [id number] / / [id number] Transition Juan Implanted:Qty: 2 on 03/25/2022 by Lorenzo Gallardo MD at OR [facility] DEMLAR : SPINE [id number] / / Screw Ludmila Stella 3 Ti Set - [id number] Implanted:Qty: 11 on 03/25/2022 by Lorenzo Gallardo MD at OR [facility] DELMAR : SPINE [id number] / / 5.0x30 Trammell Screw Implanted:Qty: 2 on 03/25/2022 by Lorenzo Gallardo MD at OR [facility] DELMAR : SPINE [id number] / / 5.0x35 Trammell Screw Implanted:Qty: 2 on 03/25/2022 by Lorenzo Gallardo MD at OR [facility] DELMAR : SPINE [id number] / / Tube Ventilation Briggs [id number] - [id number] - [id number] Implanted:Qty: 1 on 03/02/2023 by Cem Ly DO at OR [facility] Right: Ear [employer] 12/21/2031 [id number] / [id number] / [id number] documented as of this encounter Visit Diagnoses Diagnosis 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 breast in female, estrogen receptor positive (HCC)- Primary 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) Secondary malignant neoplasm of liver 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) Secondary malignant neoplasm [...] Directives occurred with: Not Discussed Care Teams [place] Relationship Specialty Start Date End Date Aleksandr Parker MD [address] [place] [address] PCP - General 06/27/02 documented as of this encounter"
--- OUTSIDE RECORDS SUMMARY | 2023-12-22 05:20 | External Medical Summary | Summary of Care ---
Author Name Unknown Organization [facility] Address [address] [facility] [place] [address] Phone [phone] Care Team Providers Care Roundhouse Firer/Fireman Name Role Phone Aleksandr Parker MD Primary Care Provider [phone]- [phone] Reason for Visit * Reason Onset Date Comments Appointment 10/16/2023 MRI Encounter Details Date Type Department Care Team (Late st Contact Info) Description 10/16/2023 Telephone Radiology [address] [place] [address] Isa Cherry, RT (R) Appointment (/MRI) Allergies Active Allergy Reactions Criticality Noted Date Comments Sulfa Antibiotics 05/14/1999 rash documented as of this encounter (statuses as of 10/16/2023) Medications Medication Sig Dispensed Refills Start Date [...] Information Patient not taking.Reported on 10/06/2023 Ipratropium [place] 0.03 % Nasal Solution (Atrovent) Administer [...] as of this encounter (statuses as of 10/16/2023) Active Problems Problem Noted Date Diagnosed Date [...] as of this encounter (statuses as of 10/16/2023) Resolved Problems Problem Noted Date Diagnosed Date [...] as of this encounter (statuses as of 10/16/2023) Immunizations Name Administration Dates Next Due COVID-19 mRNA, LNP-s, No Pre serve, 2-Dose Series ([employer]) 02/03/2021,07/08/2020,06/10/2020 COVID-19, MRNA-LNP, 23-24, P F, 30 [...] encounter Miscellaneous Notes * Telephone Encounter - Isa Cherry RT (R) - 10/16/2023 3:40 PM EDT Name: Lola Walters Do you have any of the following: Pacemaker, stents, heart valves, aneurysm clips? No Have you ever worked with metal or have you ever gotten metal in your eyes? No Have you had a colonoscopy in the last 30 days? No On dialysis? No Do you have any dermals or body piercing's? No Do you wear an insulin pump or diabetic monitor? No No tattoos Knows to arrive at [address] (R) documented in this encounter Plan of Treatment Upcoming Encounters Date Type Department Care Team (Late st Contact Info) Description 10/18/2023 8:45 AM EDT Imaging Radiology [address] 132 [facility] [place] [address] 10/19/2023 2:00 PM EDT Cardiac Studies Cardiac Studies, [address] [place] [address] 10/23/2023 8:45 AM EDT Imaging Radiology [address] 132 [facility] [place] [address] 10/31/2023 8:10 AM EDT Laboratory Laboratory [facility] [place] [address] [place] [phone] Arianna, Lab Scenery [address] [facility] [place] [address] 10/31/2023 9:00 AM EDT Hem/Onc Treatment Hematology/Oncology Treatment, [place] [address] [place] [phone] Arianna, Chair 1 Hem Onc Scenery [address] [place] [address] 11/03/2023 9:45 AM EDT Pharmacy Pharmacy Hematology Oncology [facility], [place] [address] [place] [address] [facility] Hem/Onc [address] [place] [address] 11/14/2023 2:00 PM EDT Office Visit [facility] [place] [address] Amisha Joseph [facility]-C [facility] [place] [address] 11/21/2023 8:00 AM EDT Laboratory Laboratory [facility] Arianna [place] [address] [place] [phone] Arianna, Lab Scenery [address] [place] [address] 11/21/2023 9:00 AM EDT Hem[facility] [address] [place], [place] [address] Arianna, Chair 5 Hem Onc [facility] [address] [place] [address] 12/12/2023 1:10 PM EDT Laboratory Laboratory [facility] Arianna [place] [address] [place] [address] Arianna, Lab Scenery [address] [facility] [place], [place] [address] 12/12/2023 1:45 PM EDT Office Visit Hematology/Oncology Norma [place] [address] [place] [phone] Ruddy Robbins MD [address] [place] [address] 12/12/2023 2:15 PM EDT Hem/Onc Treatment Hematology/Oncology Treatment, [place] [address] [place] [address] Arianna, Chair 7 Hem Onc Scene 200 [facility] [place] [address] 03/20/2024 1:45 PM EST Office Visit [facility], [place] [address] [place] [address] Lorenzo Gallardo MD [address] [place] [address] 10/07/2024 1:30 PM EDT Office Visit Allergy/Immunology [facility] [place] [address] [place] [address] Alexandru Mcelroy MD 200 [facility] [place] [address] Scheduled Procedures Name Priority Associated Diagnoses Date/Ti [...] this encounter Medical Devices Implanted Type Area Senior Formulation Scientist Device Identifier Shelf Expiration Date Model / Serial / Lot Cement Hv-R C01a - [id number] Implanted:Qty: 1 on 08/20/2021 [place] [facility] [place] Spine Thoracic [employer] : NEURO CARE 04/30/2024 C01A / / [id number] Port Implant W/8f Poly Cath - [id number] Implanted:Qty: 1 on 09/03/2021 by Blayne Villegas MD at OR [facility] Left: Chest CR BARD : PERIPHERAL VASCULAR [id number] 07/29/2022 [id number] / / [id number] 5.0x40 Trammell Screw Implanted:Qty: 3 on 03/25/2022 by Lorenzo Gallardo [place] [facility] [place]MAR : SPINE [id number] / / 5.0x45 Trammell Screw Implanted:Qty: 4 on 03/25/2022 by Lorenzo Gallardo MD [place] [facility] [place]MAR : SPINE [id number] / / Spineology E Mesh Implanted:Qty: 1 on 03/25/2022 by Lorenzo Gallardo MD [place] [facility] [place] [employer] 06/29/2024 330-2004 / / [id number] Vitoss Bimodal Foam Pack 10cc - [id number] Implanted:Qty: 1 on 03/25/2022 by Lorenzo Gallardo [place] [facility] [place]MAR : SPINE [id number] 08/27/20231909 / / [id number] Vitoss Bimodal Foam Pack 10cc - [id number] Implanted:Qty: 1 on 03/25/2022 by Lorenzo Gallardo MD [place] [facility] [place] DELMAR : SPINE [id number] 08/27/20231909 / / [id number] Vitoss Bimodal Foam Pack 10cc - [id number] Implanted:Qty: 1 on 03/25/2022 by Lorenzo Gallardo MD [place] [facility] [place] DELMAR : SPINE [id number] 08/27/20231909 / / [id number] Vitoss Bimodal Foam Pack 10cc - [id number] Implanted:Qty: 1 on 03/25/2022 by Lorenzo Gallardo MD [place] [facility] [place] DELMAR : SPINE [id number] 08/27/20231909 / / [id number] Connector Crosslink 43 To 54 - [id number] Implanted:Qty: 1 on 03/25/2022 by Lorenzo Gallardo MD [place] [facility] [place] DELMAR : SPINE [id number] / / Tube Preflld Allogrft Diverted - [id number] Implanted:Qty: 1 on 03/25/2022 by Lorenzo Gallardo MD [place] [facility] [place] [employer] 11/19/2023 [id number] / / Tube Preflld Allogrft Diverted - [id number] Implanted:Qty: 1 on 03/25/2022 by Lorenzo Gallardo MD [place] [facility] [place] [employer] 11/18/2024 [id number] / / Tube Preflld Allogrft Diverted - [id number] Implanted:Qty: 1 on 03/25/2022 by Lorenzo Gallardo MD [place] [facility] [place] [employer] 11/18/2024 [id number] / / Vitoss Bimodal Foam Pack 10cc - [id number] Implanted:Qty: 1 on 03/25/2022 by Lorenzo Gallardo MD [place] [facility] [place] DELMAR : SPINE [id number] 08/27/2023 2102- 1910 / / [id number] Tube Preflld Allogrft Diverted - [id number] Implanted:Qty: 4 on 03/25/2022 by Lorenzo Gallardo MD [place] [facility] [place] [employer] 11/19/2023 [id number] / / Screw Set 7601-15254 - [id number] Implanted:Qty: 6 on 03/25/2022 by Lorenzo Gallardo MD [place] [facility] [place] DELMAR : SPINE 5933-7104 1 / / 3.5x14 Screw Implanted:Qty: 6 on 03/25/2022 by Lorenzo Gallardo MD [place] [facility] [place] DELMAR : SPINE 5869-7024 4 / / 4.0/[id number] Transition Juan Implanted:Qty: 2 on 03/25/2022 by Lorenzo Gallardo MD [place] [facility] [place] DELMAR : SPINE 0667-2478 00 / / Screw Ludmila Stella 3 Ti Set - [id number] Implanted:Qty: 11 on 03/25/2022 by Lorenzo Gallardo MD [place] [facility] [place] DELMAR : SPINE [id number] / / 5.0x30 Trammell Screw Implanted:Qty: 2 on 03/25/2022 by Lorenzo Gallardo MD [place] [facility] [place] DELMAR : SPINE [id number] / / 5.0x35 Trammell Screw Implanted:Qty: 2 on 03/25/2022 by Lorenzo Gallardo MD [place] [facility] [place] DELMAR : SPINE [id number] / / Tube Ventilation Briggs [id number] - [id number] - [id number] Implanted:Qty: 1 on 03/02/2023 by Cem Ly DO at OR [facility] Right: Ear [employer] 12/21/2031 [id number] / [id number] / [id number] documented as of this encounter Advance Directives [...] Directives occurred with: Not Discussed Care Teams Roundhouse Firer/Fireman Relationship Specialty Start Date End Date Aleksandr Parker MD [address] [facility] [place] [place] [address] PCP - General 06/27/02 documented as of this encounter
--- OUTSIDE RECORDS SUMMARY | 2023-12-22 05:20 | External Medical Summary | Summary of Care ---
Author Name Unknown Organization [facility] Address [address] [place] [address] Phone [phone] Care Team Providers Care Appliance Servicer Name Role Phone Aleksandr Parker MD Primary Care Provider +[phone]- [phone] Reason for Referral * Precert (Within 10 days (routine)) - Pending Review Specialty Diagnoses / Procedures Referred By Contjono t Referred To Contact Radiology Diagnoses 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 breast in female, estrogen receptor positive (HCC) Cancer, metastatic to bone (HCC) Metastasis to brain (HCC) Procedures MRI BRAIN W WO CONTRAST Margot Robbins MD 200 [facility] [place] [address] Referral ID Status Reason Start Date Expiration Date V isits Requested Visits Authorized [id number] Pending Review 10/20/2023 999 999 Reason for Visit * Reason Onset Date Comments Test Results 10/20/2023 PatelMRI Encounter Details Date Type Department Care Team (Late st Contact Info) Description 10/20/2023 Telephone [facility] [address] [place] [address] Aleksandr Parker MD [address] [place] [address] Test Results (Robbins/MRI) Allergies Active [...] Information Patient not taking.Reported on 10/06/2023 Ipratropium [place] 0.03 % Nasal Solution (Atrovent) Administer 2 [...] [place]: Negative, HER2: Positive) - Signed by Margot [...] Description 10/23/2023 8:45 AM EDT Imaging Radiology [address] 132 [place] [address] 10/31/2023 8:10 AM EDT Laboratory Laboratory [facility] [address] [place] [phone] Arianna, Lab Scenery 200 [facility] [place] [address] 10/31/2023 9:00 AM EDT Hem/Onc Treatment Hematology/Oncology Treatment, [place] [address] [place] [phone] Arianna, Chair 1 Hem Onc Scenery [address] [place] [address] 11/03/2023 9:45 AM EDT Pharmacy Pharmacy Hematology Oncology [facility] [address] [place] [address] [facility] [place] Hem/Onc [address] [place] [address] 11/14/2023 2:00 PM EDT Office Visit Otolaryngology [facility] [address] [place] [address] Amisha Joseph PA-C 132 [facility] [place] [address] 11/21/2023 8:00 AM EDT Laboratory Laboratory [facility] [address] [place] [address] Arianna, Lab Scenery [address] [place], [place] [address] 11/21/2023 9:00 AM EDT Hem[facility] 200 [facility], [place] [address] Arianna, Chair 5 Hem Onc [facility] 200 [facility] [place] [address] 12/12/2023 1:10 PM EDT Laboratory Laboratory [facility] [address] [place] [phone] Arianna, Lab Scenery [address] [place], [place] [address] 12/12/2023 1:45 PM EDT Office Visit Hematology/Oncology [facility] [address] [place], [place] [phone] Margot Robbins MD [address] [place], [place] [address] 12/12/2023 2:15 PM EDT Hem[facility]Onc [facility] 200 [facility], [place] [phone] Arianna, Chair 7 Hem Onc Scenery [address] [place], [place] [address] 03/20/2024 1:45 PM EST Office Visit [facility] [place] [address] [place] [address] Lorenzo Gallardo MD [address] [place], [place] [address] 10/07/2024 1:30 PM EDT Office Visit Allergy/Immunology [facility] [address] [place] [address] Alexandru Mcelroy MD [address] [place] [address] Scheduled Orders Name Type Priority Associated Diagnoses [...] this encounter Medical Devices Implanted Type Area Workers Compensation Claims Assistant Device Identifier Shelf Expiration Date Model / Serial / Lot Cement Hv-R C01a - [id number] Implanted:Qty: 1 on 08/20/2021 by Lorenzo Gallardo MD at [place] [facility] [place] N/A: Spine Thoracic [employer] : NEURO CARE 04/30/2024 C01A / / [id number] Port Implant W/8f Poly Cath - [id number] Implanted:Qty: 1 on 09/03/2021 by Blayne Villegas MD at OR [facility] Left: Chest CR BARD : PERIPHERAL VASCULAR [id number] 07/29/2022 [id number] / / [id number] 5.0x40 Trammell Screw Implanted:Qty: 3 on 03/25/2022 by Lorenzo Gallardo MD at [place] [facility] DELMAR : SPINE [id number] / / 5.0x45 Trammell Screw Implanted:Qty: 4 on 03/25/2022 by Lorenzo Gallardo MD at [place] [facility] DELMAR : SPINE [id number] / / Spineology E Mesh Implanted:Qty: 1 on 03/25/2022 by Lorenzo Gallardo MD at OR [facility] [employer] 06/29/2024 330-2005 / / [id number] Vitoss Bimodal Foam Pack 10cc - [id number] Implanted:Qty: 1 on 03/25/2022 by Lorenzo Gallardo MD at OR [facility] DELMAR : SPINE [id number] 08/27/20231909 / / [id number] Vitoss Bimodal Foam Pack 10cc - [id number] Implanted:Qty: 1 on 03/25/2022 by Lorenzo Gallardo MD at OR [facility] DELMAR : SPINE [id number] 08/27/20231909 / / [id number] Vitoss Bimodal Foam Pack 10cc - [id number] Implanted:Qty: 1 on 03/25/2022 by Lorenzo Gallardo MD at OR [facility] DELMAR : SPINE [id number] 08/27/20231909 / / [id number] Vitoss Bimodal Foam Pack 10cc - [id number] Implanted:Qty: 1 on 03/25/2022 by Lorenzo Gallardo MD at OR [facility] DELMAR : SPINE [id number] 08/27/20231909 / / [id number] Connector Crosslink 43 To 54 - [id number] Implanted:Qty: 1 on 03/25/2022 by Lorenzo Gallardo MD at OR [facility] DELMAR : SPINE [id number] / / Tube Preflld Allogrft Diverted - [id number] Implanted:Qty: 1 on 03/25/2022 by Lorenzo Gallardo MD at OR [facility] [employer] 11/19/2023 [id number] / / Tube Preflld Allogrft Diverted - [id number] Implanted:Qty: 1 on 03/25/2022 by Lorenzo Gallardo MD at OR [facility] [employer] 11/18/2024 481684 / / Tube Preflld Allogrft Diverted - [id number] Implanted:Qty: 1 on 03/25/2022 by Lorenzo Gallardo MD at OR [facility] [employer] 11/18/2024 [id number] / / Vitoss Bimodal Foam Pack 10cc - [id number] Implanted:Qty: 1 on 03/25/2022 by Lorenzo Gallardo MD at OR [facility] DELMAR : SPINE [id number] 08/27/2023 210- 0 / / [id number] Tube Preflld Allogrft Diverted - [id number] Implanted:Qty: 4 on 03/25/2022 by Lorenzo Gallardo MD at OR [facility] [employer] 11/19/2023 [id number] / / Screw Set 7601-57112 - [id number] Implanted:Qty: 6 on 03/25/2022 by Lorenzo Gallardo MD at OR [facility] DELMAR : SPINE 2792-3185 1 / / 3.5x14 Screw Implanted:Qty: 6 on 03/25/2022 by Lorenzo Gallardo MD at OR [facility] DELMAR : SPINE 1323-1161 4 / / 4.0/[id number] Transition Juan Implanted:Qty: 2 on 03/25/2022 by Lorenzo Gallardo MD at OR [facility] DELMAR : SPINE 6509-9143 00 / / Screw Ludmila Stella 3 Ti Set - [id number] Implanted:Qty: 11 on 03/25/2022 by Lorenzo Gallardo MD at OR [facility] DELMAR : SPINE [id number] / / 5.0x30 Trammell Screw Implanted:Qty: 2 on 03/25/2022 by Lorenzo Gallardo MD at OR [facility] DELMAR : SPINE [id number] / / 5.0x35 Trammell Screw Implanted:Qty: 2 on 03/25/2022 by Lorenzo Gallardo MD at [place] [facility] DELMAR : SPINE [id number] / / Tube Ventilation Briggs [id number] - [id number] - [id number] Implanted:Qty: 1 on 03/02/2023 by Cem Ly DO at OR [facility] Right: Ear [employer] 12/21/2031 [id number] / [id number] / [id number] documented as of this encounter Visit Diagnoses [...] Directives occurred with: Not Discussed Care Teams Appliance Servicer Relationship Specialty Start Date End Date Aleksandr Parker MD [address] [facility] [address] PCP - General 06/27/02 documented as of this encounter
--- OUTSIDE RECORDS SUMMARY | 2023-12-22 05:21 | External Medical Summary | Summary of Care ---
Author Name Unknown Organization [facility] Address [address] [place] [address] Phone [phone] Care Team Providers Care Shank Rander Name Role Phone Aleksandr Parker MD Primary Care Provider [phone]- [phone] Reason for Visit * Reason Comments Outpatient Testing Encounter Details Date Type Department Care Team (Late st Contact Info) Description 10/10/2023 7:40 AM EDT Laboratory Laboratory Scenery [facility] [address] [place] [phone] [place], Lab Scenery [address] [place] [address] 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 [...] Information Patient not taking.Reported on 10/06/2023 Ipratropium [place] 0.03 % Nasal Solution (Atrovent) Administer 2 [...] 05/25/2018:Stage IA(pT1a, pN0, cM0, G2, ER: Positive, ME: Negative, HER2: Positive) - Signed by Ruddy [...] mRNA, LNP-s, No Pre serve, 2-Dose Series ([employer]) 02/03/2021,07/08/2020,06/10/2020 COVID-19, MRNA-LNP, 23-24, P F, 30 [...] 10/10/2023 8:15 AM EDT Office Visit Hematology/Oncology [facility] Arianna [place] [address] [facility] [place] [phone] Ruddy Robbins MD [address] [facility] [place] [address] 10/10/2023 8:45 AM EDT Hem/Onc Treatment Hematology/Oncology Treatment, [place] [address] [facility] [address] [place] [phone] Arianna, Chair 2 Hem Onc [address] [place] [address] Arrived 10/18/2023 8:45 AM EDT Imaging Radiology [address] [place] [address] 10/19/2023 2:00 PM EDT [facility] [address] [place] [address] 10/23/2023 8:45 AM EDT Imaging Radiology [address] [place] [address] 11/03/2023 9:45 AM EDT Pharmacy Pharmacy Hematology Oncology [place] [address] [place] [address] [facility] Clinic Hem/Onc [facility] [place] [address] 11/14/2023 2:00 PM EDT [facility] [address] [place] [address] Amisha Joseph PA-C [address] [address] 03/20/2024 1:45 PM EST Office Visit Neurosurgery, [place] [address] [place] [address] Lorenzo Gallardo MD [address] [place] [address] 10/07/2024 1:30 PM EDT Office Visit Allergy/Immunology [facility] [place] [address] [place] [address] Alexandru Mcelroy MD [address] [place] [address] Pending Results Name Type Priority Associated Diagnoses Date /Time COMPREHENSIVE METABOLIC PANEL Lab STAT 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 breast in female, estrogen receptor positive (HCC) 10/10/2023 7:44 AM EDT PHOSPHORUS Lab STAT Cancer, metastatic to bone (HCC) 10/10/2023 7:44 AM EDT Scheduled Procedures Name Priority Associated [...] 06/2018, 11/20/2014, Additional history exists Diabetes Screening 09/18/2026 09/19/2023, 0 08/29/2023, 08/08/2023, Additional history exists Hepatitis B Completed 04/22/2002, [...] this encounter Medical Devices Implanted Type Area Bean Sorter Device Identifier Shelf Expiration Date Model / Serial / Lot Cement Hv-R C01a - [id number] Implanted:Qty: 1 on 08/20/2021 by Lorenzo Gallardo MD at OR [facility] N/A: Spine Thoracic [employer] : NEURO CARE 04/30/2024 C01A / / [id number] Port Implant W/8f Poly Cath - [id number] Implanted:Qty: 1 on 09/03/2021 by Blayne Villegas MD at OR [facility] Left: Chest CR BARD : PERIPHERAL VASCULAR [id number] 07/29/2022 [id number] / / [id number] 5.0x40 Trammell Screw Implanted:Qty: 3 on 03/25/2022 by Lorenzo Gallardo MD at OR [facility] DELMAR : SPINE [id number] / / 5.0x45 Trammell Screw Implanted:Qty: 4 on 03/25/2022 by Lorenzo Gallardo MD at OR [facility] DELMAR : SPINE [id number] / / Spineology E Mesh Implanted:Qty: 1 on 03/25/2022 by Lorenzo Gallardo MD at OR [facility] [employer] 06/29/2024 [id number] / / [id number] Vitoss Bimodal Foam Pack 10cc - [id number] Implanted:Qty: 1 on 03/25/2022 by Lorenzo Gallardo MD at OR [facility] DELMAR : SPINE [id number] 08/27/20230 / / [id number] Vitoss Bimodal Foam Pack 10cc - [id number] Implanted:Qty: 1 on 03/25/2022 by Lorenzo Gallardo MD at OR [facility] DELMAR : SPINE [id number] 08/27/20231909 / / [id number] Vitoss Bimodal Foam Pack 10cc - [id number] Implanted:Qty: 1 on 03/25/2022 by Lorenzo Gallardo MD at OR [facility] DELMAR : SPINE [id number] 08/27/20231909 / / [id number] Vitoss Bimodal Foam Pack 10cc - [id number] Implanted:Qty: 1 on 03/25/2022 by Lorenzo Gallardo MD at OR [facility] DELMAR : SPINE [id number] 08/27/20231909 / / [id number] Connector Crosslink 43 To 54 - [id number] Implanted:Qty: 1 on 03/25/2022 by Lorenzo Gallardo MD at OR [facility] DELMAR : SPINE [id number] / / Tube Preflld Allogrft Diverted - [id number] Implanted:Qty: 1 on 03/25/2022 by Lorenzo Gallardo MD at OR [facility] [employer] 11/19/2023 [id number] / / Tube Preflld Allogrft Diverted - [id number] Implanted:Qty: 1 on 03/25/2022 by Lorenzo Gallardo MD at OR [facility] [employer] 11/18/2024 [id number] / / Tube Preflld Allogrft Diverted - [id number] Implanted:Qty: 1 on 03/25/2022 by Lorenzo Gallardo MD at OR [facility] [employer] 11/18/2024 [id number] / / Vitoss Bimodal Foam Pack 10cc - [id number] Implanted:Qty: 1 on 03/25/2022 by Lorenzo Gallardo MD at OR [facility] DELMAR : SPINE [id number] 08/27/2023 210- 0 / / [id number] Tube Preflld Allogrft Diverted - [id number] Implanted:Qty: 4 on 03/25/2022 by Lorenzo Gallardo MD at OR [facility] [employer] 11/19/2023 [id number] / / Screw Set [id number] - [id number] Implanted:Qty: 6 on 03/25/2022 by Lorenzo Gallardo MD at OR [facility] DELMAR : SPINE [id number] 1 / / 3.5x14 Screw Implanted:Qty: 6 on 03/25/2022 by Lorenzo Gallardo MD at OR [facility] DELMAR : SPINE [id number] 4 / / 4.0/[id number] Transition Juan Implanted:Qty: 2 on 03/25/2022 by Lorenzo Gallardo MD at OR [facility] DELMAR : SPINE [id number] / / Screw Ludmila Stella 3 Ti Set - [id number] Implanted:Qty: 11 on 03/25/2022 by Lorenzo Gallardo MD at OR [facility] DELMAR : SPINE [id number] / / 5.0x30 Trammell Screw Implanted:Qty: 2 on 03/25/2022 by Lorenzo Gallardo MD at OR [facility] DELMAR : SPINE [id number] / / 5.0x35 Trammell Screw Implanted:Qty: 2 on 03/25/2022 by Lorenzo Gallardo MD at OR [facility] DELMAR : SPINE [id number] / / Tube Ventilation Briggs [id number] - [id number] - [id number] Implanted:Qty: 1 on 03/02/2023 by Cem Ly DO at OR [facility] Right: Ear [employer] 12/21/2031 [id number] / [id number] / [id number] documented as of this encounter Procedures Procedure Name Priority Date/Time Associated Diagnosis Comments DIFFERENTIAL, AUTOMATED STAT 10/10/2023 7:44 AM EDT 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 breast in female, estrogen receptor positive (HCC) CBC STAT 10/10/2023 7:44 AM EDT 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 breast in female, estrogen receptor positive (HCC) CBC STAT 10/10/2023 7:44 AM EDT 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 breast in female, estrogen receptor positive (HCC) documented in this encounter Results * DIFFERENTIAL, AUTOMATED (10/10/2023 7:44 AM EDT) WBC 6.12 4.00 - 10.80 K/uL 10/10/2023 7:54 AM EDT [facility] 56-02 Neutrophils % 64.9 40.0 - 75.0 % 10/10/2023 7:54 AM EDT [facility] 56-02 Lymphocytes % 20.8 18.0 - 42.0 % 10/10/2023 7:54 AM EDT [facility] 56-02 Monocytes % 9.6 1.0 - 11.0 % 10/10/2023 7:54 AM EDT [facility] 56-02 Eosinophils % 4.2 0.0 - 6.0 % 10/10/2023 7:54 AM EDT [facility] 56-02 Basophils % 0.5 0.0 - 2.0 % 10/10/2023 7:54 AM EDT [facility] 56-02 Absolute Neutrophils 3.97 1.80 - 7.70 K/uL 10/10/2023 7:54 AM EDT [facility] 56-02 Absolute Lymphocytes 1.27 1.00 - 4.80 K/ul 10/10/2023 7:54 AM EDT [facility] 56-02 Absolute Monocytes 0.59 0.00 - 1.10 K/uL 10/10/2023 7:54 AM EDT [facility] 56- Absolute Eosinophils 0.26 0.00 - 0.70 K/uL 10/10/2023 7:54 AM EDT [facility] 56 Absolute Basophils 0.03 0.00 - 0.20 K/uL 10/10/2023 7:54 AM EDT [facility] 56- Blood Venous blood specimen / Unknown Venipuncture / Unknown 10/10/2023 7:44 AM EDT 10/10/2023 7:45 AM EDT Ruddy Robbins MD LAB BLOOD ORDERABLES [facility] [address] [place] [address] * CBC (10/10/2023 7:44 AM EDT) WBC 6.12 4.00 - 10.80 K/uL 10/10/2023 7:54 AM EDT [facility] 56 RBC 3.92 3.85 - 5.15 M/uL 10/10/2023 7:54 AM EDT [facility] 56 HGB 13.4 12.0 - 15.3 g/dL 10/10/2023 7:54 AM EDT [facility] 56 HCT 38.9 36.0 - 45.2 % 10/10/2023 7:54 AM EDT [facility] 56- MCV 99.2 81.5 - 97.5 fL 10/10/2023 7:54 AM EDT [facility] 56 MCH 34.2 27.0 - 34.0 pg 10/10/2023 7:54 AM EDT [facility] 56 MCHC 34.4 32.0 - 36.0 g/dL 10/10/2023 7:54 AM EDT [facility] 56 RDW 15.8 11.5 - 15.5 % 10/10/2023 7:54 AM EDT [facility] 56 PLT 240 140 - 400 K/uL 10/10/2023 7:54 AM EDT [facility] 56 MPV 9.6 6.6 - 11.1 fL 10/10/2023 7:54 AM EDT [facility] 56-02 Blood Venous blood specimen / Unknown Venipuncture / Unknown 10/10/2023 7:44 AM EDT 10/10/2023 7:45 AM EDT Ruddy Na Robbins MD LAB BLOOD ORDERABLES [facility] [address]- [address] [place] [address] documented in this encounter Visit Diagnoses Diagnosis [...] Directives occurred with: Not Discussed Care Teams Shank Rander Relationship Specialty Start Date End Date Aleksandr Parker MD [address] [place] [address] PCP - General 06/27/02 documented as of this encounter
--- OUTSIDE RECORDS SUMMARY | 2023-12-22 05:21 | External Medical Summary | Summary of Care ---
Author Name Unknown Organization [facility] Address [address] [place] [address] Phone [phone] Care Team Providers Care Home Health Administrator Name Role Phone Aleksandr Parker MD Primary Care Provider +1- [phone] Reason for Visit * Reason Comments Medication Management Encounter Details Date Type Department Care Team (Late st Contact Info) Description 10/06/2023 9:45 AM EDT Pharmacy Pharmacy Hematology Oncology [facility] [address] [place] [address] [facility] Hem/Onc [address] [place], [place] [id number] 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 breast in female, estrogen receptor positive (HCC)* Allergies Active Allergy Reactions Criticality Noted Date Comments Sulfa Antibiotics 05/14/1999 rash documented as of this encounter (statuses as of 10/06/2023) Medications Medication Sig Dispensed Refills Start Date [...] Information Patient not taking.Reported on 10/06/2023 Ipratropium [place] 0.03 % Nasal Solution (Atrovent) Administer 2 [...] as of this encounter (statuses as of 10/06/2023) Active Problems Problem Noted Date Diagnosed Date [...] 05/25/2018:Stage IA(pT1a, pN0, cM0, G2, ER: Positive, NM: Negative, HER2: Positive) - Signed by Ruddy Robbins MD on 05/25/2018 LPRD (laryngopharyngeal reflux disease) 11/28/19 18 Positional sleep apnea 06/30/2016 Chronic sinusitis 04/29/2015 Vasovagal syncope 02/09/2015 Asthma, mild persistent 04/15/2009 Raynaud's syndrome 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 Pathologic fracture of thoracic vertebrae documented as of this encounter (statuses as of 10/06/2023) Resolved Problems Problem Noted Date Diagnosed Date [...] as of this encounter (statuses as of 10/06/2023) Immunizations Name Administration Dates Next Due COVID-19 mRNA, LNP-s, No Pre serve, 2-Dose Series ([employer]) 02/03/2021,07/08/2020,06/10/2020 COVID-19, MRNA-LNP, 23-24, P F, 30 [...] as of this encounter Progress Notes * [place], [facility] - 10/06/2023 2:05 PM EDT MEDICATION THERAPY MANAGEMENT TUCATINIB (TUKYSA) AND CAPECITABINE (XELODA) TREATMENT PROGRESS NOTE Lola Walters [phone] Patient Phone Numbers Preferred Lab: [facility]: Tucatinib - GSP: Capecitabine - [facility] Communication: Spoke to: Patient Treatment: Medication: tucatinib (Tukysa) Indication/Staging/Diagnosis Code: metastatic HER2+ breast cancer / C50.411, Z17.0 Dose: 250 mg (2-50mg + 1-150mg tab) BID ( 10/05/22) Administration: +/- food Start Date: 05/30/22 Primary Hand Laminator/Oncologist: Dr. Paco Robbins Medication: capecitabine (Xeloda) Indication/Staging/Diagnosis Code: metastatic HER2+ breast cancer / C50.411, Z17.0 Dose: 2000 mg BID 7 days on, 7 days off ( 08/25/23) Administration: within 30 minutes of food Start Date: 05/30/22 Primary Hand Laminator/Oncologist: Dr. Paco Robbins Additional Therapy: Trastuzumab Supportive [...] HFS) C19 09/19-09/25; 10/03-10/09 C20 10/17-10/23; 10/31-11/06 (anticipated) Treatment History: Anastrozole Trastuzumab/pertuzumab/docetaxel Dose Adjustment [...] held due to ongoing HFS Interval History: Continues to apply clobetasol to hands and feet as HFS almost completely resolved Reports new onset acneiform rash on jaw. States she is applying blemish cream for relief at this time Reports mild constipation resolved with increased fiber. Denies exceeding 3 days without BM No other concerns Changes to medication list since last visit? No Assessment and Plan: Continue clobetasol for HFS treatment Educated pt rash unexpected to be from treatment due to being on treatment for ~1.[address] Robbins assess at upcoming OV 10/10/23 Continue increased fiber intake for constipation management. Advised to call office if no BM in 3 days Continue current therapies Assessment of compliance: compliant Assessment of adverse effects attributed to drug therapy: TUKYSA Diarrhea - absent Nausea/Vomiting - absent Peripheral neuropathy - absent Skin rash - present Hand-foot syndrome - absent Decreased appetite - absent Stomatitis - absent XELODA Hand Foot Syndrome - absent Diarrhea - absent Nausea/vomiting- absent Fever - absent Stomatitis - absent Dose adjustment needed based on lab or adverse drug reaction? No Follow up: 1 week OV/labs; 4 weeks [facility]TM Nohelia [place], PharmD, BCOP Clinical Pharmacist, [facility] Oral Chemotherapy [facility] 10/06/2023, 2:19 PM Monitoring Parameters: Estimated CrCl Serum creatinine: 0.9 mg/dL 09/19/23 0747 Estimated creatinine clearance: 80.1 mL/min Hepatitis panel Latest Reference Range & [...] warfarin? No Treatment Parameters N/A Pertinent Labs: N/A Time Spent on Encounter: 11 - 15 minutes Encounter Group: Oncology Encounter Interventions Item Category: Oral Chemotherapy Capecitabine Problem/Rationale: Safety: Needs additional monitoring - Medication Requires monitoring Education: Clarification Pharmacist Intervention(s): Education provided, Non-pharmacological intervention provided, and Toxicity monitoring Magnitude of Intervention: Monitoring with direction (Level 1) Second Item Second Item Category: Oral Chemotherapy Tucatinib Problem/Rationale: Safety: Needs additional monitoring - Medication Requires monitoring Education: Clarification Pharmacist Intervention(s): Education provided, Non-pharmacological intervention provided, and Toxicity monitoring Magnitude of Intervention: Monitoring [...] Description 10/10/2023 7:40 AM EDT Laboratory [place] [address] [address] [place] [address] [address] 10/10/2023 8:15 AM EDT Office Visit Hematology/[place] [address] [address] [address] Ruddy Robbins MD [address] [place] [address] 10/10/2023 8:45 AM EDT Hem/Onc Treatment Hematology/Oncology Treatment, [place] [address] [place] [phone] Arianna, Chair 2 Hem Onc [facility] [address] [facility] [place] [address] 10/18/2023 8:45 AM EDT Imaging Radiology [address] [facility] [place] [address] 10/19/2023 2:00 PM EDT Cardiac Studies Cardiac Studies, [facility] [address] [facility] [place] [address] 10/23/2023 8:45 AM EDT Imaging Radiology [address] [facility] [place] [address] 11/03/2023 9:45 AM EDT Pharmacy Pharmacy Hematology Oncology [facility], [place] [address] [place] [address] [facility] Hem/Onc [address] [place] [address] 11/14/2023 2:00 PM EDT Office Visit Otolaryngology [facility] [address] [facility] [place] [address] Amisha Joseph PA-C 132 [facility] [place] [address] 03/20/2024 1:45 PM EST Office Visit Neurosurgery, [place] [address] [place] [facility] [place] [address] Lorenzo Gallardo MD [address] [place] [address] 10/07/2024 1:30 PM EDT Office Visit Allergy/Immunology [facility] [place] [address] [place] [address] Alexandru Mcelroy MD [address] [place] [address] Scheduled Procedures Name Priority Associated Diagnoses Date/Ti [...] 0706/2018, 11/20/2014, Additional history exists Diabetes Screening 09/18/2026 [...] this encounter Medical Devices Implanted Type Area Dispatcher Radioactive Waste Disposal Device Identifier Shelf Expiration Date Model / Serial / Lot Cement Hv-R C01a - [id number] Implanted:Qty: 1 on 08/20/2021 by [place]ardo MD [place] [facility] [place]A: Spine Thoracic [employer] : NEURO CARE 04/30/2024 C01A / / [id number] Port Implant W/8f Poly Cath - [id number] Implanted:Qty: 1 on 09/03/2021 by Blayne Villegas MD at OR [facility] Left: Chest CR BARD : PERIPHERAL VASCULAR [id number] 07/29/2022 [id number] / / [id number] 5.0x40 Trammell Screw Implanted:Qty: 3 on 03/25/2022 by Lorenzo Gallardo MD [place] [facility] DELMAR : SPINE [id number] / / 5.0x45 Trammell Screw Implanted:Qty: 4 on 03/25/2022 by Lorenzo Gallardo MD [place] [facility] DELMAR : SPINE [id number] / / Spineology E Mesh Implanted:Qty: 1 on 03/25/2022 by Lorenzo Gallardo MD [place] [facility] [employer] 06/29/2024 330-2004 / / [id number] Vitoss Bimodal Foam Pack 10cc - [id number] Implanted:Qty: 1 on 03/25/2022 by Lorenzo Gallardo MD [place] [facility] DELMAR : SPINE [id number] 08/27/20231909 / / [id number] Vitoss Bimodal Foam Pack 10cc - [id number] Implanted:Qty: 1 on 03/25/2022 by Lorenzo Gallardo MD at [place] [facility] DELMAR : SPINE [id number] 08/27/20231909 / / [id number] Vitoss Bimodal Foam Pack 10cc - [id number] Implanted:Qty: 1 on 03/25/2022 by Lorenzo Gallardo MD [place] [facility] DELMAR : SPINE [id number] 08/27/20231909 / / [id number] Vitoss Bimodal Foam Pack 10cc - [id number] Implanted:Qty: 1 on 03/25/2022 by Lorenzo Gallardo MD [place] [facility] DELMAR : SPINE [id number] 08/27/20231909 / / [id number] Connector Crosslink 43 To 54 - [id number] Implanted:Qty: 1 on 03/25/2022 by Lorenzo Gallardo MD [place] [facility] DELMAR : SPINE [id number] / / Tube Preflld Allogrft Diverted - [id number] Implanted:Qty: 1 on 03/25/2022 by Lorenzo Gallardo MD at [place] [facility] [employer] 11/19/2023 [id number] / / Tube Preflld Allogrft Diverted - [id number] Implanted:Qty: 1 on 03/25/2022 by Lorenzo Gallardo MD at [place] [facility] [employer] 11/18/2024 [id number] / / Tube Preflld Allogrft Diverted - [id number] Implanted:Qty: 1 on 03/25/2022 by Lorenzo Gallardo MD at [place] [facility] [employer] 11/18/2024 [id number] / / Vitoss Bimodal Foam Pack 10cc - [id number] Implanted:Qty: 1 on 03/25/2022 by Lorenzo Gallardo MD [place] [facility] DELMAR : SPINE [id number] 08/27/20231909 / / [id number] Tube Preflld Allogrft Diverted - [id number] Implanted:Qty: 4 on 03/25/2022 by Lorenzo Gallardo MD [place] [facility] [employer] 11/19/2023 [id number] / / Screw Set [id number] - [id number] Implanted:Qty: 6 on 03/25/2022 by Lorenzo Gallardo MD [place] [facility] DELMAR : SPINE [id number] 1 / / 3.5x14 Screw Implanted:Qty: 6 on 03/25/2022 by Lorenzo Gallardo MD [place] [facility] DELMAR : SPINE [id number] 4 / / 4.0/[id number] Transition Juan Implanted:Qty: 2 on 03/25/2022 by Lorenzo Gallardo MD [place] [facility] DELMAR : SPINE [id number] 00 / / Screw Ludmila Stella 3 Ti Set - [id number] Implanted:Qty: 11 on 03/25/2022 by Lorenzo Gallardo MD [place] [facility] DELMAR : SPINE [id number] / / 5.0x30 Trammell Screw Implanted:Qty: 2 on 03/25/2022 by Lorenzo Gallardo MD [place] [facility] DELMAR : SPINE [id number] / / 5.0x35 Trammell Screw Implanted:Qty: 2 on 03/25/2022 by Lorenzo Gallardo MD [place] [facility] DELMAR : SPINE [id number] / / Tube Ventilation Briggs [id number] - [id number] - [id number] Implanted:Qty: 1 on 03/02/2023 by Cem Ly DO at OR [facility] Right: Ear [employer] 12/21/2031 [id number] / [id number] / [id number] documented as of this encounter Visit Diagnoses [...] Directives occurred with: Not Discussed Care Teams Home Health Administrator Relationship Specialty Start Date End Date Aleksandr Parker MD [address] [facility] [place] [address] PCP - General 06/27/02 documented as of this encounter
--- OUTSIDE RECORDS SUMMARY | 2023-12-22 05:21 | External Medical Summary ---
Author Name Unknown Address Unknown Organization K09:[facility] [address] Laboratory Report Ordering Provider Test Date Status SYLVIA FROST 10/10/2023 07:44:48 Final Observation Date Value Abnormality Reference (Units ) Status SYNC LEUKOCYTES IN BLOOD BY AUTOMATED COUNT 10/10/2023 07:44:48 6.12 4.00-10.80 (K/uL) Final Segs 10/10/2023 07:44:48 64.9 40.0-75.0 (%) Final Lymphs % 10/10/2023 07:44:48 20.8 18.0-42.0 (%) Final Monos 10/10/2023 07:44:48 9.6 1.0-11.0 (%) Final Eosinophils 10/10/2023 07:44:48 4.2 0.0-6.0 (%) Final Basos 10/10/2023 07:44:48 0.5 0.0-2.0 (%) Final Absolute Segs 10/10/2023 07:44:48 3.97 1.80-7.70 (K/uL) Final Lymphs, absolute 10/10/2023 07:44:48 1.27 1.00-4.80 (K/ul) Final Monos, Abs 10/10/2023 07:44:48 0.59 0.00-1.10 (K/uL) Final Eos, Abs 10/10/2023 07:44:48 0.26 0.00-0.70 (K/uL) Final Basos, Abs 10/10/2023 07:44:48 0.03 0.00-0.20 (K/uL) Final Performing Location [facility] [place] [address]
--- OUTSIDE RECORDS SUMMARY | 2023-12-22 05:21 | External Medical Summary | Summary of Care ---
Author Name Unknown Organization [facility] Address [address] [place] [address] Phone [phone] Care Team Providers Care Meteorology Faculty Member Name Role Phone Aleksandr Parker MD Primary Care Provider [phone]- [phone] Reason for Visit * Reason Comments Chemotherapy Kanjinti. 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) Encounter for antineoplastic chemotherapy Procedures ME INJ., KANJINTI, 10 MG Ruddy Robbins MD [address] [place], [place] [address] Anc Hem/Onc Scenekadeem Keller DEPT CLOSED - 03/14/23 [address] [facility] [place] [address] Referral ID Status Reason Start Date Expiration Date V isits Requested Visits Authorized [id number] Authorized 04/28/2023 10/24/2023 999 99 Encounter Details Date Type Department Care Team (Latest Contact Info) Description 10/10/2023 8:45 AM EDT Hem/Onc Treatment Hematology/Oncolog y Treatment, [place] [address] [place] [phone] Arianna, Chair 2 Hem Onc Scenery 200 [facility] [place] [phone] 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 [...] Information Patient not taking.Reported on 10/06/2023 Ipratropium [place] 0.03 % Nasal Solution (Atrovent) Administer 2 [...] mRNA, LNP-s, No Pre serve, 2-Dose Series (Chefs Feed) 02/03/2021,07/08/2020,06/10/2020 COVID-19, MRNA-LNP, 23-24, P F, 30 [...] AM EDT Chair 6. Patient arrived for [facility]. Patient was seen by Dr. Robbins today (see office notes). Per Dr. Rosenthal for treatment today. VAD accessed. Chemotherapy/Immunotherapy agents: [facility] Consent for chemotherapy drug treatment complete, [...] Description 10/18/2023 8:45 AM EDT Imaging Radiology [address] [place] [address] 10/19/2023 2:00 PM EDT Cardiac Studies Cardiac Studies, [address] [place] [address] 10/23/2023 8:45 AM EDT Imaging Radiology [address] [facility] [place] [address] 10/31/2023 8:10 AM EDT Laboratory Laboratory [facility] [place] [address] [place] [phone] Arianna, Lab [facility] [address] [facility] [place] [address] 10/31/2023 9:00 AM EDT Hem/Onc Treatment Hematology/Oncology Treatment, [place] [address] [facility] [place] [phone] Arianna, Chair 1 Hem Onc Scenery [address] [place] [address] 11/03/2023 9:45 AM EDT Pharmacy Pharmacy Hematology Oncology [facility] [address] [place] [address] [facility] Hem/Onc [address] [place] [address] 11/14/2023 2:00 PM EDT Office Visit Otolaryngology [facility] [address] [place] [address] Amisha Joseph PA-C [address] [place] [address] 11/21/2023 8:00 AM EDT Laboratory Laboratory [facility] [place] [address] [place] [phone] Arianna Lab Scenery [address] [place] [address] 11/21/2023 9:00 AM EDT [facility] [address] [place], [place] [phone] Arianna, Chair 5 Hem Onc Scenery [address] [place], [place] [address] 12/12/2023 1:10 PM EDT Laboratory Laboratory [facility] Arianna [place] [address] [place] [phone] Arianna Lab Scenery [address] [place], [place] [address] 12/12/2023 1:45 PM EDT Office Visit Hematology/Oncology [facility] [place] [address] [place] [phone] Ruddy Robbins MD [address] [place] [address] 12/12/2023 2:15 PM EDT Hem/Onc Treatment Hematology/Oncology Treatment, [place] [address] [facility] [place] [phone] Arianna, Chair 7 Hem Onc Scene 200 [facility] [address] 03/20/2024 1:45 PM EST Office Visit Neurosurgery, [place] [address] [place] [address] Lorenzo Gallardo MD [address] [place], [place] [phone] 10/07/2024 1:30 PM EDT Office Visit Allergy/Immunology [facility] [place] [address] [place] [address] Alexandru Mcelroy MD [address] [place] [address] Scheduled Procedures Name Priority Associated Diagnoses Date/Ti [...] this encounter Medical Devices Implanted Type Area Elderly Sitter Device Identifier Shelf Expiration Date Model / Serial / Lot Cement Hv-R C01a - [id number] Implanted:Qty: 1 on 08/20/2021 by [place] Gallardo [place] [facility]: Spine Thoracic [employer] : NEURO CARE 04/30/2024 C01A / / [id number] Port Implant W/8f Poly Cath - [id number] Implanted:Qty: 1 on 09/03/2021 by Blayne Villegas MD at OR [facility] Left: Chest CR BARD : PERIPHERAL VASCULAR [id number] 07/29/2022 [id number] / / [id number] 5.0x40 Trammell Screw Implanted:Qty: 3 on 03/25/2022 by Lorenzo Gallardo MD [place] [facility] [place]MAR : SPINE [id number] / / 5.0x45 Trammell Screw Implanted:Qty: 4 on 03/25/2022 by Lorenzo Gallardo MD [place] [facility] [place]MAR : SPINE [id number] / / Spineology E Mesh Implanted:Qty: 1 on 03/25/2022 by Lorenzo Gallardo MD [place] [facility] [employer] 06/29/2024 [id number] / / [id number] Vitoss Bimodal Foam Pack 10cc - [id number] Implanted:Qty: 1 on 03/25/2022 by Lorenzo Gallardo MD [place] [facility] [place]MAR : SPINE [id number] 08/27/20230 / / [id number] Vitoss Bimodal Foam Pack 10cc - [id number] Implanted:Qty: 1 on 03/25/2022 by Lorenzo Gallardo MD [place] [facility] [place]MAR : SPINE [id number] 08/27/20231909 / / [id number] Vitoss Bimodal Foam Pack 10cc - [id number] Implanted:Qty: 1 on 03/25/2022 by Lorenzo Gallardo MD [place] [facility] [place]MAR : SPINE [id number] 08/27/20231909 / / [id number] Vitoss Bimodal Foam Pack 10cc - [id number] Implanted:Qty: 1 on 03/25/2022 by Lorenzo Gallardo MD [place] [facility] [place]MAR : SPINE [id number] 08/27/20231909 / / [id number] Connector Crosslink 43 To 54 - [id number] Implanted:Qty: 1 on 03/25/2022 by Lorenzo Gallardo MD [place] [facility] [place]MAR : SPINE [id number] / / Tube Preflld Allogrft Diverted - [id number] Implanted:Qty: 1 on 03/25/2022 by Lorenzo Gallardo MD at [place] [facility] [employer] 11/19/2023 [id number] / / Tube Preflld Allogrft Diverted - [id number] Implanted:Qty: 1 on 03/25/2022 by Lorenzo Gallardo MD at [place] [facility] [employer] 11/18/2024 [id number] / / Tube Preflld Allogrft Diverted - [id number] Implanted:Qty: 1 on 03/25/2022 by Lorenzo Gallardo MD at [place] [facility] [employer] 11/18/2024 [id number] / / Vitoss Bimodal Foam Pack 10cc - [id number] Implanted:Qty: 1 on 03/25/2022 by Lorenzo Gallardo MD [place] [facility] [place]MAR : SPINE [id number] 08/27/20232101- 0 / / [id number] Tube Preflld Allogrft Diverted - [id number] Implanted:Qty: 4 on 03/25/2022 by Lorenzo Gallardo MD at [place] [facility] [employer] 11/19/2023 [id number] / / Screw Set [id number] - [id number] Implanted:Qty: 6 on 03/25/2022 by Lorenzo Gallardo MD at [place] [facility] [place]MAR : SPINE [id number] / / 3.5x14 Screw Implanted:Qty: 6 on 03/25/2022 by Lorenzo Gallardo MD [place] [facility] [place]MAR : SPINE [id number] / / 4.0/5.3o198to Transition Juan Implanted:Qty: 2 on 03/25/2022 by Lorenzo Gallardo MD [place] [facility] DELMAR : SPINE [id number] / / Screw Ludmila Stella 3 Ti Set - [id number] Implanted:Qty: 11 on 03/25/2022 by Lorenzo Gallardo MD at [place] [facility] [place] : SPINE [id number] / / 5.0x30 Trammell Screw Implanted:Qty: 2 on 03/25/2022 by Lorenzo Gallardo MD [place] [facility] [place]MAR : SPINE [id number] / / 5.0x35 Trammell Screw Implanted:Qty: 2 on 03/25/2022 by Lorenzo Gallardo MD [place] [facility] [place]MAR : SPINE [id number] / / Tube Ventilation Briggs [id number] - [id number] - [id number] Implanted:Qty: 1 on 03/02/2023 by Cem Ly DO at OR [facility] Right: [employer] 12/21/2031 [id number] / [id number] / [id number] documented as of this encounter Visit Diagnoses [...] ONCE PRN Other, Hypersensitivity Reaction, Starting on Mon10/10/23 at 0826, Until Mon10/11/23 at 0825, For 24 hours EPINEPHrine 1 MG/ML inj 0.3 mg 0.3 mg, Intramuscular, ONCE PRN Other, Hypersensitivity Reaction or Anaphylaxis, Starting on Mon10/10/23 at 0826, Until Mon10/11/23 at 0825, For 24 hours hEParin 100 UNIT/ML Lock Flush inj 500 Units 500 Units (5 mL), IV Lock, PRN Other, IV Flush, Starting on Mon10/10/23 at 0826, Until Mon10/11/23 at 0825, For 24 hours, Do not flush if lock, PICC, or central line not in place; IV infusing or unable to flush. Hydrocortisone Sod Suc (PF) (Solu-Cortef) inj 100 mg 100 mg, IV Push, ONCE PRN Other, Hypersensitivity Reaction, Starting on Mon10/10/23 at 0826, Until Mon10/11/23 at 0825, For 24 hours NSS infusion 500 mL, Intravenous, at 50 mL/hr Administer over 10 Hours, CONTINUOUS, Starting on Mon10/10/23 at 0930, Until Mon10/10/23 at 1929 Start Infusion 10/10/2023 8:38 AM EDT 500 mL 50 mL/hr sodium chloride 0.9 % flush central line 10 mL 10 mL, IV Push, PRN Other, IV Flush, Starting on Mon10/10/23 at 0826, Until Mon10/11/23 at 0825, For 24 hours, Do not flush if lock, PICC, or central line not in place; IV infusing or unable to flush. Inactive Administered Medications - up to 3 [...] Given 10/10/2023 8:41 AM EDT 25 mg Trastuzumab-anns (Kanjinti) 587 [...] Directives occurred with: Not Discussed Care Teams Meteorology Faculty Member Relationship Specialty Start Date End Date Aleksandr Parker MD [address] [facility] [place] [address] PCP - General 06/27/02 documented as of this encounter
--- OUTSIDE RECORDS SUMMARY | 2023-12-22 05:21 | External Medical Summary ---
Author Name Unknown Address Unknown Organization [facility] [place] [address] Laboratory Report Ordering Provider Test Date Status SYLVIA FROST 10/10/2023 07:44:48 Final Observation Date Value Abnormality Reference (Units ) Status WBC, Total 10/10/2023 07:44:48 6.12 4.00-10.8 0 (K/uL) Final RBC 10/10/2023 07:44:48 3.92 3.85-5.15 (M/uL) Final Hemoglobin 10/10/2023 07:44:48 13.4 12.0-15.3 (g/dL) Final HCT 10/10/2023 07:44:48 38.9 36.0-45.2 (%) Final MCV 10/10/2023 07:44:48 99.2 81.5-97.5 (fL) Final MCH 10/10/2023 07:44:48 34.2 27.0-34.0 (pg) Final MCHC 10/10/2023 07:44:48 34.4 32.0-36.0 (g/dL) Final RDW 10/10/2023 07:44:48 15.8 11.5-15.5 (%) Final Platelets 10/10/2023 07:44:48 240 140-400 (K /uL) Final MPV 10/10/2023 07:44:48 9.6 6.6-11.1 ( fL) Final Performing Location [facility] [place] [address]
--- OUTSIDE RECORDS SUMMARY | 2023-12-22 05:21 | External Medical Summary ---
Author Name Unknown Address Unknown Organization [facility] [place] [address] Laboratory Report Ordering Provider Test Date Status SYLVIA FROST 10/10/2023 07:44:48 Final Observation Date Value Abnormality Reference (Units ) Status Phosphate 10/10/2023 07:44:48 3.1 2.5-4.8 (m g/dL) Final Performing Location [facility] [place] [address]
--- OUTSIDE RECORDS SUMMARY | 2023-12-22 05:22 | External Medical Summary | Summary of Care ---
Author Name Unknown Organization [facility] Address [address] [place] [address] Phone [phone] Care Team Providers Care Apparel Embroidery Digitizer Name Role Phone Aleksandr Parker MD Primary Care Provider +1- [phone] Reason for Visit * Reason Comments Chemotherapy Kanjinti. 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) Encounter for antineoplastic chemotherapy Procedures OR INJ., KANJINTI, 10 MG Ruddy Robbins MD [address] [place], [place] [address] Anc Hem/Onc Norma Keller DEPT CLOSED - 03/14/23 200 [facility] [place] [address] Referral ID Status Reason Start Date Expiration Date V isits Requested Visits Authorized [id number] Authorized 04/28/2023 10/24/2023 999 99 Encounter Details Date Type Department Care Team (Latest Contact Info) Description 09/19/2023 9:00 AM EDT Hem/Onc Treatment Hematology/Oncolog y Treatment, [place] [address] [place] [address] Arianna, Chair 11 Hem Onc [address] 200 [facility] [place] [address] 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 breast in female, estrogen receptor positive (HCC)*; Cancer, metastatic to bone (HCC); 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); Encounter for antineoplastic chemotherapy Allergies Active Allergy Reactions Criticality Noted Date Comments Sulfa Antibiotics 05/14/1999 rash documented as of this encounter (statuses as of 10/05/2023) Medications Medication Sig Dispensed Refills Start Date [...] (FREQUENCY CHANGE) 56 Tablet 5 04/03/2023 Active Capecitabine 500 MG Oral Tablet (Xeloda)Indications: Primary [...] 07/07/2023 Active Capecitabine 500 MG Oral Tablet (Xeloda)Indications: 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 For 7 days followed by 7-day rest period. Take within 30 minutes of meal. Do not crush or cut.. 112 Tablet 5 08/29/2023 Active Ipratropium [facility] 0.03 % Nasal Solution (Atrovent) Administer 2 [...] dose 250mg). 120 Tablet 5 09/11/2023 Active Diphenoxylate-Atropi ne 2.5-0.025 MG Oral Tablet (Lomotil)Indications :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 breast in female, estrogen receptor positive (HCC) Take 1 Tablet by mouth 4 times a day as needed for Diarrhea. 30 Tablet 06/12/2023 4 Discontinu ed(Refill) Clobetasol Propionate 0.05 % External Cream (Temovate) Apply topically to affected area 2 times a day. 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 Pathologic fracture of thoracic vertebrae documented as of this encounter (statuses as of 10/05/2023) Resolved Problems Problem Noted Date Diagnosed Date [...] inactive term ACUTE SINUSITIS NOS 04/04/2000 09/11/19 Unspecified viral infection, in conditions classified elsewhere and of unspecified site 04/04/2000 09/11/2003 ALLERGIC RHINITIS NOS 04/04/20002014 Dyspnea and respiratory abnormality 04/04/2000 09/11/2003 Overview: ICD-10 update of inactive term documented as of this encounter (statuses as of 10/05/2023) Immunizations Name Administration Dates Next Due COVID-19 [...] Sign Reading Time Taken Comments Blood Pressure 119/69 09/19/2023 8:35 AM EDT Pulse 89 09/19/2023 8:35 AM EDT Temperature 36.1 C (97 F) 09/19/2023 8:35 AM EDT Respiratory Rate 18 09/19/2023 8:35 AM EDT Oxygen Saturation 95% 09/19/2023 8:35 AM EDT Inhaled Oxygen Concentration - - Weight 99.6 kg (219 lb 9.6 oz) 09/19/2023 8:35 A M EDT Height - - Body Mass Index 33.48 08/08/2023 9:46 AM EDT documented in this encounter Functional Status [...] Nursing Notes * Ashley Kaminski RN - 09/19/2023 10:27 AM EDT Goals: Patient will remain free from injury. Possible barriers to meeting goals: Fall risk d/t ambulation with IV pole. Stability of the patient: Moderately stable - low risk of patient condition declining or worsening Summary regarding today's goals: Met: Patient remained free of injury. Patient tolerated infusion well. Discharged in stable condition. * Ashley Kaminski RN - 09/19/2023 9:56 AM EDT Chair 5. Patient arrived for [facility]. States that her feet are feeling much better, still has some pain in them but the cracking and peeling have gotten better. She is wondering about restarting her xeloda, made pharmacist and Dr. Robbins aware, they are discussing and will let patient know. VAD accessed. Chemotherapy/Immunotherapy agents: Kanjinti. Consent for chemotherapy drug treatment complete, dated, and signed? yes, date - 09/02/21 Treatment lab parameters met? Yes Has treatment weight changed > than 10%? No Treatment preauthorized? Yes VITALS Filed Vitals: 09/19/23 0835 BP: 119/69 Pulse: 89 Resp: 18 Temp: 36.1 C (97 F) TempSrc: Tympanic SpO2: 95% Weight: 99.6 kg (219 lb 9.6 oz) Urine protein: N/A Patient education completed [...] side effects during treatment. PRE-TREATMENT ASSESSMENT: NEURO: denies symptoms CV/RESP: denies symptoms GI/: denies symptoms OTHER: skin changes:see above note. PAIN: 1-2 pain location : feet. Safety and Risk for Injury Patient will remain free from injury. Ensure appropriate safety devices are available. Provide and maintain safe environment. documented in this encounter Plan of Treatment Upcoming Encounters Date Type Department Care Team (Late st Contact Info) Description 10/06/2023 9:45 AM EDT Pharmacy Pharmacy Hematology Oncology [facility] [address] [place] [address] [facility] Hem/Onc [address] [place] [address] 10/06/2023 12:00 PM EDT Office Visit Allergy/Immunology [facility] Arianna [place] [address] [place] [address] Alexandru Mcelroy MD [address] [place] [address] 10/10/2023 7:40 AM EDT Laboratory Laboratory [facility] [place] [address] [place] [phone] Arianna, Lab [facility] 200 [facility] [place] [address] 10/10/2023 8:15 AM EDT Office Visit Hematology/Oncology [facility] [place] [address] [place] [phone] Ruddy Robbins MD [address] [place] [address] 10/10/2023 8:45 AM EDT Hem/Onc Treatment Hematology/Oncology Treatment, [place] [address] [place], [place] [phone] Arianna, Chair 2 Hem Onc [facility] 200 [facility] [place] [address] 10/18/2023 8:45 AM EDT Imaging Radiology [facility] [address] [facility], [place] [address] [facility] [place] [address] 10/19/2023 2:00 PM EDT Cardiac Studies Cardiac Studies, [facility] [address] [facility] [place] [address] 10/23/2023 8:45 AM EDT Imaging Radiology [facility] 1st [facility] [address] [place] [address] 11/14/2023 2:00 PM EDT Office Visit Otolaryngology [facility] [address] [place] [address] Amisha Joseph PA-C [address] [place] [address] 03/20/2024 1:45 PM EST Office Visit Neurosurgery, [place] [address] [place] [address] Lorenzo Gallardo MD [address] [place] [address] Scheduled Procedures Name Priority Associated Diagnoses Date/Ti [...] this encounter Medical Devices Implanted Type Area Serging Machine Operator Device Identifier Shelf Expiration Date Model / Serial / Lot Cement Hv-R C01a - [id number] Implanted:Qty: 1 on 08/20/2021 by Lorenzo Gallardo MD at [place] [facility] N/A: Spine Thoracic [employer] : NEURO CARE 04/30/2024 C01A / / [id number] Port Implant W/8f Poly Cath - [id number] Implanted:Qty: 1 on 09/03/2021 by Blayne Villegas MD at OR [facility] Left: Chest CR BARD : PERIPHERAL VASCULAR [id number] 07/29/2022 [id number] / / [id number] 5.0x40 Trammell Screw Implanted:Qty: 3 on 03/25/2022 by Lorenzo Gallardo MD at OR [facility] DELMAR : SPINE [id number] / / 5.0x45 Trammell Screw Implanted:Qty: 4 on 03/25/2022 by Lorenzo Gallardo MD at OR [facility] DELMAR : SPINE [id number] / / Spineology E Mesh Implanted:Qty: 1 on 03/25/2022 by Lorenzo Gallardo MD at OR [facility] [employer] 06/29/2024 330-2004 / / [id number] Vitoss Bimodal Foam Pack 10cc - [id number] Implanted:Qty: 1 on 03/25/2022 by Lorenzo Gallardo MD at OR [facility] DELMAR : SPINE [id number] 08/27/20231909 / / [id number] Vitoss Bimodal Foam Pack 10cc - [id number] Implanted:Qty: 1 on 03/25/2022 by Lorenzo Gallardo MD at OR [facility] DELMAR : SPINE [id number] 08/27/20231909 / / [id number] Vitoss Bimodal Foam Pack 10cc - [id number] Implanted:Qty: 1 on 03/25/2022 by Lorenzo Gallardo MD at OR [facility] DELMAR : SPINE [id number] 08/27/20231909 / / [id number] Vitoss Bimodal Foam Pack 10cc - [id number] Implanted:Qty: 1 on 03/25/2022 by Lorenzo Gallardo MD at OR [facility] DELMAR : SPINE [id number] 08/27/20231909 / / [id number] Connector Crosslink 43 To 54 - [id number] Implanted:Qty: 1 on 03/25/2022 by Lorenzo Gallardo MD at OR [facility] DELMAR : SPINE [id number] / / Tube Preflld Allogrft Diverted - [id number] Implanted:Qty: 1 on 03/25/2022 by Lorenzo Gallardo MD at OR [facility] [employer] 11/19/2023 [id number] / / Tube Preflld Allogrft Diverted - [id number] Implanted:Qty: 1 on 03/25/2022 by Lorenzo Gallardo MD at OR [facility] [employer] 11/18/2024 [id number] / / Tube Preflld Allogrft Diverted - [id number] Implanted:Qty: 1 on 03/25/2022 by Lorenzo Gallardo MD at OR [facility] [employer] 11/18/2024 [id number] / / Vitoss Bimodal Foam Pack 10cc - [id number] Implanted:Qty: 1 on 03/25/2022 by Lorenzo Gallardo MD at OR [facility] DELMAR : SPINE [id number] 08/27/2023 2102- 1910 / / [id number] Tube Preflld Allogrft Diverted - [id number] Implanted:Qty: 4 on 03/25/2022 by Lorenzo Gallardo MD at OR [facility] [employer] 11/19/2023 [id number] / / Screw Set [id number] - [id number] Implanted:Qty: 6 on 03/25/2022 by Lorenzo Gallardo MD at OR [facility] DELMAR : SPINE [id number] 1 / / 3.5x14 Screw Implanted:Qty: 6 on 03/25/2022 by Lorenzo Gallardo MD at OR [facility] DELMAR : SPINE [id number] 4 / / 4.0/[id number] Transition Juan Implanted:Qty: 2 on 03/25/2022 by Lorenzo Gallardo MD at OR [facility] DELMAR : SPINE [id number] 00 / / Screw Ludmila Stella 3 Ti Set - [id number] Implanted:Qty: 11 on 03/25/2022 by Lorenzo Gallardo MD at OR [facility] DELMAR : SPINE [id number] / / 5.0x30 Trammell Screw Implanted:Qty: 2 on 03/25/2022 by Lorenzo Gallardo MD at OR [facility] DELMAR : SPINE [id number] / / 5.0x35 Trammell Screw Implanted:Qty: 2 on 03/25/2022 by Lorenzo Gallardo MD at OR [facility] DELMAR : SPINE [id number] / / Tube Ventilation Briggs [id number] - [id number] - [id number] Implanted:Qty: 1 on 03/02/2023 by Cem Ly DO at OR [facility] Right: Ear [employer] 12/21/2031 [id number] / [id number] / [id number] documented as of this encounter Visit Diagnoses [...] 650 mg 650 mg, Oral, ONCE, On Mon09/19/23 at 0945, For 1 dose, Maximum of 4 grams (4000 mg) per day. Given 09/19/2023 8:50 AM EDT 650 mg diphenhydrAMINE (Benadryl) cap 25 mg 25 mg, Oral, ONCE, On Mon09/19/23 at 0945, For 1 dose Given 09/19/2023 8:50 AM EDT 25 mg hEParin 100 UNIT/ML Lock Flush inj 500 Units 500 Units (5 mL), IV Lock, PRN Other, IV Flush, Starting on Mon09/19/23 at 0837, Until Mon09/19/23 at 1030, For 24 hours, Do not flush if lock, PICC, or central line not in place; IV infusing or unable to flush. Given 09/19/2023 10:17 AM EDT 500 Units NSS infusion 500 mL, Intravenous, at 50 mL/hr, CONTINUOUS, Starting on Mon09/19/23 at 0945, Until Mon09/19/23 at 1030 Start Infusion 09/19/2023 8:50 AM EDT 500 mL 50 mL/hr sodium chloride 0.9 % flush central line 10 mL 10 mL, IV Push, PRN Other, IV Flush, Starting on Mon09/19/23 at 0837, Until Mon09/19/23 at 1030, For 24 hours, Do not flush if lock, PICC, or central line not in place; IV infusing or unable to flush. Given 09/19/2023 10:17 AM EDT 10 mL Trastuzumab-anns (Kanjinti) 587 mg in NSS 250 mL infusion 587 mg (rounded from 587.4 mg = 6 mg/kg 97.9 kg Treatment plan Recorded weight), IV Piggyback, ONCE, 1 dose, On Mon09/19/23 at 1015, Administer over 30 Minutes Start Infusion 09/19/2023 9:44 AM EDT 587 mg 550 mL/hr documented in this encounter Advance Directives [...] Directives occurred with: Not Discussed Care Teams Apparel Embroidery Digitizer Relationship Specialty Start Date End Date Aleksandr Parker MD [address] [place] [facility] [address] PCP - General 06/27/02 documented as of this encounter
--- OUTSIDE RECORDS SUMMARY | 2023-12-22 05:22 | External Medical Summary | Summary of Care ---
Author Name Unknown Organization [facility] Address [address] [place] [address] Phone [phone] Care Team Providers Care Airport Clerk Name Role Phone Aleksandr Parker MD Primary Care Provider +1- [phone] Reason for Visit * Reason Comments Chemotherapy Kanjinti. 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) Encounter for antineoplastic chemotherapy Procedures MD INJ., KANJINTI, 10 MG Ruddy Robbins MD [address] [place], [place] [address] Anc Hem/Onc Norma Keller DEPT CLOSED - 03/14/23 200 [facility] [place] [address] Referral ID Status Reason Start Date Expiration Date V isits Requested Visits Authorized [id number] Authorized 04/28/2023 10/24/2023 999 99 Encounter Details Date Type Department Care Team (Latest Contact Info) Description 09/19/2023 9:00 AM EDT Hem/Onc Treatment Hematology/Oncolog y Treatment, [place] [address] [place] [phone] Arianna, Chair 11 Hem Onc [address] 200 [facility] [place] [address] 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 [...] cut.. 112 Tablet 5 08/29/2023 Active Ipratropium [place] 0.03 % Nasal Solution (Atrovent) Administer 2 [...] 05/25/2018:Stage IA(pT1a, pN0, cM0, G2, ER: Positive, MD: Negative, HER2: Positive) - Signed by Ruddy [...] AM EDT Chair 5. Patient arrived for [facility]. States that her feet are feeling [...] 9:45 AM EDT Pharmacy Pharmacy Hematology Oncology [facility] [address] [place] [address] [facility] Hem/Onc [address] [place] [address] 10/06/2023 12:00 PM EDT Office Visit Allergy/Immunology [facility] Arianna [place] [address] [place] [address] Alexandru Mcelroy MD [address] [place] [address] 10/10/2023 7:40 AM EDT Laboratory Laboratory [facility] [place] [address] [place] [phone] Arianna, Lab [facility] 200 [facility] [place] [address] 10/10/2023 8:15 AM EDT Office Visit Hematology/Oncology [facility] [place] [address] [place] [phone] Ruddy Robbins MD [address] [place] [address] 10/10/2023 8:45 AM EDT Hem/Onc Treatment Hematology/Oncology Treatment, [place] [address] [place], [place] [phone] Arianna, Chair 2 Hem Onc [facility] 200 [facility] [place] [address] 10/18/2023 8:45 AM EDT Imaging Radiology [facility] [address] [facility], [place] [address] [facility] [place] [address] 10/19/2023 2:00 PM EDT Cardiac Studies Cardiac Studies, [facility] [address] [facility] [place] [address] 10/23/2023 8:45 AM EDT Imaging Radiology [facility] 1st [facility] [address] [place] [address] 11/14/2023 2:00 PM EDT Office Visit Otolaryngology [facility] [address] [place] [address] Amisha Joseph PA-C [address] [place] [address] 03/20/2024 1:45 PM EST Office Visit Neurosurgery, [place] [address] [place] [address] Lorenzo Gallardo MD [address] [place] [address] Scheduled Procedures Name Priority Associated Diagnoses Date/Ti [...] Medical Devices Implanted Type Area High School Vice Principal Device Identifier Shelf Expiration Date Model / Serial / Lot Cement Hv-R C01a - [id number] Implanted:Qty: 1 on 08/20/2021 by Lorenzo Gallardo MD [place] [facility] N/A: Spine Thoracic [employer] : NEURO CARE 04/30/2024 C01A / / [id number] Port Implant W/8f Poly Cath - [id number] Implanted:Qty: 1 on 09/03/2021 by Blayne Villegas MD at OR [facility] Left: Chest CR BARD : PERIPHERAL VASCULAR [id number] 07/29/2022 [id number] / / [id number] 5.0x40 Trammell Screw Implanted:Qty: 3 on 03/25/2022 by Lorenzo Gallardo MD at [place] [facility] DELMAR : SPINE [id number] / / 5.0x45 Trammell Screw Implanted:Qty: 4 on 03/25/2022 by Lorenzo [place] MD at [place] [facility] DELMAR : SPINE [id number] / / Spineology E Mesh Implanted:Qty: 1 on 03/25/2022 by Lorenzo Gallardo MD at [place] [facility] [employer] 06/29/2024 330-2004 / / [id number] Vitoss Bimodal Foam Pack 10cc - [id number] Implanted:Qty: 1 on 03/25/2022 by Lorenzo Gallardo MD at [place] [facility] DELMAR : SPINE [id number] 08/27/20231909 / / [id number] Vitoss Bimodal Foam Pack 10cc - [id number] Implanted:Qty: 1 on 03/25/2022 by Lorenzo Gallardo MD at [place] [facility] DELMAR : SPINE [id number] 08/27/20231909 / / [id number] Vitoss Bimodal Foam Pack 10cc - [id number] Implanted:Qty: 1 on 03/25/2022 by Lorenzo Gallardo MD at [place] [facility] DELMAR : SPINE [id number] 08/27/20231909 / / [id number] Vitoss Bimodal Foam Pack 10cc - [id number] Implanted:Qty: 1 on 03/25/2022 by Lorenzo Gallardo MD at [place] [facility] DELMAR : SPINE [id number] 08/27/20231909 / / [id number] Connector Crosslink 43 To 54 - [id number] Implanted:Qty: 1 on 03/25/2022 by Lorenzo Gallardo MD at [place] [facility] DELMAR : SPINE [id number] / / Tube Preflld Allogrft Diverted - [id number] Implanted:Qty: 1 on 03/25/2022 by Loernzo Gallardo MD at [place] [facility] [employer] 11/19/2023 [id number] / / Tube Preflld Allogrft Diverted - [id number] Implanted:Qty: 1 on 03/25/2022 by Lorenzo Gallardo MD at [place] [facility] [employer] 11/18/2024 [id number] / / Tube Preflld Allogrft Diverted - [id number] Implanted:Qty: 1 on 03/25/2022 by Lorenzo Gallardo MD at [place] [facility] [employer] 11/18/2024 [id number] / / Vitoss Bimodal Foam Pack 10cc - [id number] Implanted:Qty: 1 on 03/25/2022 by Lorenzo Gallardo MD at [place] [facility] DELMAR : SPINE [id number] 08/27/2023 2102- 1910 / / [id number] Tube Preflld Allogrft Diverted - [id number] Implanted:Qty: 4 on 03/25/2022 by Lorenzo Gallardo MD at [place] [facility] [employer] 11/19/2023 [id number] / / Screw Set [id number] - [id number] Implanted:Qty: 6 on 03/25/2022 by Lorenzo Gallardo MD at [place] [facility] DELMAR : SPINE [id number] 1 / / 3.5x14 Screw Implanted:Qty: 6 on 03/25/2022 by Lorenzo Gallardo MD at [place] [facility] DELMAR : SPINE [id number] 4 / / 4.0/5.2o765xm Transition Juan Implanted:Qty: 2 on 03/25/2022 by Lorenzo Gallardo MD at [place] [facility] DELMAR : SPINE [id number] 00 / / Screw Ludmila Stella 3 Ti Set - [id number] Implanted:Qty: 11 on 03/25/2022 by Lorenzo Gallardo MD at [place] [facility] DELMAR : SPINE [id number] / / 5.0x30 Trammell Screw Implanted:Qty: 2 on 03/25/2022 by Lorenzo Gallardo MD at [place] [facility] DELMAR : SPINE [id number] / / 5.0x35 Trammell Screw Implanted:Qty: 2 on 03/25/2022 by Lorenzo Gallardo MD at [place] [facility] DELMAR : SPINE [id number] / / Tube Ventilation Briggs [id number] - [id number] - [id number] Implanted:Qty: 1 on 03/02/2023 by Cem Ly DO at OR [facility] Right: Ear [employer] SHE INC 12/21/2031 [id number] / [id number] / [id number] documented as of this encounter Visit Diagnoses [...] Directives occurred with: Not Discussed Care Teams Airport Clerk Relationship Specialty Start Date End Date Aleksandr Parker MD [address] [place] [address] PCP - General 06/27/02 documented as of this encounter
--- OUTSIDE RECORDS SUMMARY | 2023-12-22 05:22 | External Medical Summary | Summary of Care ---
Author Name Unknown Organization [facility] Address [address] [place] [address] Phone [phone] Care Team Providers Care Marketing Sales Representative Name Role Phone Aleksandr Parker MD Primary Care Provider [phone] Reason for Visit * Reason Comments Allergy Return Encounter Details Date Type Department Care Team (Late st Contact Info) Description 10/06/2023 12:00 PM EDT Office Visit Allergy/Immunology [facility] [address] [facility] [place] [address] Alexandru Mcelroy MD [address] [place] [address] Mild persistent asthma without complication*; Chronic maxillary sinusitis; LPRD (laryngopharyngeal reflux disease); Nonallergic rhinitis; Gustatory rhinitis Allergies Active Allergy Reactions Criticality Noted Date [...] Information Patient not taking.Reported on 10/06/2023 Ipratropium [place] 0.03 % Nasal Solution (Atrovent) Administer 2 [...] 05/25/2018:Stage IA(pT1a, pN0, cM0, G2, ER: Positive, DE: Negative, HER2: Positive) - Signed by Ruddy [...] mRNA, LNP-s, No Pre serve, 2-Dose Series (Jumbas) 02/03/2021,07/08/2020,06/10/2020 COVID-19, MRNA-LNP, 23-24, P F, 30 [...] Sign Reading Time Taken Comments Blood Pressure 128/78 10/06/2023 12:08 PM EDT Pulse 95 10/06/2023 12:08 PM EDT Temperature 36.6 C (97.9 F) 10/06/2023 1 2:08 PM EDT Respiratory Rate 18 10/06/2023 12:0 8 PM EDT Oxygen Saturation 98% 10/06/2023 12: 08 PM EDT Inhaled Oxygen Concentration - - Weight 100.2 kg (220 lb 14.4 oz) 2023 12:08 PM EDT Height 172.5 cm (5' 7.91") 10/06/2023 1 2:08 PM EDT Body Mass Index 33.68 10/06/2023 12:08 PM EDT documented in this [...] No 08/20/2021 documented as of this encounter Patient Instructions * Patient Instructions* Alexandru Mcelroy MD - 10/06/2023 12:11 PM EDT Nonallergic Trigger Avoidance Measures: Do not smoke, no smoking allowed in house or vehicles; avoid wood, coal burning stoves , and kerosene heaters; avoid strong smelling perfumes and perfumed cosmetics; do not use incense, potpourri, or scented candles, air fresheners in the home; avoid chemicalodors and weather changes (abrupt changes in temperature and humidity). If unavoidable, use a HEPA air-cleaning device. documented in this encounter Progress Notes * Alexandru Mcelroy MD - 10/06/2023 12:11 PM EDT SUBJECTIVE: Lola is here today for follow-up of her nonallergic rhinitis, chronic sinusitis, laryngeal pharyngeal reflux and mild persistent asthma. Overall she notes that she has been doing relatively well. She does note increased postnasal drip as of recently over the course of the last month. She does continue on ipratropium nasal spray 2 sprays each nostril twice daily in addition to Flonase Sensimist 2sprays each nostril once daily. She will also utilize normal saline sinus rinses on a daily basis. This helps her overall. She believes that there is irritation from the excessive high pollen counts that may be contributing to her postnasal drip. She does report increased rhinorrhea and postnasal drip immediately after eating her lunch and dinner. In regards to her asthma, this has been under good control. She continues on Asmanex 220 mcg 2 puffs twice daily and with use of Flovent in addition to her singular 10 mg daily, she rarely needs her albuterol. There have been no ER visits nor urgent care visits from a pulmonary standpoint. She has not had any flare-ups. She reports no nocturnal respiratory symptoms. Asthma control test obtained on September 29, 2022 revealed a score of 24 which suggests well-controlled asthma. Asthma control test obtained on January 05, 2021 revealed a score of 21 which suggest well controlled asthma. Asthma Control Test Summary, Results are Patient Reported The overall score is: 23 suggesting: Well Controlled asthma for the survey taken on: 06/07/2019 8:03:15 AM. Asthma Control Test Summary, Results are Patient Reported The overall score is: 23 suggesting: Well Controlled asthma for the survey taken on: 09/04/2018 8:20:40 AM. Immunotherapy: Started: 09/03/2009-06/16/2014 Benefit ? Reactions? NO Patient Active Problem List Diagnosis Raynaud's syndrome [...] 1 Capsule by mouth in the morning. famotidine (PEPCID) 20 MG Tablet Take 1 [...] 1 Tablet by mouth in the morning. Prochlorperazine Maleate 10 MG Oral Tablet (Compazine) Take 1 Tablet by mouth every 6 hours as needed for Nausea. 30 Tablet 3 Montelukast Sodium 10 MG Oral Tablet (Singulair) Take 1 Tablet by mouth daily. 90 Tablet 3 Capecitabine 500 MG Oral Tablet (Xeloda) Take [...] and feet twice daily. 228 g 2 Ipratropium [place] 0.03 % Nasal Solution (Atrovent) Administer 2 [...] as needed for Diarrhea. 30 Tablet 0 albuterol (PROVENTIL HFA) 108 (90 BASE) MCG/ACT inhaler Inhale 2 Puffs by mouth every 6 hours as needed for Cough, Shortness of Breath or Wheezing. 3 Inhaler 5 Ferrous Sulfate 325 (65 Fe) MG Oral Tablet Take 1 Tablet by mouth daily with breakfast. (Patient not taking: Reported on 10/06/2023) Xgeva 120 MG/1.7ML Subcutaneous Solution (Denosumab) Inject 120 mg under the skin every 6 weeks. Unsure of dosage Capecitabine 150 MG Oral Tablet (Xeloda) TAKE [...] taking: Reported on 10/06/2023) 112 Tablet 5 No current facility-administered medications for this visit. 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 Social History Main Topics Tobacco Use: Never no passive smoke exposures Alcohol Use: Yes occasion glass wine Social History Narrative [facility] INFORMATION [...] Pets: none [place] farm: No [employer] at [facility]; no occupation related worsening of symptoms. Entered by: Ryan Vazquez MD 04/15/2009 PHYSICAL EXAM: GENERAL: No acute distress. EYES: Conjunctiva- normal; Eyelids - normal EARS: TM's - clear NOSE:Pale mucosa; Mild Inferior turbinate edema; no nasal polyps, no mucopus; Septum - normal OROPHARYNX: Teeth and gums - normal; Mild erythema and cobblestoning; No lesions, exudates NECK: Supple; No thyroid enlargment or cervical adenopathy RESPIRATORY: Clear to A and P; No wheezes; Good air movement bilaterally; No intercostal retractions or accessory muscle use CARDIOVASCULAR: RRR; No gallops, rubs, clicks, or murmurs. LYMPHATIC: No significant adenopathy noted SKIN: No evidence atopic dermatitis; no urticaria or angioedema Normal skin quality OBJECTIVE DATA: Component Latest Ref Rng & Units 07/14/2020September Grass IgE <0.35 kU/L <0.20 Paulino Grass IgE <0.35 kU/L <0.20 Common Ragweed IgE <0.35 kU/L <0.20 Pigweed IgE <0.35 kU/L <0.20 [place] IgE <0.35 kU/L <0.20 Elm IgE <0.35 kU/L <0.20 Mite-Farinae IgE <0.35 kU/L <0.20 Mite-Pteronyssinus IgE <0.35 kU/L <0.20 Alternaria IgE <0.35 kU/L <0.20 Cat Dander IgE <0.35 kU/L <0.20 Dog Epithelium IgE <0.35 kU/L <0.20 Dog Dander IgE <0.35 kU/L <0.20 Cladosporium IgE <0.35 kU/L <0.20 [place] IgE <0.35 kU/L <0.20 IgE 0.0 - 87.0 kU/L 11.0 Penicillium Notatum IgE <0.35 kU/L <0.20 Aspergillus IgE <0.35 kU/L <0.20 Birch IgE <0.35 kU/L <0.20 Allergy skin test preformed on 07/14/2020 were uninterruptable since she was unable to mount an appropriate response to the histamine. Spirometry performed on November 27, 2017 revealed normal spirometry. FEV1/FVC was 80%. FEV1 was 2.87, 88% of predicted. FVC was 3.61, 86% of predicted. Pulmonary function test performed on January 11, 2016 revealed normal spirometry. FEV1/FVC was 78%. FEV1 was 3.04, 89% of predicted. FVC was 3.91, 90% of predicted. Pulmonary function test performed on October 22, 2013 revealed mild obstructive airway disease. FEV1 /FVC was 77%. FEV1 was 3.13, 90% of predicted. FVC was 4.08, 92% of predicted. Peak flow was 405.00,86% of predicted. Pulmonary function tests performed on 10/17/11 revealed essentially normal spirometry. FEV1/FVC was 76% of predicted which is normal for her age. FEV1 was 3.15, 90% of predicted. FVC was 4.18, 94% of predicted. Peak flow was 414.60, 87% of predicted. Allergy skin tests 04-15-09 revealed significant positive reactions noted to dust mites. Pulmonary function tests 04-15-09 with findings consistent with mild small airways obstructive disease. FEF 25-75 was 77% of predicted. No significant improvement in this parameter post beta 2 agonist bronchodilator. FEV1 was 3.07 liters, 91% of predicted. FEV1/FVC ratio was 97% of predicted. Peak flow rate was 376 liters/minute, 92% of predicted. ASSESSMENT : ICD-10-CM 1. Mild persistent asthma without complication J45.30 2. Chronic maxillary sinusitis J32.0 3. LPRD (laryngopharyngeal reflux disease) K21.9 4. Nonallergic rhinitis J31.0 5. 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 We do recommend that she continue with Asmanex 220 mcg 2 puffs twice daily in addition to Singular 10 mg daily. She will continue to rinse out her mouth after each use. She does have albuterol to be used on a as needed basis for any cough, wheeze, or shortness of breath. Should there be any increased frequency of albuterol use, she will contact our office for further management. In regards to her chronic nonallergic rhinitis, we did review the various triggers of nonallergic rhinitis. This includes drastic changes in barometric pressure, drastic changes in temperature, and respiratory irritants such as strong odors, perfumes, colognes, exhaust fumes, and smoke. Most recentserum IgE levels to environmental aeroallergens were negative. For her chronic nonallergic rhinitis, she will continue with Flonase Sensimist 2 sprays each nostril once daily in addition to ipratropium nasal spray. We do recommend that she take her ipratropium nasal spray 2 sprays 3 times daily. She will try to time out taking this nasal spray 30 minutes before lunch and 30 minutes before dinner to see if this provides additional benefit for her gustatory rhinitis. For her laryngopharyngeal reflux disease, I do recommend that she continue with use of Nexium and Pepcid. She will also continue with her workup for her more recent diarrhea that she has been having. Thank you very much for allowing myself to participate in the care of your patient. Please do not hesitate to contact our office should you have any questions or concerns. Alexandru Mcelroy MD Allergy/Immunology I spent a total of 30-39 minutes (exact time 36 mins) on the date of service in preparation, delivery, and documentation of the care provided to Lola Walters excluding any time spent in the performance of separately billed services. (This note was completed using the dictation program Fluency Direct. As such, there may be misspellings, word substitutions, or other variations that should not change the essence of the clinical content of this encounter note.If there is need for further clarification, please direct questions to the provider listed above.) pc: Aleksandr Parker MD documented in this encounter Nursing Notes * Destini Sanchez LPN - 10/06/2023 11:57 AM EDT The pt has been properly identified by confirmation of name and date of . Patient presents forallergy follow up. Patient states post nasal drip ongoing. Patient states following lunch or dinner, hiccups occur, doesn't matter what she eats, states they don't last long. documented in this encounter Plan of Treatment Upcoming Encounters Date Type Department Care Team (Late st Contact Info) Description 10/10/2023 7:40 AM EDT Laboratory Laboratory [facility] [place] [address] [place] [phone] Arianna Lab [facility] [address] [facility] [place] [address] 10/10/2023 8:15 AM EDT Office Visit Hematology/Oncology [facility] [place] [address] [place] [phone] Ruddy Robbins MD [address] [facility] [place] [address] 10/10/2023 8:45 AM EDT Hem/Onc Treatment Hematology/Oncology Treatment, [place] [address] [place] [phone] Arianna, Chair 2 Hem Onc [facility] [address] [facility] [address] 10/18/2023 8:45 AM EDT Imaging Radiology [address] [facility] [place] [address] 10/19/2023 2:00 PM EDT Cardiac Studies Cardiac Studies, [facility] [address] [facility] [place] [address] 10/23/2023 8:45 AM EDT Imaging Radiology [address] [place] [address] 11/14/2023 2:00 PM EDT Office Visit Otolaryngology [facility] [address] [facility] [place] [address] Amisha Joseph PA-C [address] [place] [address] 03/20/2024 1:45 PM EST Office Visit Neurosurgery, [place] [address] [place] [address] Lorenzo Gallardo MD [address] [place] [address] 10/07/2024 1:30 PM EDT [facility] [place] [address] [place] [address] Alexandru Mcelroy MD [address] [facility] [place] [address] Scheduled Procedures Name Priority Associated Diagnoses Date/Ti [...] this encounter Medical Devices Implanted Type Area Commercial Green Building Architect Device Identifier Shelf Expiration Date Model / Serial / Lot Cement Hv-R C01a - [id number] Implanted:Qty: 1 on 08/20/2021 by Lorenzo Gallardo MD at [facility] N/A: Spine Thoracic [employer] : NEURO CARE 04/30/2024 C01A / / [id number] Port Implant W/8f Poly Cath - [id number] Implanted:Qty: 1 on 09/03/2021 by Blayne Villegas MD at OR [facility] Left: Chest CR BARD : PERIPHERAL VASCULAR [id number] 07/29/2022 [id number] / / [id number] 5.0x40 Trammell Screw Implanted:Qty: 3 on 03/25/2022 by Lorenzo Gallardo MD at OR [facility] DELMAR : SPINE [id number] / / 5.0x45 Trammell Screw Implanted:Qty: 4 on 03/25/2022 by Lorenzo Gallardo MD at OR [facility] DELMAR : SPINE [id number] / / Spineology E Mesh Implanted:Qty: 1 on 03/25/2022 by Lorenzo Gallardo MD at OR [facility] [employer] 06/29/2024 [id number] / / [id number] Vitoss Bimodal Foam Pack 10cc - [id number] Implanted:Qty: 1 on 03/25/2022 by Lorenzo Gallardo MD at OR [facility] DELMAR : SPINE [id number] 08/27/20230 / / [id number] Vitoss Bimodal Foam Pack 10cc - [id number] Implanted:Qty: 1 on 03/25/2022 by Lorenzo Gallardo MD at OR [facility] DELMAR : SPINE [id number] 08/27/20230 / / [id number] Vitoss Bimodal Foam Pack 10cc - [id number] Implanted:Qty: 1 on 03/25/2022 by Lorenzo Gallardo MD at OR [facility] DELMAR : SPINE [id number] 08/27/20231909 / / [id number] Vitoss Bimodal Foam Pack 10cc - [id number] Implanted:Qty: 1 on 03/25/2022 by Lorenzo Gallardo MD at OR [facility] DELMAR : SPINE [id number] 08/27/20231909 / / [id number] Connector Crosslink 43 To 54 - [id number] Implanted:Qty: 1 on 03/25/2022 by Lorenzo Gallardo MD at OR [facility] DELMAR : SPINE [id number] / / Tube Preflld Allogrft Diverted - [id number] Implanted:Qty: 1 on 03/25/2022 by Lorenzo Gallardo MD at OR [facility] [employer] 11/19/2023 [id number] / / Tube Preflld Allogrft Diverted - [id number] Implanted:Qty: 1 on 03/25/2022 by Lorenzo Gallardo MD at OR [facility] [employer] 11/18/2024 [id number] / / Tube Preflld Allogrft Diverted - [id number] Implanted:Qty: 1 on 03/25/2022 by Lorenzo Gallardo MD at OR [facility] [employer] 11/18/2024 [id number] / / Vitoss Bimodal Foam Pack 10cc - [id number] Implanted:Qty: 1 on 03/25/2022 by Lorenzo Gallardo MD at OR [facility] DELMAR : SPINE [id number] 08/27/20232101- 0 / / [id number] Tube Preflld Allogrft Diverted - [id number] Implanted:Qty: 4 on 03/25/2022 by Lorenzo Gallardo MD at OR [facility] [employer] 11/19/2023 [id number] / / Screw Set [id number] - [id number] Implanted:Qty: 6 on 03/25/2022 by Lorenzo Gallardo MD at OR [facility] DELMAR : SPINE [id number] / / 3.5x14 Screw Implanted:Qty: 6 on 03/25/2022 by Lorenzo Gallardo MD at OR [facility] DELMAR : SPINE [id number] / / [id number] Transition Juan Implanted:Qty: 2 on 03/25/2022 by Lorenzo Gallardo MD at OR [facility] DELMAR : SPINE [id number] / / Screw Ludmila Stella 3 Ti Set - [id number] Implanted:Qty: 11 on 03/25/2022 by Lorenzo Gallardo MD at OR [facility] DELMAR : SPINE [id number] / / 5.0x30 Trammell Screw Implanted:Qty: 2 on 03/25/2022 by Lorenzo Gallardo MD at OR [facility] DELMAR : SPINE [id number] / / 5.0x35 Trammell Screw Implanted:Qty: 2 on 03/25/2022 by Lorenzo Gallardo MD at OR [facility] DELMAR : SPINE [id number] / / Tube Ventilation Briggs [id number] - [id number] - [id number] Implanted:Qty: 1 on 03/02/2023 by Cem Ly DO at OR [facility] Right: Ear [employer] 12/21/2031 [id number] / [id number] / [id number] documented as of this encounter Visit Diagnoses Diagnosis Mild persistent asthma without complication- Primary Unspecified asthma Chronic maxillary sinusitis LPRD (laryngopharyngeal reflux disease) Other diseases of larynx Nonallergic rhinitis Chronic rhinitis Gustatory rhinitis Chronic rhinitis documented in this encounter Advance Directives * [...] Directives occurred with: Not Discussed Care Teams Marketing Sales Representative Relationship Specialty Start Date End Date Aleksandr Parker MD [address] [place] [address] PCP - General 06/27/02 documented as of this encounter
--- OUTSIDE RECORDS SUMMARY | 2023-12-22 05:22 | External Medical Summary | Summary of Care ---
Author Name Unknown Organization [facility] Address [address] [place] [address] Phone [phone] Care Team Providers Care Smoking Pipe Repairer Name Role Phone Aleksandr Parker MD Primary Care Provider [phone]- [phone] Reason for Visit * Reason Comments Chemotherapy Kanjinti. 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) Encounter for antineoplastic chemotherapy Procedures DC INJ., KANJINTI, 10 MG Ruddy Robbins MD [address] [place], [place] [address] Anc Hem/Onc Norma Keller DEPT CLOSED - 03/14/23 200 [facility] [place] [address] Referral ID Status Reason Start Date Expiration Date V isits Requested Visits Authorized [id number] Authorized 04/28/2023 10/24/2023 999 99 Encounter Details Date Type Department Care Team (Latest Contact Info) Description 09/19/2023 9:00 AM EDT Hem/Onc Treatment Hematology/Oncolog y Treatment, [place] [address] [place] [address] Arianna, Chair 11 Hem Onc [address] 200 [facility] [place] [address] 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 [...] cut.. 112 Tablet 5 08/29/2023 Active Ipratropium [place] 0.03 % Nasal Solution (Atrovent) Administer 2 [...] 05/25/2018:Stage IA(pT1a, pN0, cM0, G2, ER: Positive, DC: Negative, HER2: Positive) - Signed by Ruddy [...] AM EDT Chair 5. Patient arrived for [facility]. States that her feet are feeling [...] 9:45 AM EDT Pharmacy Pharmacy Hematology Oncology [facility] [address] [place] [address] [facility] [place] Hem/Onc [address] [place] [address] 10/06/2023 12:00 PM EDT Office Visit Allergy/Immunology [facility] Arianna [place] [address] [place] [address] Alexandru Mcelroy MD [address] [place] [address] 10/10/2023 7:40 AM EDT Laboratory Laboratory [facility] [place] [address] [place] [phone] Arianna, Lab [facility] [place] [address] 10/10/2023 8:15 AM EDT Office Visit Hematology/Oncology [facility] [place] [address] [place] [phone] Ruddy Robbins MD [address] [place] [address] 10/10/2023 8:45 AM EDT Hem/Onc Treatment Hematology/Oncology Treatment, [place] [address] [place], [place] [phone] Arianna, Chair 2 Hem Onc [facility] [place] [address] 10/18/2023 8:45 AM EDT Imaging Radiology [facility], [place] [address] [facility] [place] [address] 10/19/2023 2:00 PM EDT Cardiac Studies Cardiac Studies, [facility] [address] [facility] [place] [address] 10/23/2023 8:45 AM EDT Imaging Radiology [facility] [address] [facility] [address] [place] [address] 11/14/2023 2:00 PM EDT Office Visit Otolaryngology [facility] [address] [place] [address] Amisha Joseph PA-C [address] [place] [address] 03/20/2024 1:45 PM EST Office Visit Neurosurgery, [place] [address] [place] [address] Lorenzo Gallardo MD [address] [place] [address] Scheduled Procedures Name Priority Associated Diagnoses Date/Ti [...] this encounter Medical Devices Implanted Type Area Rice Dryer Mechanic Device Identifier Shelf Expiration Date Model / Serial / Lot Cement Hv-R C01a - [id number] Implanted:Qty: 1 on 08/20/2021 by Lorenzo Gallardo MD at OR [facility] N/A: Spine Thoracic [employer] : NEURO CARE 04/30/2024 C01A / / [id number] Port Implant W/8f Poly Cath - [id number] Implanted:Qty: 1 on 09/03/2021 by Blayne Villegas MD at OR [facility] Left: Chest CR BARD : PERIPHERAL VASCULAR [id number] 07/29/2022 [id number] / / [id number] 5.0x40 Trammell Screw Implanted:Qty: 3 on 03/25/2022 by Lorenzo Gallardo MD at OR [facility] DELMAR : SPINE [id number] / / 5.0x45 Trammell Screw Implanted:Qty: 4 on 03/25/2022 by Lorenzo Gallardo MD at OR [facility] DELMAR : SPINE [id number] / / Spineology E Mesh Implanted:Qty: 1 on 03/25/2022 by Lorenzo Gallardo MD at OR [facility] [employer] 06/29/2024 330-2004 / / [id number] Vitoss Bimodal Foam Pack 10cc - [id number] Implanted:Qty: 1 on 03/25/2022 by Lorenzo Gallardo MD at OR [facility] DELMAR : SPINE [id number] 08/27/20231909 / / [id number] Vitoss Bimodal Foam Pack 10cc - [id number] Implanted:Qty: 1 on 03/25/2022 by Lorenzo Gallardo MD at OR [facility] DELMAR : SPINE [id number] 08/27/20231909 / / [id number] Vitoss Bimodal Foam Pack 10cc - [id number] Implanted:Qty: 1 on 03/25/2022 by Lorenzo Gallardo MD at OR [facility] DELMAR : SPINE [id number] 08/27/20231909 / / [id number] Vitoss Bimodal Foam Pack 10cc - [id number] Implanted:Qty: 1 on 03/25/2022 by Lorenzo Gallardo MD at OR [facility] DELMAR : SPINE [id number] 08/27/20231909 / / [id number] Connector Crosslink 43 To 54 - [id number] Implanted:Qty: 1 on 03/25/2022 by Lorenzo Gallardo MD at OR [facility] DELMAR : SPINE [id number] / / Tube Preflld Allogrft Diverted - [id number] Implanted:Qty: 1 on 03/25/2022 by Lorenzo Gallardo MD at OR [facility] [employer] 11/19/2023 [id number] / / Tube Preflld Allogrft Diverted - [id number] Implanted:Qty: 1 on 03/25/2022 by Lorenzo Gallardo MD at OR [facility] [employer] 11/18/2024 [id number] / / Tube Preflld Allogrft Diverted - [id number] Implanted:Qty: 1 on 03/25/2022 by Lorenzo Gallardo MD at OR [facility] [employer] 11/18/2024 [id number] / / Vitoss Bimodal Foam Pack 10cc - [id number] Implanted:Qty: 1 on 03/25/2022 by Lorenzo Gallardo MD at OR [facility] DELMAR : SPINE [id number] 08/27/2023 2102- 1910 / / [id number] Tube Preflld Allogrft Diverted - [id number] Implanted:Qty: 4 on 03/25/2022 by Lorenzo Gallardo MD at OR [facility] [employer] 11/19/2023 [id number] / / Screw Set [id number] - [id number] Implanted:Qty: 6 on 03/25/2022 by Lorenzo Gallardo MD at OR [facility] DELMAR : SPINE [id number] 1 / / 3.5x14 Screw Implanted:Qty: 6 on 03/25/2022 by Lorenzo Gallardo MD at OR [facility] DELMAR : SPINE 3065-1770 4 / / [id number] Transition Juan Implanted:Qty: 2 on 03/25/2022 by Lorenzo Gallardo MD at OR [facility] DELMAR : SPINE [id number] 00 / / Screw Ludmila Stella 3 Ti Set - [id number] Implanted:Qty: 11 on 03/25/2022 by Lorenzo Gallardo MD at OR [facility] DELMAR : SPINE [id number] / / 5.0x30 Trammell Screw Implanted:Qty: 2 on 03/25/2022 by Lorenzo Gallardo MD at OR [facility] DELMAR : SPINE [id number] / / 5.0x35 Trammell Screw Implanted:Qty: 2 on 03/25/2022 by Lorenzo Gallardo MD at OR [facility] DELMAR : SPINE [id number] / / Tube Ventilation Briggs [id number] - [id number] - [id number] Implanted:Qty: 1 on 03/02/2023 by Cem Ly DO at OR [facility] Right: Ear [employer] 12/21/2031 [id number] / [id number] / [id number] documented as of this encounter Visit Diagnoses [...] Directives occurred with: Not Discussed Care Teams Smoking Pipe Repairer Relationship Specialty Start Date End Date Aleksandr Parker MD [address] [place] [facility] [address] PCP - General 06/27/02 documented as of this encounter
--- OUTSIDE RECORDS SUMMARY | 2023-12-22 05:22 | External Medical Summary | Summary of Care ---
Author Name Unknown Organization [facility] Address [address] [place] [address] Phone [phone] Care Team Providers Care Utility Inspector Name Role Phone Aleksandr Parker MD Primary Care Provider [phone]- [phone] Reason for Visit * Reason Comments Return Neuro Encounter Details Date Type Department Care Team (Late st Contact Info) Description 09/20/2023 1:15 PM EDT Office Visit Neurosurgery, [place] [address] [place], [place] [phone] Lorenzo Gallardo MD [address] [place] [address] Examination following surgery* Allergies Active Allergy Reactions Criticality Noted Date Comments Sulfa Antibiotics 05/14/1999 rash documented as of this encounter (statuses as of 09/20/2023) Medications Medication Sig Dispensed Refills Start Date [...] 04/03/2023 Active Capecitabine 500 MG Oral Tablet (Xeloda)Indications:P rimary [...] for Nausea. 30 Tablet 5 06/12/2023 Active Diphenoxylate-Atropin e 2.5-0.025 MG Oral Tablet (Lomotil)Indications: 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 breast in female, estrogen receptor positive (HCC) Take 1 Tablet by mouth 4 times a day as needed for Diarrhea. 30 Tablet 06/12/2023 Active Udderly Smooth Extra Care 20 [...] cut.. 112 Tablet 5 08/29/2023 Active Ipratropium [place] 0.03 % Nasal Solution (Atrovent) Administer 2 [...] to feet 30 g 2 09/19/2023 Active documented as of this encounter (statuses as of 09/20/2023) Active Problems Problem Noted Date Diagnosed Date [...] as of this encounter (statuses as of 09/20/2023) Resolved Problems Problem Noted Date Diagnosed Date [...] as of this encounter (statuses as of 09/20/2023) Immunizations Name Administration Dates Next Due COVID-19 mRNA, LNP-s, No Pre serve, 2-Dose Series (MobilePro) 02/03/2021,07/08/2020,06/10/2020 COVID-19, MRNA-LNP, 23-24, P F, 30 MCG/0.3 mL, 12 YRS AND ABOVE, IM (Zaggora-Comirnaty) 02/07/2023 Pneumococcal Polysaccharide PPV23 (Pneumovax) 07/13/2018 Seasonal Influenza, PF, 6 M & above, IM , (FluLaval or Fluzone) 02/20/2023,02/23/2022,01/18/2021,02/19,02/14/2017 Seasonal Influenza, Split, I IV3, With Preserve, Inj 02/14/2019,02/02/2018,02/16/2016,03/04,02/13/2014,01/30/2013,02/16/2012 ,02/11/2010,03/20/2009,03/02/2008 TDAP (age 11 and older)(Adacel) 04/07/2009 Zoster Vaccine Recombinant (Shingrix) 08/04/2020 ,02/03/2020 [...] Taken Comments Blood Pressure - - Pulse 104 09/20/2023 1:16 PM EDT Temperature 36.1 C (97 F) 09/20/2023 1:16 PM EDT Respiratory Rate - - Oxygen Saturation 98% 09/20/2023 1:16 PM EDT Inhaled Oxygen Concentration - - Weight 99.7 kg (219 lb 14.4 oz) 09/20/2023 1:16 PM EDT Height - - Body Mass Index 33.52 08/08/2023 9:46 AM EDT documented in this [...] as of this encounter Progress Notes * Sae Sen PA-C - 09/20/2023 1:41 PM EDT Neurosurgery Clinic - [facility] [address] 09/20/23 PRESENTING PROBLEM: Postoperative evaluation HPI: Lola Walters is a 63 year old female with history of T3 pathological fracture, metastaticbreast ca now s/p removal of previous T1-5 instrumentation, partial T3 corpectomy, and now placement of new instrumentation from C4-T7 and reduction of kyphotic deformity with Dr. Gallardo 03/25/22. Patient continues to do well. Pain controlled. Continues to follow with neurological oncology. She is continuing to follow with oncology as her surveillance scans have all been stable. She returns with concerns of soft tissue protrusion over what feels like the hardware from the above instrumentation. Previously sent pictures and here for review. ROS: At least one systems documented with all others negative. Current Medications: Current Outpatient Medications Medication Sig Dispense Refill [...] 1 Tablet by mouth daily with breakfast. Xgeva 120 MG/1.7ML Subcutaneous Solution (Denosumab) Inject [...] OR CUT. (FREQUENCY CHANGE) 56 Tablet 5 Capecitabine 500 MG Oral [...] as needed for Nausea. 30 Tablet 5 Diphenoxylate-Atropine 2.5-0.025 MG Oral Tablet (Lomotil) Take [...] Do not crush orcut.. 112 Tablet 5 Ipratropium [place] 0.03 % Nasal Solution (Atrovent) Administer 2 [...] day. Apply to feet 30 g 2 No current facility-administered medications for this visit. PHYSICAL EXAMINATION: Visit Vital Signs: Pulse 104 | Temp 36.1 C (97 F) (Tympanic) | Wt 99.7 kg (219 lb 14.4 oz) | LMP 12/28/2014 | KtB801% | BMI 33.52 kg/m | BSA 2.19 m Neurologically stable AA&O No acute distress Follows all commands Pleasant and cooperative CN II-XII grossly intact Jessica spontaneously Strength and sensation grossly intact (+) protrusion of caudal aspect of instrumentation with tenting of skin. No breakthrough. Thin areaof skin over crossbar connector at top of construct. IMAGES: CT C SPINE WO CONTRAST Result Date: 09/01/2023 IMPRESSION Chronic postsurgical changes of C4 through T7 posterior spinal fusion, as above. Fusion hardware appears intact without finding to suggest hardware loosening. Diffuse sclerotic metastatic disease involving the visualized cervicothoracic spine, as above. CT T SPINE WO CONTRAST Result Date: 09/01/2023 IMPRESSION Chronic postsurgical changes of C4 through T7 posterior spinal fusion, as above. Fusion hardware appears intact without finding to suggest hardware loosening. Diffuse sclerotic metastatic disease involving the visualized cervicothoracic spine, as above. MRI BRAIN W WO CONTRAST Result Date: 07/12/2023 IMPRESSION 1. New focus of enhancement along the right caudate head measuring 7 x 3 x 5 mm with associated hyperintense T2 FLAIR signal. Additional small patchy areas of enhancement along the right lentiform nuclei and right posterior thalamus. Findings raise the possibility of disease progression.Short-term interval follow-up is recommended. 2. No acute infarction, midline shift, or significantmass effect. PET CT SKULL BASE TO MID-THIGH Result Date: 07/11/2023 IMPRESSION 1. No FDG avid disease. 2. Previously treated osseous metastases without abnormal increased metabolism. I have personally reviewed the above imaging independently IMPRESSION: History of T3 pathological fracture, metastatic breast ca now s/p removal of previous T1-5 instrumentation, partial T3 corpectomy, and placement of new instrumentation from C4-T7 and reduction of kyphotic deformity with Dr. Gallardo 03/25/22. Doing well. Pain well controlled. (+) protrusion of caudal aspect of instrumentation with tenting of skin. No breakthrough. Thin areaof skin over crossbar connector at top of construct. PLAN: We discussed possibly cutting the juan vs continuing to keep pressure off. She will continue conservative measures with pillows and frequent position changes. If it gets to the point where the juan wears through the skin &/or patient has pain from this, we can always discuss a small surgery at that time. She will let us know.Please contact Neurosurgery with questions/concerns. [facility] I spent a total of 27 minutes on the date of service in preparation, delivery, and documentation ofthe care provided to Lola Walters excluding any [...] provider listed above.) documented in this encounter Plan of Treatment Upcoming Encounters Date Type Department Care Team (Late st Contact Info) Description 10/06/2023 9:45 AM EDT Pharmacy Pharmacy Hematology Oncology [address] [address] [facility] Hem/Onc [address] [place] [address] 10/06/2023 12:00 PM EDT Office Visit Allergy/Immunology [facility] [address] [place], [place] [address] Alexandru Mcelroy MD [address] [place] [address] 10/10/2023 7:40 AM EDT Laboratory Laboratory [facility] [address] [place] [phone] Arianna, Lab [facility] [address] [place], [place] [address] 10/10/2023 8:15 AM EDT Office Visit Hematology/Oncology [facility] [address] [place], [place] [phone] Ruddy Robbins MD [address] [place], [place] [address] 10/10/2023 8:45 AM EDT Hem/Onc Treatment Hematology/Oncology Treatment, [place] [address] [place], [place] [phone] Arianna, Chair 7 Hem Onc [facility] 200 [facility] [place], [place] [address] 10/18/2023 8:45 AM EDT Imaging Radiology [address] [facility] [place] [address] 10/19/2023 2:00 PM EDT Cardiac Studies Cardiac Studies, [facility] [address] [place] [address] 10/23/2023 8:45 AM EDT Imaging Radiology [address] [place] [address] 11/14/2023 2:00 PM EDT Office Visit Otolaryngology [address] [place] [address] Amisha Joseph PA-C [address] [place] [address] 03/20/2024 1:45 PM EST Office Visit [place], [place] [address] [place] [address] Lorenzo Gallardo MD [address] [place] [address] Scheduled Procedures Name Priority Associated Diagnoses Date/Ti [...] this encounter Medical Devices Implanted Type Area Crepe Sole Wire Brusher Device Identifier Shelf Expiration Date Model / Serial / Lot Cement Hv-R C01a - [id number] Implanted:Qty: 1 on 08/20/2021 by [place] Gall[place] [facility] [place]: Spine Thoracic [employer] : NEURO CARE 04/30/2024 C01A / / [id number] Port Implant W/8f Poly Cath - [id number] Implanted:Qty: 1 on 09/03/2021 by Blayne Villegas MD at OR [facility] Left: Chest CR BARD : PERIPHERAL VASCULAR [id number] 07/29/2022 [id number] / / [id number] 5.0x40 Trammell Screw Implanted:Qty: 3 on 03/25/2022 by Lorenzo Gallardo MD [place] [facility] [place]MAR : SPINE [id number] / / 5.0x45 Trammell Screw Implanted:Qty: 4 on 03/25/2022 by Lorenzo Gallardo MD [place] [facility] [place] DELMAR : SPINE [id number] / / Spineology E Mesh Implanted:Qty: 1 on 03/25/2022 by Lorenzo Gallardo MD [place] [facility] [employer] 06/29/2024 330-2005 / / [id number] Vitoss Bimodal Foam Pack 10cc - [id number] Implanted:Qty: 1 on 03/25/2022 by Lorenzo Gallardo MD at OR [facility] DELMAR : SPINE [id number] 08/27/20231909 / / [id number] Vitoss Bimodal Foam Pack 10cc - [id number] Implanted:Qty: 1 on 03/25/2022 by Lorenzo Gallardo MD [place] [facility] [place] DELMAR : SPINE [id number] 08/27/20231909 / / [id number] Vitoss Bimodal Foam Pack 10cc - [id number] Implanted:Qty: 1 on 03/25/2022 by Lorenzo Gallardo MD [place] [facility] [place] DELMAR : SPINE [id number] 08/27/20231909 / / [id number] Vitoss Bimodal Foam Pack 10cc - [id number] Implanted:Qty: 1 on 03/25/2022 by Lorenzo Gallardo MD [place] [facility] [place] DELMAR : SPINE [id number] 08/27/20231909 / / [id number] Connector Crosslink 43 To 54 - [id number] Implanted:Qty: 1 on 03/25/2022 by Lorenzo Gallardo MD [place] [facility] [place] DELMAR : SPINE [id number] / / Tube Preflld Allogrft Diverted - [id number] Implanted:Qty: 1 on 03/25/2022 by Lorenzo Gallardo MD [place] [facility] [place] [employer] 11/19/2023 [id number] / / Tube Preflld Allogrft Diverted - [id number] Implanted:Qty: 1 on 03/25/2022 by Lorenzo Gallardo MD [place] [facility] [place] [place] [employer] 11/18/2024 [id number] / / Tube Preflld Allogrft Diverted - [id number] Implanted:Qty: 1 on 03/25/2022 by Lorenzo Gallardo MD [place] [facility] [place] [place] [employer] 11/18/2024 [id number] / / Vitoss Bimodal Foam Pack 10cc - [id number] Implanted:Qty: 1 on 03/25/2022 by Lorenzo Gallardo MD [place] [facility] [place] DELMAR : SPINE [id number] 08/27/2023 2102- 1910 / / [id number] Tube Preflld Allogrft Diverted - [id number] Implanted:Qty: 4 on 03/25/2022 by Lorenzo Gallardo MD [place] [facility] [place] [employer] 11/19/2023 [id number] / / Screw Set [id number] - [id number] Implanted:Qty: 6 on 03/25/2022 by Lorenzo Gallardo MD [place] [facility] [place] DELMAR : SPINE 8250-8121 1 / / 3.5x14 Screw Implanted:Qty: 6 on 03/25/2022 by Lorenzo Gallardo MD [place] [facility] [place] DELMAR : SPINE 3391-3099 4 / / 4.0/[id number] Transition Juan Implanted:Qty: 2 on 03/25/2022 by Lorenzo Gallardo MD [place] [facility] [place] DELMAR : SPINE 2486-5204 00 / / Screw Ludmila Stella 3 Ti Set - [id number] Implanted:Qty: 11 on 03/25/2022 by Lorenzo Gallardo MD [place] [facility] [place] DELMAR : SPINE [id number] / / 5.0x30 Trammell Screw Implanted:Qty: 2 on 03/25/2022 by Lorenzo Gallardo MD [place] [facility] [place] DELMAR : SPINE [id number] / / 5.0x35 Trammell Screw Implanted:Qty: 2 on 03/25/2022 by Lorenzo Gallardo MD [place] [facility] [place] DELMAR : SPINE [id number] / / Tube Ventilation Briggs [id number] - [id number] - [id number] Implanted:Qty: 1 on 03/02/2023 by Cem Ly DO at OR [facility] Right: Ear [employer] 12/21/2031 [id number] / [id number] / [id number] documented as of this encounter Visit Diagnoses Diagnosis Examination following surgery- Primary Follow-up examination, following unspecified surgery documented in this encounter Advance Directives * [...] Directives occurred with: Not Discussed Care Teams Utility Inspector Relationship Specialty Start Date End Date Aleksandr Parker MD [address] [place] [address] PCP - General 06/27/02 documented as of this encounter"
--- OUTSIDE RECORDS SUMMARY | 2023-12-22 05:22 | External Medical Summary | Summary of Care ---
Author Name Unknown Organization [facility] Address [address] [place] [address] Phone [phone] Care Team Providers Care Vacuum Tester Cans Name Role Phone Aleksandr Parker MD Primary Care Provider [phone]- [phone] Reason for Visit * Reason Onset Date Comments Medication Refill 09/29/2023 Encounter Details Date Type Department Care Team (Late st Contact Info) Description 09/29/2023 Refill Hematology/Oncology [facility] 200 [facility] [place] [phone] Ruddy Robbins MD 200 [place] [address] 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 breast in female, estrogen receptor positive (HCC) Allergies Active Allergy Reactions Criticality Noted Date Comments Sulfa Antibiotics 05/14/1999 rash documented as of this encounter (statuses as of 09/29/2023) Medications Medication Sig Dispensed Refills Start Date [...] cut.. 112 Tablet 5 08/29/2023 Active Ipratropium [place] 0.03 % Nasal Solution (Atrovent) Administer 2 [...] needed for Diarrhea. 30 Tablet 09/29/2023 Active Diphenoxylate-Atropi ne 2.5-0.025 MG Oral Tablet (Lomotil)Indications :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 breast in female, estrogen receptor positive (HCC) Take 1 Tablet by mouth 4 times a day as needed for Diarrhea. 30 Tablet 06/12/2023 4 Discontinu ed(Refill) documented as of this encounter (statuses as of 09/29/2023) Active Problems Problem Noted Date Diagnosed Date [...] as of this encounter (statuses as of 09/29/2023) Resolved Problems Problem Noted Date Diagnosed Date [...] as of this encounter (statuses as of 09/29/2023) Immunizations Name Administration Dates Next Due COVID-19 [...] Telephone Encounter - Mima Butler RN - 09/29/2023 12:03 PM EDTPending Prescriptions: Disp Refills Diphenoxylate-Atropine 2.5-0.025 MG Oral T*30 Tab*0 Sig: Take 1 Tablet by mouth 4 times a day as needed for Diarrhea. * Telephone Encounter - Mima Butler RN - 09/29/2023 12:01 PM EDT PDMP reviewed. Lomotil filled 06/12/23 for 30 tabs. No concerns. documented in this encounter Plan of Treatment Upcoming Encounters Date Type Department Care Team (Late st Contact Info) Description 10/06/2023 9:45 AM EDT Pharmacy Pharmacy Hematology Oncology [facility] [address] [place] [address] [facility] Hem/Onc [address] [place] [address] 10/06/2023 12:00 PM EDT Office Visit Allergy/Immunology [facility] [place] [address] [place] [address] Alexandru Mcelroy MD [address] [employer], [place] [address] 10/10/2023 7:40 AM EDT Laboratory Laboratory [facility] [address] [place], [place] [phone] Arianna, Lab Scenery [address] [place], [place] [address] 10/10/2023 8:15 AM EDT Office Visit Hematology/Oncology [facility] [place] [address] [place], [place] [phone] Ruddy Robbins MD [address] [place], [place] [address] 10/10/2023 8:45 AM EDT Hem/Onc Treatment Hematology/Oncology Treatment, [place] [address] [place], [place] [phone] Arianna, Chair 2 Hem Onc [facility] 200 [facility] [place], [place] [address] 10/18/2023 8:45 AM EDT Imaging Radiology [address] 132 [facility] [place] [address] 10/19/2023 2:00 PM EDT Cardiac Studies Cardiac Studies, [facility] 132 [facility] [place] [address] 10/23/2023 8:45 AM EDT Imaging Radiology [address] 132 [facility] [place] [address] 11/14/2023 2:00 PM EDT Office Visit Otolaryngology [facility] 132 [facility] [place] [address] Amisha Joseph PA-C [address] [place] [address] 03/20/2024 1:45 PM EST Office Visit Neurosurgery, [place] [address] [place] [address] Lorenzo Gallardo MD [address] [place] [address] Scheduled Procedures Name Priority Associated Diagnoses Date/Ti [...] this encounter Medical Devices Implanted Type Area Mud Mixer Helper Device Identifier Shelf Expiration Date Model / Serial / Lot Cement Hv-R C01a - [id number] Implanted:Qty: 1 on 08/20/2021 by Lorenzo Gallardo MD [place] [facility] [place]/A: Spine Thoracic [employer] : NEURO CARE 04/30/2024 C01A / / [id number] Port Implant W/8f Poly Cath - [id number] Implanted:Qty: 1 on 09/03/2021 by Blayne Villegas MD at OR [facility] Left: Chest CR BARD : PERIPHERAL VASCULAR [id number] 07/29/2022 [id number] / / [id number] 5.0x40 Trammell Screw Implanted:Qty: 3 on 03/25/2022 by Lorenzo Gallardo MD at [place] [facility] [place] : SPINE [id number] / / 5.0x45 Trammell Screw Implanted:Qty: 4 on 03/25/2022 by Lorenzo Gallardo MD at [place] [facility] [place] DELMAR : SPINE [id number] / / Spineology E Mesh Implanted:Qty: 1 on 03/25/2022 by Lorenzo Gallardo MD at [place] [facility] [employer] 06/29/2024 [id number] / / [id number] Vitoss Bimodal Foam Pack 10cc - [id number] Implanted:Qty: 1 on 03/25/2022 by Lorenzo Gallardo MD at [place] [facility] [place] : SPINE [id number] 08/27/2023 2102- 1910 / / [id number] Vitoss Bimodal Foam Pack 10cc - [id number] Implanted:Qty: 1 on 03/25/2022 by Lorenzo Gallardo MD at [place] [facility] DELMAR : SPINE [id number] 08/27/20231909 / / [id number] Vitoss Bimodal Foam Pack 10cc - [id number] Implanted:Qty: 1 on 03/25/2022 by Lorenzo Gallardo MD at [place] [facility] [place] : SPINE [id number] 08/27/20231909 / / [id number] Vitoss Bimodal Foam Pack 10cc - [id number] Implanted:Qty: 1 on 03/25/2022 by Lorenzo Gallardo MD at [place] [facility] [place] : SPINE [id number] 08/27/20231909 / / [id number] Connector Crosslink 43 To 54 - [id number] Implanted:Qty: 1 on 03/25/2022 by Lorenzo Gallardo MD at [place] [facility] [place]MAR : SPINE [id number] / / Tube Preflld Allogrft Diverted - [id number] Implanted:Qty: 1 on 03/25/2022 by Lorenzo Gallardo MD at [place] [facility] [employer] 11/19/2023 [id number] / / Tube Preflld Allogrft Diverted - [id number] Implanted:Qty: 1 on 03/25/2022 by Lorenzo Gallardo MD at [place] [facility] [employer] 11/18/2024 [id number] / / Tube Preflld Allogrft Diverted - [id number] Implanted:Qty: 1 on 03/25/2022 by Lorenzo Gallardo MD at [place] [facility] [employer] 11/18/2024 [id number] / / Vitoss Bimodal Foam Pack 10cc - [id number] Implanted:Qty: 1 on 03/25/2022 by Lorenzo Gallardo MD at [place] [facility] [place] : SPINE [id number] 08/27/20231909 / / [id number] Tube Preflld Allogrft Diverted - [id number] Implanted:Qty: 4 on 03/25/2022 by Lorenzo Gallardo MD at [place] [facility] [employer] 11/19/2023 [id number] / / Screw Set [id number] - [id number] Implanted:Qty: 6 on 03/25/2022 by Lorenzo Gallardo MD at [place] [facility] [place] : SPINE [id number] 1 / / 3.5x14 Screw Implanted:Qty: 6 on 03/25/2022 by Lorenzo Gallardo MD at [place] [facility] [place] : SPINE [id number] / / 4.0/[id number] Transition Juan Implanted:Qty: 2 on 03/25/2022 by Lorenzo Gallardo MD at [place] [facility] [place] : SPINE [id number] 00 / / Screw Ludmila Stella 3 Ti Set - [id number] Implanted:Qty: 11 on 03/25/2022 by Lorenzo Gallardo MD at [place] [facility] [place] : SPINE [id number] / / 5.0x30 Trammell Screw Implanted:Qty: 2 on 03/25/2022 by Lorenzo Gallardo MD at [place] [facility] [place] : SPINE [id number] / / 5.0x35 Trammell Screw Implanted:Qty: 2 on 03/25/2022 by Lorenzo Gallardo MD at [place] [facility] [place] : SPINE [id number] / / Tube Ventilation Briggs [id number] - [id number] - [id number] Implanted:Qty: 1 on 03/02/2023 by Cem Ly DO at OR [facility] Right: Ear [employer] 12/21/2031 [id number] / [id number] / [id number] documented as of this encounter Visit Diagnoses [...] Directives occurred with: Not Discussed Care Teams Vacuum Tester Cans Relationship Specialty Start Date End Date Aleksandr Parker MD [address] [facility] [address] PCP - General 06/27/02 documented as of this encounter
--- OUTSIDE RECORDS SUMMARY | 2023-12-22 05:22 | External Medical Summary | Summary of Care ---
Author Name Unknown Organization [facility] Address [address] [place] [address] Phone [phone] Care Team Providers Care Drafter Assistant Name Role Phone Aleksandr Parker MD Primary Care Provider +1- [phone] Reason for Visit * Reason Comments Return Neuro Encounter Details Date Type Department Care Team (Late st Contact Info) Description 09/20/2023 1:15 PM EDT Office Visit Neurosurgery, [place] [address] [place] [address], [place] [phone] Lorenzo Gallardo MD [address] [place] [address] Examination following surgery* Allergies Active [...] cut.. 112 Tablet 5 08/29/2023 Active Ipratropium [place] 0.03 % Nasal Solution (Atrovent) Administer 2 [...] mRNA, LNP-s, No Pre serve, 2-Dose Series (Gummii) 02/03/2021,07/08/2020,06/10/2020 COVID-19, MRNA-LNP, 23-24, P F, 30 MCG/0.3 mL, 12 YRS AND ABOVE, IM ([employer]-Comir[employer]) 02/07/2023 Hepatitis B Vaccine 04/22/2002 Hepatitis B, 20+ yrs 11/16/2001,10/13/2001 Influenza, Whole Virus 03/01/2002 Pneumococcal Conjugate Vacci ne, 7 Valent 09/11/2003 Pneumococcal Polysaccharide PPV23 (Pneumovax) 07/13/2018 Seasonal Influenza, PF, 6 M & above, IM , (FluLaval or Fluzone) 02/20/2023,02/23/2022,01/18/2021,02/19,02/14/2017 Seasonal Influenza, Split, I IV3, With Preserve, Inj 02/14/2019,02/02/2018,02/16/2016,03/04,02/13/2014,01/30/2013,02/16/2012 ,02/11/2010,03/20/2009,03/02/2008,03/02,02/12/2001 TD - Tetanus/Diptheria (ADULT) 11/30/2001,1991 TDAP (age 11 and older)(Adacel) 04/07/2009 Zoster [...] 09/20/2023 1:41 PM EDT Neurosurgery Clinic - [facility], [facility] [address] 09/20/23 PRESENTING PROBLEM: Postoperative evaluation HPI: Lola [...] not crush orcut.. 112 Tablet 5 Ipratropium [place] 0.03 % Nasal Solution (Atrovent) Administer 2 [...] lb 14.4 oz) | LMP 12/28/2014 | UbB064% | BMI 33.52 kg/m | BSA 2.19 [...] and reduction of kyphotic deformity with Dr. aGllardo 03/25/22. Doing well. Pain well controlled. (+) protrusion of caudal aspect of instrumentation with tenting of skin. No breakthrough. Thin areaof skin over crossbar connector at top of construct. PLAN: We discussed possibly cutting the juan vs continuing to keep pressure off. She will continue conservative measures with pillows and frequent position changes. If it gets to the point where scabs are getting worse or pressure sores are worse or patient has pain from this, we can always discuss a small surgery at that time. She will let us know.Please contact Neurosurgery with questions/concerns. Sae Sen [facility] [place] I spent a total of 27 minutes [...] direct questions to the provider listed above.) Patient evaluated with PA.I examined the patient,reviewed the relevent imaging studies (as documented in the body of the consult/clinic notes) & I agree with my PA's assessment and management plan. Lorenzo Gallardo MD documented in this encounter Plan of Treatment Upcoming Encounters Date Type Department Care Team (Late st Contact Info) Description 10/06/2023 9:45 AM EDT Pharmacy Pharmacy Hematology Oncology [facility] [address] [place] [address] [facility] Hem/Onc [address] [place] [address] 10/06/2023 12:00 PM EDT Office Visit Allergy/Immunology [facility] [place] [address] [place] [address] Alexandru Mcelroy MD 200 [facility] [place] [address] 10/10/2023 7:40 AM EDT Laboratory Laboratory [facility] [place] [address] [place] [phone] Arianna Lab [facility] 200 [facility] [place] [address] 10/10/2023 8:15 AM EDT Office Visit Hematology/Oncology [facility] [place] [address] [place] [phone] Ruddy Robbins MD [address] [place] [address] 10/10/2023 8:45 AM EDT Hem/Onc Treatment Hematology/Oncology Treatment, [place] [address] [place] [phone] Arianna, Chair 7 Hem Onc [place] [address] [place] [address] 10/18/2023 8:45 AM EDT Imaging Radiology [facility] [place] [address] 10/19/2023 2:00 PM EDT Cardiac Studies Cardiac Studies, [address] [place] [address] 10/23/2023 8:45 AM EDT Imaging Radiology [address] [facility] [place] [address] 11/14/2023 2:00 PM EDT Office Visit Otolaryngology [facility] 132 [facility] [place] [address] Amisha Joseph PA-C [address] [place] [address] 03/20/2024 1:45 PM EST Office Visit Neurosurgery, [place] [address] [place], [place] [phone] Lorenzo Gallardo MD [address] [place], [place] [address] Scheduled Procedures Name Priority Associated Diagnoses Date/Ti [...] this encounter Medical Devices Implanted Type Area Dump Truck Operator Device Identifier Shelf Expiration Date Model / Serial / Lot Cement Hv-R C01a - [id number] Implanted:Qty: 1 on 08/20/2021 by Lorenzo Gallardo MD at [place] [facility] [place] N/A: Spine Thoracic [employer] : NEURO CARE 04/30/2024 C01A / / [id number] Port Implant W/8f Poly Cath - [id number] Implanted:Qty: 1 on 09/03/2021 by Blayne Villegas MD at OR [facility] Left: Chest CR BARD : PERIPHERAL VASCULAR [id number] 07/29/2022 [id number] / / [id number] 5.0x40 Trammell Screw Implanted:Qty: 3 on 03/25/2022 by Lorenzo Gallardo MD at OR [facility] [place] DELMAR : SPINE [id number] / / 5.0x45 Trammell Screw Implanted:Qty: 4 on 03/25/2022 by Lorenzo Gallardo MD at OR [facility] [place] DELMAR : SPINE [id number] / / Spineology E Mesh Implanted:Qty: 1 on 03/25/2022 by Lorenzo Gallardo MD at OR [facility] [place] [employer] 06/29/2024 330-2005 / / [id number] Vitoss Bimodal Foam Pack 10cc - [id number] Implanted:Qty: 1 on 03/25/2022 by Lorenzo Gallardo MD at OR [facility] [place] DELMAR : SPINE [id number] 08/27/20231909 / / [id number] Vitoss Bimodal Foam Pack 10cc - [id number] Implanted:Qty: 1 on 03/25/2022 by Lorenzo Gallardo MD at OR [facility] [place] DELMAR : SPINE [id number] 08/27/20231909 / / [id number] Vitoss Bimodal Foam Pack 10cc - [id number] Implanted:Qty: 1 on 03/25/2022 by Lorenzo Gallardo MD at OR [facility] [place] DELMAR : SPINE [id number] 08/27/20231909 / / [id number] Vitoss Bimodal Foam Pack 10cc - [id number] Implanted:Qty: 1 on 03/25/2022 by Lorenzo Gallardo MD at OR [facility] [place] DELMAR : SPINE [id number] 08/27/20231909 / / [id number] Connector Crosslink 43 To 54 - [id number] Implanted:Qty: 1 on 03/25/2022 by Lorenzo Gallardo MD at OR [facility] [place] DELMAR : SPINE [id number] / / Tube Preflld Allogrft Diverted - [id number] Implanted:Qty: 1 on 03/25/2022 by Lorenzo Gallardo MD at OR [facility] [place] [employer] 11/19/2023 [id number] / / Tube Preflld Allogrft Diverted - [id number] Implanted:Qty: 1 on 03/25/2022 by Lorenzo Gallardo MD at OR [facility] [place] [employer] 11/18/2024 [id number] / / Tube Preflld Allogrft Diverted - [id number] Implanted:Qty: 1 on 03/25/2022 by Lorenzo Gallardo MD at OR [facility] [place] [employer] 11/18/2024 [id number] / / Vitoss Bimodal Foam Pack 10cc - [id number] Implanted:Qty: 1 on 03/25/2022 by Lorenzo Gallardo MD at OR [facility] [place] DELMAR : SPINE [id number] 08/27/20232101- 0 / / [id number] Tube Preflld Allogrft Diverted - [id number] Implanted:Qty: 4 on 03/25/2022 by Lorenzo Gallardo MD at OR [facility] [place] [employer] 11/19/2023 [id number] / / Screw Set [id number] - [id number] Implanted:Qty: 6 on 03/25/2022 by Lorenzo Gallardo MD at OR [facility] [place] DELMAR : SPINE [id number] 1 / / 3.5x14 Screw Implanted:Qty: 6 on 03/25/2022 by Lorenzo Gallardo MD at OR [facility] [place] DELMAR : SPINE [id number] 4 / / [id number] Transition Juan Implanted:Qty: 2 on 03/25/2022 by Lorenzo Gallardo MD at OR [facility] [place] DELMAR : SPINE 7837-1041 00 / / Screw Ludmila Stella 3 Ti Set - [id number] Implanted:Qty: 11 on 03/25/2022 by Lorenzo Gallardo MD at OR [facility] [place] DELMAR : SPINE [id number] / / 5.0x30 Trammell Screw Implanted:Qty: 2 on 03/25/2022 by Lorenzo Gallardo MD at OR [facility] [place] DELMAR : SPINE [id number] / / 5.0x35 Trammell Screw Implanted:Qty: 2 on 03/25/2022 by Lorenzo Gallardo MD at OR [facility] [place] DELMAR : SPINE [id number] / / Tube Ventilation Briggs [id number] - [id number] - [id number] Implanted:Qty: 1 on 03/02/2023 by Cem Ly DO at OR [facility] Right: Ear [employer] 12/21/2031 [id number] / [id number] / [id number] documented as of this encounter Visit Diagnoses [...] Directives occurred with: Not Discussed Care Teams Drafter Assistant Relationship Specialty Start Date End Date Aleksandr Parker MD [address] [place] [address] PCP - General 06/27/02 documented as of this encounter"
--- OUTSIDE RECORDS SUMMARY | 2023-12-22 05:22 | External Medical Summary | Summary of Care ---
Author Name Unknown Organization [facility] Address [address] [place] [place] [address] Phone [phone] Care Team Providers Care Ed Tech Name Role Phone Aleksandr Parker MD Primary Care Provider [phone]- [phone] Reason for Visit * Reason Onset Date Comments Medication Refill 09/19/2023 Status Check 09/20/2023 Encounter Details Date Type Department Care Team (Late st Contact Info) Description 09/19/2023 Refill Hematology/Oncology [facility] [place]anna [place] [address] [facility] [place] [phone] Ruddy Robbins MD [address] [place] [address] Allergies Active Allergy Reactions Criticality Noted Date [...] for Nausea. 30 Tablet 5 06/12/2023 Active Diphenoxylate-Atropi ne 2.5-0.025 MG Oral Tablet [...] cut.. 112 Tablet 5 08/29/2023 Active Ipratropium [place] 0.03 % Nasal Solution (Atrovent) Administer 2 [...] to feet 30 g 2 09/19/2023 Active Clobetasol Propionate 0.05 % External Cream [...] encounter Miscellaneous Notes * Telephone Encounter - Leisa Gutierrez CPhT - 09/20/2023 9:09 AM EDT Pt calling to check on status of refill. Advised it was sent to the pharmacy. Thank you, Fawn Gutierrez Oil Lease Operator III [facility] 09/20/2023,9:09 AM * Telephone Encounter - Nohelia Cleveland RPh - 09/19/2023 10:25 AM EDT Clobetasol RX refill per 09/18 [facility] encounter documented in this encounter Plan of Treatment Upcoming Encounters Date Type Department Care Team (Late st Contact Info) Description 09/20/2023 1:15 PM EDT Office Visit Neurosurgery, [address] [address] Lorenzo Gallardo MD [address] [place] [address] 10/06/2023 9:45 AM EDT Pharmacy Pharmacy Hematology Oncology [place] [address] [place] [address] [facility] [place] Hem/Onc [facility] [place] [address] 10/06/2023 12:00 PM EDT Office Visit Allergy/Immunology [facility] [address] [place], [place] [address] Alexandru Mcelroy MD [address] [place], [place] [address] 10/10/2023 7:40 AM EDT Laboratory Laboratory [facility] [address] [place], [place] [phone] Arianna, Lab [facility] [address] [place], [place] [address] 10/10/2023 8:15 AM EDT Office Visit Hematology/Oncology [facility] [address] [place], [place] [phone] Ruddy Robbins MD [address] [place], [place] [address] 10/10/2023 8:45 AM EDT Hem/Onc Treatment Hematology/Oncology Treatment, [place] [address] [facility] [address] [place], [place] [phone] Arianna, Chair 7 Hem Onc [facility] [address] [facility] [place], [place] [address] 10/18/2023 8:45 AM EDT Imaging Radiology [address] [facility] [place] [address] 10/19/2023 2:00 PM EDT Cardiac Studies Cardiac Studies, [facility] [address] [facility] [place] [address] 10/23/2023 8:45 AM EDT Imaging Radiology [address] [facility] [place] [address] 11/14/2023 2:00 PM EDT Office Visit Otolaryngology [facility] 132 [facility] [place] [address] Amisha Joseph PA-C [address] [place] [address] 03/20/2024 1:45 PM EST Office Visit [facility], [place] [address] [place] [address] Lorenzo Gallardo MD [address] [place] [address] Scheduled Procedures Name Priority Associated [...] this encounter Medical Devices Implanted Type Area Image Scientist Device Identifier Shelf Expiration Date Model / Serial / Lot Cement Hv-R C01a - [id number] Implanted:Qty: 1 on 08/20/2021 by Lorenzo Gallardo MD [place] [facility] [place]/A: Spine Thoracic [employer] : NEURO CARE 04/30/2024 C01A / / [id number] Port Implant W/8f Poly Cath - [id number] Implanted:Qty: 1 on 09/03/2021 by Blayne Villegas MD at OR [facility] Left: Chest CR BARD : PERIPHERAL VASCULAR [id number] 07/29/2022 [id number] / / [id number] 5.0x40 Trammell Screw Implanted:Qty: 3 on 03/25/2022 by Lorenzo Gallardo MD [place] [facility] DELMAR : SPINE [id number] / / 5.0x45 Trammell Screw Implanted:Qty: 4 on 03/25/2022 by Lorenzo Gallardo MD at [place] [facility] DELMAR : SPINE [id number] / / Spineology E Mesh Implanted:Qty: 1 on 03/25/2022 by Lorenzo Gallardo MD at [place] [facility] [employer] 06/29/2024 [id number] / / [id number] Vitoss Bimodal Foam Pack 10cc - [id number] Implanted:Qty: 1 on 03/25/2022 by Lorenzo Gallardo MD at [place] [facility] DELMAR : SPINE [id number] 08/27/20231909 / / [id number] Vitoss Bimodal Foam Pack 10cc - [id number] Implanted:Qty: 1 on 03/25/2022 by Lorenzo Gallardo MD at [place] [facility] DELMAR : SPINE [id number] 08/27/20231909 / / [id number] Vitoss Bimodal Foam Pack 10cc - [id number] Implanted:Qty: 1 on 03/25/2022 by Lorenzo Gallardo MD at [place] [facility] DELMAR : SPINE [id number] 08/27/20231909 / / [id number] Vitoss Bimodal Foam Pack 10cc - [id number] Implanted:Qty: 1 on 03/25/2022 by Lorenzo Gallardo MD at [place] [facility] DELMAR : SPINE [id number] 08/27/20231909 / / [id number] Connector Crosslink 43 To 54 - [id number] Implanted:Qty: 1 on 03/25/2022 by Lorenzo Gallardo MD at [place] [facility] DELMAR : SPINE [id number] / / Tube Preflld Allogrft Diverted - [id number] Implanted:Qty: 1 on 03/25/2022 by Lorenzo Gallardo MD at [place] [facility] [employer] 11/19/2023 [id number] / / Tube Preflld Allogrft Diverted - [id number] Implanted:Qty: 1 on 03/25/2022 by Lorenzo Gallardo MD at [place] [facility] [employer] 11/18/2024 [id number] / / Tube Preflld Allogrft Diverted - [id number] Implanted:Qty: 1 on 03/25/2022 by Lorenzo Gallardo MD at [place] [facility] [employer] 11/18/2024 [id number] / / Vitoss Bimodal Foam Pack 10cc - [id number] Implanted:Qty: 1 on 03/25/2022 by Lorenzo Gallardo MD at [place] [facility] DELMAR : SPINE [id number] 08/27/20231909 / / [id number] Tube Preflld Allogrft Diverted - [id number] Implanted:Qty: 4 on 03/25/2022 by Lorenzo Gallardo MD at [place] [facility] [employer] 11/19/2023 [id number] / / Screw Set [id number] - [id number] Implanted:Qty: 6 on 03/25/2022 by Lorenzo Gallardo MD at [place] [facility] DELMAR : SPINE [id number] 1 / / 3.5x14 Screw Implanted:Qty: 6 on 03/25/2022 by Lorenzo Gallardo MD at [place] [facility] DELMAR : SPINE [id number] 4 / / 4.0/[id number] Transition Juan Implanted:Qty: 2 on 03/25/2022 by Lorenzo Gallardo MD at [place] [facility] DELMAR : SPINE [id number] 00 / / Screw Ludmila Stella 3 Ti Set - [id number] Implanted:Qty: 11 on 03/25/2022 by Lorenzo Gallardo MD at [place] [facility] DELMAR : SPINE [id number] / / 5.0x30 Trammell Screw Implanted:Qty: 2 on 03/25/2022 by Lorenzo Gallardo MD at [place] [facility] DELMAR : SPINE [id number] / / 5.0x35 Trammell Screw Implanted:Qty: 2 on 03/25/2022 by Lorenzo Gallardo MD at [place] [facility] DELMAR : SPINE [id number] / / Tube Ventilation Briggs [id number] - [id number] - [id number] Implanted:Qty: 1 on 03/02/2023 by Cem Ly DO at OR [facility] Right: Ear [employer] 12/21/2031 [id number] / [id number] / [id number] documented as of this encounter Advance Directives [...] Directives occurred with: Not Discussed Care Teams Ed Tech Relationship Specialty Start Date End Date Aleksandr Parker MD [address] [facility] [place] [address] PCP - General 06/27/02 documented as of this encounter
--- OUTSIDE RECORDS SUMMARY | 2023-12-22 05:23 | External Medical Summary | Summary of Care ---
Author Name Unknown Organization [facility] Address [address] [place] [address] Phone [phone] Care Team Providers Care Board Catcher Name Role Phone Aleksandr Parker MD Primary Care Provider +1- [phone] Reason for Visit * Reason Comments Outpatient Testing Encounter Details Date Type Department Care Team (Late st Contact Info) Description 09/19/2023 7:50 AM EDT Laboratory Laboratory Scenery [facility] [address] [place] [phone] [place], Lab Scenery [address] [place] [address] 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 breast in female, estrogen receptor positive (HCC) Allergies Active Allergy Reactions Criticality Noted Date Comments Sulfa Antibiotics 05/14/1999 rash documented as of this encounter (statuses as of 09/19/2023) Medications Medication Sig Dispensed Refills Start Date [...] twice daily. 228 g 2 07/07/2023 Active Clobetasol Propionate 0.05 % External Cream (Temovate) Apply topically to affected area 2 times a day. 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 For 7 days followed by 7-day rest period. Take within 30 minutes of meal. Do not crush or cut.. 112 Tablet 5 08/29/2023 Active Ipratropium [place] 0.03 % Nasal Solution (Atrovent) Administer 2 [...] dose 250mg). 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 Pathologic fracture of thoracic vertebrae documented as of this encounter (statuses as of 09/19/2023) Resolved Problems Problem Noted Date Diagnosed Date [...] as of this encounter (statuses as of 09/19/2023) Immunizations Name Administration Dates Next Due COVID-19 mRNA, LNP-s, No Pre serve, 2-Dose Series ([employer]) 02/03/2021,07/08/2020,06/10/2020 COVID-19, MRNA-LNP, 23-24, P F, 30 [...] Team (Late st Contact Info) Description 09/19/2023 9:00 AM EDT Hem/Onc Treatment Hematology/Oncology Treatment, [place] [address] [place], [place] [address] Arianna, Chair 11 Hem Onc [address] [place] [address] Arrived 09/19/2023 9:30 AM EDT Pharmacy Pharmacy Hematology Oncology [facility], [place] [address] [place] [address] [facility] Hem/Onc [facility] [place] [address] 09/20/2023 1:15 PM EDT Office Visit Neurosurgery, [place] [address] [place] [address] Lorenzo Gallardo MD [facility] [place] [address] 10/06/2023 12:00 PM EDT Office Visit Allergy/Immunology [facility] Arianna [place] [address] [place], [place] [address] Alexandru Mcelroy MD [address] [place], [place] [address] 10/10/2023 7:40 AM EDT Laboratory Laboratory [facility] Arianna [place] [address] [place] [address] [place] Lab [facility] [address] [place], [place] [address] 10/10/2023 8:15 AM EDT Office Visit Hematology/Oncology [facility] [place] [address] [place] [address] Ruddy Robbins MD [address] [place], [place] [address] 10/10/2023 8:45 AM EDT Hem/Onc Treatment Hematology/Oncology Treatment, [place] [address] [place], [place] [phone] [place], Chair 7 Hem Onc [place] [address] [place] [address] 10/18/2023 8:45 AM EDT Imaging Radiology [facility] 1st [facility], [place] [address] [facility] [place] [address] 10/19/2023 2:00 PM EDT Cardiac Studies Cardiac Studies, [facility] [address] 10/23/2023 8:45 AM EDT Imaging Radiology [address], [place] [address] [facility] [place] [address] 11/14/2023 2:00 PM EDT Office Visit Otol[facility]ology [facility] [address] Amisha Joseph PA-C [facility] [address] 03/20/2024 1:45 PM EST Office Visit Neurosurgery, [place] [address] [place] [address] Lorenzo Gallardo MD [address] [place], [place] [address] Pending Results Name Type Priority Associated Diagnoses Date /Time COMPREHENSIVE METABOLIC PANEL Lab STAT 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 breast in female, estrogen receptor positive (HCC) 09/19/2023 7:47 AM EDT Scheduled Procedures Name Priority Associated [...] 06/2018, 11/20/2014, Additional history exists Diabetes Screening 08/28/2026 08/29/2023, 0 08/08/2023, 07/18/2023, Additional history exists Hepatitis B Completed 04/22/2002, [...] this encounter Medical Devices Implanted Type Area Livestock Counter Device Identifier Shelf Expiration Date Model / Serial / Lot Cement Hv-R C01a - [id number] Implanted:Qty: 1 on 08/20/2021 by Lorenzo Gallardo MD at [place] [facility] N/A: Spine Thoracic [employer] : NEURO CARE 04/30/2024 C01A / / [id number] Port Implant W/8f Poly Cath - [id number] Implanted:Qty: 1 on 09/03/2021 by Blayne Villegas MD at OR [facility] Left: Chest CR BARD : PERIPHERAL VASCULAR [id number] 07/29/2022 [id number] / / [id number] 5.0x40 Trammell Screw Implanted:Qty: 3 on 03/25/2022 by Lorenzo Gallardo MD at OR [facility] DELMAR : SPINE [id number] / / 5.0x45 Trammell Screw Implanted:Qty: 4 on 03/25/2022 by Lorenzo Gallardo MD at OR [facility] DELMAR : SPINE [id number] / / Spineology E Mesh Implanted:Qty: 1 on 03/25/2022 by Lorenzo Gallardo MD at OR [facility] [employer] 06/29/2024 330-2004 / / [id number] Vitoss Bimodal Foam Pack 10cc - [id number] Implanted:Qty: 1 on 03/25/2022 by Lorenzo Gallardo MD at OR [facility] DELMAR : SPINE [id number] 08/27/20231909 / / [id number] Vitoss Bimodal Foam Pack 10cc - [id number] Implanted:Qty: 1 on 03/25/2022 by Lorenzo Gallardo MD at OR [facility] DELMAR : SPINE [id number] 08/27/20231909 / / [id number] Vitoss Bimodal Foam Pack 10cc - [id number] Implanted:Qty: 1 on 03/25/2022 by Lorenzo Gallardo MD at OR [facility] DELMAR : SPINE [id number] 08/27/20231909 / / [id number] Vitoss Bimodal Foam Pack 10cc - [id number] Implanted:Qty: 1 on 03/25/2022 by Lorenzo Gallardo MD at OR [facility] DELMAR : SPINE [id number] 08/27/20230 / / [id number] Connector Crosslink 43 To 54 - [id number] Implanted:Qty: 1 on 03/25/2022 by Lorenzo Gallardo MD at OR [facility] DELMAR : SPINE [id number] / / Tube Preflld Allogrft Diverted - [id number] Implanted:Qty: 1 on 03/25/2022 by Lorenzo Gallardo MD at OR [facility] [employer] 11/19/2023 [id number] / / Tube Preflld Allogrft Diverted - [id number] Implanted:Qty: 1 on 03/25/2022 by Lorenzo Gallardo MD at OR [facility] SPINEOLOGY [facility] 11/18/2024 196961 / / Tube Preflld Allogrft Diverted - [id number] Implanted:Qty: 1 on 03/25/2022 by Lorenzo Gallardo MD at OR [facility] SPINEOLOGY [facility] 11/18/2024 043793 / / Vitoss Bimodal Foam Pack 10cc - [id number] Implanted:Qty: 1 on 03/25/2022 by Lorenzo Gallardo MD at OR [facility] DELMAR : SPINE [id number] 08/27/20231909 / / [id number] Tube Preflld Allogrft Diverted - [id number] Implanted:Qty: 4 on 03/25/2022 by Lorenzo Gallardo MD at OR [facility] [employer] 11/19/2023 [id number] / / Screw Set 7601-81551 - [id number] Implanted:Qty: 6 on 03/25/2022 by Lorenzo Gallardo MD at OR [facility] DELMAR : SPINE [id number] 1 / / 3.5x14 Screw Implanted:Qty: 6 on 03/25/2022 by Lorenzo Gallardo MD at OR [facility] DELMAR : SPINE [id number] 4 / / 4.0/[id number] Transition Juan Implanted:Qty: 2 on 03/25/2022 by Lorenzo Gallardo MD at OR [facility] DELMAR : SPINE [id number] 00 / / Screw Ludmlia Stella 3 Ti Set - [id number] Implanted:Qty: 11 on 03/25/2022 by Lorenzo Gallardo MD at OR [facility] DELMAR : SPINE [id number] / / 5.0x30 Trammell Screw Implanted:Qty: 2 on 03/25/2022 by Lorenzo Gallardo MD at OR [facility] DELMAR : SPINE [id number] / / 5.0x35 Trammell Screw Implanted:Qty: 2 on 03/25/2022 by Lorenzo Gallardo MD at OR [facility] DELMAR : SPINE [id number] / / Tube Ventilation Briggs [id number] - [id number] - [id number] Implanted:Qty: 1 on 03/02/2023 by Cem Ly DO at OR [facility] Right: Ear [employer] 12/21/2031 [id number] / [id number] / [id number] documented as of this encounter Procedures Procedure Name Priority Date/Time Associated Diagnosis Comments DIFFERENTIAL, AUTOMATED STAT 09/19/2023 7:47 AM EDT 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 breast in female, estrogen receptor positive (HCC) CBC STAT 09/19/2023 7:47 AM EDT 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 breast in female, estrogen receptor positive (HCC) CBC STAT 09/19/2023 7:47 AM EDT 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 breast in female, estrogen receptor positive (HCC) documented in this encounter Results * DIFFERENTIAL, AUTOMATED (09/19/2023 7:47 AM EDT) WBC 7.58 4.00 - 10.80 K/uL 09/19/2023 7:53 AM EDT [facility] 56-02 Neutrophils % 67.3 40.0 - 75.0 % 09/19/2023 7:53 AM EDT [facility] 56-02 Lymphocytes % 18.9 18.0 - 42.0 % 09/19/2023 7:53 AM EDT [facility] 56-02 Monocytes % 9.4 1.0 - 11.0 % 09/19/2023 7:53 AM EDT [facility] 56 Eosinophils % 4.0 0.0 - 6.0 % 09/19/2023 7:53 AM EDT [facility] 56 Basophils % 0.4 0.0 - 2.0 % 09/19/2023 7:53 AM EDT [facility] 56 Absolute Neutrophils 5.11 1.80 - 7.70 K/uL 09/19/2023 7:53 AM EDT [facility] 56 Absolute Lymphocytes 1.43 1.00 - 4.80 K/ul 09/19/2023 7:53 AM EDT [facility] 56 Absolute Monocytes 0.71 0.00 - 1.10 K/uL 09/19/2023 7:53 AM EDT [facility] Absolute Eosinophils 0.30 0.00 - 0.70 K/uL 09/19/2023 7:53 AM EDT [facility] Absolute Basophils 0.03 0.00 - 0.20 K/uL 09/19/2023 7:53 AM EDT [facility] 56 Blood Venous blood specimen / Unknown Venipuncture / Unknown 09/19/2023 7:47 AM EDT 09/19/2023 7:47 AM EDT Ruddy Robbins MD LAB BLOOD ORDERABLES [facility] [address] [place] [address] * CBC (09/19/2023 7:47 AM EDT) WBC 7.58 4.00 - 10.80 K/uL 09/19/2023 7:53 AM EDT [facility] RBC 4.00 3.85 - 5.15 M/uL 09/19/2023 7:53 AM EDT [facility] HGB 13.5 12.0 - 15.3 g/dL 09/19/2023 7:53 AM EDT [facility] 56 HCT 41.2 36.0 - 45.2 % 09/19/2023 7:53 AM EDT [facility] 56 MCV 103.0 81.5 - 97.5 fL 09/19/2023 7:53 AM EDT [facility] 56 MCH 33.8 27.0 - 34.0 pg 09/19/2023 7:53 AM EDT [facility] 56 MCHC 32.8 32.0 - 36.0 g/dL 09/19/2023 7:53 AM EDT [facility] 56 RDW 16.8 11.5 - 15.5 % 09/19/2023 7:53 AM EDT [facility] 56 PLT 207 140 - 400 K/uL 09/19/2023 7:53 AM EDT [facility] 56 MPV 9.6 6.6 - 11.1 fL 09/19/2023 7:53 AM EDT [facility] 56 Blood Venous blood specimen / Unknown Venipuncture / Unknown 09/19/2023 7:47 AM EDT 09/19/2023 7:47 AM EDT Ruddy Robbins MD LAB BLOOD ORDERABLES [facility] [address] [place], [place] [id number] documented in this encounter Visit Diagnoses Diagnosis [...] 03/25/2022 6:45 AM 03/25/2022 7:40 PM This orde r reflects the patients [...] Directives occurred with: Not Discussed Care Teams Board Catcher Relationship Specialty Start Date End Date Aleksandr Parker MD [address] [facility] [place] [address] PCP - General 06/27/02 documented as of this encounter
--- OUTSIDE RECORDS SUMMARY | 2023-12-22 05:23 | External Medical Summary | Summary of Care ---
Author Name Unknown Organization [facility] Address [address] [place] [address] Phone [phone] Care Team Providers Care Loft Worker Head Name Role Phone Aleksandr Parker MD Primary Care Provider [phone]- [phone] Reason for Visit * Reason Comments Chemotherapy Kanjinti. 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) Encounter for antineoplastic chemotherapy Procedures MS INJ., KANJINTI, 10 MG Ruddy Robbins MD [address] [place], [place] [address] Anc Hem/Onc [facility] DEPT CLOSED - 03/14/23 200 [facility] [place] [place] [address] Referral ID Status Reason Start Date Expiration Date V isits Requested Visits Authorized [id number] Authorized 04/28/2023 10/24/2023 999 99 Encounter Details Date Type Department Care Team (Latest Contact Info) Description 09/19/2023 9:00 AM EDT Hem/Onc Treatment Hematology/Oncolog y Treatment, [place] [address] [place] [address] Arianna, Chair 11 Hem Onc [address] 200 [facility] [place] [address] 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 [...] cut.. 112 Tablet 5 08/29/2023 Active Ipratropium [place] 0.03 % Nasal Solution (Atrovent) Administer 2 [...] 05/25/2018:Stage IA(pT1a, pN0, cM0, G2, ER: Positive, MS: Negative, HER2: Positive) - Signed by Ruddy [...] mRNA, LNP-s, No Pre serve, 2-Dose Series (Gamida Cell) 02/03/2021,07/08/2020,06/10/2020 COVID-19, MRNA-LNP, 23-24, P F, 30 [...] AM EDT Chair 5. [facility]. States that her feet are feeling [...] Upcoming Encounters Date Type Department Care Team (Marc Contact Info) Description 09/20/2023 1:15 PM EDT Office Visit Neurosurgery, [place] [address] [place] [address] Lorenzo Gallardo MD [address] [place] [address] 10/06/2023 9:45 AM EDT Pharmacy Pharmacy Hematology Oncology [facility], [place] [address] [place] [address] [facility], [facility] Hem/Onc [address] [place] [address] 10/06/2023 12:00 PM EDT Office Visit Allergy/Immunology [facility] Arianna [place] [address] [place] [address] Alexandru Mcelroy MD [address] [place] [address] 10/10/2023 7:40 AM EDT Laboratory Laboratory [facility] [place] [address] [place] [phone] Arianna, Lab [facility] 200 [facility] [place] [address] 10/10/2023 8:15 AM EDT Office Visit Hematology/Oncology [facility] [place] [address] [place] [phone] Ruddy Robbins MD [address] [place], [place] [address] 10/10/2023 8:45 AM EDT Hem/Onc Treatment Hematology/Oncology Treatment, [place] [address] [place] [phone] Arianna, Chair 7 Hem Onc [facility] 200 [facility] [place] [address] 10/18/2023 8:45 AM EDT Imaging Radiology [address] [facility] [place] [address] 10/19/2023 2:00 PM EDT Cardiac Studies Cardiac Studies, [address] [place] [address] 10/23/2023 8:45 AM EDT Imaging Radiology [address] [facility] [place] [address] 11/14/2023 2:00 PM EDT Office Visit Otolaryngology [facility] 132 [facility] [place] [address] Amisha Joseph PA-C [facility] [place] [address] 03/20/2024 1:45 PM EST Office Visit Neurosurgery, [place] [address], [place] [phone] Lorenzo Gallardo MD [address], [place] [phone] Scheduled Procedures Name Priority Associated Diagnoses Date/Ti [...] this encounter Medical Devices Implanted Type Area Tin Dipper Device Identifier Shelf Expiration Date Model / Serial / Lot Cement Hv-R C01a - [id number] Implanted:Qty: 1 on 08/20/2021 by Lorenzo Gallrado MD [place] [facility] [place]A: Spine Thoracic [employer] : NEURO CARE 04/30/2024 C01A / / [id number] Port Implant W/8f Poly Cath - [id number] Implanted:Qty: 1 on 09/03/2021 by Blayne Villegas MD at OR [facility] Left: Chest CR BARD : PERIPHERAL VASCULAR [id number] 07/29/2022 [id number] / / [id number] 5.0x40 Trammell Screw Implanted:Qty: 3 on 03/25/2022 by Lorenzo Gallardo MD [place] [facility] DELMAR : SPINE [id number] / / 5.0x45 Trammell Screw Implanted:Qty: 4 on 03/25/2022 by Lorenzo Gallardo MD [place] [facility] DELMAR : SPINE [id number] / / Spineology E Mesh Implanted:Qty: 1 on 03/25/2022 by Lorenzo Gallardo MD at [place] [facility] [employer] 06/29/2024 330-2005 / / [id number] Vitoss Bimodal Foam Pack 10cc - [id number] Implanted:Qty: 1 on 03/25/2022 by Lorenzo Gallardo MD at [place] [facility] DELMAR : SPINE [id number] 08/27/20231909 / / [id number] Vitoss Bimodal Foam Pack 10cc - [id number] Implanted:Qty: 1 on 03/25/2022 by Lorenzo Gallardo MD at [place] [facility] DELMAR : SPINE [id number] 08/27/20231909 / / [id number] Vitoss Bimodal Foam Pack 10cc - [id number] Implanted:Qty: 1 on 03/25/2022 by Lorenzo Gallardo MD at [place] [facility] DELMAR : SPINE [id number] 08/27/20231909 / / [id number] Vitoss Bimodal Foam Pack 10cc - [id number] Implanted:Qty: 1 on 03/25/2022 by Lorenzo Gallardo MD at [place] [facility] DELMAR : SPINE [id number] 08/27/20231909 / / [id number] Connector Crosslink 43 To 54 - [id number] Implanted:Qty: 1 on 03/25/2022 by Lorenzo Gallardo MD at [place] [facility] DELMAR : SPINE [id number] / / Tube Preflld Allogrft Diverted - [id number] Implanted:Qty: 1 on 03/25/2022 by Lorenzo Gallardo MD at [place] [facility] [employer] 11/19/2023 [id number] / / Tube Preflld Allogrft Diverted - [id number] Implanted:Qty: 1 on 03/25/2022 by Lorenzo Gallardo MD at [place] [facility] [employer] 11/18/2024 [id number] / / Tube Preflld Allogrft Diverted - [id number] Implanted:Qty: 1 on 03/25/2022 by Lorenzo Gallardo MD at [place] [facility] [employer] 11/18/2024 [id number] / / Vitoss Bimodal Foam Pack 10cc - [id number] Implanted:Qty: 1 on 03/25/2022 by Lorenzo Gallardo MD at [place] [facility] DELMAR : SPINE [id number] 08/27/20232101- 1909 / / [id number] Tube Preflld Allogrft Diverted - [id number] Implanted:Qty: 4 on 03/25/2022 by Lorenzo Gallardo MD at [place] [facility] [employer] 11/19/2023 [id number] / / Screw Set [id number] - [id number] Implanted:Qty: 6 on 03/25/2022 by Lorenzo Gallardo MD at [place] [facility] DELMAR : SPINE [id number] 1 / / 3.5x14 Screw Implanted:Qty: 6 on 03/25/2022 by Lorenzo Gallardo MD at [place] [facility] DELMAR : SPINE [id number] 4 / / 4.0/[id number] Transition Juan Implanted:Qty: 2 on 03/25/2022 by Lorenzo Gallardo MD [place] [facility] DELMAR : SPINE 1342-2985 00 / / Screw Ludmila Stella 3 Ti Set - [id number] Implanted:Qty: 11 on 03/25/2022 by Lorenzo Gallardo MD at [place] [facility] DELMAR : SPINE [id number] / / 5.0x30 Trammell Screw Implanted:Qty: 2 on 03/25/2022 by Lorenzo Gallardo MD [place] [facility] DELMAR : SPINE [id number] / / 5.0x35 Trammell Screw Implanted:Qty: 2 on 03/25/2022 by Lorenzo Gallardo MD at [place] [facility] DELMAR : SPINE [id number] / / Tube Ventilation Briggs [id number] - [id number] - [id number] Implanted:Qty: 1 on 03/02/2023 by Cem Ly DO at OR [facility] Right: Ear [employer] 12/21/2031 [id number] / [id number] / [id number] documented as of this encounter Visit Diagnoses [...] Directives occurred with: Not Discussed Care Teams Loft Worker Head Relationship Specialty Start Date End Date Aleksandr Parker MD [address] [place] [facility] [place] [address] PCP - General 06/27/02 documented as of this encounter
--- OUTSIDE RECORDS SUMMARY | 2023-12-22 05:23 | External Medical Summary | Summary of Care ---
Author Name Unknown Organization [facility] Address [address] [place] [address] Phone [phone] Care Team Providers Care Rn Admissions Name Role Phone Aleksandr Parker MD Primary Care Provider [phone]- [phone] Reason for Visit * Reason Comments Medication Management Encounter Details Date Type Department Care Team (Late st Contact Info) Description 09/19/2023 9:30 AM EDT Pharmacy Pharmacy Hematology Oncology [facility] [address] [place] [address] [facility] Hem/Onc [address] [place], [place] [phone] 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 [...] cut.. 112 Tablet 5 08/29/2023 Active Ipratropium [place] 0.03 % Nasal Solution (Atrovent) Administer 2 [...] mRNA, LNP-s, No Pre serve, 2-Dose Series (TBS) 02/03/2021,07/08/2020,06/10/2020 COVID-19, MRNA-LNP, 23-24, P F, 30 [...] this encounter Progress Notes * Nohelia Cleveland, [facility] - 09/19/2023 9:52 AM EDT MEDICATION THERAPY MANAGEMENT TUCATINIB (TUKYSA) AND CAPECITABINE (XELODA) TREATMENT PROGRESS NOTE Lola Walters [phone] Patient Phone Numbers Preferred Lab: [facility]: Tucatinib - GSP: Capecitabine - [facility] Communication: Seen in clinic Treatment: Medication: tucatinib (Tukysa) Indication/Staging/Diagnosis Code: metastatic HER2+ breast cancer / C50.411, Z17.0 Dose: 250 mg (2-50mg + 1-150mg tab) BID ( 10/05/22) Administration: +/- food Start Date: 05/30/22 Primary Population Health Manager/Oncologist: Dr. 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 Paco Robbins Additional Therapy: Trastuzumab Supportive [...] held due to ongoing HFS Interval History: HFS improving on feet Confirms applying clobetasol to feet BID. Requests RX refill Reports improved ambulation without pain HFS on hands resolved Reports intermittent diarrhea resolved with loperamide. Denies dehydration Reports intermittent nausea resolved with ondansetron No other concerns Changes to medication list since last visit? No Assessment and Plan: LFTs declining to WNL All other labs stable Continue loperamide (MDD 16mg) as needed for diarrhea management Continue ondansetron as needed for nausea Continue tucatinib Per discussion with Dr. Robbins, pt to resume capecitabine at 2000mg BID 11/11 Continue clobetasol to feet BID RX refill sent to pharmacy Continue urea cream on hands for HFS ppx Advised pt to contact office if HFS worsens prior to holiday weekend. Pt replied with understanding MTM to follow up in 2 weeks to assess HFS and capecitabine DR tolerability Assessment of compliance: compliant Assessment of adverse effects attributed to drug therapy: TUKYSA Diarrhea - present Nausea/Vomiting - present Peripheral neuropathy - absent Skin rash - absent Hand-foot syndrome - present, improving Decreased appetite - absent Stomatitis - absent XELODA N/A Dose adjustment needed based on lab or adverse drug reaction? Yes, resume capecitabine Follow up: 10/05 Nohelia Cleveland, PharmD, BCOP Clinical Pharmacist, [facility] Oral Chemotherapy [facility] 09/19/2023, 10:28 AM Monitoring Parameters: Estimated CrCl Serum creatinine: 0.9 mg/dL 09/19/23 0747 Estimated creatinine clearance: 79.9 mL/min Hepatitis panel Latest Reference Range & [...] Pertinent Labs: Latest Reference Range & Units 08/08/23 09:08 08/29/23 10:35 09/19/23 07:47 WBC 4.00 - 10.80 K/uL 5.58 5.93 7.58 RBC 3.85 - 5.15 M/uL 3.82 3.96 4.00 HGB 12.0 - 15.3 g/dL 13.0 13.7 13.5 HCT 36.0 - 45.2 % 39.0 40.3 41.2 MCV 81.5 - 97.5 fL 102.1 101.8 103.0 MCH 27.0 - 34.0 pg 34.0 34.6 33.8 MCHC 32.0 - 36.0 g/dL 33.3 34.0 32.8 RDW 11.5 - 15.5 % 18.2 19.2 16.8 PLT 140 - 400 K/uL 220 204 207 MPV 6.6 - 11.1 fL 9.2 9.0 9.6 CBC WITH WBC DIFFERENTIAL Rpt ! Rpt ! Rpt Absolute Neutrophils 1.80 - 7.70 K/uL 3.49 3.65 5.11 Latest Reference Range & Units 08/08/23 09:08 08/29/23 10:35 09/19/23 07:47 Albumin 3.8 - 5.0 g/dL 3.8 3.7 (L) 3.7 (L) AST 10 - 35 U/L 19 37 (H) 16 ALT 10 - 35 U/L 20 63 (H) 19 Alkaline Phosphatase 35 - 130 U/L 88 104 100 Bilirubin, Total <=1.2 mg/dL 0.7 1.2 0.6 Time Spent on Encounter: 21 - 25 minutes Encounter Group: Oncology Encounter Interventions Item Category: Oral Chemotherapy Tucatinib Problem/Rationale: Safety: Needs additional monitoring - Medication Requires monitoring Pharmacist Intervention(s): Lab monitoring and Toxicity monitoring Magnitude of Intervention: Monitoring with direction (Level 1) Second Item Second Item Category: Oral Chemotherapy Capecitabine Problem/Rationale: Safety: Adverse medication event - Undesirable effect Pharmacist Intervention(s): Clarification with Provider, Lab monitoring, Medication resumed, and Toxicity monitoring Magnitude of Intervention: Modification of medication for asymtomatic patients (Level 2) Third Item Third Item Category: Topicals Clobetasol Problem/Rationale: Effectiveness: Needs additional monitoring - Medication Requires monitoring Adherence - Refill needed Pharmacist Intervention(s): Refill sent and Toxicity monitoring Magnitude of Intervention: Modification of medication for asymtomatic patients (Level 2) Fourth Item Fourth Item Category: Anti-Diarrheal Loperamide Problem/Rationale: Effectiveness: Needs additional monitoring - Medication Requires monitoring Pharmacist Intervention(s): Toxicity monitoring Magnitude of Intervention: Monitoring with direction (Level 1) documented in this encounter Plan of Treatment Upcoming Encounters Date Type Department Care Team (Late st Contact Info) Description 09/20/2023 1:15 PM EDT Office Visit Neurosurgery, [place] [address] [place] [address] [facility] [place] [address] 10/06/2023 9:45 AM EDT Pharmacy Pharmacy Hematology Oncology [facility] [address] [place] [address] [facility] Hem/Onc [address] [place] [address] 10/06/2023 12:00 PM EDT Office Visit Allergy/Immunology [place] [facility] [address] [place] [address] Alexandru Mcelroy MD [address] [place] [address] 10/10/2023 7:40 AM EDT Laboratory Laboratory [facility] [address] [place] [phone] Arianna, Lab [address] [facility] [place] [address] 10/10/2023 8:15 AM EDT Office Visit Hematology/Oncology [facility] [place] [address] [place] [phone] Ruddy Robbins MD [address] [place] [address] 10/10/2023 8:45 AM EDT Hem/Onc Treatment Hematology/Oncology Treatment, [place] [address] [place], [place] [phone] Arianna, Chair 7 Hem Onc Scenery [address] [place] [address] 10/18/2023 8:45 AM EDT Imaging Radiology [address] 132 [facility] [place] [address] 10/19/2023 2:00 PM EDT Cardiac Studies Cardiac Studies, [facility] 132 [facility] [place] [address] 10/23/2023 8:45 AM EDT Imaging Radiology [address] 132 [facility] [place] [address] 11/14/2023 2:00 PM EDT Office Visit Otolaryngology [facility] 132 [facility] [place] [address] Amisha Joseph PA-C [address] [place] [address] 03/20/2024 1:45 PM EST Office Visit Neurosurgery, [place] [address] [facility] [place] [phone] Lorenzo Gallardo MD [address] [facility] [place] [address] Scheduled Procedures Name Priority Associated Diagnoses Date/Ti [...] this encounter Medical Devices Implanted Type Area Ux Visual Designer Device Identifier Shelf Expiration Date Model / Serial / Lot Cement Hv-R C01a - [id number] Implanted:Qty: 1 on 08/20/2021 by Lorenzo Gallardo MD at [place] [facility] [place]/A: Spine Thoracic [employer] : NEURO CARE 04/30/2024 C01A / / [id number] Port Implant W/8f Poly Cath - [id number] Implanted:Qty: 1 on 09/03/2021 by Blayne Villegas MD at OR [facility] Left: Chest CR BARD : PERIPHERAL VASCULAR [id number] 07/29/2022 [id number] / / [id number] 5.0x40 Trammell Screw Implanted:Qty: 3 on 03/25/2022 by Lorenzo Gallardo MD at [place] [facility] DELMAR : SPINE [id number] / / 5.0x45 Trammell Screw Implanted:Qty: 4 on 03/25/2022 by Lorenzo Gallardo MD at OR [facility] DELMAR : SPINE [id number] / / Spineology E Mesh Implanted:Qty: 1 on 03/25/2022 by Lorenzo Gallardo MD at OR [facility] [employer] 06/29/2024 330-2005 / / [id number] Vitoss Bimodal Foam Pack 10cc - [id number] Implanted:Qty: 1 on 03/25/2022 by Lorenzo Gallardo MD at [place] [facility] DELMAR : SPINE [id number] 08/27/20231909 / / [id number] Vitoss Bimodal Foam Pack 10cc - [id number] Implanted:Qty: 1 on 03/25/2022 by Lorenzo Gallardo MD at OR [facility] DELMAR : SPINE [id number] 08/27/20231909 / / [id number] Vitoss Bimodal Foam Pack 10cc - [id number] Implanted:Qty: 1 on 03/25/2022 by Lorenzo Gallardo MD at [place] [facility] DELMAR : SPINE [id number] 08/27/20231909 / / [id number] Vitoss Bimodal Foam Pack 10cc - [id number] Implanted:Qty: 1 on 03/25/2022 by Lorenzo Gallardo MD at OR [facility] DELMAR : SPINE [id number] 08/27/20231909 / / [id number] Connector Crosslink 43 To 54 - [id number] Implanted:Qty: 1 on 03/25/2022 by Lorenzo Gallardo MD at OR [facility] DELMAR : SPINE [id number] / / Tube Preflld Allogrft Diverted - [id number] Implanted:Qty: 1 on 03/25/2022 by Lorenzo Gallardo MD at OR [facility] [employer] 11/19/2023 [id number] / / Tube Preflld Allogrft Diverted - [id number] Implanted:Qty: 1 on 03/25/2022 by Lorenzo Gallardo MD at OR [facility] [employer] 11/18/2024 376064 / / Tube Preflld Allogrft Diverted - [id number] Implanted:Qty: 1 on 03/25/2022 by Lorenzo Gallardo MD at OR [facility] [employer] 11/18/2024 955997 / / Vitoss Bimodal Foam Pack 10cc - [id number] Implanted:Qty: 1 on 03/25/2022 by Lorenzo Gallardo MD at OR [facility] DELMAR : SPINE [id number] 08/27/20231909 / / [id number] Tube Preflld Allogrft Diverted - [id number] Implanted:Qty: 4 on 03/25/2022 by Lorenzo Gallardo MD at OR [facility] [employer] 11/19/2023 680512 / / Screw Set [id number] - [id number] Implanted:Qty: 6 on 03/25/2022 by Lorenzo Gallardo MD at OR [facility] DELMAR : SPINE [id number] 1 / / 3.5x14 Screw Implanted:Qty: 6 on 03/25/2022 by Lorenzo Gallardo MD at OR [facility] DELMAR : SPINE [id number] 4 / / 4.0/[id number] Transition Juan Implanted:Qty: 2 on 03/25/2022 by Lorenzo Gallardo MD at OR [facility] DELMAR : SPINE 0230-1966 00 / / Screw Ludmila Stella 3 Ti Set - [id number] Implanted:Qty: 11 on 03/25/2022 by Lorenzo Gallardo MD at OR [facility] DELMAR : SPINE [id number] / / 5.0x30 Trammell Screw Implanted:Qty: 2 on 03/25/2022 by Lorenzo Gallardo MD at OR [facility] DELMAR : SPINE [id number] / / 5.0x35 Trammell Screw Implanted:Qty: 2 on 03/25/2022 by Lorenzo Gallardo MD at OR [facility] DELMAR : SPINE [id number] / / Tube Ventilation Briggs [id number] - [id number] - [id number] Implanted:Qty: 1 on 03/02/2023 by Cem Ly DO at OR [facility] Right: Ear [employer] 12/21/2031 [id number] / [id number] / [id number] documented as of this encounter Visit Diagnoses [...] Directives occurred with: Not Discussed Care Teams Rn Admissions Relationship Specialty Start Date End Date Aleksandr Parker MD [address] [place] [address] PCP - General 06/27/02 documented as of this encounter
--- OUTSIDE RECORDS SUMMARY | 2023-12-22 05:23 | External Medical Summary ---
Author Name Unknown Address Unknown Organization [facility] [address] [place] [address] Laboratory Report Ordering Provider Test Date Status SYLVIA FROST 09/19/2023 07:47:28 Final Observation Date Value Abnormality Reference (Units ) Status BUN 09/19/2023 07:47:28 17 6-20 (mg/dL) Final Creatinine 09/19/2023 07:47:28 0.9 0.5-1.0 (mg/dL) Final Glomerular filtration rate/1.73 sq M.predicted [Volume Rate/Area] in Serum, Plasma or Blood by Creatinine-based formula (CKD-EPI) 09/19/2023 07:47:28 75 >=60 (mL/min) Final eGFR is calculated based on the CKD-EPI 2020 equation Sodium 09/19/2023 07:47:28 141 135-146 (m mol/L) Final Potassium 09/19/2023 07:47:28 3.9 3.5-5.1 (m mol/L) Final Cl 09/19/2023 07:47:28 106 98-107 (mm ol/L) Final CO2 09/19/2023 07:47:28 27 22-32 (mmo l/L) Final Anion gap 09/19/2023 07:47:28 8 7-15 (mmol /L) Final Glucose 09/19/2023 07:47:28 118 70-120 (mg /dL) Final Albumin 09/19/2023 07:47:28 3.7 Below low normal 3.8 -5.0 (g/dL) Final AST (Aspartate aminotransferase) 09/19/2023 07:47:28 16 10-35 (U/L) Fin al Alk Phos 09/19/2023 07:47:28 100 35-130 (U/ L) Final Bilirubin, Total 09/19/2023 07:47:28 0.6 <=1 .2 (mg/dL) Final Calcium 09/19/2023 07:47:28 8.9 8.4-10.2 ( mg/dL) Final Protein 09/19/2023 07:47:28 6.8 6.0-8.3 (g /dL) Final ALT (Alanine aminotransferase) 09/19/2023 07:47:28 19 10-35 (U/L) Rocael wang Performing Location [facility] [address] [place] [address]
--- OUTSIDE RECORDS SUMMARY | 2023-12-22 05:23 | External Medical Summary ---
Author Name Unknown Address Unknown Organization K09[facility] [place] [address] Laboratory Report Ordering Provider Test Date Status SYLVIA FROST 09/19/2023 07:47:28 Final Observation Date Value Abnormality Reference (Units ) Status SYNC LEUKOCYTES IN BLOOD BY AUTOMATED COUNT 09/19/2023 07:47:28 7.58 4.00-10.80 (K/uL) Final Segs 09/19/2023 07:47:28 67.3 40.0-75.0 (%) Final Lymphs % 09/19/2023 07:47:28 18.9 18.0-42.0 (%) Final Monos 09/19/2023 07:47:28 9.4 1.0-11.0 (%) Final Eosinophils 09/19/2023 07:47:28 4.0 0.0-6.0 (%) Final Basos 09/19/2023 07:47:28 0.4 0.0-2.0 (%) Final Absolute Segs 09/19/2023 07:47:28 5.11 1.80-7.70 (K/uL) Final Lymphs, absolute 09/19/2023 07:47:28 1.43 1.00-4.80 (K/ul) Final Monos, Abs 09/19/2023 07:47:28 0.71 0.00-1.10 (K/uL) Final Eos, Abs 09/19/2023 07:47:28 0.30 0.00-0.70 (K/uL) Final Basos, Abs 09/19/2023 07:47:28 0.03 0.00-0.20 (K/uL) Final Performing Location [facility] [address] [place] [address]
--- OUTSIDE RECORDS SUMMARY | 2023-12-22 05:23 | External Medical Summary | Summary of Care ---
Author Name Unknown Organization [facility] Address [address] [place] [address] Phone [phone] Care Team Providers Care Receptionist Secretary Name Role Phone Aleksandr Parker MD Primary Care Provider [phone]- [phone] Reason for Visit * Reason Onset Date Comments Medication Refill 09/19/2023 Encounter Details Date Type Department Care Team (Late st Contact Info) Description 09/19/2023 Refill Hematology/Oncology [facility] [address] [place] [id number] Ruddy Robbins MD [address] [place] [address] Allergies Active Allergy Reactions Criticality Noted Date [...] cut.. 112 Tablet 5 08/29/2023 Active Ipratropium [place] 0.03 % Nasal Solution (Atrovent) Administer 2 [...] mRNA, LNP-s, No Pre serve, 2-Dose Series ([employer]) 02/03/2021,07/08/2020,06/10/2020 COVID-19, MRNA-LNP, 23-24, P F, 30 [...] encounter Miscellaneous Notes * Telephone Encounter - Nohelia Cleveland RPh - 09/19/2023 10:25 AM EDT Clobetasol RX refill per 09/18 MT encounter documented in this encounter Plan of Treatment Upcoming Encounters Date Type Department Care Team (Late st Contact Info) Description 09/20/2023 1:15 PM EDT Office Visit Neurosurgery, [place] [address] [place] [address] Lorenzo Gallardo MD [address] [place] [address] 10/06/2023 9:45 AM EDT Pharmacy Pharmacy Hematology Oncology [facility] [place] [address] [place] [address] [facility], [facility] Hem/Onc [address] [place] [address] 10/06/2023 12:00 PM EDT Office Visit Allergy/Immunology [facility] [address] [place] [address] Alexandru Mcelroy MD [address] [place] [address] 10/10/2023 7:40 AM EDT Laboratory Laboratory [facility] [address] [place] [phone] [place] [address] 10/10/2023 8:15 AM EDT Office Visit Hematology/Oncology [facility] [address] [place] [address] [id number] Ruddy Robbins MD [address] [place], [place] [address] 10/10/2023 8:45 AM EDT Hem/Onc Treatment Hematology/Oncology Treatment, [place] [address] [place], [place] [id number] Arianna, Chair 7 Hem Onc Sc[facility] [address] [facility], [place] [address] 10/18/2023 8:45 AM EDT Imaging Radiology [address] [facility] [address] 10/19/2023 2:00 PM EDT Cardiac Studies Card[facility] Studies, [facility] [address] [facility] [address] 10/23/2023 8:45 AM EDT Imaging Radiology [address] [place] [address] 11/14/2023 2:00 PM EDT Office Visit Otolaryngology [facility] [address] [place] [address] Amisha Joseph PA-C [address] [place] [address] 03/20/2024 1:45 PM EST Office Visit Neurosurgery, [place] [address] [place] [address] Lorenzo Gallardo MD [address], [place] [id number] Scheduled Procedures Name Priority Associated Diagnoses Date/Ti [...] this encounter Medical Devices Implanted Type Area Health Systems Analyst Device Identifier Shelf Expiration Date Model / Serial / Lot Cement Hv-R C01a - [id number] Implanted:Qty: 1 on 08/20/2021 by [place] [facility] [place]: Spine Thoracic [employer] : NEURO CARE 04/30/2024 C01A / / [id number] Port Implant W/8f Poly Cath - [id number] Implanted:Qty: 1 on 09/03/2021 by Blayne Villegas MD at OR [facility] Left: Chest CR BARD : PERIPHERAL VASCULAR [id number] 07/29/2022 [id number] / / [id number] 5.0x40 Trammell Screw Implanted:Qty: 3 on 03/25/2022 by [place] [facility] : SPINE [id number] / / 5.0x45 Trammell Screw Implanted:Qty: 4 on 03/25/2022 by [place] Gall[place] [facility] [place] : SPINE [id number] / / Spineology E Mesh Implanted:Qty: 1 on 03/25/2022 by Lorenzo Gallardo MD [place] [facility] [employer] 06/29/2024 [id number] / / [id number] Vitoss Bimodal Foam Pack 10cc - [id number] Implanted:Qty: 1 on 03/25/2022 by Lorenzo Gallardo MD [place] [facility] : SPINE [id number] 08/27/20231909 / / [id number] Vitoss Bimodal Foam Pack 10cc - [id number] Implanted:Qty: 1 on 03/25/2022 by Lorenzo Gallardo MD [place] [facility] : SPINE [id number] 08/27/20231909 / / [id number] Vitoss Bimodal Foam Pack 10cc - [id number] Implanted:Qty: 1 on 03/25/2022 by Lorenzo Gallardo MD [place] [facility] [place] : SPINE [id number] 08/27/20231909 / / [id number] Vitoss Bimodal Foam Pack 10cc - [id number] Implanted:Qty: 1 on 03/25/2022 by Lorenzo Gallardo MD [place] [facility] [place] : SPINE [id number] 08/27/20232101- 1909 / / [id number] Connector Crosslink 43 To 54 - [id number] Implanted:Qty: 1 on 03/25/2022 by Lorenzo Gallardo MD [place] [facility] : SPINE [id number] / / Tube Preflld Allogrft Diverted - [id number] Implanted:Qty: 1 on 03/25/2022 by Lorenzo Gallardo MD [place] [facility] [employer] 11/19/2023 [id number] / / Tube Preflld Allogrft Diverted - [id number] Implanted:Qty: 1 on 03/25/2022 by Lorenzo Gallardo MD [place] [facility] 11/18/2024 [id number] / / Tube Preflld Allogrft Diverted - [id number] Implanted:Qty: 1 on 03/25/2022 by Lorenzo Gallardo MD [place] [facility] [facility] 11/18/2024 [id number] / / Vitoss Bimodal Foam Pack 10cc - [id number] Implanted:Qty: 1 on 03/25/2022 by Loernzo Gallardo MD [place] [facility] [place] : SPINE [id number] 08/27/20231909 / / [id number] Tube Preflld Allogrft Diverted - [id number] Implanted:Qty: 4 on 03/25/2022 by Lorezno Gallardo MD [place] [facility] [employer] 11/19/2023 [id number] / / Screw Set [id number] - [id number] Implanted:Qty: 6 on 03/25/2022 by Lorenzo Gallardo MD [place] [facility] [place] : SPINE [id number] / / 3.5x14 Screw Implanted:Qty: 6 on 03/25/2022 by Lorenzo Gallardo MD [place] [facility] [place] : SPINE [id number] / / 4.0/5.3p100pz Transition Juan Implanted:Qty: 2 on 03/25/2022 by Lorenzo Gallardo MD [place] [facility] [place]MAR : SPINE [id number] / / Screw Ludmila Stella 3 Ti Set - [id number] Implanted:Qty: 11 on 03/25/2022 by Lorenzo Gallardo MD [place] [facility] [place] : SPINE [id number] / / 5.0x30 Trammell Screw Implanted:Qty: 2 on 03/25/2022 by Lorenzo Gallardo MD [place] [facility] [place] : SPINE [id number] / / 5.0x35 Trammell Screw Implanted:Qty: 2 on 03/25/2022 by Lorenzo Gallardo MD [place] [facility] : SPINE [id number] / / Tube Ventilation Briggs [id number] - [id number] - [id number] Implanted:Qty: 1 on 03/02/2023 by Cem Ly DO at OR [facility] Right: Ear [employer] 12/21/2031 [id number] / [id number] / [id number] documented as of this encounter Advance Directives [...] Directives occurred with: Not Discussed Care Teams Receptionist Secretary Relationship Specialty Start Date End Date Aleksandr Parker MD [address] [place] [address] PCP - General 06/27/02 documented as of this encounter
[2023-12-22] MEDS ORDERED: PHARMACIST DISCHARGE MED REC CONSULT PRN (05:35)
[2023-12-22] MEDS ORDERED: PROMETHAZINE 6.25 MG/50.25 ML BAG IV PRN (05:37)
[2023-12-22] MEDS ORDERED: LORazepam 0.5 MG TAB PO PRN (05:37)
[2023-12-22] MEDS: NSS + 20MEQ KCL 20 MEQ/1,000 ML BAG IV STA (05:43)
[2023-12-22] MEDS ORDERED: ALBUTEROL HFA 8 GM INHALER INH PRN (06:27)
[2023-12-22] MEDS ORDERED: CAPECITABINE 500 MG PO SCH (06:30)
[2023-12-22 06:47] VITALS: PULSE 87
[2023-12-22] MEDS: GADOBUTROL 65ML VIAL IV ONE (07:35)
[2023-12-22] MEDS ORDERED: ACETAMINOPHEN 325 MG TAB PO PRN (08:01)
--- NOTE | 2023-12-22 08:01 | XRay Report ---
XR chest 1V portable HISTORY: weakness COMPARISON: Outside hospital PET CT 07/11/2023. FINDINGS: No pneumothorax. No pleural effusions. The cardiac silhouette is mildly enlarged. No focal lung consolidations to suggest a pneumonia. No evidence for pulmonary edema. A left jugular Port-A-Ca th terminates in the SVC. Cervicothoracic spinal fusion hardware is again noted. There is an old nonu nited right clavicle fracture. There are old left-sided rib fractures, unchanged. IMPRESSION: Stable mild cardiomegaly. Otherwise, no acute process within the chest. ACT 112: Negative or not required by law. Electronically signed by: Galileo Rodarte M.D. 12/22/2023 7:59 AM
[2023-12-22 08:06] LABS: Estimated Average Glucose 114 mg/dl; Hemoglobin A1C 5.6 % (4.5-5.6)
[2023-12-22] MEDS: MAGNESIUM SULFATE / D5W 1 GM/100 ML BAG IV STA (08:06)
--- NOTE | 2023-12-22 08:09 | Magnetic Resonance Report ---
MR ANGIOGRAM OF THE BRAIN CLINICAL HISTORY: Transient ischemic attack. Reported history of intracranial metastatic disease. COMPARISON STUDY: MRI of the brain performed concurrently on 12/22/2023. TECHNIQUE: 3-D [id number] MR angiography of the intracranial circulation is performed. 3-D tumble views are created and assessed. IV contrast was not administered for this examination. FINDINGS: The internal carotid arteries are widely patent bilaterally, as are the anterior and middle cerebral arteries. The vertebrobasilar system and posterior cerebral arteries are widely patent. The left vertebral artery is dominant. There is origin of the left posterior cerebral artery. The re is no aneurysm, high-grade stenosis, or focal vessel cutoff seen throughout the intracranial circu lation. The brain parenchyma is normal as visualized. IMPRESSION: Unremarkable MR angiogram of the brain. ACT 112: Negative or not required by law. Electronically signed by: Wellington Rondon M.D. 12/22/2023 8:07 AM
--- NOTE | 2023-12-22 08:20 | Magnetic Resonance Report ---
Brain MRI WITH AND WITHOUT CONTRAST HISTORY: tia, hx brain mets TECHNIQUE: Multiplanar multisequence MRI of the brain was performed both before and after the intrave nous administration of contrast. COMPARISON STUDY: Head CT 12/22/2023. Outside hospital brain MRI 07/12/2023. FINDINGS: No areas restricted diffusion to suggest an acute infarction. The midline structures are in tact. Mild periarticular white matter T2 hyperintensity persists and suggest mild microvascular ische roseanna change. No hematoma or midline shift. Focal area of encephalomalacia with surrounding gliosis wit hin the right frontal lobe remains unchanged and favors an old infarct. The ventricles and sulci demo nstrate mild age-related involutional changes. The orbits are unremarkable. The paranasal sinuses and left mastoid air cells are clear. There is a trace right mastoid effusion. The major vascular flow-v oids at the skull base are well-maintained. Old lacunar infarcts within the right basal ganglia and b ilateral cerebellar hemispheres. There is a new 2 mm enhancing nodule within the right cerebellar hem isphere and a new 3 mm enhancing nodule adjacent to or within the lateral aspect of the right thalamu s. Increase in size in the now 6 mm enhancing nodule within the right posterior thalamus. The linear enhancing focus within the right caudate head seen on the prior study has improved/resolved. IMPRESSION: 1. No acute infarct or intracranial hemorrhage. 2. There are total of 3 enhancing nodules within the brain parenchyma as described above, 2 of which appear new from the prior study. Therefore, this is suspicious for progressive metastatic disease. 3. Old infarcts as described above. ACT 112: Negative or not required by law. Electronically signed by: Galileo Rodarte M.D. 12/22/2023 8:19 AM
--- NOTE | 2023-12-22 08:26 | Electrocardiogram Report ---
Test Reason : Blood Pressure : */* mmHG Vent. Rate : 92 BPM Atrial Rate : 441 BPM P-R Int : 114 ms QRS Dur : 80 ms QT Int : 364 ms P-R-T Axes : 11 -2 29 degrees QTcB Int : 450 ms Poor data quality, interpretation may be adversely affected Sinus rhythm Normal ECG When compared with ECG of 08-Jul-2008 12:27, No significant change Confirmed by Elio Chen ([id number]) on 12/22/2023 8:25:43 AM Referred By: REFERRED SELF Confirmed By: Elio Chen
[2023-12-22] MEDS: ASPIRIN 81 MG ECTAB PO SCH (09:03)
[2023-12-22] MEDS: CETIRIZINE HCL 10 MG TABLET PO SCH (09:04)
[2023-12-22] MEDS: CALCIUM 600MG + VIT D 400 IU TAB PO SCH (09:04)
[2023-12-22] MEDS: FAMOTIDINE 20 MG TAB PO SCH (09:05)
[2023-12-22] MEDS: MONTELUKAST SODIUM 10 MG TABLET PO SCH (09:06)
[2023-12-22] MEDS: MULTIVITAMIN TAB PO SCH (09:06)
[2023-12-22] MEDS: VITAMIN B COMPLEX TAB PO SCH (09:07)
[2023-12-22] MEDS: PANTOprazole 40 MG TAB PO SCH (09:08)
[2023-12-22] MEDS: FLUTICASONE FUROATE 200MCG 14 PUFFS/INHALER INH SCH (09:08)
[2023-12-22] MEDS: AZELASTINE HCL 0.1% NASAL 200 SPRAYS/27,400 MCG BTL SCH (09:09)
[2023-12-22] MEDS: FLUTICASONE PROPIONATE NA SPR 16 GM BTL SCH (09:09)
[2023-12-22] MEDS: CLOBETASOL PROPIONATE 0.05% CREAM 15 GM TUBE TOP SCH (09:13)
[2023-12-22] MEDS: DIPYRIDAMOLE/ASPIRIN CAP PO SCH (11:20)
[2023-12-22] MEDS: ATORVASTATIN 20 MG TAB PO SCH (11:21)
[2023-12-22] MEDS ORDERED: STROKE PATIENT DISCHARGE STA (11:28)
--- NOTE | 2023-12-22 11:35 | Discharge Summary ---
Discharge Summary Date of Service December 22, 2023 Principal Dx & Hospital Course #1 = Principal Diagnosis (1) TIA (transient ischemic attack): (2) Brain metastasis: (3) Breast cancer metastasized to multiple sites: Plan Patient presenting to the emergency room with acute onset of difficulty with speech and some global weakness. Patient had extensive evaluation in the emergency room for stroke, by the time she came to the emergency room and most all of her symptoms had resolved. Not a candidate for tPA due to the fact that she woke up with the symptoms as well as that her symptoms completely resolved. Patient was admitted to the hospital. Continue on telemetry monitoring without significant arrhythmias. Patient underwent MRI/MRA of the head and neck no vascular occlusions. MRI of the brain showed no new areas of ischemic stroke did show areas of previous old ischemic stroke. Also unfortunately showed 2 new brain lesions in the right cerebellar and right lateral thalamus. And also increase in size of the right thalamic lesion that was known previously. At the time of discharge the patient's speech was clear she her strength was back to baseline she is up and ambulating without difficulties. Discussed treatment for secondary stroke prevention. Plavix unfortunately significantly interacts with her chemotherapeutic agents. Aggrenox does not interact nearly as much. Agreed to switching out her aspirin to Aggrenox. Also start a statin therapy. I did update her oncologist via [place] text. She will follow-up with him outpatient to discuss her advancing cancer. She will follow-up with her other outpatient providers as well. is at the bedside at the time of discharge agreeable to plan of care. Notes For Next Care Provider Patient to follow-up with her oncologist Dr. Robbins to discuss advancing metastatic breast cancer Medication Changes From Visit Aggrenox interchanged for her aspirin Lipitor for secondary stroke prevention Admission HPI Per Admitting Provider History obtained from patient, family, and records. Medical history significant for old stroke on past brain imaging as per patient, right breast cancer status post surgery/radiation with known brain/liver/bone mets ongoing chemotherapy, bronchial asthma, GERD. Earlier this morning, patient had difficulty getting out of bed that she had to be helped by her . Bilateral leg weakness more on the right. Possible RUE weakness. Usual neuropathy symptoms from chemotherapy medications. Speech somewhat slurred, tongue felt thick as per patient. Denies headache, chest pain, SOB, back pain. Compliant with home aspirin for old stroke on past brain imaging as per patient. Symptoms lasted about 15 minutes. Patient brought to ER by EMS. Patient currently comfortable and back to baseline. Highest SBP of 160s noted at the ER. 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 Lungs: Clear to auscultation, decreased, no wheezes rales or rhonchi CV: S1-S2, regular Abdomen: Soft, nontender, nondistended Extremities: No significant edema Neuro: No focal deficits, speech is not clear, moves all extremities, ambulates without assistance, NIH stroke score equals 0 Psych: Cooperative, normal mood Updated Medication List Medication Instructions Recorded Confirmed Type albuterol sulfate 90 mcg/actuation 2 puffs inhalation Q6H PRN 05/30/18 12/22/23 History aerosol inhaler (Proventil HFA) Shortness Of Breath Or Wheezing azelastine 137 mcg (0.1 %) nasal 2 sprays intranasal BID 05/30/18 12/22/23 History spray meclizine 12.5 mg tablet 12.5 mg PO TID PRN car sickness 05/30/18 12/22/23 History montelukast 10 mg tablet 10 mg PO DAILY 05/30/18 12/22/23 History (Singulair) multivitamin 1 tab PO DAILY 05/30/18 12/22/23 History vitamin B complex (B Complex 1 1 tab PO DAILY 05/30/18 12/22/23 History tablet) famotidine 20 mg tablet 20 mg PO BID 02/12/19 12/22/23 History levocetirizine 5 mg tablet (Xyzal) 5 mg PO DAILY 02/18/20 12/22/23 History aspirin 81 mg tablet,delayed 81 mg PO DAILY 02/22/22 12/22/23 History release Calcium + D 3 cap PO DAILY 04/27/22 12/22/23 History acetaminophen 500 mg tablet 500 mg PO Q6H PRN Pain, Mild 04/27/22 12/22/23 History (Tylenol Extra Strength) esomeprazole magnesium 20 mg 20 mg PO DAILY 04/27/22 12/22/23 History capsule,delayed release fluticasone propionate 50 2 spray intranasal DAILY 04/27/22 12/22/23 History mcg/actuation nasal spray,suspension ondansetron HCl 8 mg tablet 8 mg PO Q8H PRN Nausea 04/27/22 12/22/23 History prochlorperazine maleate 10 mg 10 mg PO Q6H PRN Nausea 04/27/22 12/22/23 History tablet (Compazine) sodium chloride 0.65 % nasal spray 1 spray intranasal .Q2-4H PRN dry 04/27/22 0 12/22/23 History aerosol (Saline Mist) nasal passages/congestion vitamin E 200 unit capsule 100 unit PO DAILY 04/27/22 12/22/23 History denosumab 120 mg/1.7 mL (70 mg/mL) 120 mg subcut .q 6 weeks 09/06/22 12/22/23 History subcutaneous solution (Xgeva) capecitabine 500 mg tablet (Xeloda) 1,300 mg PO .As directed 03/15/23 12/22/23 History potassium chloride 20 mEq 20 meq PO DAILY 03/15/23 12/22/23 History tablet,extended release diphenoxylate-atropine 2.5 1 tab PO Q6H PRN Diarrhea 09/13/23 12/22/23 History mg-0.025 mg tablet (Lomotil) loperamide 2 mg capsule (Imodium 2 mg PO Q6H PRN Diarrhea 09/13/23 12/22/23 History A-D) tucatinib 150 mg tablet 250 mg PO Q12H 09/13/23 12/22/23 History aspirin 25 mg-dipyridamole 200 mg 1 cap PO BID #60 caps 12/22/23 Rx capsule,ext.release 12 hr multiphase atorvastatin 20 mg tablet 20 mg PO QAM #30 tabs 12/22/23 Rx clobetasol 0.05 % topical cream 0.05 g topical BID 12/22/23 12/22/23 History fluticasone furoate 200 200 mcg inhalation DAILY 12/22/23 12/22/23 History mcg/actuation blister powder for inhalation (Arnuity Ellipta) Hospital Stay Data Consultations 12/22/23 04:14 ED Decision to Admit Stat Diagnostic Imagining Performed Reviewed imaging, laboratory and diagnostic studies. Pertinent findings as below. MRI of the brain showed evidence of old infarctions, no acute infarction, also noted to new metastatic lesions in the cerebellar and thalamus areas. Increasing size of the previous brain lesion 12/22/23 01:46 CT Brain [CT head/brain wo con] Stat 12/22/23 05:35 MR brain wo/w con Urgent 12/22/23 05:37 MR angio head wo con Urgent Pending Results Patient Have Any Pending Studies at Discharge: No Discharge Instructions Given to Patient (Per Discharging Provider) Follow-up with your oncologist to discuss other treatment options Total Time Total Time Spent Total Time Spent (In Minutes): 45
--- NOTE | 2023-12-22 11:35 | Pharmacy Report ---
- Date of Service December 22, 2023 - Pharmacy CVA/TIA Medication Review Medications to Prevent Stroke handout has been added to the patients discharge packet. Antiplatelet(s) * Aspirin 81 mg daily Cholesterol * High intensity statin deferred due to LDL level DVT Prophylaxis * SCD knee Therapeutic Anticoagulation * No history of Afib/Aflutter noted Type 2 Diabetes * Patient does not have T2DM
[2023-12-22 11:52] VITALS: BP 135/98; O2SAT 95
--- NOTE | 2023-12-25 10:49 | Pharmacy Report ---
Pharmacist Stroke Counseling - Date of Service December 25, 2023 - Scope: Pharmacy has been consulted to provide medication discharge counseling for this patient admitted with transient ischemic attack as per the Pharmacist Discharge Counseling for Stroke Patients Protocol. - Medications on Discharge: Home Medications Medication Instructions Recorded Confirmed albuterol sulfate 90 mcg/actuation 2 puffs inhalation Q6H PRN 05/30/18 12/22/23 aerosol inhaler (Proventil HFA) Shortness Of Breath Or Wheezing azelastine 137 mcg (0.1 %) nasal 2 sprays intranasal BID 05/30/18 12/22/23 spray meclizine 12.5 mg tablet 12.5 mg PO TID PRN car sickness 05/30/18 12/22/23 montelukast 10 mg tablet 10 mg PO DAILY 05/30/18 12/22/23 (Singulair) multivitamin 1 tab PO DAILY 05/30/18 12/22/23 vitamin B complex (B Complex 1 1 tab PO DAILY 05/30/18 12/22/23 tablet) famotidine 20 mg tablet 20 mg PO BID 02/12/19 12/22/23 levocetirizine 5 mg tablet (Xyzal) 5 mg PO DAILY 02/18/20 12/22/23 Calcium + D 3 cap PO DAILY 04/27/22 12/22/23 acetaminophen 500 mg tablet 500 mg PO Q6H PRN Pain, Mild 04/27/22 12/22/23 (Tylenol Extra Strength) esomeprazole magnesium 20 mg 20 mg PO DAILY 04/27/22 12/22/23 capsule,delayed release fluticasone propionate 50 2 spray intranasal DAILY 04/27/22 12/22/23 mcg/actuation nasal spray,suspension ondansetron HCl 8 mg tablet 8 mg PO Q8H PRN Nausea 04/27/22 12/22/23 prochlorperazine maleate 10 mg 10 mg PO Q6H PRN Nausea 04/27/22 12/22/23 tablet (Compazine) sodium chloride 0.65 % nasal spray 1 spray intranasal .Q2-4H PRN dry 04/27/22 12/22/23 aerosol (Saline Mist) nasal passages/congestion vitamin E 200 unit capsule 100 unit PO DAILY 04/27/22 12/22/23 denosumab 120 mg/1.7 mL (70 mg/mL) 120 mg subcut .q 6 weeks 05/09/23 08/23/24 subcutaneous solution (Xgeva) capecitabine 500 mg tablet (Xeloda) 1,300 mg PO .As directed 03/15/23 12/22/23 potassium chloride 20 mEq 20 meq PO DAILY 03/15/23 12/22/23 tablet,extended release diphenoxylate-atropine 2.5 1 tab PO Q6H PRN Diarrhea 09/13/23 12/22/23 mg-0.025 mg tablet (Lomotil) loperamide 2 mg capsule (Imodium 2 mg PO Q6H PRN Diarrhea 09/13/23 12/22/23 A-D) tucatinib 150 mg tablet 250 mg PO Q12H 09/13/23 12/22/23 clobetasol 0.05 % topical cream 0.05 g topical BID 12/22/23 12/22/23 fluticasone furoate 200 200 mcg inhalation DAILY 12/22/23 12/22/23 mcg/actuation blister powder for inhalation (Arnuity Ellipta) New Rx's Medication Instructions Recorded aspirin 25 mg-dipyridamole 200 mg 1 cap PO BID #60 caps 12/22/23 capsule,ext.release 12 hr multiphase atorvastatin 20 mg tablet 20 mg PO QAM #30 tabs 12/22/23 - Action: The above medications, specifically ones for stroke treatment/prophylaxis, have been reviewed in detail with the patient and/or patient manufacturers representative(s) prior to discharge. This includes indication, common adverse reactions, drug interactions, and medication administration. Medication counseling has been employed using the teach-back method to ensure understanding. - Outcome: The patient and/or patient manufacturers representative(s) have demonstrated understanding of the medications. Additional comments: Spoke with Lola this AM regarding her new medications, Aggrenox and atorvastatin 20mg. Reviewed side effects for new medications. Lola was not aware to stop her baby aspirin, reviewed her discharge plan and it was discontinued. Reviewed that this would not be an overdose if both were taken for a couple days, but she should stop the baby aspirin going forward per the discharge plan. she asked about when to take the medications, both can be taken with or without food and no time restrictions, just whenever it is easiest for her to remember to take. Can take Aggrenox with food if GI upset occurs. She questioned who will refill her prescriptions as they were only for 30 days, discussed her PCP would be in charge of these medications now. She did not have a PCP appointment set up, but will set one up now. All questions answered. Thank you for allowing pharmacy to be involved in the care of this patient. Please call [phone] with any additional questions
--- NOTE | 2023-12-28 20:25 | Coding Query ---
CODING QUERY To promote full compliance with coding requirements relating to patient care, provider participation is requested in all cases of clinical coder uncertainty. Please assist us with the question(s) below: Coding Question(s): Please provide further clarification regarding the presence of TIA during this admission. Please remember that we are unable to code a diagnosis of rule out, probable, possible, questionable or suspected. _x__ TIA was present during this admission ___ TIA was NOT present during this admission ___ Other, Please clarify Physician's Response(s): Thank you Sonya Sadler Principal Diagnosis: "that condition established after study, to be chiefly responsible for occasioning the admission of the patient to the hospital for care." Co-Existing Principal Diagnosis: "when two or more diagnoses equally meet the criteria for principal diagnosis as determined by the circumstances of admission, diagnostic work up, and/or therapy provided, and the Alphabetic Index, Tabular List, or another coding guideline does not provide sequencing direction, any one of the diagnoses may be sequenced first." "When the physician has documented what appears to be a current diagnosis in the body of the record, but has not included the diagnosis in the final diagnostic statement, the physician should be asked whether the diagnosis should be added." (Source [facility] QTR90. p3-4) JAYLIN
== END 2023-12-22 11:52 | disposition home or self-care (01) ==
LOC: EDINP 00:46 → ED 00:46 → EDINP 07:42